=== PATIENT | female | born 1950 | race Caucasian/White ===

== ENCOUNTER → 2016-06-10 | Outpatient (REF) | payer MEDICARE, OTHER ==
[~2016-06-10] MED LIST: /CELE20CA; /LAMO20TA; /PRAV20TA; AMITRIP50 PO; BREO1INH3 INH; CALCCHW12; COLA100C PO; DEPA250T2; DEPA250T2 PO; DEPA250T32 PO; DEPA500T; FISH100035 PO; GLUC1CAP9 PO; LEVO50TA5 PO; LOPR50TA; LUNE1TAB9 PO; LUNE2TAB; MULT1TAB8 PO; OMEGA 3 FISH OIL PO; OMEP40CA2 PO; PAIN325T; PREG100CA; PREG25CA PO; PRESCAP6 PO; PRIL20CA PO; PROP80CA PO; RELP40TA PO; RELPAX; RELPAX PO; REPLAX; REST0.05 OU; SIMV20TA2 PO; THERGRAN; TOPR50TA; VITA100066 PO; VITAMIN B COMPLE1 PO; VITAMIN B12; VITATAB11 PO; WELL100T; [UNRECOGNIZED DRUG - REMARK]
[2016-06-10 12:04] LABS: BASO % 0.5 % (0.0-1.0); EOS # 0.2 K/mm3 (0.0-0.50); EOS % 4.6 % (0.0-3.0); LARGE UNSTAINED CELL # 0.1 K/mm3 (0.0-0.4); LARGE UNSTAINED CELL % 2.9 % (0.0-4.0); LYMPH # 2.2 K/mm3 (1.5-4.5); LYMPH % 47.6 % (24.0-44.0); MEAN CORPUSCULAR HEMOGLOBIN 32.1 pg (27.0-33.0); MEAN CORPUSCULAR HGB CONC 33.8 g/dl (32.0-36.5); MONO # 0.4 K/mm3 (0.0-0.8); MONO % 7.7 % (0.0-5.0); NEUTROPHILS # 1.7 K/mm3 (1.8-7.7); NEUTROPHILS % 36.8 % (36.0-66.0); PLATELET COUNT, AUTOMATED 154 k/mm3 (150-450); RED CELL DISTRIBUTION WIDTH 12.6 % (11.5-14.5); WHITE BLOOD COUNT 4.7 K/mm3 (4.0-10.0)
[2016-06-10 12:43] LABS: ALBUMIN 3.6 GM/DL (3.2-5.2); ALBUMIN/GLOBULIN RATIO 1.16 (1.00-1.93); ALKALINE PHOSPHATASE 87 U/L (45-117); ALT/SGPT 24 U/L (12-78); ANION GAP 9 MEQ/L (8-16); AST/SGOT 18 U/L (15-37); BILIRUBIN,TOTAL 0.4 MG/DL (0.2-1.0); BLOOD UREA NITROGEN 20 MG/DL (7-18); CALCIUM LEVEL 9.1 MG/DL (8.8-10.2); CARBON DIOXIDE LEVEL 30 MEQ/L (21-32); CHLORIDE LEVEL 102 MEQ/L (98-107); CREATININE FOR GFR 0.82 MG/DL (0.55-1.02); GLOMERULAR FILTRATION RATE > 60.0 (>45); GLUCOSE, FASTING 83 MG/DL (80-110); POTASSIUM SERUM 3.9 MEQ/L (3.5-5.1); SODIUM LEVEL 141 MEQ/L (136-145); TOTAL PROTEIN 6.7 GM/DL (6.4-8.2)
== END ==
LOC: M LABDRAW1 11:28
PROVIDERS: ATTEND Orthopaedic Surgery
DX: M16.11 Unilateral primary osteoarthritis, right hip (principal); Z79.899 Other long term (current) drug therapy

== ENCOUNTER → 2016-09-09 | Outpatient (REF) | payer MEDICARE, OTHER ==
[~2016-09-09] MED LIST changes: -COLA100C PO; +COLA100C3 PO
[2016-09-09 16:14] LABS: BASO % 0.6 % (0.0-1.0); EOS # 0.2 K/mm3 (0.0-0.50); EOS % 2.9 % (0.0-3.0); LARGE UNSTAINED CELL # 0.1 K/mm3 (0.0-0.4); LARGE UNSTAINED CELL % 1.9 % (0.0-4.0); LYMPH # 2.2 K/mm3 (1.5-4.5); LYMPH % 37.8 % (24.0-44.0); MEAN CORPUSCULAR HEMOGLOBIN 33.5 pg (27.0-33.0); MEAN CORPUSCULAR HGB CONC 34.3 g/dl (32.0-36.5); MEAN CORPUSCULAR VOLUME 97.8 fl (80.0-96.0); MONO # 0.4 K/mm3 (0.0-0.8); MONO % 7.2 % (0.0-5.0); NEUTROPHILS # 2.7 K/mm3 (1.8-7.7); NEUTROPHILS % 49.6 % (36.0-66.0); PLATELET COUNT, AUTOMATED 172 k/mm3 (150-450); RED CELL DISTRIBUTION WIDTH 13.9 % (11.5-14.5); WHITE BLOOD COUNT 5.5 K/mm3 (4.0-10.0)
[2016-09-09 16:27] LABS: ALBUMIN 3.8 GM/DL (3.2-5.2); ALBUMIN/GLOBULIN RATIO 1.12 (1.00-1.93); ALKALINE PHOSPHATASE 78 U/L (45-117); ALT/SGPT 26 U/L (12-78); ANION GAP 8 MEQ/L (8-16); AST/SGOT 22 U/L (15-37); BILIRUBIN,TOTAL 0.4 MG/DL (0.2-1.0); BLOOD UREA NITROGEN 21 MG/DL (7-18); CALCIUM LEVEL 8.9 MG/DL (8.8-10.2); CARBON DIOXIDE LEVEL 30 MEQ/L (21-32); CHLORIDE LEVEL 103 MEQ/L (98-107); CREATININE FOR GFR 0.86 MG/DL (0.55-1.02); GLOMERULAR FILTRATION RATE > 60.0 (>45); GLUCOSE, FASTING 101 MG/DL (80-110); POTASSIUM SERUM 4.1 MEQ/L (3.5-5.1); SODIUM LEVEL 141 MEQ/L (136-145); TOTAL PROTEIN 7.2 GM/DL (6.4-8.2)
== END ==
LOC: M LABDRAW1 15:31
PROVIDERS: ATTEND Orthopaedic Surgery
DX: M16.11 Unilateral primary osteoarthritis, right hip (principal); Z79.899 Other long term (current) drug therapy

== ENCOUNTER → 2016-09-10 | Outpatient (REF) | payer MEDICARE, OTHER | LOC: M LABDRAW1 13:39 | PROVIDERS: ATTEND Psychiatry & Neurology Neurology | DX: Z13.21 Encounter for screening for nutritional disorder (principal) ==

== ENCOUNTER 2016-10-03 14:01 | Emergency (ER) | payer MEDICARE, OTHER ==
[~2016-10-03] VITALS: Ht 177.8 cm; Wt 88.9 kg
[2016-10-03] MEDS ORDERED: MELO15TA4 PO (14:20)
[2016-10-03 15:08] LABS: BASO % 0.6 % (0.0-1.0); EOS # 0.2 K/mm3 (0.0-0.50); EOS % 2.9 % (0.0-3.0); LARGE UNSTAINED CELL # 0.1 K/mm3 (0.0-0.4); LARGE UNSTAINED CELL % 1.7 % (0.0-4.0); LYMPH # 2.7 K/mm3 (1.5-4.5); LYMPH % 43.6 % (24.0-44.0); MEAN CORPUSCULAR HEMOGLOBIN 33.5 pg (27.0-33.0); MEAN CORPUSCULAR HGB CONC 34.3 g/dl (32.0-36.5); MEAN CORPUSCULAR VOLUME 97.7 fl (80.0-96.0); MONO # 0.5 K/mm3 (0.0-0.8); MONO % 8.3 % (0.0-5.0); NEUTROPHILS # 2.6 K/mm3 (1.8-7.7); NEUTROPHILS % 42.9 % (36.0-66.0); PLATELET COUNT, AUTOMATED 192 k/mm3 (150-450); RED CELL DISTRIBUTION WIDTH 12.9 % (11.5-14.5)
[2016-10-03 15:15] LABS: INR 1.05
[2016-10-03 15:26] LABS: ALBUMIN 3.5 GM/DL (3.2-5.2); ALBUMIN/GLOBULIN RATIO 0.88 (1.00-1.93); ALKALINE PHOSPHATASE 69 U/L (45-117); ALT/SGPT 25 U/L (12-78); ANION GAP 4 MEQ/L (8-16); AST/SGOT 21 U/L (15-37); BILIRUBIN,DIRECT 0.1 MG/DL (0.0-0.2); BILIRUBIN,TOTAL 0.4 MG/DL (0.2-1.0); BLOOD UREA NITROGEN 24 MG/DL (7-18); CALCIUM LEVEL 9.2 MG/DL (8.8-10.2); CARBON DIOXIDE LEVEL 32 MEQ/L (21-32); CHLORIDE LEVEL 102 MEQ/L (98-107); CREATININE FOR GFR 0.72 MG/DL (0.55-1.02); GLOMERULAR FILTRATION RATE > 60.0 (>45); GLUCOSE, FASTING 91 MG/DL (80-110); POTASSIUM SERUM 4.4 MEQ/L (3.5-5.1); SODIUM LEVEL 138 MEQ/L (136-145); TOTAL PROTEIN 7.5 GM/DL (6.4-8.2)
[2016-10-03 15:33] LABS: ERYTHROCYTE SEDIMENTATION RATE 8 mm/hr (0-30)
[2016-10-03] MEDS ORDERED: ISOVUE-370 76% 100ML VIAL (Q9967) As Ordered ONE (15:38)
[2016-10-03] MEDS ORDERED: NS 1,000 ML IV ONE (15:45)
--- NOTE | 2016-10-03 16:36 | REP ---
Clinical: Decreased pedal pulse to the right lower extremity. Technique: Axial contrast enhanced images from the lung bases through the bilateral lower extremities using 100 ml Isovue 370 intravenous contrast material and arterial angiographic technique with coronal and sagittal re-formations and MPR reconstructions. Findings: Appropriate enhancement of the aorta and vasculature is achieved and there are no significant atherosclerotic changes from the aorta through the bilateral lower extremities. No evidence for aortic or iliac aneurysms. No areas of stenosis or occlusion appreciated. Appropriate enhancement of the celiac access, SMA, solitary bilateral renal arteries, ALEJANDRO and bilateral iliac arteries noted. The lower extremities demonstrate symmetric satisfactory enhancement of the common femoral arteries to the popliteal artery and symmetric trifurcation to the level of the ankles. Lung bases are clear. Visualized heart and pericardium normal. Liver, spleen, pancreas, gallbladder, bilateral adrenal glands and kidneys are normal in the arterial phase of enhancement. The enteric system is without obstruction or acute inflammatory process. Normal terminal ileum and appendix identified in the right lower quadrant. Pelvis demonstrates collapsed bladder and normal uterus / adnexa. Scattered sigmoid diverticula noted without acute diverticulitis. No pelvic fluid or ascites. No free air. No adenopathy. Musculoskeletal structures are intact with degenerative changes noted of the lower lumbar spine. Impression: 1. Normal arterial enhancement from the aorta through the bilateral lower extremities without atherosclerotic disease, aneurysm/dissection, stenosis or areas of occlusion. 2. No acute intra-abdominal or pelvic pathology appreciated. 3. Scattered sigmoid diverticula without acute diverticulitis. 4. Age-related degenerative changes to the lumbar spine. Signed by Sherwin Boles MD 10/03/2016 04:27 P
[2016-10-03 16:52] VITALS: BP 143/70
== END 2016-10-03 16:58 | disposition home or self-care (01) ==
LOC: M ED 14:51
DX: I73.9 Peripheral vascular disease, unspecified (principal); R20.2 Paresthesia of skin; F31.9 Bipolar disorder, unspecified; I10 Essential (primary) hypertension; E78.00 Pure hypercholesterolemia, unspecified; G43.909 Migraine, unspecified, not intractable, without status migrainosus; E03.9 Hypothyroidism, unspecified; Z85.3 Personal history of malignant neoplasm of breast; Z79.899 Other long term (current) drug therapy; Z87.891 Personal history of nicotine dependence; Z86.73 Personal history of transient ischemic attack (TIA), and cerebral infarction without residual deficits
CPT/HCPCS: 36415; 75635; 80048; 80076; 85025; 85610; 85652; 85730; 86140; 99283; Q9967

== ENCOUNTER 2016-10-22 11:37 | Emergency (ER) | payer MEDICARE ==
[~2016-10-22] VITALS: Ht 175.3 cm; Wt 92.1 kg
[~2016-10-22 11:37] MED LIST changes: +MELO15TA4 PO
[2016-10-22] MEDS ORDERED: PRESCAP PO (11:53)
[2016-10-22] MEDS ORDERED: ASPI1TAB PO (11:53)
[2016-10-22] MEDS ORDERED: GLUC1CAP10 PO (11:53)
[2016-10-22] MEDS ORDERED: PROA1AER INH (11:53)
[2016-10-22] MEDS ORDERED: BREO1INH3 INH (11:53)
[2016-10-22] MEDS ORDERED: LUNE1TAB9 PO (11:53)
[2016-10-22] MEDS ORDERED: RELP40TA PO (11:53)
[2016-10-22] MEDS ORDERED: ATOR40TA PO (11:53)
[2016-10-22] MEDS ORDERED: CALC600T10 PO (11:53)
--- NOTE | 2016-10-22 14:18 | REP ---
CT HEAD WITHOUT CONTRAST: HISTORY: Infarction. COMPARISON: 03/23/2016 Areas of decreased attentuation are present in the periventricular white matter. This represents small vessel ischemic disease. There is on intraparenchymal hemorrhage, acute infarct, mass, or midline shift. The ventricular system is normal in appearance. The cortical sulci are dilated consistent with minimal volume loss. There is no extracerebral collection. The visualized sinuses are clear. IMPRESSION: 1. Small vessel ischemic disease. 2. Minimal volume loss. Signed by Edilberto Loera MD 10/22/2016 02:21 P
[2016-10-22 14:21] LABS: BASO % 0.6 % (0.0-1.0); EOS # 0.2 K/mm3 (0.0-0.50); EOS % 2.9 % (0.0-3.0); LARGE UNSTAINED CELL # 0.1 K/mm3 (0.0-0.4); LARGE UNSTAINED CELL % 1.5 % (0.0-4.0); LYMPH # 2.5 K/mm3 (1.5-4.5); LYMPH % 33.4 % (24.0-44.0); MEAN CORPUSCULAR HGB CONC 34.8 g/dl (32.0-36.5); MEAN CORPUSCULAR VOLUME 97.7 fl (80.0-96.0); MONO # 0.5 K/mm3 (0.0-0.8); MONO % 7.4 % (0.0-5.0); NEUTROPHILS # 3.8 K/mm3 (1.8-7.7); NEUTROPHILS % 54.2 % (36.0-66.0); PLATELET COUNT, AUTOMATED 170 k/mm3 (150-450); RED CELL DISTRIBUTION WIDTH 12.7 % (11.5-14.5)
[2016-10-22 14:32] LABS: INR 0.94
[2016-10-22 14:41] LABS: ALBUMIN 3.7 GM/DL (3.2-5.2); ALBUMIN/GLOBULIN RATIO 1.09 (1.00-1.93); ALKALINE PHOSPHATASE 81 U/L (45-117); ALT/SGPT 21 U/L (12-78); ANION GAP 4 MEQ/L (8-16); AST/SGOT 16 U/L (15-37); BILIRUBIN,DIRECT 0.1 MG/DL (0.0-0.2); BILIRUBIN,TOTAL 0.5 MG/DL (0.2-1.0); BLOOD UREA NITROGEN 21 MG/DL (7-18); CALCIUM LEVEL 9.1 MG/DL (8.8-10.2); CARBON DIOXIDE LEVEL 32 MEQ/L (21-32); CHLORIDE LEVEL 100 MEQ/L (98-107); CREATININE FOR GFR 0.77 MG/DL (0.55-1.02); GLOMERULAR FILTRATION RATE > 60.0 (>45); GLUCOSE, FASTING 97 MG/DL (80-110); POTASSIUM SERUM 4.2 MEQ/L (3.5-5.1); SODIUM LEVEL 136 MEQ/L (136-145); TOTAL PROTEIN 7.1 GM/DL (6.4-8.2)
[2016-10-22 15:11] LABS: ERYTHROCYTE SEDIMENTATION RATE 13 mm/hr (0-30)
[2016-10-22 15:27] VITALS: BP 134/79
[2016-10-22] MEDS ORDERED: BUTATAB6 PO (15:38)
[2016-10-22] MEDS ORDERED: NORT25CA2 PO (15:38)
--- NOTE | 2016-10-22 16:33 | ECGEPIP ---
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
== END 2016-10-22 16:08 | disposition home or self-care (01) ==
LOC: M ED 12:39
DX: R51 Headache (principal); K21.9 Gastro-esophageal reflux disease without esophagitis; E03.9 Hypothyroidism, unspecified; F31.9 Bipolar disorder, unspecified; Z86.73 Personal history of transient ischemic attack (TIA), and cerebral infarction without residual deficits; Z79.899 Other long term (current) drug therapy; Z79.82 Long term (current) use of aspirin; Z87.891 Personal history of nicotine dependence; Z79.51 Long term (current) use of inhaled steroids

== ENCOUNTER → 2016-10-31 | Outpatient (CLI) | payer MEDICARE ==
[~2016-10-31] MED LIST changes: +ASPI1TAB PO; +ATOR40TA PO; +BUTATAB6 PO; +CALC600T10 PO; +GLUC1CAP10 PO; +NORT25CA2 PO; +PRESCAP PO; +PROA1AER INH
--- NOTE | 2016-10-31 12:22 | REP ---
REASON: Back pain and right sided lower extremity radicular symptoms. History of breast carcinoma. GADOLINIUM UTILIZED: 18 mL of Optimark 10 COMPARISON: Non-Gadolinium enhanced 06/01/2013 exam. Vertebral body height and alignment is unchanged. There is loss of disc space height and loss of disc hydrational signal at every level unchanged. No abnormal signal has developed in the imaged portion of the spinal cord. There is no change in the appearance of the marrow signal. At the L1-2 level, there is no disc herniation, foraminal narrowing, or central canal stenosis. There is no change from the prior exam. At the L2-3 level, there is no disc herniation, foraminal narrowing, or central canal stenosis. There is no significant change from the prior exam. At the L3-4 level, there is a broad based annular bulge which flattens and straightens the anterior thecal sac increased slightly from the prior exam. This is seen in conjunction with bilateral degenerative facet joint changes and thickening of the ligamentum flava which are causing mild central canal stenosis. There is no acute disc extrusion or foraminal narrowing. At the L4-5 level, there is a large asymmetric broad based annular bulge which flattens and straightens the anterior thecal sac. This is seen in conjunction with degenerative facet joint changes bilaterally and thickening of the ligamentum flava. The factors in concert are causing mild to moderate central canal stenosis. There is mild left foraminal narrowing but the exiting nerve roots are not compressed or displaced. There is no evidence of an acute disc extrusion. At the L5-S1 level, there is a broad based annular bulge seen in conjunction with degenerative facet joint changes bilaterally and thickening of the ligamentum flava. 2 mm of retrolisthesis of L5 upon S1 is again noted status quo. There is minimal central canal stenosis due to the afore mentioned findings status quo. There is no acute disc extrusion. The right foraminal L5 nerve is mildly compressed by the chronic changes status quo. No abnormal enhancement is seen at any level. IMPRESSION: Multilevel discogenic changes and other related findings increased from the prior exam at some levels as described above. Signed by Chavez Dodson DO 10/31/2016 01:42 P
== END ==
LOC: M RAD 08:05
PROVIDERS: ATTEND Orthopaedic Surgery
DX: M54.41 Lumbago with sciatica, right side (principal); M51.37 Other intervertebral disc degeneration, lumbosacral region
CPT/HCPCS: 72158; A9576

== ENCOUNTER → 2017-02-17 | Outpatient (CLI) | payer MEDICARE ==
[~2017-02-17] MED LIST changes: +ALEV220T26 PO; -ATOR40TA PO; +ATOR40TA75 PO; -CALC600T10 PO; +CALC600T31 PO; +CALCTAB68 PO; -COLA100C3 PO; +COLA100C5 PO; +COUM2.5T17 PO; -FISH100035 PO; +FISH7.5C PO; -LUNE1TAB9 PO; +LUNE2TAB23 PO; +PERC5TAB12 PO; -PROA1AER INH; +PROAAER10 INH; +STOO100C PO; +VERA40TA PO; +VITA100072 PO
--- NOTE | 2017-02-17 12:31 | REP ---
Chest two views HISTORY: Preop Comparison: None The lungs are clear. The heart is normal in size. The pulmonary vasculature is normal in appearance. The bony structure is intact. IMPRESSION: No acute disease. Signed by Edilberto Loera MD 02/17/2017 12:23 P
[2017-02-17 12:42] LABS: MEAN CORPUSCULAR HEMOGLOBIN 32.5 pg (27.0-33.0); MEAN CORPUSCULAR HGB CONC 34.5 g/dl (32.0-36.5); MEAN CORPUSCULAR VOLUME 94.3 fl (80.0-96.0); RED CELL DISTRIBUTION WIDTH 12.6 % (11.5-14.5); WHITE BLOOD COUNT 5.4 10^3/uL (4.0-10.0)
[2017-02-17 12:48] LABS: INR 0.85
[2017-02-17 13:04] LABS: ALBUMIN 4.1 GM/DL (3.2-5.2); ALBUMIN/GLOBULIN RATIO 1.28 (1.00-1.93); ALKALINE PHOSPHATASE 84 U/L (45-117); ALT/SGPT 20 U/L (12-78); ANION GAP 7 MEQ/L (8-16); AST/SGOT 20 U/L (15-37); BILIRUBIN,TOTAL 0.5 MG/DL (0.2-1.0); BLOOD UREA NITROGEN 23 MG/DL (7-18); CALCIUM LEVEL 9.3 MG/DL (8.8-10.2); CARBON DIOXIDE LEVEL 31 MEQ/L (21-32); CHLORIDE LEVEL 97 MEQ/L (98-107); CREATININE FOR GFR 0.78 MG/DL (0.55-1.02); GLOMERULAR FILTRATION RATE > 60.0 (>45); GLUCOSE, FASTING 90 MG/DL (80-110); POTASSIUM SERUM 4.6 MEQ/L (3.5-5.1); SODIUM LEVEL 135 MEQ/L (136-145); TOTAL PROTEIN 7.3 GM/DL (6.4-8.2)
== END ==
LOC: M ADMPAT 10:16
PROVIDERS: ATTEND Orthopaedic Surgery
DX: M16.11 Unilateral primary osteoarthritis, right hip (principal); Z79.01 Long term (current) use of anticoagulants

== ENCOUNTER → 2017-02-19 | Outpatient (REF) | payer MEDICARE | LOC: M LABDRAW1 15:07 | PROVIDERS: ATTEND Orthopaedic Surgery | DX: Z01.818 Encounter for other preprocedural examination (principal); M16.11 Unilateral primary osteoarthritis, right hip ==

== ENCOUNTER → 2017-02-25 | Outpatient (REF) | payer MEDICARE | LOC: M LAB REF 12:14 | PROVIDERS: ATTEND Nurse Practitioner Adult Health | DX: G45.9 Transient cerebral ischemic attack, unspecified (principal) ==

== ENCOUNTER 2017-03-02 07:23 | Inpatient (IN) | payer MEDICARE ==
[2017-02-17 12:12] VITALS: BP 154/94
--- NOTE | 2017-02-26 16:19 | HPE ---
DATE OF ADMISSION: 03/02/2017 CHIEF COMPLAINT: Right hip pain. HISTORY OF PRESENT ILLNESS: This is a pleasant 66-year-old female with progressively worsening right hip pain and stiffness. She has failed to improve with conservative treatment. She has elected for surgery for her continued symptoms. She has pain with weightbearing activities and her activities of daily living. X-rays are notable for advanced osteoarthritis of the right hip joint. She has consented for a right total hip arthroplasty by Dr. Darwin barba. Medical optimization was performed by Dr. Bullock's office. ALLERGIES: None. CURRENT MEDICATIONS: - Tylenol with codeine #3, one to two tablets every 4-6 hours - naproxen 500 mg twice a day - Depakote 250 three times a day - atorvastatin 40 mg a day - Restasis 0.05% twice daily - Synthroid 50 mcg a day - omeprazole 20 mg twice daily - Relpax 40 mg as needed - Breo 200/25 mcg one puff every day - aspirin 81 mg - calcium 1200 mg - daily multivitamin - glucosamine and chondroitin supplement - fish oil 1000 mg - vitamin D 1000 units a day - PreserVision AREDS 2, two by mouth every day - vitamin B12 at 1000 mcg a day. PAST MEDICAL HISTORY: Includes: 1. Lung issues. 2. Hypothyroidism. 3. High cholesterol. 4. History of transient ischemic attack (TIA) in March 2016. PAST SURGICAL HISTORY: Includes lumpectomy of the right breast in 1994 and lymph node removal on the right side in 1994. SOCIAL HISTORY: This patient is retired. She quit smoking 39 years ago and occasionally drinks alcohol. FAMILY HISTORY: Noncontributory. REVIEW OF SYSTEMS: This patient denies chest pain, heart palpitations, cough, wheezing, difficulty breathing, or shortness of breath. She denies abdominal pain, nausea, vomiting, diarrhea, or constipation. She denies recent upper respiratory infection or urinary tract infection symptoms. She does complain of persistent pain in the right hip and pain with weightbearing activities in the right hip. PHYSICAL EXAMINATION: GENERAL: She is a well-nourished, well-developed in no acute distress, alert female patient. She ambulates with a moderate limp, favoring her right lower extremity. She is not using assistive devices. VITAL SIGNS: She is 69 inches tall, weighs 198 pounds with a temperature of 97.6, pulse 76, respirations of 12, and blood pressure 140/82. NECK: Supple without adenopathy or jugular venous distension. There were no carotid bruits appreciated upon auscultation. LUNGS: Clear to auscultation without rales or wheeze. HEART: Regular rate and rhythm. ABDOMEN: Bowel sounds were present. EXTREMITIES: Examination of the hip revealed intact skin. She had decreased range of motion with internal and external rotation on exam secondary to pain. The leg is neurovascularly intact. LABORATORY DATA: EKG showed sinus bradycardia with a left bundle branch block at 58 beats per minute. Chest x-ray showed no acute cardiopulmonary disease processes. Urinalysis (UA) showed trace ketones, trace leukocyte esterase, 5 white blood cells, 1+ bacteria, otherwise within normal limits with a specific gravity of 1.014. Urine culture showed no clinically significant growth. Protime 11.7, INR 0.85. Glucose 98, BUN 23, creatinine 0.78, sodium 135, potassium 4.6. CBC was within normal limits. Sedimentation rate was 8. Nasal and sinus culture showed normal miriam. IMPRESSION: Symptomatic osteoarthritis of the right hip joint. PLAN: Consented for a right total hip arthroplasty by Dr. Darwin Barba.
[2017-03-02] VITALS (8 sets, daily range): BP systolic 88–160; BP diastolic 61–92; O2SAT 95
[~2017-03-02] VITALS: Ht 177.8 cm; Wt 92.1 kg
[~2017-03-02 07:23] MED LIST changes: -COUM2.5T17 PO; -PERC5TAB12 PO
[2017-03-02] MEDS ORDERED: LR 1,000 ML IV SCH ×3 (07:30→13:00)
[2017-03-02] MEDS ORDERED: ONDANSETRON 4MG/2ML VIAL (J2405) As Ordered ONE (08:50)
[2017-03-02] MEDS ORDERED: LIDOCAINE 2% INJ 100 MG/5 ML SDV (FOR ANES.) As Ordered ONE (08:50)
[2017-03-02] MEDS ORDERED: dexameTHASONE 4 MG/ML 1ML VIAL (J1100) As Ordered ONE (08:50)
[2017-03-02] MEDS ORDERED: PROPOFOL 200 MG/20 ML VIAL As Ordered ONE ×2 (08:50→11:32)
[2017-03-02] MEDS ORDERED: fentaNYL 100 MCG/2 ML INJECTION (J3010) As Ordered ONE (08:50)
[2017-03-02] MEDS ORDERED: MIDAZOLAM INJ 2 MG/2 ML VIAL (J2250) As Ordered ONE (08:51)
[2017-03-02] MEDS: CALCIUM/VITAMIN D 500 MG TAB PO SCH (09:00)
[2017-03-02] MEDS: VITAMIN D 1,000 INTERNATIONAL UNITS TABLET PO SCH (09:00)
[2017-03-02] MEDS: VITAMIN B COMPLEX/VIT C CAP PO SCH (09:00)
[2017-03-02] MEDS ORDERED: CALCIUM/VITAMIN D 500 MG TAB PO SCH (09:00)
[2017-03-02] MEDS: CYANOCOBALAMIN 500 MCG TAB PO SCH (09:00)
[2017-03-02] MEDS ORDERED: PHENYLEPHRINE INJ 10MG/ML VIAL (J2370) As Ordered ONE ×2 (09:15→11:26)
[2017-03-02] MEDS ORDERED: ceFAZolin 1GM INJ (J0690) As Ordered ONE (09:47)
[2017-03-02] MEDS ORDERED: EPINEPHrine INJ 1 MG/ML 1ML AMP As Ordered ONE (09:48)
[2017-03-02] MEDS ORDERED: TRANEXAMIC ACID 100 MG/ML 10ML VIAL As Ordered ONE (09:48)
--- NOTE | 2017-03-02 10:04 | HPE ---
DATE OF ADMISSION: 03/02/2017 The patient seen and examined. She wished to go ahead with a right hip replacement. She understands the nature of this. the risks of bleeding, infection, damage to nerves, vessels, persistent pain, wear loosening, dislocation, leg length inequality, blood clots, medical problems, , among others. Preoperative clearance was obtained. Her leg lengths actually show her right leg to be slightly longer than her left.
[2017-03-02] MEDS ORDERED: MORPHINE 1MG/ML IN 0.9% NACL 100ML IV BAG As Ordered ONE (12:03)
--- NOTE | 2017-03-02 12:55 | RO ---
DATE OF PROCEDURE: 03/02/2017 PREOPERATIVE DIAGNOSIS: Right hip osteoarthritis. POSTOPERATIVE DIAGNOSIS: Right hip osteoarthritis. PROCEDURE: Right total hip arthroplasty using a Oakman size 6 high offset and a 54 cup, a 36 +5 head. SURGEON: Darwin Guzmán MD SYNTHETIC RESIN OPERATOR: Herbert Esposito PA-C ANESTHESIA: Spinal. ESTIMATED BLOOD LOSS (EBL): Less than 200. COMPLICATIONS: None. INDICATIONS: A 66-year woman who has had some gradually worsening right hip pain. She wished to go ahead with surgical treatment having failed conservative management. She understood the nature of this, the risks of bleeding, infection, damage to nerves, vessels, persistent pain, wear loosening, dislocation, leg length inequality, blood clots, medical problems, , among others. DESCRIPTION OF PROCEDURE: The patient taken to the operating room and placed in the left lateral decubitus position after spinal anesthesia was induced. She was placed on the Noah positioner in the usual fashion, and all areas were padded appropriately. The right hip was prepped and draped in the usual sterile fashion. Time-out was performed, and a longitudinal incision was made over the lateral aspect of the hip. She did have significant subcutaneous tissue, which made the dissection more difficult. I exposed the fascia rona and incised this longitudinally, exposing the abductors. The anterior 40% of the abductor was dissected off the femur, as we gradually externally rotated the femur and exposed the femoral neck. The labrum was divided. We then were able to dislocate the hip without difficulty and put the leg in the bag. The canal initiating reamer was used to then begin the hole in the proximal femur. I then used the canal finding reamer, the lateralizing reamer, and then sequentially reamed up to a size 5 at this point, which had a reasonably good purchase. I then made the neck cut at about a half a fingerbreadth up from the lesser trochanter and directed our attention back the acetabulum. I spent a good deal of time removing soft tissue from around the acetabulum and controlling hemostasis. I then began reaming with a 46 and reamed up to a size 53, which had good bleeding bone and good concentric appearance to the acetabulum. I was able to medialized this some, as well. I irrigated copiously and then impacted in a 54 cup, and an excellent purchase was noted. It was very stable. This was placed the appropriate amount of anteversion and horizontal tilt. The 54 x 36 liner was then inserted. I impacted this in place after I placed the apex hole eliminator and made sure that the polyethylene was seated. I directed our attention back the femur. I then began broaching up to a size 5, and it was countersinking the size 5, so I decided to go with a 6, which I first used the reamer for this and then used the 6 broach and brought this down. It had excellent fit and fill of the canal. I trialed it off this, initially using a 1.5 neck in a standard stem, and this felt to be too loose, so I went up to a size +5 neck, and there was a little bit of shuck in full extension. It was stable in extension external rotation, but it was camming out a little bit in flexion internal rotation. It was not clear whether this was external soft tissue impingement, but it did not feel like there was any bony impingement around the acetabulum or on the femur. I decided to try a high offset +5 at this point, and this seemed to take care of any instability and had excellent extension and external rotation stability, excellent flexion internal rotation stability, and excellent position of the components. I removed the trial components. Again, copious irrigation was performed, and I impacted in the size 6 high offset. I did place some of the bone graft reamings around the very proximal aspect of the calcar as I seated the stem the last few millimeters. Excellent fit was noted. I dried the taper and placed the +5 36 ball and then reduced the hip with the medical assistant float's help. I put the hip through range of motion. I was very pleased with soft tissue tension stability. There was minimal shuck in full extension. The wound was copiously irrigated. I then repaired the minimus with #1 Vicryl suture. The abductor was repair with #1 Vicryl suture with several being placed through the bone, and excellent watertight closure was noted. I did place tranexamic acid (TXA) solution prior to this. I then repaired the fascia rona with #1 Vicryl suture and then some running Stratafix #1 sutures in each direction. The medical assistant float closed one-half of the fascia rona. I then irrigated, closed the subcutaneous tissue in layers because I was trying to avoid any space, so a running Stratafix suture was used size #0 in the subcutaneous tissue reapproximated this. I then closed the subcutaneous with #2-0 Vicryl, the skin with silvia. Sterile dressing was applied, and she was taken to the recovery room in stable condition. There were no known complications. The plan be routine postoperative for hip replacement. The medical assistant float was instrumental in holding retractors and assisting in reducing and dislocating the hip and in wound closure.
[2017-03-02] MEDS ORDERED: FLEET ENEMA PR PRN (13:00)
[2017-03-02] MEDS ORDERED: fentaNYL 100 MCG/2 ML INJECTION (J3010) IV PRN (13:00)
[2017-03-02] MEDS ORDERED: ONDANSETRON 4MG/2ML VIAL (J2405) IV PRN (13:00)
[2017-03-02] MEDS ORDERED: EPIDURAL/PCA KEYS XX PRN (13:15)
[2017-03-02] MEDS ORDERED: NALBUPHINE HCL 10 MG/ML AMP (J2300) IV PRN (13:15)
[2017-03-02] MEDS ORDERED: NALOXONE INJ 0.4 MG/1 ML VIAL (J2310) IV PRN (13:15)
[2017-03-02] MEDS ORDERED: diphenhydrAMINE INJ 50MG/ML VIAL (J1200) IV PRN (13:15)
[2017-03-02] MEDS ORDERED: MORPHINE 1MG/ML IN 0.9% NACL 100ML IV BAG IV PRN (13:15)
[2017-03-02] MEDS ORDERED: ACETAMINOPHEN TAB 650MG DOSE (2X325MG) PO PRN (14:00)
[2017-03-02] MEDS ORDERED: ALBUTEROL 90 MCG/ACT 8GM HFA INHALER INH PRN (15:45)
--- NOTE | 2017-03-02 16:16 | CR.PDOC ---
[facility] Consultation Consultation DATE OF CONSULTATION: 03/02/17 PRIMARY CARE PHYSICIAN: Jess Willams REFERRING PROVIDER: Dr. Guzmán ATTENDING PHYSICIAN: Dr. Guzmán REASON FOR CONSULTATION/CHIEF COMPLAINT:Postoperative right hip HISTORY OF PRESENT ILLNESS: This is a 66-year-old female past medical history of migraines, hypothyroidism, bipolar disorder, reactive airway disease, history of CVA left and March 2017, chronic left bundle-branch block idiopathic per patient, history of dry macular degeneration, right breast cancer status post lumpectomy and radiation in 1994 presents for right hip arthroplasty. We have been consulted for medical comanagement. Patient denies chest pain/shortness of breath/palpitations. No nausea/vomiting/ abdominal pain. Feels well. ALLERGIES: Please see below. HOME MEDICATIONS: Please see below. PAST MEDICAL HISTORY: As per [facility] PAST SURGICAL HISTORY: Left breast lumpectomy in 1991, right breast lumpectomy in 1994 FAMILY HISTORY: Mother with basilar artery rupture at age 78 SOCIAL HISTORY: History of tobacco abuse 5 years however quit 40 years ago. Occasional alcohol. No illicit drug use. 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 REVIEW OF SYSTEMS: HEENT: Denies sore throat/headache CARDIOVASCULAR: Denies chest pain/palpitations RESPIRATORY: Denies shortness of breath/cough GASTROINTESTINAL: denies nausea/vomiting GENITOURINARY: Denies dysuria/urinary urgency. MUSCULOSKELETAL: Denies myalgias/arthralgias NEUROLOGICAL: Denies any focal weakness PHYSICAL EXAMINATION: VITAL SIGNS: Please see below. General: No acute distress, laying comfortably in bed. HEENT: Moist mucous membranes. Neck: No JVD or lymphadenopathy Cardiac: RRR, No murmurs Pulm: Clear to auscultation b/l. No wheezing, rhonchi Abd: NT/ND + BS Ext: No edema or cyanosis. Right Hip bandage intact. No bleeding noted. Mild swelling. Distal pulse intact. LABORATORY DATA: Please see below. ASSESSMENT/PLAN: 1. Postop day 0 status post right total hip- management per orthopedics 2. Hypothyroidism- continue Synthroid 3. History of CVA- will be placed on Coumadin for DVT prophylaxis per orthopedics. Aspirin held at this time. Consider restarting depending on duration of Coumadin therapy. Continue statin. 4. History of migraines 5. History of GERD on PPI 6. History of reactive airway disease stable 7. History of bipolar disorder on Depakote 8. History of dry macular degeneration 9. History of chronic left bundle-branch block 10. History of right-sided breast cancer status post lumpectomy 1995 status post radiation. DVT prophylaxis per orthopedics Vital Signs/I&O Vital Signs Date Time Temp Pulse Resp B/P (MAP) Pulse Ox O2 Delivery O2 Flow Rate FiO2 03/02/17 14:45 97.9 72 11 151/92 (111) 98 Room Air I&O- Last 24 Hours up to 6 AM 03/03/17 06:00 Intake Total 530 ml Output Total 300 ml Balance 230 ml Allergies Coded Allergies: Codeine (Verified Adverse Reaction, Intermediate, severe vomiting, ) Nortriptyline (Verified Adverse Reaction, Intermediate, felt like a zombie , 03/02/17) Tramadol (Verified Adverse Reaction, Intermediate, severe vomiting, ) Home Medications Scheduled (Restasis) 0.05 % Emu, 0.05 % OU BID, (Reported) (Multi Vitamin Daily) 1 Tab Tab, 1 TAB PO DAILY, (Reported) (Fish Oil 1000 mg) 1 Cap Cap, 2 CAP PO DAILY, (Reported) (Preservision Areds) 1 Cap Cap, 2 CAP PO DAILY, (Reported) Aspirin (Aspirin 81) 81 Mg Tab, 81 MG PO DAILY, #30 (Reported) Atorvastatin Calcium (Atorvastatin Calcium) 40 Mg Tab, 40 MG PO QHS, (Reported) B1/B2/B3/B5/B6 (Vitamin B Complex) 1 Tab Tab, 1 TAB PO DAILY, (Reported) Calcium/Vitamin D (Calcium 600 + D 600-400 mg-Unit) 1 Tab Tab, 2 TAB PO DAILY, ( Reported) Cholecalciferol (Vitamin D) 1,000 Unit Tab, 1,000 UNIT PO DAILY, (Reported) Cyanocobalamin (Vitamin B12) 1,000 Mcg Tab, 1,000 MCG PO DAILY, (Reported) Divalproex Sodium (Depakote ER) 250 Mg Tab, 750 MG PO QHS, (Reported) Docusate Sodium (Stool Softener) 100 Mg Cap, 200 MG PO QHS, (Reported) Eszopiclone (Lunesta) 2 Mg Tab, 2 MG PO QHS, (Reported) Fluticasone/Vilanterol (Breo Ellipta 200-25 Mcg/INH) 1 Inh Inh, 1 PUFF INH DAILY , (Reported) Glucosamine Chondroitin (Glucosamine Chondroitin) 1 Cap Cap, 1 CAP PO DAILY, ( Reported) Levothyroxine Sodium (Synthroid) 50 Mcg Tab, 50 MCG PO QHS, (Reported) Meloxicam (Meloxicam) 15 Mg Tab, 15 MG PO DAILY, (Reported) Omeprazole (Omeprazole) 40 Mg Cap, 40 MG PO DAILY, (Reported) Verapamil HCl (Verapamil HCl) 40 Mg Tab, 20 MG PO BID, (Reported) will be increased to 40 mg 10 daily Scheduled PRN Albuterol Sulfate (Proair Hfa) 108 Mcg/Act Aer, 1 PUFF INH Q4HP PRN for SHORTNESS OF BREATH, (Reported) Naproxen Sodium (Aleve) 220 Mg Tab, 440 MG PO BID PRN for PAIN, (Reported) ESTEBAN GALLEGOS MD Mar 02, 2017 16:16
[2017-03-02] MEDS ORDERED: WARFARIN SOD 5 MG TAB PO ONE (17:00)
[2017-03-02] MEDS: ONDANSETRON 4MG/2ML VIAL (J2405) IV PRN (18:19)
[2017-03-02] MEDS: PERCOCET 5MG/325MG TAB PO PRN ×2 (18:20→22:45)
[2017-03-02] MEDS: DOCUSATE SODIUM 100 MG CAP PO SCH (21:12)
[2017-03-02] MEDS: DIVALPROEX 250MG *ER* TAB PO SCH (21:12)
[2017-03-02] MEDS: VERAPAMIL 40 MG TAB PO SCH (21:13)
[2017-03-02] MEDS: ATORVASTATIN 20 MG TAB PO SCH (21:17)
[2017-03-02] MEDS: diphenhydrAMINE 25 MG CAP PO PRN (22:49)
[2017-03-03 02:00] VITALS: BP 153/79
[2017-03-03] MEDS: PERCOCET 5MG/325MG TAB PO PRN ×5 (03:06→20:29)
[2017-03-03 06:00] VITALS: BP 119/64
[2017-03-03] MEDS: LEVOTHYROXINE 50MCG TABLET (0.05MG) PO SCH (06:24)
[2017-03-03 06:51] LABS: MEAN CORPUSCULAR HEMOGLOBIN 32.4 pg (27.0-33.0); MEAN CORPUSCULAR VOLUME 92.7 fl (80.0-96.0); PLATELET COUNT, AUTOMATED 202 10^3/uL (150-450); RED CELL DISTRIBUTION WIDTH 12.8 % (11.5-14.5); WHITE BLOOD COUNT 10.8 10^3/uL (4.0-10.0)
[2017-03-03 07:09] LABS: INR 1.14
[2017-03-03 07:42] VITALS: O2SAT 98
[2017-03-03] MEDS: MOM 30ML SUSPENSION UDC PO SCH (08:11)
[2017-03-03] MEDS: MIRALAX *UNIT DOSE* 17GM PACKET PO SCH (08:11)
[2017-03-03] MEDS: OMEPRAZOLE 20 MG CAP PO SCH (08:12)
[2017-03-03] MEDS: VITAMIN D 1,000 INTERNATIONAL UNITS TABLET PO SCH (08:12)
[2017-03-03] MEDS: CALCIUM/VITAMIN D 500 MG TAB PO SCH (08:12)
[2017-03-03] MEDS: VERAPAMIL 40 MG TAB PO SCH ×2 (08:12→20:28)
[2017-03-03] MEDS: VITAMIN B COMPLEX/VIT C CAP PO SCH (08:12)
[2017-03-03] MEDS: SENOKOT S TAB PO SCH ×2 (08:13→20:29)
[2017-03-03] MEDS: CYANOCOBALAMIN 500 MCG TAB PO SCH (08:13)
[2017-03-03] MEDS: ONDANSETRON 4 MG TAB (S0181) PO PRN ×2 (09:46→16:13)
[2017-03-03 10:00] VITALS: BP 120/75
--- NOTE | 2017-03-03 11:27 | REP ---
RIGHT HIP: Three views of the right hip are performed. There is a total hip prosthesis in good position. The structures are well aligned and intact. Signed by Abiodun Hogan MD 03/04/2017 04:25 P
[2017-03-03] MEDS: RESTASIS 0.05% OU SCH ×2 (11:38→20:26)
[2017-03-03] MEDS: OPTHALMIC OU SCH ×2 (11:38→20:26)
[2017-03-03] MEDS: BREO ELLIPTA INH SCH (11:38)
--- NOTE | 2017-03-03 13:08 | IPNPDOC ---
Subjective Date Seen The patient was seen on 03/03/17. Subjective Chief Complaint/HPI The patient is a 66-year-old female admitted with a reason for visit of Right Hip Arthritis. Events since last encounter No complaints today except for right hip pain at the surgical site. Objective Physical Examination General Exam: Positive: Alert, Cooperative, No Acute Distress Eye Exam: Positive: PERRLA, Conjunctiva & lids normal, EOMI, Negative: Sclera icteric ENT Exam: Positive: Atraumatic, Mucous membr. moist/pink, Pharynx Normal Neck Exam: Positive: Supple, Negative: JVD, thyromegaly Chest Exam: Positive: Clear to auscultation, Normal air movement Heart Exam: Positive: Rate Normal, Regular Rhythm, Normal S1, Normal S2, Negative: Murmurs, Rubs Abdomen Exam: Positive: Normal bowel sounds, Soft, Negative: Tenderness, Hepatospenomegaly Extremity Exam: Positive: Normal pulses, Negative: Clubbing, Cyanosis, Edema Assessment /Plan Problems (1) S/P total hip arthroplasty Status: Acute Problem Text: Had elective right total hip for advanced osteoarthritis. Pain control and dvt prophylaxis as per orthopedics. (2) Hypothyroid Status: Chronic (3) Reactive airway disease Status: Chronic Problem Text: continue Breo (4) Bipolar disorder Status: Chronic Problem Text: can continue depakote, verapamil ,lunesta (5) History of breast cancer Status: Chronic (6) History of CVA (cerebrovascular accident) Status: Chronic (7) Macular degeneration Status: Chronic Problem Text: continue restasis. (8) Hyperlipidemia Status: Chronic Problem Text: continue statin (9) Hypertension Status: Chronic Problem Text: continue verapamil Plan/VTE VTE Prophylaxis Ordered?: Yes VS, I&O, 24H, Fishbone Vital Signs/I&O Vital Signs Date Time Temp Pulse Resp B/P (MAP) Pulse Ox O2 Delivery O2 Flow Rate FiO2 03/03/17 12:30 14 03/03/17 10:00 97.8 74 120/75 (90) 98 Room Air I&O- Last 24 Hours up to 6 AM 03/04/17 06:00 Intake Total 1040 ml Balance 1040 ml Laboratory Data 24H LABS Laboratory Tests 2 03/03/17 06:43: Nucleated Red Blood Cells % (auto) 0.0, Prothrombin Time 14.8H, Prothromb Time International Ratio 1.14 CBC/BMP Laboratory Tests 03/03/17 06:43 Red Blood Count 3.95 L, Mean Corpuscular Volume 92.7, Mean Corpuscular Hemoglobin 32.4, Mean Corpuscular Hemoglobin Concent 35.0, Red Cell Distribution Width 12.8 BECKY MCKENNA MD Mar 03, 2017 13:08
[2017-03-03] MEDS ORDERED: WARFARIN SOD 5 MG TAB PO ONE (17:00)
[2017-03-03] MEDS: DIVALPROEX 250MG *ER* TAB PO SCH (20:26)
[2017-03-03] MEDS: DOCUSATE SODIUM 100 MG CAP PO SCH (20:27)
[2017-03-03] MEDS: ATORVASTATIN 20 MG TAB PO SCH (20:29)
[2017-03-03] MEDS: diphenhydrAMINE 25 MG CAP PO PRN (20:32)
[2017-03-03 22:00] VITALS: BP 119/63
[2017-03-03] MEDS: LUNESTA PO SCH (23:39)
[2017-03-04] MEDS: PERCOCET 5MG/325MG TAB PO PRN ×5 (00:13→21:58)
[2017-03-04 00:30] VITALS: O2SAT 95
[2017-03-04 06:00] VITALS: BP 114/58
[2017-03-04] MEDS: LEVOTHYROXINE 50MCG TABLET (0.05MG) PO SCH (06:28)
[2017-03-04 06:57] LABS: MEAN CORPUSCULAR HEMOGLOBIN 32.7 pg (27.0-33.0); MEAN CORPUSCULAR HGB CONC 34.6 g/dl (32.0-36.5); MEAN CORPUSCULAR VOLUME 94.5 fl (80.0-96.0); PLATELET COUNT, AUTOMATED 171 10^3/uL (150-450); RED CELL DISTRIBUTION WIDTH 13.2 % (11.5-14.5); WHITE BLOOD COUNT 9.2 10^3/uL (4.0-10.0)
[2017-03-04 07:08] LABS: INR 2.22
[2017-03-04] MEDS: CALCIUM/VITAMIN D 500 MG TAB PO SCH (08:10)
[2017-03-04] MEDS: SENOKOT S TAB PO SCH ×2 (08:10→21:56)
[2017-03-04] MEDS: VITAMIN D 1,000 INTERNATIONAL UNITS TABLET PO SCH (08:10)
[2017-03-04] MEDS: VITAMIN B COMPLEX/VIT C CAP PO SCH (08:10)
[2017-03-04] MEDS: OMEPRAZOLE 20 MG CAP PO SCH (08:10)
[2017-03-04] MEDS: VERAPAMIL 40 MG TAB PO SCH ×2 (08:10→21:57)
[2017-03-04] MEDS: CYANOCOBALAMIN 500 MCG TAB PO SCH (08:11)
[2017-03-04] MEDS: MOM 30ML SUSPENSION UDC PO SCH (08:12)
[2017-03-04] MEDS: MIRALAX *UNIT DOSE* 17GM PACKET PO SCH (08:12)
[2017-03-04] MEDS: RESTASIS 0.05% OU SCH ×2 (08:12→21:00)
[2017-03-04] MEDS: OPTHALMIC OU SCH ×2 (08:12→21:00)
[2017-03-04] MEDS ORDERED: diphenhydrAMINE CREAM 30GM TOP PRN (08:15)
[2017-03-04] MEDS: BREO ELLIPTA INH SCH (09:16)
[2017-03-04] MEDS: ONDANSETRON 4MG/2ML VIAL (J2405) IV PRN (14:10)
[2017-03-04] MEDS: LUNESTA PO SCH (21:56)
[2017-03-04] MEDS: DOCUSATE SODIUM 100 MG CAP PO SCH (21:56)
[2017-03-04] MEDS: DIVALPROEX 250MG *ER* TAB PO SCH (21:56)
[2017-03-04] MEDS: ATORVASTATIN 20 MG TAB PO SCH (21:57)
[2017-03-04 22:00] VITALS: BP 129/69
[2017-03-04] MEDS: diphenhydrAMINE 25 MG CAP PO PRN (22:00)
[2017-03-05] MEDS: PERCOCET 5MG/325MG TAB PO PRN ×3 (02:30→10:51)
[2017-03-05 06:00] VITALS: BP 119/64
[2017-03-05] MEDS: LEVOTHYROXINE 50MCG TABLET (0.05MG) PO SCH (06:45)
[2017-03-05] MEDS: BREO ELLIPTA INH SCH (07:14)
[2017-03-05 07:46] LABS: INR 1.74
[2017-03-05] MEDS: ONDANSETRON 4MG/2ML VIAL (J2405) IV PRN (08:11)
[2017-03-05] MEDS ORDERED: COUM2.5T17 PO (08:47)
[2017-03-05] MEDS ORDERED: PERC5TAB12 PO (08:47)
[2017-03-05] MEDS: RESTASIS 0.05% OU SCH ×2 (09:59→21:00)
[2017-03-05] MEDS: MIRALAX *UNIT DOSE* 17GM PACKET PO SCH (09:59)
[2017-03-05] MEDS: MOM 30ML SUSPENSION UDC PO SCH (09:59)
[2017-03-05] MEDS: OPTHALMIC OU SCH ×2 (09:59→21:00)
[2017-03-05] MEDS: VITAMIN D 1,000 INTERNATIONAL UNITS TABLET PO SCH (10:00)
[2017-03-05] MEDS: SENOKOT S TAB PO SCH ×3 (10:00→21:21)
[2017-03-05] MEDS: CALCIUM/VITAMIN D 500 MG TAB PO SCH (10:00)
[2017-03-05] MEDS: CYANOCOBALAMIN 500 MCG TAB PO SCH (10:00)
[2017-03-05] MEDS: OMEPRAZOLE 20 MG CAP PO SCH (10:00)
[2017-03-05] MEDS: VITAMIN B COMPLEX/VIT C CAP PO SCH (10:01)
[2017-03-05] MEDS: VERAPAMIL 40 MG TAB PO SCH ×2 (10:01→21:20)
[2017-03-05] MEDS: ONDANSETRON 4 MG TAB (S0181) PO PRN ×2 (13:32→17:10)
[2017-03-05] MEDS: ACETAMINOPHEN 500 MG TAB PO SCH ×2 (13:59→21:00)
[2017-03-05 14:00] VITALS: BP 122/65
[2017-03-05] MEDS ORDERED: WARFARIN SOD 5 MG TAB PO ONE (17:00)
[2017-03-05] MEDS ORDERED: TAPENTADOL 50 MG TABLET (NUCYNTA) PO PRN (20:45)
[2017-03-05] MEDS ORDERED: CYCLOBENZAPRINE 10 MG TAB PO PRN (20:45)
[2017-03-05] MEDS: DOCUSATE SODIUM 100 MG CAP PO SCH ×2 (21:00→21:21)
[2017-03-05] MEDS: ATORVASTATIN 20 MG TAB PO SCH (21:20)
[2017-03-05] MEDS: LUNESTA PO SCH (21:20)
[2017-03-05] MEDS: DIVALPROEX 250MG *ER* TAB PO SCH (21:20)
[2017-03-05] MEDS: TAPENTADOL 50 MG TABLET (NUCYNTA) PO PRN (21:22)
[2017-03-05 22:00] VITALS: BP 126/68
[2017-03-06] MEDS: TAPENTADOL 50 MG TABLET (NUCYNTA) PO PRN ×2 (02:45→09:50)
[2017-03-06] MEDS: LEVOTHYROXINE 50MCG TABLET (0.05MG) PO SCH (05:11)
[2017-03-06 06:00] VITALS: BP 128/79
[2017-03-06 06:55] LABS: INR 1.57
--- NOTE | 2017-03-06 07:40 | IPNPDOC ---
Subjective Date Seen The patient was seen on 03/06/17. Subjective Chief Complaint/HPI The patient is a 66-year-old female admitted with a reason for visit of Right Hip Arthritis. Events since last encounter still some nausea but better today , no fever or chills, no chest pain or sob , no abdominal pain Objective Physical Examination General Exam: Positive: Alert, Cooperative, No Acute Distress Eye Exam: Positive: PERRLA, Conjunctiva & lids normal, EOMI, Negative: Sclera icteric ENT Exam: Positive: Atraumatic, Mucous membr. moist/pink, Pharynx Normal Neck Exam: Positive: Supple, Negative: JVD, thyromegaly Chest Exam: Positive: Clear to auscultation, Normal air movement Heart Exam: Positive: Rate Normal, Regular Rhythm, Normal S1, Normal S2, Negative: Murmurs, Rubs Abdomen Exam: Positive: Normal bowel sounds, Soft, Negative: Tenderness, Hepatospenomegaly Extremity Exam: Positive: Normal pulses, Negative: Clubbing, Cyanosis, Edema Assessment /Plan Problems (1) S/P total hip arthroplasty Status: Acute Problem Text: Had elective right total hip for advanced osteoarthritis. Pain control and dvt prophylaxis as per orthopedics. (2) Hypothyroid Status: Chronic (3) Reactive airway disease Status: Chronic Problem Text: continue Breo (4) Bipolar disorder Status: Chronic Problem Text: can continue depakote, verapamil ,lunesta (5) History of breast cancer Status: Chronic (6) History of CVA (cerebrovascular accident) Status: Chronic (7) Macular degeneration Status: Chronic Problem Text: continue restasis. (8) Hyperlipidemia Status: Chronic Problem Text: continue statin (9) Hypertension Status: Chronic Problem Text: continue verapamil Plan/VTE VTE Prophylaxis Ordered?: Yes VS, I&O, 24H, Fishbone Vital Signs/I&O Vital Signs Date Time Temp Pulse Resp B/P (MAP) Pulse Ox O2 Delivery O2 Flow Rate FiO2 03/06/17 06:00 98.0 94 18 128/79 (95) 93 Room Air 03/03/17 20:59 95.0 Laboratory Data 24H LABS Laboratory Tests 2 03/06/17 06:22: Prothrombin Time 19.2H, Prothromb Time International Ratio 1.57 BECKY MCKENNA MD Mar 06, 2017 07:40
[2017-03-06] MEDS: BREO ELLIPTA INH SCH (08:30)
[2017-03-06] MEDS: MIRALAX *UNIT DOSE* 17GM PACKET PO SCH (09:00)
[2017-03-06] MEDS: MOM 30ML SUSPENSION UDC PO SCH (09:00)
[2017-03-06] MEDS: CALCIUM/VITAMIN D 500 MG TAB PO SCH (09:47)
[2017-03-06] MEDS: VITAMIN D 1,000 INTERNATIONAL UNITS TABLET PO SCH (09:48)
[2017-03-06] MEDS: ACETAMINOPHEN 500 MG TAB PO SCH (09:48)
[2017-03-06] MEDS: VITAMIN B COMPLEX/VIT C CAP PO SCH (09:48)
[2017-03-06] MEDS: OMEPRAZOLE 20 MG CAP PO SCH (09:48)
[2017-03-06] MEDS: SENOKOT S TAB PO SCH (09:48)
[2017-03-06] MEDS: CYANOCOBALAMIN 500 MCG TAB PO SCH (09:48)
[2017-03-06 09:49] VITALS: BP 126/76
[2017-03-06] MEDS: OPTHALMIC OU SCH (09:49)
[2017-03-06] MEDS: VERAPAMIL 40 MG TAB PO SCH (09:49)
[2017-03-06] MEDS: RESTASIS 0.05% OU SCH (09:49)
[2017-03-06] MEDS ORDERED: INFLUENZA VIRUS VACCINE HIGH DOSE 0.5 ML SYRINGE (90662) IM ONE (11:00)
[2017-03-06] MEDS ORDERED: WARFARIN SOD 5 MG TAB PO ONE (17:00)
--- NOTE | 2017-03-11 15:05 | DSES ---
DATE OF ADMISSION: 03/02/2017 DATE OF DISCHARGE: 03/06/2017 ADMISSION DIAGNOSIS: Osteoarthritis, right hip. OTHER DIAGNOSES: 1. Migraines. 2. Hypothyroidism. 3. Bipolar. 4. Reactive airway disease. 5. History of a cerebrovascular accident (CVA). 6. Bundle branch block. 7. History of breast cancer. DISCHARGE DIAGNOSIS: Osteoarthritis, right hip status post right total hip arthroplasty. OPERATION PERFORMED: Right total hip arthroplasty. HISTORY: This is a pleasant 66-year-old female patient with progressively worsening left hip pain and stiffness. She failed to improve with conservative management. She was admitted for elective hip replacement on the right side. HOSPITAL COURSE: The patient was admitted on the day of surgery and underwent the right total hip arthroplasty which was uneventful. She did well in the postoperative period. She did deal with some nausea and some pain but it continued to improve. Ultimately, on the day of discharge, she was doing well, weightbearing as tolerated on the right lower extremity. She will use adjusted-dose Coumadin and thromboembolic-deterrent (SEVERIANO) stockings for 30 days postoperatively for deep vein thrombosis (DVT) prophylaxis. She will resume her preoperative medications and diet. She was given instructions to include but not limited to wound monitoring and activity limitations. She will followup in our office in 7-10 days for surgical followup. She will use oral pain medications for pain control. Please refer to the medical record for further details.
== END 2017-03-06 11:45 | DRG 470 ==
LOC: M OR 07:23 → M MS5PR 13:55
PROVIDERS: ADMIT Orthopaedic Surgery; ATTEND Orthopaedic Surgery
PROC: 0SR902A Replacement of Right Hip Joint with Metal on Polyethylene Synthetic Substitute, Uncemented, Open Approach (ICD-10-PCS; principal; 2017-03-02 09:30)
DX: M16.11 Unilateral primary osteoarthritis, right hip (principal); E03.9 Hypothyroidism, unspecified; K21.9 Gastro-esophageal reflux disease without esophagitis; J45.909 Unspecified asthma, uncomplicated; E78.5 Hyperlipidemia, unspecified; I10 Essential (primary) hypertension; H35.30 Unspecified macular degeneration; F31.9 Bipolar disorder, unspecified; Z86.73 Personal history of transient ischemic attack (TIA), and cerebral infarction without residual deficits; Z85.3 Personal history of malignant neoplasm of breast; Z92.3 Personal history of irradiation; Z88.8 Allergy status to other drugs, medicaments and biological substances; Z79.82 Long term (current) use of aspirin; Z79.899 Other long term (current) drug therapy

== ENCOUNTER → 2017-05-12 | Outpatient (REF) | payer MEDICARE, BC, OTHER ==
[2017-05-12 15:39] LABS: BASO % 0.6 % (0.0-1.0); EOS # 0.1 10^3/uL (0.0-0.50); EOS % 2.7 % (0.0-3.0); HEMATOCRIT 39.4 % (36.0-47.0); HEMOGLOBIN 13.3 g/dl (12.0-16.0); IMMATURE GRANULOCYTE % 0.2 % (0-0); LYMPH # 1.9 10^3/uL (1.5-4.5); LYMPH % 38.4 % (24.0-44.0); MEAN CORPUSCULAR HEMOGLOBIN 31.7 pg (27.0-33.0); MEAN CORPUSCULAR HGB CONC 33.8 g/dl (32.0-36.5); MONO # 0.5 10^3/uL (0.0-0.8); MONO % 9.3 % (0.0-5.0); NEUTROPHILS # 2.4 10^3/uL (1.8-7.7); NEUTROPHILS % 48.8 % (36.0-66.0); PLATELET COUNT, AUTOMATED 200 10^3/uL (150-450); RED BLOOD COUNT 4.19 10^6/uL (4.00-5.40); RED CELL DISTRIBUTION WIDTH 13.8 % (11.5-14.5); WHITE BLOOD COUNT 4.8 10^3/uL (4.0-10.0)
[2017-05-12 16:03] LABS: C REACTIVE PROTEIN QUANTITATIV < 0.30 MG/DL (0.00-0.30)
[2017-05-12 16:31] LABS: ERYTHROCYTE SEDIMENTATION RATE 9 mm/hr (0-30)
== END ==
LOC: M LABDRAW1 13:35
DX: Z47.1 Aftercare following joint replacement surgery (principal); Z79.899 Other long term (current) drug therapy
CPT/HCPCS: 86140

== ENCOUNTER → 2017-06-23 | Outpatient (CLI) | payer MEDICARE ==
[2017-06-23 17:25] LABS: ALBUMIN 3.7 GM/DL (3.2-5.2); ALBUMIN/GLOBULIN RATIO 1.03 (1.00-1.93); ALKALINE PHOSPHATASE 101 U/L (45-117); ALT/SGPT 17 U/L (12-78); ANION GAP 7 MEQ/L (8-16); AST/SGOT 18 U/L (7-37); BILIRUBIN,TOTAL 0.4 MG/DL (0.2-1.0); BLOOD UREA NITROGEN 25 MG/DL (7-18); C REACTIVE PROTEIN QUANTITATIV < 0.30 MG/DL (0.00-0.30); CALCIUM LEVEL 8.8 MG/DL (8.8-10.2); CARBON DIOXIDE LEVEL 33 MEQ/L (21-32); CHLORIDE LEVEL 101 MEQ/L (98-107); CREATININE FOR GFR 0.77 MG/DL (0.55-1.30); GLOMERULAR FILTRATION RATE > 60.0 (>45); GLUCOSE, FASTING 93 MG/DL (70-100); RHEUMATOID FACTOR QUANT < 10.0 IU/ML (0-15.0); SODIUM LEVEL 141 MEQ/L (136-145); TOTAL PROTEIN 7.3 GM/DL (6.4-8.2); VALPROIC ACID (DEPAKOTE) 56.4 UG/ML (50.0-100.0)
[2017-06-23 18:01] LABS: HEMATOCRIT 42.1 % (36.0-47.0); HEMOGLOBIN 14.2 g/dl (12.0-16.0); MEAN CORPUSCULAR HEMOGLOBIN 31.2 pg (27.0-33.0); MEAN CORPUSCULAR HGB CONC 33.7 g/dl (32.0-36.5); MEAN CORPUSCULAR VOLUME 92.5 fl (80.0-96.0); PLATELET COUNT, AUTOMATED 184 10^3/uL (150-450); RED BLOOD COUNT 4.55 10^6/uL (4.00-5.40); RED CELL DISTRIBUTION WIDTH 13.3 % (11.5-14.5); WHITE BLOOD COUNT 5.3 10^3/uL (4.0-10.0)
[2017-06-23 19:09] LABS: ERYTHROCYTE SEDIMENTATION RATE 7 mm/hr (0-30)
== END ==
LOC: M WUC 15:04
DX: M76.31 Iliotibial band syndrome, right leg (principal); M70.61 Trochanteric bursitis, right hip; Z79.899 Other long term (current) drug therapy
CPT/HCPCS: 80164

== ENCOUNTER → 2017-11-09 | Outpatient (REF) | payer MEDICARE ==
[2017-11-09 19:34] LABS: VALPROIC ACID (DEPAKOTE) 58.2 UG/ML (50.0-100.0)
== END ==
LOC: M LAB REF 18:07
DX: F31.9 Bipolar disorder, unspecified (principal)
CPT/HCPCS: 80164

== ENCOUNTER → 2017-12-20 | Outpatient (CLI) | payer MEDICARE | LOC: M WUC 11:20 | DX: S93.602A Unspecified sprain of left foot, initial encounter (principal); X58.XXXA Exposure to other specified factors, initial encounter; Y92.9 Unspecified place or not applicable; Y93.9 Activity, unspecified; Y99.9 Unspecified external cause status; M77.32 Calcaneal spur, left foot | CPT/HCPCS: 73630 ==

== ENCOUNTER 2018-01-20 08:09 | Day surgery (SDC) | payer MEDICARE ==
[~2018-01-20 08:09] MED LIST changes: -/CELE20CA; -/LAMO20TA; -/PRAV20TA; -ALEV220T26 PO; -AMITRIP50 PO; -ASPI1TAB PO; -ATOR40TA75 PO; -BREO1INH3 INH; -BUTATAB6 PO; -CALC600T31 PO; -CALCCHW12; -CALCTAB68 PO; -COLA100C5 PO; -DEPA250T2; -DEPA250T2 PO; -DEPA250T32 PO; -DEPA500T; -FISH7.5C PO; -GLUC1CAP10 PO; -GLUC1CAP9 PO; -LEVO50TA5 PO; +LIDOCAINE 2% INJ 100 MG/5 ML SDV (FOR ANES.) As Ordered; -LOPR50TA; -LUNE2TAB; -LUNE2TAB23 PO; -MELO15TA4 PO; -MULT1TAB8 PO; -NORT25CA2 PO; -OMEGA 3 FISH OIL PO; -OMEP40CA2 PO; -PAIN325T; -PREG100CA; -PREG25CA PO; -PRESCAP PO; -PRESCAP6 PO; -PRIL20CA PO; -PROAAER10 INH; -PROP80CA PO; +PROPOFOL 200 MG/20 ML VIAL As Ordered; -RELP40TA PO; -RELPAX; -RELPAX PO; -REPLAX; -REST0.05 OU; -SIMV20TA2 PO; -STOO100C PO; -THERGRAN; -TOPR50TA; -VERA40TA PO; -VITA100066 PO; -VITA100072 PO; -VITAMIN B COMPLE1 PO; -VITAMIN B12; -VITATAB11 PO; -WELL100T; -[UNRECOGNIZED DRUG - REMARK]
[2018-01-20] MEDS: NS 1,000 ML IV (08:16)
[2018-01-20] MEDS ORDERED: PROPOFOL 200 MG/20 ML VIAL As Ordered ×2 (09:04→09:14)
== END 2018-01-20 10:00 | disposition home or self-care (01) ==
LOC: M OPP 08:09
DX: Z12.11 Encounter for screening for malignant neoplasm of colon (principal); Z86.010 Personal history of colon polyps; D12.2 Benign neoplasm of ascending colon; K64.0 First degree hemorrhoids; I44.7 Left bundle-branch block, unspecified; E78.5 Hyperlipidemia, unspecified; E03.9 Hypothyroidism, unspecified; K21.9 Gastro-esophageal reflux disease without esophagitis; R12 Heartburn; M19.90 Unspecified osteoarthritis, unspecified site; M81.0 Age-related osteoporosis without current pathological fracture; F41.9 Anxiety disorder, unspecified; F31.9 Bipolar disorder, unspecified; G43.909 Migraine, unspecified, not intractable, without status migrainosus; H35.30 Unspecified macular degeneration; Z86.73 Personal history of transient ischemic attack (TIA), and cerebral infarction without residual deficits; Z85.3 Personal history of malignant neoplasm of breast; Z78.0 Asymptomatic menopausal state; Z92.3 Personal history of irradiation; J45.909 Unspecified asthma, uncomplicated; Z96.641 Presence of right artificial hip joint; Z88.5 Allergy status to narcotic agent; Z88.8 Allergy status to other drugs, medicaments and biological substances; Z79.82 Long term (current) use of aspirin; Z79.899 Other long term (current) drug therapy
CPT/HCPCS: 45380

== ENCOUNTER → 2018-02-17 | Outpatient (CLI) | payer MEDICARE | LOC: M PAIN 13:30 | DX: M54.5 Low back pain (principal); G89.29 Other chronic pain; E78.00 Pure hypercholesterolemia, unspecified; E07.9 Disorder of thyroid, unspecified; J45.909 Unspecified asthma, uncomplicated; K21.9 Gastro-esophageal reflux disease without esophagitis; F32.9 Major depressive disorder, single episode, unspecified; Z79.82 Long term (current) use of aspirin; Z79.51 Long term (current) use of inhaled steroids; Z79.899 Other long term (current) drug therapy; Z88.5 Allergy status to narcotic agent; Z96.641 Presence of right artificial hip joint; Z86.73 Personal history of transient ischemic attack (TIA), and cerebral infarction without residual deficits; Z87.891 Personal history of nicotine dependence | CPT/HCPCS: G0463 ==

== ENCOUNTER → 2018-03-22 | Outpatient (REF) | payer MEDICARE | LOC: M LAB REF 16:36 | DX: N39.0 Urinary tract infection, site not specified (principal) | CPT/HCPCS: 87186 ==

== ENCOUNTER → 2018-04-13 | Outpatient (REF) | payer MEDICARE | LOC: M LAB REF 12:01 | DX: F31.9 Bipolar disorder, unspecified (principal) | CPT/HCPCS: 80164 ==

== ENCOUNTER → 2018-10-07 | Outpatient (REF) | payer MEDICARE ==
[~2018-10-07] MED LIST changes: +ALEV220T26 PO; +AMITRIP50 PO; +ASPI81TA26 PO; +ATOR40TA75 PO; +BREO1INH3 INH; +BUTATAB6 PO; +CALC600T31 PO; +CALCCHW12; +CALCTAB68 PO; +CELE1CAP4; +COLA100C5 PO; +COUM2.5T17 PO; +DEPA250T2; +DEPA250T2 PO; +DEPA250T32 PO; +DEPA500T; +FISH7.5C PO; +GLUC1CAP10 PO; +GLUC1CAP9 PO; +LAMI1TAB9; +LEVO50TA5 PO; -LIDOCAINE 2% INJ 100 MG/5 ML SDV (FOR ANES.) As Ordered; +LOPR50TA; +LUNE2TAB; +LUNE2TAB23 PO; +LYRI75CA PO; +MELO15TA28 PO; +METO-743; +MULT1TAB8 PO; +NORT25CA2 PO; +OMEGA 3 FISH OIL PO; +OMEP40CA2 PO; +PAIN325T; +PERC5TAB12 PO; +PRAV1TAB39; +PREG100CA; +PREG25CA PO; +PRESCAP PO; +PRESCAP6 PO; +PRIL20CA PO; +PROAAER10 INH; +PROP80CA PO; -PROPOFOL 200 MG/20 ML VIAL As Ordered; +RELP40TA PO; +RELPAX; +RELPAX PO; +REPLAX; +REST0.05 OU; +SIMV20TA2 PO; +SING10TA32 PO; +STOO100C PO; +THERGRAN; +VERA40TA PO; +VITA100018 PO; +VITA100066 PO; +VITAMIN B COMPLE1 PO; +VITAMIN B12; +VITATAB11 PO; +WELL100T; +[UNRECOGNIZED DRUG - REMARK]
== END ==
LOC: M LAB REF 16:35
PROVIDERS: ATTEND Nurse Practitioner Adult Health
DX: F31.9 Bipolar disorder, unspecified (principal)

== ENCOUNTER → 2018-12-23 | Outpatient (REF) | payer MEDICARE ==
[~2018-12-23] MED LIST changes: +MM S100C PO; -STOO100C PO
[2018-12-23 13:33] LABS: BASO % 0.8 % (0.0-1.0); EOS # 0.1 10^3/uL (0.0-0.50); EOS % 2.2 % (0.0-3.0); HEMOGLOBIN 14.1 g/dl (12.0-15.5); LYMPH # 2.2 10^3/uL (1.5-4.5); LYMPH % 44.6 % (24.0-44.0); MEAN CORPUSCULAR HGB CONC 33.6 g/dl (32.0-36.5); MEAN CORPUSCULAR VOLUME 95.5 fl (80.0-96.0); MONO # 0.7 10^3/uL (0.0-0.8); MONO % 14.1 % (0.0-5.0); NEUTROPHILS # 1.9 10^3/uL (1.8-7.7); NEUTROPHILS % 38.1 % (36.0-66.0); PLATELET COUNT, AUTOMATED 204 10^3/uL (150-450)
[2018-12-26 15:35] LABS: D001-IgE D pteronyssinus 0.58 kU/L (Class II); E001-IgE Cat Epith/Dander < 0.10 kU/L (Class 0); E005-IgE Dog Dander < 0.10 kU/L (Class 0); G002-IgE Bermuda Grass 0.41 kU/L (Class I); G008-IgE Kentucky Bluegrass 5.66 kU/L (Class IV); M001-IgE Penicillium chrysogen < 0.10 kU/L (Class 0); M002 IgE Cladosporium herbaru < 0.10 kU/L (Class 0); M003 IgE Aspergillus fumigatu < 0.10 kU/L (Class 0); T001-IgE Maple/Box Elder 0.16 kU/L (Class 0/I); T003-IgE Common Silver Birch < 0.10 kU/L (Class 0); T006-IgE Cedar, Mountain 0.16 kU/L (Class 0/I); T007-IgE Oak, White 0.19 kU/L (Class 0/I); T008-IgE Elm, American 0.22 kU/L (Class 0/I); T015-IgE Ash, White 0.15 kU/L (Class 0/I); T041-IgE Hickory, White < 0.10 kU/L (Class 0); T070-IgE White Mulberry < 0.10 kU/L (Class 0); W001-IgE Ragweed, Short 0.31 kU/L (Class 0/I); W009-IgE Plantain, English 0.15 kU/L (Class 0/I); W014-IgE Pigweed, Rough 0.13 kU/L (Class 0/I); W018-IgE Sheep Sorrel < 0.10 kU/L (Class 0)
== END ==
LOC: M LAB REF 12:52
PROVIDERS: ATTEND Internal Medicine Pulmonary Disease
DX: J45.40 Moderate persistent asthma, uncomplicated (principal)

== ENCOUNTER → 2019-01-07 | Outpatient (CLI) | payer MEDICARE ==
[~2019-01-07] MED LIST changes: +ALLE12TA31 PO; +AUGM875T28 PO; +B COTAB3 PO; +CALCTAB17 PO; +ESZO1TAB6 PO; +FIOR1CAP PO; +GUAI100L6 PO; +INCR1INH INH; +VITMTA PO
--- NOTE | 2019-01-07 09:29 | REP ---
Noncontrast chest CT: History: Cough. No comparison chest CT. Comparison chest x-ray February 17, 2017. CT findings: Preliminary digital drill press operator helper radiograph is unremarkable. There are surgical clips in the right axillary soft tissues. There is some subpleural fibrosis in the right upper and middle lobes anteriorly and laterally suggestive of post radiation changes status post radiation therapy for right breast malignancy. This fibrosis pattern is mild. No suspicious pulmonary nodule or mass lesion is observed. There are scattered areas of interstitial fibrosis in the lung bases bilaterally mild in degree as well. No endobronchial lesion is seen. No pleural or pericardial effusion is noted. Scattered normal-sized mediastinal lymph nodes are seen. No adenopathy is appreciated. Minimal vascular calcification is present. No adrenal abnormality is noted. Visualized upper abdominal structures are unremarkable. Bone window settings show no sclerotic or lucent bony destructive lesion. Impression: Scattered areas of mild interstitial fibrosis in the lung bases bilaterally. Postradiation therapy changes on the right anterolaterally with minimal subpleural fibrosis pattern. Surgical clips in the right axilla. Otherwise negative. Electronically Signed by Andrae Peres MD 01/07/2019 03:59 P
== END ==
LOC: M RAD 07:50
PROVIDERS: ATTEND Internal Medicine Pulmonary Disease
DX: R91.8 Other nonspecific abnormal finding of lung field (principal)

== ENCOUNTER → 2019-01-14 | Outpatient (CLI) | payer MEDICARE ==
[2019-01-16 00:10] LABS: Lyme Disease IgG/IgM Antibodie <0.91 ISR (0.00-0.90); Lyme Disease IgM Ab Quantitati <0.80 index (0.00-0.79)
== END ==
LOC: M SMT 10:47
PROVIDERS: ATTEND Internal Medicine Pulmonary Disease
DX: G93.3 Postviral and related fatigue syndromes (principal)

== ENCOUNTER 2019-01-19 19:37 | Inpatient (IN) | payer MEDICARE ==
[~2019-01-19] VITALS: Ht 177.8 cm; Wt 90.6 kg
[~2019-01-19 19:37] MED LIST changes: -ALLE12TA31 PO; -AUGM875T28 PO; -B COTAB3 PO; -CALCTAB17 PO; -ESZO1TAB6 PO; -FIOR1CAP PO; -GUAI100L6 PO; -INCR1INH INH; -VITMTA PO
[2019-01-19] MEDS ORDERED: GUAI100L6 PO (19:54)
[2019-01-19] MEDS ORDERED: ALLE12TA31 PO (19:54)
[2019-01-19] MEDS ORDERED: INCR1INH INH (19:54)
[2019-01-19] MEDS ORDERED: AUGM875T28 PO (19:54)
[2019-01-19 20:58] LABS: BASO # 0.1 10^3/uL (0.0-0.2); EOS # 0.5 10^3/uL (0.0-0.5); EOS % 6.5 % (0.0-3.0); HEMATOCRIT 45.4 % (36.0-47.0); HEMOGLOBIN 15.8 g/dl (12.0-15.5); LYMPH # 1.9 10^3/uL (1.5-5.0); LYMPH % 26.2 % (24.0-44.0); MEAN CORPUSCULAR HEMOGLOBIN 33.1 pg (27.0-33.0); MEAN CORPUSCULAR HGB CONC 34.8 g/dl (32.0-36.5); MEAN CORPUSCULAR VOLUME 95.2 fl (80.0-96.0); MONO # 1.1 10^3/uL (0.0-0.8); MONO % 14.6 % (0.0-5.0); NEUTROPHILS # 3.7 10^3/uL (1.5-8.5); NEUTROPHILS % 51.6 % (36.0-66.0); PLATELET COUNT, AUTOMATED 201 10^3/uL (150-450); RED BLOOD COUNT 4.77 10^6/uL (4.00-5.40); WHITE BLOOD COUNT 7.3 10^3/uL (4.0-10.0)
[2019-01-19 21:08] LABS: BLOOD UREA NITROGEN 18 MG/DL (7-18); CALCIUM LEVEL 9.5 MG/DL (8.8-10.2); CARBON DIOXIDE LEVEL 31 MEQ/L (21-32); CHLORIDE LEVEL 99 MEQ/L (98-107); CREATININE FOR GFR 0.89 MG/DL (0.55-1.30); GLOMERULAR FILTRATION RATE > 60.0 (>39); GLUCOSE, FASTING 99 MG/DL (70-100); POTASSIUM SERUM 4.3 MEQ/L (3.5-5.1); SODIUM LEVEL 138 MEQ/L (136-145)
[2019-01-19] MEDS ORDERED: methylPREDNISolone INJ 125 MG/2 ML VIAL (J2930) IV ONE (21:15)
[2019-01-19 21:20] LABS: INFLUENZA A AMPLIFICATION NEGATIVE (NEGATIVE); INFLUENZA B AMPLIFICATION NEGATIVE (NEGATIVE)
[2019-01-19] MEDS: IPRATROPIUM 0.5MG/ALBUTEROL 2.5MG INH SOL UD 3ML (DUONEB)(J7620) NEB PRN ×3 (21:28→23:05)
[2019-01-19 21:38] LABS: CK-MB VALUE MASS < 1.0 NG/ML (<3.6); CPK CREATINE PHOSPHOKINASE 73 U/L (26-192); MB/CK RELATIVE INDEX 1.37 (< OR =4); NT-PRO BNP 58 PG/ML (<125); TROPONIN I < 0.02 NG/ML (< 0.10); VALPROIC ACID (DEPAKOTE) 40.7 UG/ML (50.0-100.0)
[2019-01-19] MEDS ORDERED: ISOVUE-370 76% 100ML VIAL (Q9967) As Ordered ONE (21:56)
--- NOTE | 2019-01-19 23:01 | REPVR ---
EXAM: CT Angiography Chest With Contrast EXAM DATE/TIME: 01/19/2019 10:21 PM CLINICAL HISTORY: 68 years old, female; Shortness of breath; Prior surgery; Additional info: SOB elev d-dimer TECHNIQUE: Imaging protocol: Computed tomographic angiography of the chest with intravenous contrast. 3D rendering: MIP reconstructed images were created and reviewed. Radiation optimization: All CT scans at this facility use at least one of these dose optimization techniques: automated exposure control; mA and/or kV adjustment per patient size (includes targeted exams where dose is matched to clinical indication); or iterative reconstruction. Contrast material: ISOVUE 370; Contrast volume: 75 ml; Contrast route: IV; COMPARISON: CT Chest without contrast 01/07/2019 8:07 AM FINDINGS: Pulmonary arteries: No evidence of pulmonary embolism. Aorta: No evidence of aortic aneurysm or dissection. Lungs: No sizable consolidations or masses. No significant change in scattered areas of mild interstitial fibrosis in the bilateral lung bases and presumed postradiation changes in the anterior right upper lobe. Pleural space: No pneumothorax. No pleural effusion. Heart: No cardiomegaly. No pericardial effusion. Lymph nodes: No enlarged lymph nodes. Bones/joints: No grossly displaced fractures or dislocations. Soft tissues: Right axillary surgical clips noted. IMPRESSION: No evidence of pulmonary embolism. Electronically signed by: Merrill Ferraro On 01/19/2019 23:01:19 PM
[2019-01-19] MEDS ORDERED: NS 1,000 ML IV ONE (23:15)
[2019-01-19] MEDS ORDERED: ESZO1TAB6 PO (23:50)
[2019-01-20] VITALS (7 sets, daily range): BP systolic 108–162; BP diastolic 58–83
[2019-01-20] MEDS ORDERED: CALCTAB17 PO (00:28)
[2019-01-20] MEDS ORDERED: VITMTA PO (00:28)
[2019-01-20] MEDS ORDERED: B COTAB3 PO (00:28)
--- NOTE | 2019-01-20 00:39 | HPEPDOC ---
General Date of Admission 01/20/19 Date of Service: Jan 20, 2019 Primary Care Physician: Jess Willams Attending Physician: DARYA EMERY DO Chief Complaint The patient is a 68-year-old female admitted with a reason for visit of Cold/Flu Symptoms. Source: Patient Timing/Duration: Week(s) Severity: Moderate History of Present Illness Pt is 68 y o with history of breast cancer, asthma, TIA, right hip replacement, GERD presented hospital with cough, shortness of breath and wheezes. Patient stated that she has a progressive shortness of breath since August associated with cough. Patient has been recently diagnosed with asthma at age 63. Patient stated that she has been treated with 2 courses of antibiotics cephalexin and Augmentin prescribed by PCP and team lead in past 2 weeks. However it did not alleviate her shortness of breath and cough. Today patient has increased shortness of breath with increased sputum production and she decided to come to the hospital. CT was done and it was negative for pulmonary emboli or pulmonary infiltrate. Home Medications Scheduled Amoxicillin/Potassium Clav (Augmentin 875-125 Tablet) 1 Each Tablet, 1 TAB PO BID, (Reported) STARTED ON 01/14/19: 7 DAY SUPPLY Aspirin (Aspirin EC) 81 Mg Tab, 81 MG PO DAILY, (Reported) Atorvastatin Calcium (Atorvastatin Calcium) 40 Mg Tab, 40 MG PO QHS, (Reported) Calcium/Magnesium/Zinc (Lnrdelx-Rlpcmjqcn-Xkdo Tablet) 1 Each Tablet, 1 TAB PO DAILY, (Reported) Cholecalciferol (Vitamin D3) (Vitamin D3) 1,000 Unit Tab, 1,000 UNIT PO DAILY, (Reported) Cyclosporine (Restasis) 0.05 % Emu, 1 DROP OU BID, (Reported) Divalproex Sodium (Depakote ER) 250 Mg Tab, 750 MG PO QHS, (Reported) Eszopiclone (Eszopiclone) 3 Mg Tablet, 3 MG PO QHS, (Reported) Fluticasone/Vilanterol (Breo Ellipta 200-25 Mcg INH) 1 Inh Inh, 1 PUFF INH DAILY, (Reported) Gluc [place]/Chondro Longoria A/Vit C/Mn (Glucosamine-Chondroitin Cap) 1 Cap Cap, 1 CAP PO DAILY, (Reported) Levothyroxine Sodium (Levothyroxine Sodium) 50 Mcg Tab, 50 MCG PO DAILY, (Reported) Montelukast Sodium (Singulair) 10 Mg Tab, 10 MG PO QHS, (Reported) Multivitamins (Thera M Plus Tablet) 1 Each Tablet, 1 TAB PO DAILY, (Reported) [place]-3/Dha/Epa/Fish Oil (Fish Oil EC 1,000 mg Softgel) 1 Cap Cap, 2 CAP PO DAILY, (Reported) Omeprazole (Omeprazole) 40 Mg Cap, 40 MG PO BID, (Reported) Umeclidinium [place] (Incruse Ellipta) 62.5 Mcg Blst.w.dev, 1 PUFF INH QHS, (Reported) Verapamil HCl (Verapamil HCl) 40 Mg Tab, 40 MG PO BID, (Reported) Vit A/Vit C/Vit E/Zinc/Copper (Preservision Areds Softgel) 1 Cap Cap, 1 CAP PO BID, (Reported) Vitamin B Complex (Vitamin B Complex) 1 Each Tablet, 1 TAB PO DAILY, (Reported) Scheduled PRN Albuterol Sulfate (Proair Hfa) 108 Mcg/Act Aer, 2 PUFF INH Q4HP PRN for SH ORTNESS OF BREATH, (Reported) Butalb/Acetaminophen/Caffeine (Fioricet 50-300-40 mg Capsule) 1 Each Capsule, 1 CAP PO Q6H PRN for MIGRAINE, (Reported) Fexofenadine/Pseudoephedrine (Wendy-D 12 Hour Tablet) 1 Each Tab.er.12h, 1 TAB PO BID PRN for CONGESTION, (Reported) Allergies Coded Allergies: codeine (Verified Adverse Reaction, Intermediate, SEVERE VOMITING, 01/19/19) nortriptyline (Verified Adverse Reaction, Intermediate, "FELT LIKE A ZOMBIE", 01/19/19) tramadol (Verified Adverse Reaction, Intermediate, SEVERE VOMITING, 01/19/19) Past Medical History Medical History breast cancer, 2 TIA , R. hip replacement, GERD, asthma Surgical History r hip replacement Social History * Smoker: Denies Alcohol: Denies Drugs: denies A-FIB/CHADSVASC A-FIB History Current/History of A-Fib/PAF?: No Current PO Anticoag Therapy: No Review of Systems Constitutional: Denies: Chills, Fever Eyes: Denies: Pain ENT: Denies: Head Aches, Ear Pain Skin: Denies: Rash, Jaundice Pulmonary: Reports: Dyspnea, Cough Cardiovascular: Denies: Chest Pain, Palpitations Gastrointestinal: Denies: Nausea, Vomiting Genitourinary: Denies: Dysuria, Frequency Hematologic: Denies: Bruising, Bleeding Excessively Endocrine: Denies: Polydipsia Musculoskeletal: Denies: Neck Pain, Back Pain Neurological: Denies: Weakness, Numbness Psych: Denies: Mood Normal Physical Examination General Exam: Positive: Alert, Cooperative Eye Exam: Positive: PERRLA, Conjunctiva & lids normal ENT Exam: Positive: Atraumatic, Mucous membr. moist/pink Neck Exam: Positive: Supple; Negative: JVD Chest Exam: Positive: Rhonchi, Wheezing (b/l) Heart Exam: Positive: Tachycardic Telemetry: Positive: No significant arrhythmia Abdomen Exam: Positive: Normal bowel sounds Extremity Exam: Negative: Clubbing, Cyanosis Skin Exam: Negative: Nl turgor and temperature, Rash Neuro Exam: Positive: Strength at 5/5 X4 ext; Negative: Normal Gait Psych Exam: Positive: Mental status NL Vital Signs Vital Signs Date Time Temp Pulse Resp B/P (MAP) Pulse Ox O2 Delivery O2 Flow Rate FiO2 01/19/19 23:04 92 20 136/67 (90) 95 Room Air 01/19/19 19:37 96.8 Laboratory Data Labs 24H Laboratory Tests 2 01/19/19 20:17: Immature Granulocyte % (Auto) 0.1, White Blood Count 7.3, Red Blood Count 4.77, Hemoglobin 15.8H, Hematocrit 45.4, Mean Corpuscular Volume 95.2, Mean Corpuscular Hemoglobin 33.1H, Mean Corpuscular Hemoglobin Concent 34.8, Red Cell Distribution Width 12.5, Platelet Count 201, Neutrophils (%) (Auto) 51.6, Lymphocytes (%) (Auto) 26.2, Monocytes (%) (Auto) 14.6H, Eosinophils (%) (Auto) 6.5H, Basophils (%) (Auto) 1.0, Neutrophils # (Auto) 3.7, Lymphocytes # (Auto) 1.9, Monocytes # (Auto) 1.1H, Eosinophils # (Auto) 0.5, Basophils # (Auto) 0.1, Nucleated Red Blood Cells % (auto) 0.0, D-Dimer, Quantitative 529.49H, Anion Gap 8, Glomerular Filtration Rate > 60.0, Blood Urea Nitrogen 18, Creatinine 0.89, Sodium Level 138, Potassium Level 4.3, Chloride Level 99, Carbon Dioxide Level 31, Calcium Level 9.5, Total Creatine Kinase 73, Creatine Kinase MB < 1.0, Creatine Kinase MB Relative Index 1.37, Troponin I < 0.02, CR-Fwo-A-Type Natriuretic Peptide 58, Valproic Acid (Depakene) Level 40.7L 01/19/19 20:43: Influenza Type A (RT-PCR) NEGATIVE, Influenza Type B (RT-PCR) NEGATIVE 01/20/19 00:07: POC pH (Misc Panel) 7.424, POC Base Excess (Misc Panel) 1.0, POC Saturated Percent O2 (Misc) 93L, POC pO2 (Misc Panel) 65.0L, POC pCO2 (Misc Panel) 39.1, POC HCO3 (Misc Panel) 25.6, POC Total CO2 (Misc Panel) 27.0 CBC/BMP Laboratory Tests 01/19/19 20:17 Red Blood Count 4.77, Mean Corpuscular Volume 95.2, Mean Corpuscular Hemoglobin 33.1 H, Mean Corpuscular Hemoglobin Concent 34.8, Red Cell Distribution Width 12.5, Neutrophils (%) (Auto) 51.6, Lymphocytes (%) (Auto) 26.2, Monocytes (%) (Auto) 14.6 H, Eosinophils (%) (Auto) 6.5 H, Basophils (%) (Auto) 1.0, Neutrophils # (Auto) 3.7, Lymphocytes # (Auto) 1.9, Monocytes # (Auto) 1.1 H, Eosinophils # (Auto) 0.5, Basophils # (Auto) 0.1, Calcium Level 9.5, Total Creatine Kinase 73 Microbiology Microbiology 01/19/19 Blood Culture, Received Pending 01/19/19 Blood Culture, Received Pending 01/19/19 Respiratory Virus Panel (PCR) (LINO) - Final, Complete Assessment/Plan Pt is 68 y o with history of breast cancer, asthma, TIA, right hip replacement, GERD presented hospital with cough, shortness of breath and wheezes. Patient stated that she has a progressive shortness of breath since August associated with cough. Patient has been recently diagnosed with asthma at age 63. Patient stated that she has been treated with 2 courses of antibiotics cephalexin and Augmentin prescribed by PCP and team lead in past 2 weeks. However it did not alleviate her shortness of breath and cough. Today patient has increased shortness of breath with increased sputum production and she decided to come to the hospital. CT was done and it was negative for pulmonary emboli or pulmonary infiltrate. Problems (1) Asthma with acute exacerbation Status: Acute Problem Text: 2/2 to possible allergic reaction on chronic exposure, GERD IV steroids, inhalers increase the dose of PPI BG (2) Reactive airway disease Status: Chronic Problem Text: Pt has increased sputum production and cough CTA No evidence of pulmonary embolism. Levofloxacin IV as treatment for possible COPD exacerbation Patient will benefit with geophysical support specialist consult in the outpatient settings Plan / VTE VTE Prophylaxis Ordered?: Yes DARYA EMERY DO Jan 20, 2019 00:39
[2019-01-20] MEDS ORDERED: FIOR1CAP PO (00:50)
[2019-01-20] MEDS ORDERED: ALBUTEROL 90 MCG/ACT 8GM HFA INHALER INH PRN (01:45)
[2019-01-20] MEDS: ATORVASTATIN 20 MG TAB PO SCH ×2 (02:41→21:47)
[2019-01-20] MEDS: OMEPRAZOLE 20 MG CAP PO SCH ×3 (02:41→21:47)
[2019-01-20] MEDS: VERAPAMIL 40 MG TAB PO SCH ×3 (02:43→21:48)
[2019-01-20] MEDS: OCUVITE 1 TAB PO SCH ×3 (02:44→22:59)
[2019-01-20] MEDS: MONTELUKAST 10 MG TAB PO SCH ×2 (02:44→21:48)
[2019-01-20] MEDS: LevoFLOXacin IV 750 MG in APPROPRIATE DILUENT 1 EA IV SCH (02:44)
[2019-01-20] MEDS: DIVALPROEX 250MG *ER* TAB PO SCH ×2 (03:04→21:48)
[2019-01-20] MEDS ORDERED: LORazepam 0.5 MG TAB PO ONE (06:00)
[2019-01-20] MEDS: methylPREDNISolone INJ 125 MG/2 ML VIAL (J2930) IV SCH ×3 (06:06→21:37)
[2019-01-20] MEDS: BENZONATATE 100 MG CAP PO PRN ×3 (06:07→21:36)
[2019-01-20] MEDS: LEVOTHYROXINE 50MCG TABLET (0.05MG) PO SCH (06:07)
[2019-01-20] MEDS: FLUTICASONE HFA 220 MCG 12 GM INHALER (FLOVENT) INH SCH ×2 (07:20→18:07)
[2019-01-20] MEDS: IPRATROPIUM 0.5MG/ALBUTEROL 2.5MG INH SOL UD 3ML (DUONEB)(J7620) NEB SCH ×3 (07:20→18:07)
--- NOTE | 2019-01-20 08:13 | ECGEPIP ---
[facility] - ED Test Date: 2019-01-19 Pat Name: ZHOU SIERRA Department: Room: [place] [address] Gender: Female Automation Qa Tester: AMMY : 1950 Requested By: LANG Goff PA-C Order Number: [id number] Reading MD: Estefanía Gates Measurements Intervals [place] Rate: 101 P: IN: 0 QRS: 36 QRSD: 138 T: 97 QT: 360 QTc: 469 Interpretive Statements SINNUS TACHYCARDIA LEFT BUNDLE BRANCH BLOCK INCREASED RATE 10/22/16 Electronically Signed on 01-20-2019 8:13:48 EDT by Estefanía Gates
--- NOTE | 2019-01-20 08:46 | REP ---
Chest x-ray: Two views. History: Cough. Comparison study: February 17, 2017. Findings: There are surgical clips in right axillary soft tissues. The lungs are well inflated and free of infiltrate. Pleural angles are sharp. Heart size is normal. Pulmonary vasculature is not increased. No bony abnormality is appreciated. Impression: No acute disease. Electronically Signed by Andrae Peres MD 01/20/2019 08:37 A
[2019-01-20] MEDS: ASPIRIN 81 MG ENTERIC TAB PO SCH (08:55)
[2019-01-20] MEDS ORDERED: PANTOPRAZOLE 40MG TAB (PROTONIX) PO SCH (09:00)
[2019-01-20] MEDS: HEPARIN SOD (PORCINE) 5000 UNITS/ML VIAL SC SCH ×2 (11:58→21:37)
[2019-01-20] MEDS ORDERED: SLF 3 ML SYR IV PRN (12:00)
[2019-01-20] MEDS: SLF 3 ML SYR IV SCH ×2 (14:29→21:37)
[2019-01-20] MEDS: ACETAMINOPHEN TAB 650MG DOSE (2X325MG) PO PRN (15:53)
[2019-01-20] MEDS: CHLORASEPTIC SPRAY MT PRN ×2 (16:26→18:54)
--- NOTE | 2019-01-20 17:11 | IPNPDOC ---
Text Note Date of Service The patient was seen on 01/20/19. NOTE SUBJECTIVE: Ms. Rodriguez continues to complain of respiratory discomfort. She has coughing and reports wheezing. Her most apparent symptom, however, is nasal congestion. She also has posterior nasal drainage. OBJECTIVE: HENT: The patient's neck is supple, I do not appreciate adenopathy or thyromegaly, she does have swollen turbinates, but no anterior nasal drainage Cardiovascular: Regular rate and rhythm, no appreciable murmur. Respiratory: Patient has audible nasal congestion, she has frequent hacking cough, minimal wheezing Abdomen: Soft, nontender, nondistended. Extremities: No peripheral edema or lesions, Neuro: No focal neuromotor or sensory deficits. Psych: Patient is visibly anxious with psychomotor agitation 1. Asthma exacerbation. Chest x-ray shows remarkable hyperexpansion but no focal infiltrate or effusions. Patient is on empiric treatment with nebulization treatments and steroids. She is also receiving antibiotic, although it is not entirely clear that this is necessary. We will wean her steroids as her wheezing improves--again, her wheezing is fairly minimal. 2. Upper respiratory infection. This is marked by significant nasal congestion. Patient has been ruled out for influenza. I will check for other respiratory viruses. Patient is also re questing a flu shot before discharge. She is also scheduled for outpatient ENT eval. 3. Mood disorder. Patient has a history of depression and bipolar disorder. She is having considerable anxiety. She reports poor responses to Valium or Ativan. Will try Xanax. Patient is requesting to be able to use Lunesta from home. VS,Fishbone, I+O VS, Fishbone, I+O Laboratory Tests 01/19/19 20:17 Red Blood Count 4.77, Mean Corpuscular Volume 95.2, Mean Corpuscular Hemoglobin 33.1 H, Mean Corpuscular Hemoglobin Concent 34.8, Red Cell Distribution Width 12.5, Neutrophils (%) (Auto) 51.6, Lymphocytes (%) (Auto) 26.2, Monocytes (%) (Auto) 14.6 H, Eosinophils (%) (Auto) 6.5 H, Basophils (%) (Auto) 1.0, Neutrophils # (Auto) 3.7, Lymphocytes # (Auto) 1.9, Monocytes # (Auto) 1.1 H, Eosinophils # (Auto) 0.5, Basophils # (Auto) 0.1, Calcium Level 9.5, Total Creatine Kinase 73 Vital Signs Date Time Temp Pulse Resp B/P (MAP) Pulse Ox O2 Delivery O2 Flow Rate FiO2 01/20/19 16:00 97.4 90 18 108/58 (75) 91 01/20/19 12:00 3.0 01/20/19 02:11 Nasal Cannula I&O- Last 24 Hours up to 6 AM 01/20/19 06:00 Intake Total 1360 ml Output Total 0 ml Balance 1360 ml RAISA MONTEIRO MD Jan 20, 2019 17:11
[2019-01-20] MEDS: ALPRAZolam 0.5 MG TAB PO PRN (18:54)
[2019-01-20] MEDS: ESZOPICLONE 3 MG PO PRN (22:59)
[2019-01-21] MEDS: LevoFLOXacin IV 750 MG in APPROPRIATE DILUENT 1 EA IV SCH (03:09)
[2019-01-21] MEDS: IPRATROPIUM 0.5MG/ALBUTEROL 2.5MG INH SOL UD 3ML (DUONEB)(J7620) NEB SCH ×2 (03:22→07:06)
[2019-01-21] MEDS: ACETAMINOPHEN TAB 650MG DOSE (2X325MG) PO PRN (03:22)
[2019-01-21] MEDS ORDERED: guanFACINE 1 MG TAB PO ONE (03:45)
[2019-01-21] MEDS ORDERED: guaiFENesin ER 600 MG TAB PO ONE ×2 (03:45→22:15)
[2019-01-21 04:00] VITALS: BP 127/63
[2019-01-21] MEDS: methylPREDNISolone INJ 125 MG/2 ML VIAL (J2930) IV SCH ×3 (06:08→23:01)
[2019-01-21] MEDS: LEVOTHYROXINE 50MCG TABLET (0.05MG) PO SCH (06:08)
[2019-01-21] MEDS: SLF 3 ML SYR IV SCH ×3 (06:08→22:11)
[2019-01-21 06:44] LABS: BLOOD UREA NITROGEN 20 MG/DL (7-18); CALCIUM LEVEL 9.1 MG/DL (8.8-10.2); CARBON DIOXIDE LEVEL 31 MEQ/L (21-32); CHLORIDE LEVEL 102 MEQ/L (98-107); CREATININE FOR GFR 0.86 MG/DL (0.55-1.30); GLOMERULAR FILTRATION RATE > 60.0 (>39); GLUCOSE, FASTING 133 MG/DL (70-100); POTASSIUM SERUM 4.1 MEQ/L (3.5-5.1); SODIUM LEVEL 138 MEQ/L (136-145)
[2019-01-21] MEDS: FLUTICASONE HFA 220 MCG 12 GM INHALER (FLOVENT) INH SCH ×2 (07:06→21:31)
[2019-01-21 07:15] LABS: MEAN CORPUSCULAR HGB CONC 34.4 g/dl (32.0-36.5); MEAN CORPUSCULAR VOLUME 96.1 fl (80.0-96.0); PLATELET COUNT, AUTOMATED 198 10^3/uL (150-450); RED BLOOD COUNT 4.06 10^6/uL (4.00-5.40); WHITE BLOOD COUNT 18.8 10^3/uL (4.0-10.0)
[2019-01-21 07:16] LABS: HEMOGLOBIN 13.4 g/dl (12.0-15.5)
[2019-01-21 08:00] VITALS: BP 156/76
[2019-01-21] MEDS: ASPIRIN 81 MG ENTERIC TAB PO SCH (08:19)
[2019-01-21] MEDS: BENZONATATE 100 MG CAP PO PRN ×3 (08:19→20:09)
[2019-01-21] MEDS: OMEPRAZOLE 20 MG CAP PO SCH ×2 (08:20→20:13)
[2019-01-21] MEDS: HEPARIN SOD (PORCINE) 5000 UNITS/ML VIAL SC SCH ×2 (08:20→20:15)
[2019-01-21] MEDS: VERAPAMIL 40 MG TAB PO SCH ×2 (08:20→20:12)
[2019-01-21] MEDS: OCUVITE 1 TAB PO SCH ×2 (08:20→20:10)
--- NOTE | 2019-01-21 09:58 | IPN ---
DATE OF SERVICE: 01/21/2019 SUBJECTIVE: Patient still complains of wheezing and difficulty breathing especially with ambulation. She is currently on oxygen 93% on 3 liters nasal cannula. No chest pain, pressure or tightness. No fever or chills. She has a dry cough. Patient is requesting to see an director enterprise systems. She will he heading to [place] in mid February and would like to know her triggers. She admits to having increasing symptoms when she is exposed to her garden especially because [place] also has noted worsening symptoms when she opens up her windows at home. She does not have air conditioning and is often times exposed to other environmental factors. She has been referred by her lung doctor, Dr. Urena, to an director enterprise systems but she is worried that she may not be able to get in to see him until mid February. She is requesting for us to make an earlier referral. OBJECTIVE: PHYSICAL EXAMINATION: Vitals: Temperature 96.9, pulse 84, respiratory rate 17, blood pressure 156/76, 93% on 3 liters nasal cannula. Generally, patient is awake, alert, oriented times three. Answering questions appropriately. No conversational dyspnea. Patient has no use of respiratory accessory muscles. No tripod positioning. Patient continues to have some swelling of the nasal turbinates. Lungs diminished with faint expiratory wheezing. Air entry is equal bilaterally. No use of respiratory accessory muscles or abdominal retractions. Able to speak in full sentences without conversational dyspnea. Heart: S1, S2, sinus tachycardia. No murmurs, rubs or gallops. Abdomen is soft, nontender, nondistended, positive bowel sounds times four quadrants. No rebound, guarding, hepatosplenomegaly or abdominal bruits. Extremities: No cyanosis, clubbing or pitting edema. LABORATORY DATA: White count 18.8, hemoglobin 13, hematocrit 39, platelet count 198. Sodium 138, potassium 4, chloride 102, bicarbonate 31, BUN 20, creatinine 0.86, glucose 133. Respiratory panel is negative. Two sets of blood cultures are negative. CT chest on 01/19/2019 shows no evidence of pulmonary embolism. No pneumothorax, effusion. No change in interstitial fibrosis in bilateral lung bases and presumed postradiation changes in the anterior right upper lobe. HOSPITAL MEDICATIONS: - Tylenol - Chloraseptic spray - Xanax - saline and heparin flushes - aspirin - Solu-Medrol - Synthroid - Tessalon Perles - Levaquin - Proventil - Lipitor - Depakote - Singulair - Prilosec - verapamil - multivitamin - Flovent ASSESSMENT AND PLAN: This is a 68-year-old female with past medical history significant for breast cancer status post radiation, asthma, transient ischemic attack (TIA), right hip replacement and reflux, presented to the emergency room with worsening asthma symptoms with daily use of her nebulizer, rescue inhalers, had been on two courses of cephalexin and Augmentin prescribed by her trailer technician for the past two weeks. Active issues are: 1. Asthma exacerbation currently improving with improved air entry, still with dry cough. She is currently on intravenous Solu-Medrol 80 IV every 8 hours Due to complaints of palpitations and tremors, her albuterol has been discontinued. She is currently placed on Xopenex every 4 hours and every 1 hour as needed. Currently on Flovent, Singulair. Activity Aide referral as outpatient. Symptomatic relief with Tessalon Perlrufino. 2. Anxiety on chronic Xanax. 3. History of breast cancer, doing well with no recurrence. 4. Hypothyroidism on Synthroid 50 mcg daily. 5. Dyslipidemia on chronic Lipitor. 6. Hypertension on verapamil. MTDD
[2019-01-21] MEDS: LEVALBUTEROL 1.25 MG/0.5 ML CONCENTRATE NEB INH SCH ×4 (11:21→23:14)
[2019-01-21 12:00] VITALS: BP 135/62
[2019-01-21] MEDS: ALPRAZolam 0.5 MG TAB PO PRN ×2 (15:12→23:00)
[2019-01-21 16:00] VITALS: BP 123/67
[2019-01-21 20:00] VITALS: BP 134/66
[2019-01-21] MEDS: MONTELUKAST 10 MG TAB PO SCH (20:11)
[2019-01-21] MEDS: ATORVASTATIN 20 MG TAB PO SCH (20:13)
[2019-01-21] MEDS: DIVALPROEX 250MG *ER* TAB PO SCH (20:14)
[2019-01-21] MEDS: ESZOPICLONE 3 MG PO PRN (23:02)
[2019-01-22] VITALS: BP 138/73
[2019-01-22] MEDS: LevoFLOXacin IV 750 MG in APPROPRIATE DILUENT 1 EA IV SCH (02:15)
[2019-01-22] MEDS: BENZONATATE 100 MG CAP PO PRN (02:45)
[2019-01-22 04:00] VITALS: BP 121/65
[2019-01-22] MEDS: LEVOTHYROXINE 50MCG TABLET (0.05MG) PO SCH (06:46)
[2019-01-22] MEDS: methylPREDNISolone INJ 125 MG/2 ML VIAL (J2930) IV SCH ×3 (06:47→21:59)
[2019-01-22] MEDS: SLF 3 ML SYR IV SCH ×3 (06:49→21:59)
[2019-01-22 08:00] VITALS: BP 125/77
[2019-01-22] MEDS: LEVALBUTEROL 1.25 MG/0.5 ML CONCENTRATE NEB INH SCH ×6 (08:00→23:28)
[2019-01-22] MEDS: OMEPRAZOLE 20 MG CAP PO SCH ×2 (08:46→20:38)
[2019-01-22] MEDS: OCUVITE 1 TAB PO SCH ×2 (08:46→20:37)
[2019-01-22] MEDS: HEPARIN SOD (PORCINE) 5000 UNITS/ML VIAL SC SCH ×2 (08:46→20:38)
[2019-01-22] MEDS: VERAPAMIL 40 MG TAB PO SCH ×2 (08:46→21:59)
[2019-01-22] MEDS: ASPIRIN 81 MG ENTERIC TAB PO SCH (08:46)
[2019-01-22] MEDS ORDERED: guaiFENesin SYRUP 200 MG/10 ML UDC PO PRN (11:15)
[2019-01-22] MEDS: FLUTICASONE HFA 220 MCG 12 GM INHALER (FLOVENT) INH SCH ×2 (11:53→19:53)
[2019-01-22 12:00] VITALS: BP 144/73
[2019-01-22] MEDS: guaiFENesin SYRUP 200 MG/10 ML UDC PO PRN ×2 (13:03→17:50)
--- NOTE | 2019-01-22 15:11 | IPN ---
DATE: 01/22/2019 Elroy is seen in the progressive care unit (PCU). She is in the hospitalist service. She has with what is felt to be an asthma exacerbation. She has been increasingly short of breath, intractable cough and wheezing since the beginning of the summer. She has seen [facility] as an outpatient. She has had CT scans of the chest done that show some postradiation fibrosis. She is slowly getting better, but frustrated by her slow progress. PHYSICAL EXAMINATION: VITAL SIGNS: Afebrile. Vital signs stable. Oxygen saturation 92% on 2 liters. GENERAL APPEARANCE: She is resting comfortably, but she does get dyspneic with prolonged conversation. No jugular venous distention (JVD). Lungs have some wheezes at the bases, fibrotic rales on the right. HEART: Regular rate and rhythm. ABDOMEN: Soft, nontender. No peripheral edema. LABORATORIES: She does not have any lab work ordered for today. IMPRESSION: 1. Shortness of breath, presumed asthma. She is responding to the current therapy. Unfortunately, no labs ordered for today. We will get some for tomorrow. I do not think she is anemia and this seems to be more of an acute on chronic process. We can stop her intravenous (IV) antibiotics, as there is no infiltrate on the CT scan. Put her on oral Levaquin 500 mg daily dose. Tomorrow she probably be transitioned to an oral steroid. Continue her Singulair and nebulized bronchodilator. 2. Sleep disturbance. She would like medicines for sleep. I expressed caution about doing this with respiratory problems, but she should do okay with Rozerem. The steroids are probably affecting her sleep. 3. History of breast cancer with radiation. Some of the changes on CT scan are attributable to the radiation therapy. 4. Hypothyroidism. Current dose of levothyroxine. I stopped her telemetry. She has not had any rhythm disturbances since her admission. She would like to see pulmonology, but their service is particularly busy with some critically ill patients this weekend. Might want to give consideration of this tomorrow or on Thursday. She sees Dr. Urena as an outpatient.
[2019-01-22 16:00] VITALS: BP 132/67
[2019-01-22] MEDS: LEVALBUTEROL 1.25 MG/0.5 ML CONCENTRATE NEB INH PRN (17:35)
[2019-01-22] MEDS: ACETAMINOPHEN TAB 650MG DOSE (2X325MG) PO PRN (17:50)
[2019-01-22] MEDS: ALPRAZolam 0.5 MG TAB PO PRN (19:38)
[2019-01-22 20:30] VITALS: BP 152/95
[2019-01-22] MEDS: MONTELUKAST 10 MG TAB PO SCH (20:38)
[2019-01-22] MEDS: ATORVASTATIN 20 MG TAB PO SCH (20:38)
[2019-01-22] MEDS: RAMELTEON 8 MG TAB (ROZEREM) PO SCH (21:00)
[2019-01-22] MEDS: DIVALPROEX 250MG *ER* TAB PO SCH (21:58)
[2019-01-22] MEDS: ESZOPICLONE 3 MG PO PRN (23:46)
[2019-01-23] MEDS: BENZONATATE 100 MG CAP PO PRN (02:22)
[2019-01-23] MEDS: LEVALBUTEROL 1.25 MG/0.5 ML CONCENTRATE NEB INH SCH ×4 (03:58→20:00)
[2019-01-23] MEDS: LevoFLOXacin 500 MG TABLET PO SCH (05:26)
[2019-01-23] MEDS: LEVOTHYROXINE 50MCG TABLET (0.05MG) PO SCH (05:26)
[2019-01-23] MEDS: methylPREDNISolone INJ 125 MG/2 ML VIAL (J2930) IV SCH ×3 (05:26→21:27)
[2019-01-23] MEDS: SLF 3 ML SYR IV SCH ×3 (05:27→21:28)
[2019-01-23 06:00] VITALS: BP 134/77
[2019-01-23 06:56] LABS: BLOOD UREA NITROGEN 24 MG/DL (7-18); CALCIUM LEVEL 8.7 MG/DL (8.8-10.2); CARBON DIOXIDE LEVEL 29 MEQ/L (21-32); CHLORIDE LEVEL 103 MEQ/L (98-107); CREATININE FOR GFR 0.74 MG/DL (0.55-1.30); GLOMERULAR FILTRATION RATE > 60.0 (>39); GLUCOSE, FASTING 127 MG/DL (70-100); POTASSIUM SERUM 3.8 MEQ/L (3.5-5.1); SODIUM LEVEL 139 MEQ/L (136-145)
[2019-01-23 06:57] LABS: HEMATOCRIT 36.1 % (36.0-47.0); HEMOGLOBIN 12.4 g/dl (12.0-15.5); MEAN CORPUSCULAR VOLUME 93.3 fl (80.0-96.0); PLATELET COUNT, AUTOMATED 209 10^3/uL (150-450); RED BLOOD COUNT 3.87 10^6/uL (4.00-5.40); WHITE BLOOD COUNT 15.4 10^3/uL (4.0-10.0)
[2019-01-23 06:58] LABS: MEAN CORPUSCULAR HGB CONC 34.3 g/dl (32.0-36.5)
[2019-01-23] MEDS: FLUTICASONE HFA 220 MCG 12 GM INHALER (FLOVENT) INH SCH (08:03)
[2019-01-23] MEDS: OCUVITE 1 TAB PO SCH ×2 (08:34→21:25)
[2019-01-23] MEDS: ASPIRIN 81 MG ENTERIC TAB PO SCH (08:34)
[2019-01-23] MEDS: OMEPRAZOLE 20 MG CAP PO SCH ×2 (08:34→21:25)
[2019-01-23] MEDS: VERAPAMIL 40 MG TAB PO SCH ×2 (08:35→21:29)
[2019-01-23] MEDS: HEPARIN SOD (PORCINE) 5000 UNITS/ML VIAL SC SCH ×2 (08:35→21:25)
--- NOTE | 2019-01-23 11:01 | IPNPDOC ---
Subjective Date Seen The patient was seen on 01/23/19. Subjective Chief Complaint/HPI He breathing is better but complains of a hacking dry severe cough which is persistent. This is causing her problem with sleeping and. Her ribs are sore from these bouts of coughing. No fever or chills, no hlegm production. No nausea r vomiting or abdominal pain , has very good appetite. has been having trouble sleeping. Objective Physical Examination General Exam: Positive: Alert, Cooperative, No Acute Distress Eye Exam: Positive: PERRLA, Conjunctiva & lids normal; Negative: Sclera icteric, Ptosis ENT Exam: Positive: Atraumatic, Mucous membr. moist/pink Neck Exam: Positive: Supple; Negative: JVD Chest Exam: Positive: Clear to auscultation, Normal air movement Heart Exam: Positive: Tachycardic, Normal S1, Normal S2, Murmurs Abdomen Exam: Positive: Normal bowel sounds, Soft; Negative: Tenderness, Hepatospenomegaly Extremity Exam: Positive: Normal pulses; Negative: Clubbing, Cyanosis, Edema Skin Exam: Negative: Nl turgor and temperature, Rash Neuro Exam: Positive: Strength at 5/5 X4 ext; Negative: Normal Gait Psych Exam: Positive: Mental status NL, Memory Intact, Oriented x 3 Assessment /Plan Assessment Pt is 68 y o with history of ASTHMA , migraines, hypothyroidism, bipolar disorder, 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 Patient stated that she has a progressive shortness of breath since August associated with cough. Patient has been recently diagnosed with asthma at age 63. Patient stated that she has been treated with 2 courses of antibiotics cephalexin and Augmentin prescribed by PCP and acoustical engineer in past 2 weeks. However it did not alleviate her shortness of breath and cough. Today patient has increased shortness of breath with increased sputum production and she decided to come to the hospital. CT was done and it was negative for pulmonary emboli or pulmonary infiltrate. She was admitted for asthma exacerbation. Asthma exacerbation with acute tracheobronchitis. continue levaquin, singulair, methyl pred, will start on symbicort. will give dextromethorphan syrup. Hypothyroid continue synthroid Bipolar disorder continue depakote, verapamil ,lunesta History of breast cancer s/p surgery and RT. History of CVA (cerebrovascular accident) Macular degeneration continue home meds Hyperlipidemia continue statin Hypertension continue verapamil Insomnia on eszopidone, rozerem GERD ppi Plan/VTE VTE Prophylaxis Ordered?: Yes VS, I&O, 24H, Fishbone Vital Signs/I&O Vital Signs Date Time Temp Pulse Resp B/P (MAP) Pulse Ox O2 Delivery O2 Flow Rate FiO2 01/23/19 08:35 99 128/68 01/23/19 06:00 97.8 18 90 01/22/19 12:00 01/20/19 02:11 Nasal Cannula I&O- Last 24 Hours up to 6 AM 01/23/19 06:00 Intake Total 1440 ml Output Total 1300 ml Balance 140 ml Laboratory Data 24H LABS Laboratory Tests 2 01/23/19 06:15: Nucleated Red Blood Cells % (auto) 0.0, Anion Gap 7L, Glomerular Filtration Rate > 60.0, Blood Urea Nitrogen 24H, Creatinine 0.74, Sodium Level 139, Potassium Level 3.8, Chloride Level 103, Carbon Dioxide Level 29, Calcium Level 8.7L CBC/BMP Laboratory Tests 01/23/19 06:15 Red Blood Count 3.87 L, Mean Corpuscular Volume 93.3, Mean Corpuscular Hemoglobin 32.0, Mean Corpuscular Hemoglobin Concent 34.3, Red Cell Distribution Width 12.9, Calcium Level 8.7 L Microbiology Microbiology 01/19/19 Blood Culture - Preliminary, Resulted No Growth after 72 hours. All specime... 01/19/19 Blood Culture - Preliminary, Resulted No Growth after 72 hours. All specime... 01/20/19 Respiratory Virus Panel (PCR) ([facility]) - Final, Complete 01/19/19 Respiratory Virus Panel (PCR) ([facility]) - Final, Complete BECKY MCKENNA MD Jan 23, 2019 09:25
[2019-01-23] MEDS: SODIUM CHLORIDE NASAL 0.65% SPRAY BTL (OCEAN) SCH ×2 (12:51→21:27)
[2019-01-23] MEDS: DEXTROMETHORPHAN 60MG/10ML SUSP 90ML BTL(DELSYM) PO SCH ×2 (12:51→21:26)
[2019-01-23 14:00] VITALS: BP 140/72
[2019-01-23] MEDS: SYMBICORT 160/4.5MCG INHALER 6GM INH SCH (20:14)
[2019-01-23] MEDS: ATORVASTATIN 20 MG TAB PO SCH (21:26)
[2019-01-23] MEDS: RAMELTEON 8 MG TAB (ROZEREM) PO SCH (21:26)
[2019-01-23] MEDS: MONTELUKAST 10 MG TAB PO SCH (21:26)
[2019-01-23] MEDS: DIVALPROEX 250MG *ER* TAB PO SCH (21:26)
[2019-01-23] MEDS: ALPRAZolam 0.5 MG TAB PO PRN (21:26)
[2019-01-23 22:00] VITALS: BP 140/83
[2019-01-23] MEDS: LEVALBUTEROL 1.25 MG/0.5 ML CONCENTRATE NEB INH PRN (22:42)
[2019-01-24] MEDS: LEVOTHYROXINE 50MCG TABLET (0.05MG) PO SCH (05:21)
[2019-01-24] MEDS: SLF 3 ML SYR IV SCH ×3 (05:21→21:18)
[2019-01-24] MEDS: methylPREDNISolone INJ 125 MG/2 ML VIAL (J2930) IV SCH (05:21)
[2019-01-24] MEDS: LevoFLOXacin 500 MG TABLET PO SCH (05:21)
[2019-01-24 06:00] VITALS: BP 130/81
[2019-01-24 06:44] LABS: HEMATOCRIT 36.2 % (36.0-47.0); HEMOGLOBIN 12.6 g/dl (12.0-15.5); MEAN CORPUSCULAR HEMOGLOBIN 33.5 pg (27.0-33.0); MEAN CORPUSCULAR HGB CONC 34.8 g/dl (32.0-36.5); MEAN CORPUSCULAR VOLUME 96.3 fl (80.0-96.0); PLATELET COUNT, AUTOMATED 209 10^3/uL (150-450); RED BLOOD COUNT 3.76 10^6/uL (4.00-5.40); WHITE BLOOD COUNT 12.1 10^3/uL (4.0-10.0)
[2019-01-24 06:47] LABS: BLOOD UREA NITROGEN 20 MG/DL (7-18); CALCIUM LEVEL 8.6 MG/DL (8.8-10.2); CARBON DIOXIDE LEVEL 29 MEQ/L (21-32); CHLORIDE LEVEL 101 MEQ/L (98-107); CREATININE FOR GFR 0.66 MG/DL (0.55-1.30); GLOMERULAR FILTRATION RATE > 60.0 (>39); GLUCOSE, FASTING 118 MG/DL (70-100); POTASSIUM SERUM 3.6 MEQ/L (3.5-5.1); SODIUM LEVEL 139 MEQ/L (136-145)
[2019-01-24] MEDS: LEVALBUTEROL 1.25 MG/0.5 ML CONCENTRATE NEB INH SCH ×3 (07:54→20:00)
[2019-01-24] MEDS: SYMBICORT 160/4.5MCG INHALER 6GM INH SCH ×2 (07:56→20:47)
[2019-01-24] MEDS: HEPARIN SOD (PORCINE) 5000 UNITS/ML VIAL SC SCH ×2 (08:29→21:18)
[2019-01-24] MEDS: DEXTROMETHORPHAN 60MG/10ML SUSP 90ML BTL(DELSYM) PO SCH ×2 (08:29→21:37)
[2019-01-24] MEDS: SODIUM CHLORIDE NASAL 0.65% SPRAY BTL (OCEAN) SCH ×3 (08:29→21:18)
[2019-01-24] MEDS: OCUVITE 1 TAB PO SCH ×2 (08:31→21:17)
[2019-01-24] MEDS: VERAPAMIL 40 MG TAB PO SCH ×2 (08:31→21:18)
[2019-01-24] MEDS: ASPIRIN 81 MG ENTERIC TAB PO SCH (08:31)
[2019-01-24] MEDS: OMEPRAZOLE 20 MG CAP PO SCH ×2 (08:32→21:17)
[2019-01-24] MEDS ORDERED: FUROSEMIDE 100 MG/10 ML VIAL (J1940) IV ONE (09:15)
[2019-01-24] MEDS: TUSSICAPS ER 10/8MG CAPSULE PO SCH ×2 (09:26→21:17)
--- NOTE | 2019-01-24 13:55 | IPNPDOC ---
Subjective Date Seen The patient was seen on 01/24/19. Subjective Chief Complaint/HPI cough still uncontrolled, severe bouts disturbing sleep, denies any sob , denies any fever or chills, no chest pain. has some heart burn. Objective Physical Examination General Exam: Positive: Alert, Cooperative, No Acute Distress Eye Exam: Positive: PERRLA, Conjunctiva & lids normal; Negative: Sclera icteric, Ptosis ENT Exam: Positive: Atraumatic, Mucous membr. moist/pink Neck Exam: Positive: Supple; Negative: JVD Chest Exam: Positive: Normal air movement, Other (right basal crackles. 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 Patient stated that she has a progressive shortness of breath since August associated with cough. Patient has been recently diagnosed with asthma at age 63. Patient stated that she has been treated with 2 courses of antibiotics cephalexin and Augmentin prescribed by PCP and procedures analyst in past 2 weeks. However it did not alleviate her shortness of breath and cough. Today patient has increased shortness of breath with increased sputum production and she decided to come to the hospital. CT was done and it was negative for pulmonary emboli or pulmonary infiltrate. She was admitted for asthma exacerbation. Asthma exacerbation with acute tracheobronchitis. continue levaquin, singulair, methyl pred, on symbicort. will give dextromethorphan syrup and tussicaps. Severe cough going on since august has echo from 2016 with diastolic dysfunction will get new one to evaluate for any CHF will give lasix . Hypothyroid continue synthroid Bipolar disorder continue depakote, verapamil ,lunesta History of breast cancer s/p surgery and RT. History of CVA (cerebrovascular accident) Macular degeneration continue home meds Hyperlipidemia continue statin Hypertension continue verapamil Insomnia on eszopidone, rozerem GERD ppi Plan/VTE VTE Prophylaxis Ordered?: Yes VS, I&O, 24H, Fishbone Vital Signs/I&O Vital Signs Date Time Temp Pulse Resp B/P (MAP) Pulse Ox O2 Delivery O2 Flow Rate FiO2 01/24/19 08:31 79 142/93 01/24/19 06:00 97.1 20 95 01/22/19 12:00 01/20/19 02:11 Nasal Cannula I&O- Last 24 Hours up to 6 AM 01/24/19 05:59 Intake Total 1440 ml Output Total 200 ml Balance 1240 ml Laboratory Data 24H LABS Laboratory Tests 2 01/24/19 05:42: Nucleated Red Blood Cells % (auto) 0.0, Anion Gap 9, Glomerular Filtration Rate > 60.0, Blood Urea Nitrogen 20H, Creatinine 0.66, Sodium Level 139, Potassium Level 3.6, Chloride Level 101, Carbon Dioxide Level 29, Calcium Level 8.6L CBC/BMP Laboratory Tests 01/24/19 05:42 Red Blood Count 3.76 L, Mean Corpuscular Volume 96.3 H, Mean Corpuscular Hemoglobin 33.5 H, Mean Corpuscular Hemoglobin Concent 34.8, Red Cell Distribution Width 12.8, Calcium Level 8.6 L Microbiology Microbiology 01/19/19 Blood Culture - Preliminary, Resulted No Growth after 72 hours. All specime... 01/19/19 Blood Culture - Preliminary, Resulted No Growth after 72 hours. All specime... 01/20/19 Respiratory Virus Panel (PCR) ([facility]) - Final, Complete 01/19/19 Respiratory Virus Panel (PCR) ([facility]) - Final, Complete BECKY MCKENNA MD Jan 24, 2019 13:54
[2019-01-24 14:00] VITALS: BP 133/79
[2019-01-24] MEDS: methylPREDNISolone INJ 40 MG/1 ML VIAL (J2920) IV SCH ×2 (14:00→21:16)
[2019-01-24] MEDS: MAALOX 30 ML SUSP *UDC PO PRN (14:00)
[2019-01-24] MEDS: FUROSEMIDE 40 MG/4 ML VIAL (J1940) IV SCH (16:18)
[2019-01-24] MEDS: ATORVASTATIN 20 MG TAB PO SCH (21:16)
[2019-01-24] MEDS: DIVALPROEX 250MG *ER* TAB PO SCH (21:17)
[2019-01-24] MEDS: MONTELUKAST 10 MG TAB PO SCH (21:18)
[2019-01-24 22:00] VITALS: BP 139/71
[2019-01-24] MEDS: RAMELTEON 8 MG TAB (ROZEREM) PO SCH (23:18)
[2019-01-25] MEDS: LEVOTHYROXINE 50MCG TABLET (0.05MG) PO SCH (05:35)
[2019-01-25] MEDS: LevoFLOXacin 500 MG TABLET PO SCH (05:35)
[2019-01-25] MEDS: SLF 3 ML SYR IV SCH ×3 (05:36→21:29)
[2019-01-25] MEDS: methylPREDNISolone INJ 40 MG/1 ML VIAL (J2920) IV SCH (05:36)
[2019-01-25 06:00] VITALS: BP 144/86
[2019-01-25 07:37] LABS: HEMATOCRIT 41.1 % (36.0-47.0); MEAN CORPUSCULAR HEMOGLOBIN 33.8 pg (27.0-33.0); MEAN CORPUSCULAR HGB CONC 35.5 g/dl (32.0-36.5); MEAN CORPUSCULAR VOLUME 95.1 fl (80.0-96.0); PLATELET COUNT, AUTOMATED 235 10^3/uL (150-450); RED BLOOD COUNT 4.32 10^6/uL (4.00-5.40); WHITE BLOOD COUNT 12.6 10^3/uL (4.0-10.0)
[2019-01-25 07:42] LABS: HEMOGLOBIN 14.6 g/dl (12.0-15.5)
[2019-01-25 07:59] LABS: BLOOD UREA NITROGEN 27 MG/DL (7-18); CARBON DIOXIDE LEVEL 36 MEQ/L (21-32); CHLORIDE LEVEL 94 MEQ/L (98-107); CREATININE FOR GFR 0.77 MG/DL (0.55-1.30); GLOMERULAR FILTRATION RATE > 60.0 (>39); GLUCOSE, FASTING 111 MG/DL (70-100); POTASSIUM SERUM 3.5 MEQ/L (3.5-5.1); SODIUM LEVEL 136 MEQ/L (136-145)
[2019-01-25] MEDS: LEVALBUTEROL 1.25 MG/0.5 ML CONCENTRATE NEB INH SCH ×3 (08:00→20:00)
[2019-01-25] MEDS: TUSSICAPS ER 10/8MG CAPSULE PO SCH ×2 (08:20→21:27)
[2019-01-25] MEDS: HEPARIN SOD (PORCINE) 5000 UNITS/ML VIAL SC SCH ×2 (08:21→21:27)
[2019-01-25] MEDS: VERAPAMIL 40 MG TAB PO SCH ×2 (08:21→21:28)
[2019-01-25] MEDS: OCUVITE 1 TAB PO SCH ×2 (08:21→21:28)
[2019-01-25] MEDS: ASPIRIN 81 MG ENTERIC TAB PO SCH (08:21)
[2019-01-25] MEDS: OMEPRAZOLE 20 MG CAP PO SCH ×2 (08:21→21:27)
[2019-01-25] MEDS: FUROSEMIDE 40 MG/4 ML VIAL (J1940) IV SCH ×2 (08:22→17:50)
[2019-01-25] MEDS: SODIUM CHLORIDE NASAL 0.65% SPRAY BTL (OCEAN) SCH ×3 (08:22→21:29)
[2019-01-25] MEDS: SYMBICORT 160/4.5MCG INHALER 6GM INH SCH ×2 (08:35→20:23)
[2019-01-25] MEDS: DEXTROMETHORPHAN 60MG/10ML SUSP 90ML BTL(DELSYM) PO SCH ×2 (12:31→21:27)
--- NOTE | 2019-01-25 12:51 | IPNPDOC ---
Subjective Date Seen The patient was seen on 01/25/19. Subjective Chief Complaint/HPI Eschen and is still complaining of increasing shortness of breath, not much relief with the present medications General: Denies: ROS Unobtainable, Chills, Night Sweats, Fatigue, Malaise, Normal Appetite, Other Symptoms Constitutional: Denies: Chills, Fever, Malaise, Night Sweats, Weakness, Fatigue, Weight Loss, Lethargy, Other Eyes: Denies: Pain, Vision change, Conjunctivae inflammation, Eyelid inflammation, Redness, Other ENT: Denies: Head Aches, Ear Pain, Dysphagia, Sinus Congestion, Post Nasal Drip, Sore Throat, Epistaxis, Other Symptoms Skin: Denies: Rash, Lesions, Jaundice, Bruising, Itching, Dry, Breakdown, Nail Changes, Other Pulmonary: Reports: Dyspnea, Cough; Denies: Pleuritic Chest Pain, Other Symptoms Cardiovascular: Denies: Chest Pain, Palpitations, Orthopnea, Paroxysmal Noc. Dyspnea, Edema, Lt Headedness, Other Symptoms Gastrointestinal: Denies: Nausea, Vomiting, Abdominal Pain, Diarrhea, Constipation, Melena, Hematochezia, Other Symptoms Musculoskeletal: Denies: Neck Pain, Back Pain, Shoulder Pain, Arm Pain, Hand Pa in, Leg Pain, Foot Pain, Joint Pain, Muscle Pain, Spasms, Other Symptoms Neurological: Denies: Weakness, Numbness, Incoordination, Change in speech, Confusion, Seizures, Other Symptoms Objective Physical Examination Eye Exam: Positive: PERRLA, Conjunctiva & lids normal ENT Exam: Positive: Atraumatic, Mucous membr. moist/pink Neck Exam: Positive: Supple Chest Exam: Positive: Rhonchi, Wheezing (. Bilateral wheezing and right sided rhonchi audible) Heart Exam: Positive: Tachycardic, Normal S1, Normal S2, Murmurs Abdomen Exam: Positive: Normal bowel sounds, Soft Extremity Exam: Positive: Normal pulses Neuro Exam: Positive: Strength at 5/5 X4 ext Psych Exam: Positive: Mental status NL, Memory Intact, Oriented x 3 Assessment /Plan Problems (1) Asthma with acute exacerbation Status: Acute Problem Text: Asthma exacerbation with acute tracheobronchitis. continue levaquin, singulair, methyl pred, on symbicort. will give dextromethorphan syrup and tussicaps. Increase Xopenex to every 6 hours Increase Solu-Medrol to 60 mg IV every 6 hours Continue all other meds A.m. labs Oxygen support as needed (2) Reactive airway disease Status: Chronic Problem Text: Patient is outpatient consultation with an theology professor patient is Plan/VTE VTE Prophylaxis Ordered?: Yes VS, I&O, 24H, Fishbone Vital Signs/I&O Vital Signs Date Time Temp Pulse Resp B/P (MAP) Pulse Ox O2 Delivery O2 Flow Rate FiO2 01/25/19 08:21 84 140/91 01/25/19 06:00 96.9 20 91 01/22/19 12:00 01/20/19 02:11 Nasal Cannula I&O- Last 24 Hours up to 6 AM 01/25/19 06:00 Intake Total 1800 ml Output Total 1000 ml Balance 800 ml Laboratory Data 24H LABS Laboratory Tests 2 01/25/19 07:18: Nucleated Red Blood Cells % (auto) 0.0, Anion Gap 6L, Glomerular Filtration Rate > 60.0, Blood Urea Nitrogen 27H, Creatinine 0.77, Sodium Level 136, Potassium Level 3.5, Chloride Level 94L, Carbon Dioxide Level 36H, Calcium Level 9.0 CBC/BMP Laboratory Tests 01/25/19 07:18 Red Blood Count 4.32, Mean Corpuscular Volume 95.1, Mean Corpuscular Hemoglobin 33.8 H, Mean Corpuscular Hemoglobin Concent 35.5, Red Cell Distribution Width 12.5, Calcium Level 9.0 Microbiology Microbiology 01/19/19 Blood Culture - Final, Complete NO GROWTH AFTER 5 DAYS 01/19/19 Blood Culture - Final, Complete NO GROWTH AFTER 5 DAYS 01/20/19 Respiratory Virus Panel (PCR) ([facility]) - Final, Complete 01/19/19 Respiratory Virus Panel (PCR) ([facility]) - Final, Complete SYLVIA MCMAHAN MD Jan 25, 2019 12:51
[2019-01-25] MEDS: methylPREDNISolone INJ 125 MG/2 ML VIAL (J2930) IV SCH ×2 (13:30→18:24)
[2019-01-25 14:00] VITALS: BP 131/70
--- NOTE | 2019-01-25 21:05 | ECHO ---
DATE OF PROCEDURE: 01/24/2019 REFERRING PHYSICIAN: Madison Simpson MD INDICATION: Dyspnea. HEIGHT: 178 cm WEIGHT: 91 kg DIMENSIONS: IVS: 1.2 LV: 4.3 LVPW: 1.2 LA: 3.8 Aorta: 3.0 Mitral E wave velocity: 44, A wave: 70 E prime septal: 5.2 E prime lateral: 8.2 FINDINGS The study is of fair technical quality with somewhat limited visualization. The patient is in sinus rhythm. Left ventricle is normal size and systolic function, I estimate left ventricular ejection fraction (LVEF) 60-65%. Mild left ventricular hypertrophy (LVH) is noted. Right ventricle is poorly visualized, but grossly appears normal. Both atria appear normal size. Aortic valve is minimally sclerotic, but mobility is preserved. There is normal tricuspid and mitral valves. Pulmonic valve was not well seen. No pericardial effusion is noted. Inferior vena cava is normal size. Aortic root is normal. Aortic arch and abdominal aorta were not well seen. DOPPLER: Doppler interrogation reveals no significant aortic valvular disease. There is trace mitral insufficiency. There is no significant tricuspid insufficiency and consequently I am unable to estimate pulmonary artery pressure. Mitral inflow pattern and tissue Doppler imaging of mitral annulus reveal grade 1 diastolic dysfunction. CONCLUSIONS 1. Study is of fair technical quality. 2. Normal left ventricle (LV) size with mild LVH, preserved LV systolic function and grade 1 diastolic dysfunction. 3. No hemodynamically significant valvular disease. 4. Probably normal central venous pressure. 5. Unable to estimate pulmonary artery pressure. COMMENT Subacute bacterial endocarditis (SBE) prophylaxis is not recommended. Study is most consistent with hypertensive heart disease.
[2019-01-25] MEDS: RAMELTEON 8 MG TAB (ROZEREM) PO SCH (21:27)
[2019-01-25] MEDS: DIVALPROEX 250MG *ER* TAB PO SCH (21:27)
[2019-01-25] MEDS: MONTELUKAST 10 MG TAB PO SCH (21:28)
[2019-01-25] MEDS: ATORVASTATIN 20 MG TAB PO SCH (21:29)
[2019-01-25 22:00] VITALS: BP 139/77
[2019-01-25] MEDS: ALPRAZolam 0.5 MG TAB PO PRN (23:42)
[2019-01-26] MEDS: methylPREDNISolone INJ 125 MG/2 ML VIAL (J2930) IV SCH ×4 (00:09→18:01)
[2019-01-26] MEDS: diphenhydrAMINE INJ 50MG/ML VIAL (J1200) IV PRN (00:10)
[2019-01-26] MEDS: LEVALBUTEROL 1.25 MG/0.5 ML CONCENTRATE NEB INH SCH ×4 (01:34→20:00)
[2019-01-26 05:58] LABS: BASO # 0.1 10^3/uL (0.0-0.2); BASO % 0.5 % (0.0-1.0); HEMATOCRIT 41.7 % (36.0-47.0); HEMOGLOBIN 15.2 g/dl (12.0-15.5); LYMPH # 1.5 10^3/uL (1.5-5.0); LYMPH % 10.9 % (24.0-44.0); MEAN CORPUSCULAR HEMOGLOBIN 34.7 pg (27.0-33.0); MEAN CORPUSCULAR HGB CONC 36.5 g/dl (32.0-36.5); MEAN CORPUSCULAR VOLUME 95.2 fl (80.0-96.0); MONO # 1.5 10^3/uL (0.0-0.8); MONO % 11.1 % (0.0-5.0); NEUTROPHILS # 10.1 10^3/uL (1.5-8.5); NEUTROPHILS % 73.7 % (36.0-66.0); PLATELET COUNT, AUTOMATED 229 10^3/uL (150-450); RED BLOOD COUNT 4.38 10^6/uL (4.00-5.40); WHITE BLOOD COUNT 13.7 10^3/uL (4.0-10.0)
[2019-01-26 06:00] VITALS: BP 126/81
[2019-01-26] MEDS: SLF 3 ML SYR IV SCH ×3 (06:11→22:01)
[2019-01-26] MEDS: LevoFLOXacin 500 MG TABLET PO SCH (06:11)
[2019-01-26] MEDS: LEVOTHYROXINE 50MCG TABLET (0.05MG) PO SCH (06:11)
[2019-01-26 06:21] LABS: ALBUMIN 2.8 GM/DL (3.2-5.2); ALT/SGPT 52 U/L (12-78); BILIRUBIN,TOTAL 0.3 MG/DL (0.2-1.0); BLOOD UREA NITROGEN 35 MG/DL (7-18); CALCIUM LEVEL 8.3 MG/DL (8.8-10.2); CARBON DIOXIDE LEVEL 36 MEQ/L (21-32); CHLORIDE LEVEL 92 MEQ/L (98-107); CREATININE FOR GFR 0.89 MG/DL (0.55-1.30); GLOMERULAR FILTRATION RATE > 60.0 (>39); GLUCOSE, FASTING 119 MG/DL (70-100); POTASSIUM SERUM 3.2 MEQ/L (3.5-5.1); SODIUM LEVEL 136 MEQ/L (136-145); TOTAL PROTEIN 6.3 GM/DL (6.4-8.2)
[2019-01-26 08:15] VITALS: BP 124/79
[2019-01-26] MEDS: SYMBICORT 160/4.5MCG INHALER 6GM INH SCH ×2 (08:21→20:04)
[2019-01-26] MEDS ORDERED: POTASSIUM CHLORIDE 10 MEQ SR TABLET PO ONE (09:00)
[2019-01-26] MEDS: OMEPRAZOLE 20 MG CAP PO SCH ×2 (09:47→21:57)
[2019-01-26] MEDS: ASPIRIN 81 MG ENTERIC TAB PO SCH (09:47)
[2019-01-26] MEDS: VERAPAMIL 40 MG TAB PO SCH ×2 (09:48→21:58)
[2019-01-26] MEDS: FUROSEMIDE 40 MG/4 ML VIAL (J1940) IV SCH ×2 (09:49→18:02)
[2019-01-26] MEDS: HEPARIN SOD (PORCINE) 5000 UNITS/ML VIAL SC SCH ×2 (09:49→22:00)
[2019-01-26] MEDS: SODIUM CHLORIDE NASAL 0.65% SPRAY BTL (OCEAN) SCH ×3 (09:50→22:00)
[2019-01-26] MEDS: DEXTROMETHORPHAN 60MG/10ML SUSP 90ML BTL(DELSYM) PO SCH (09:50)
[2019-01-26] MEDS: OCUVITE 1 TAB PO SCH ×2 (10:10→21:57)
[2019-01-26] MEDS: TUSSICAPS ER 10/8MG CAPSULE PO SCH ×2 (10:25→21:59)
[2019-01-26] MEDS: MAALOX 30 ML SUSP *UDC PO PRN ×2 (11:44→18:01)
--- NOTE | 2019-01-26 11:51 | IPNPDOC ---
Subjective Date Seen The patient was seen on 01/26/19. Subjective Chief Complaint/HPI Patient is much improved today. Improved bilateral air exchange, decreased wheezing General: Denies: ROS Unobtainable, Chills, Night Sweats, Fatigue, Malaise, Normal Appetite, Other Symptoms Constitutional: Denies: Chills, Fever, Malaise, Night Sweats, Weakness, Fatigue, Weight Loss, Lethargy, Other Skin: Denies: Rash, Lesions, Jaundice, Bruising, Itching, Dry, Breakdown, Nail Changes, Other Pulmonary: Reports: Other Symptoms (, crackles at the left base, otherwise decreased wheezing) Cardiovascular: Denies: Chest Pain, Palpitations, Orthopnea, Paroxysmal Noc. Dyspnea, Edema, Lt Headedness, Other Symptoms Gastrointestinal: Denies: Nausea, Vomiting, Abdominal Pain, Diarrhea, Constipation, Melena, Hematochezia, Other Symptoms Musculoskeletal: Denies: Neck Pain, Back Pain, Shoulder Pain, Arm Pain, Hand Pain, Leg Pain, Foot Pain, Joint Pain, Muscle Pain, Spasms, Other Symptoms Neurological: Denies: Weakness, Numbness, Incoordination, Change in speech, Confusion, Seizures, Other Symptoms Objective Physical Examination Eye Exam: Positive: PERRLA, Conjunctiva & lids normal ENT Exam: Positive: Atraumatic, Mucous membr. moist/pink Neck Exam: Positive: Supple Chest Exam: Positive: Other (scattered in decreased wheezing, crackles is left side) Heart Exam: Positive: Tachycardic, Normal S1, Normal S2, Murmurs Abdomen Exam: Positive: Normal bowel sounds, Soft Extremity Exam: Positive: Normal pulses Neuro Exam: Positive: Strength at 5/5 X4 ext Psych Exam: Positive: Mental status NL, Memory Intact, Oriented x 3 Assessment /Plan Problems (1) Asthma with acute exacerbation Status: Acute Problem Text: Asthma exacerbation with acute tracheobronchitis. continue levaquin, singulair, methyl pred, on symbicort. will give dextromethorphan syrup and tussicaps. Improved clinical status with increased dose of Xopenex and Solu-Medrol as previously done Continue Xopenex to every 6 hours Continue Solu-Medrol to 60 mg IV every 6 hours Continue all other meds A.m. labs Oxygen support as needed (2) Reactive airway disease Status: Chronic Problem Text: Patient is outpatient consultation with an decal maker patient is Plan/VTE VTE Prophylaxis Ordered?: Yes VS, I&O, 24H, Kathy Vital Signs/I&O Vital Signs Date Time Temp Pulse Resp B/P (MAP) Pulse Ox O2 Delivery O2 Flow Rate FiO2 01/26/19 09:48 99 124/79 01/26/19 08:15 97.0 16 92 01/22/19 12:00 01/20/19 02:11 Nasal Cannula I&O- Last 24 Hours up to 6 AM 01/26/19 06:00 Intake Total 630 ml Output Total 1500 ml Balance -870 ml Laboratory Data 24H LABS Laboratory Tests 2 01/26/19 05:36: Immature Granulocyte % (Auto) 3.8H, White Blood Count 13.7H, Red Blood Count 4.38, Hemoglobin 15.2, Hematocrit 41.7, Mean Corpuscular Volume 95.2, Mean Corpuscular Hemoglobin 34.7H, Mean Corpuscular Hemoglobin Concent 36.5, Red Cell Distribution Width 12.5, Platelet Count 229, Neutrophils (%) (Auto) 73.7H, Ly mphocytes (%) (Auto) 10.9L, Monocytes (%) (Auto) 11.1H, Eosinophils (%) (Auto) 0.0, Basophils (%) (Auto) 0.5, Neutrophils # (Auto) 10.1H, Lymphocytes # (Auto) 1.5, Monocytes # (Auto) 1.5H, Eosinophils # (Auto) 0.0, Basophils # (Auto) 0.1, Nucleated Red Blood Cells % (auto) 0.0, Anion Gap 8, Glomerular Filtration Rate > 60.0, Blood Urea Nitrogen 35H, Creatinine 0.89, Sodium Level 136, Potassium Level 3.2L, Chloride Level 92L, Carbon Dioxide Level 36H, Calcium Level 8.3L, Aspartate Amino Transf (AST/SGOT) 31, Alanine Aminotransferase (ALT/SGPT) 52, Alkaline Phosphatase 95, Total Bilirubin 0.3, Total Protein 6.3L, Albumin 2.8L, Albumin/Globulin Ratio 0.80L CBC/BMP Laboratory Tests 01/26/19 05:36 Red Blood Count 4.38, Mean Corpuscular Volume 95.2, Mean Corpuscular Hemoglobin 34.7 H, Mean Corpuscular Hemoglobin Concent 36.5, Red Cell Distribution Width 12.5, Neutrophils (%) (Auto) 73.7 H, Lymphocytes (%) (Auto) 10.9 L, Monocytes (%) (Auto) 11.1 H, Eosinophils (%) (Auto) 0.0, Basophils (%) (Auto) 0.5, Neutrophils # (Auto) 10.1 H, Lymphocytes # (Auto) 1.5, Monocytes # (Auto) 1.5 H, Eosinophils # (Auto) 0.0, Basophils # (Auto) 0.1, Calcium Level 8.3 L, Aspartate Amino Transf (AST/SGOT) 31, Alanine Aminotransferase (ALT/SGPT) 52, Alkaline Phosphatase 95, Total Bilirubin 0.3, Total Protein 6.3 L, Albumin 2.8 L Microbiology Microbiology 01/19/19 Blood Culture - Final, Complete NO GROWTH AFTER 5 DAYS 01/19/19 Blood Culture - Final, Complete NO GROWTH AFTER 5 DAYS 01/20/19 Respiratory Virus Panel (PCR) ([facility]) - Final, Complete 01/19/19 Respiratory Virus Panel (PCR) ([facility]) - Final, Complete SYLVIA MCMAHAN MD Jan 26, 2019 11:51
[2019-01-26 14:00] VITALS: BP 114/63
--- NOTE | 2019-01-26 16:23 | REP ---
Portable chest, 11:59 a.m., single AP view with the patient semi upright: Comparison is 01/19/2019. The lung fox are clear. The cardiac size is normal. The mervat, mediastinum, and skeletal structures are unremarkable. There are surgical clips in the right axilla, unchanged. Impression: Negative portable chest. There is no interval change. Electronically Signed by Abiodun Long MD 01/26/2019 04:14 P
[2019-01-26] MEDS: RAMELTEON 8 MG TAB (ROZEREM) PO SCH (21:57)
[2019-01-26] MEDS: ATORVASTATIN 20 MG TAB PO SCH (21:59)
[2019-01-26] MEDS: MONTELUKAST 10 MG TAB PO SCH (21:59)
[2019-01-26 22:00] VITALS: BP 134/73
[2019-01-26] MEDS: DIVALPROEX 250MG *ER* TAB PO SCH (22:00)
[2019-01-26] MEDS: ALPRAZolam 0.5 MG TAB PO PRN (23:16)
[2019-01-27] MEDS: diphenhydrAMINE INJ 50MG/ML VIAL (J1200) IV PRN ×2 (00:35→23:55)
[2019-01-27] MEDS: methylPREDNISolone INJ 125 MG/2 ML VIAL (J2930) IV SCH ×2 (00:35→05:59)
[2019-01-27] MEDS: LEVALBUTEROL 1.25 MG/0.5 ML CONCENTRATE NEB INH SCH ×4 (00:36→23:40)
[2019-01-27] MEDS: DEXTROMETHORPHAN 60MG/10ML SUSP 90ML BTL(DELSYM) PO SCH ×3 (00:36→21:10)
[2019-01-27] MEDS: LevoFLOXacin 500 MG TABLET PO SCH (05:59)
[2019-01-27] MEDS: SLF 3 ML SYR IV SCH ×3 (05:59→21:10)
[2019-01-27] MEDS: LEVOTHYROXINE 50MCG TABLET (0.05MG) PO SCH (05:59)
[2019-01-27 06:00] VITALS: BP 129/75
[2019-01-27 06:38] LABS: BASO # 0.1 10^3/uL (0.0-0.2); BASO % 0.4 % (0.0-1.0); HEMATOCRIT 41.7 % (36.0-47.0); HEMOGLOBIN 15.3 g/dl (12.0-15.5); LYMPH # 1.3 10^3/uL (1.5-5.0); LYMPH % 8.9 % (24.0-44.0); MEAN CORPUSCULAR HEMOGLOBIN 35.1 pg (27.0-33.0); MEAN CORPUSCULAR HGB CONC 36.7 g/dl (32.0-36.5); MEAN CORPUSCULAR VOLUME 95.6 fl (80.0-96.0); MONO # 1.2 10^3/uL (0.0-0.8); MONO % 7.8 % (0.0-5.0); NEUTROPHILS # 11.5 10^3/uL (1.5-8.5); NEUTROPHILS % 78.7 % (36.0-66.0); PLATELET COUNT, AUTOMATED 230 10^3/uL (150-450); RED BLOOD COUNT 4.36 10^6/uL (4.00-5.40); WHITE BLOOD COUNT 14.7 10^3/uL (4.0-10.0)
[2019-01-27 07:13] LABS: ALBUMIN 2.8 GM/DL (3.2-5.2); ALT/SGPT 46 U/L (12-78); BILIRUBIN,TOTAL 0.6 MG/DL (0.2-1.0); BLOOD UREA NITROGEN 40 MG/DL (7-18); CALCIUM LEVEL 8.5 MG/DL (8.8-10.2); CARBON DIOXIDE LEVEL 37 MEQ/L (21-32); CHLORIDE LEVEL 89 MEQ/L (98-107); CREATININE FOR GFR 0.93 MG/DL (0.55-1.30); GLOMERULAR FILTRATION RATE > 60.0 (>39); GLUCOSE, FASTING 131 MG/DL (70-100); POTASSIUM SERUM 3.3 MEQ/L (3.5-5.1); SODIUM LEVEL 135 MEQ/L (136-145); TOTAL PROTEIN 6.1 GM/DL (6.4-8.2)
[2019-01-27] MEDS: SYMBICORT 160/4.5MCG INHALER 6GM INH SCH ×2 (08:53→20:45)
[2019-01-27] MEDS ORDERED: POTASSIUM CHLORIDE 10 MEQ SR TABLET PO ONE (09:00)
[2019-01-27] MEDS: ASPIRIN 81 MG ENTERIC TAB PO SCH (09:10)
[2019-01-27] MEDS: TUSSICAPS ER 10/8MG CAPSULE PO SCH ×2 (09:10→20:41)
[2019-01-27] MEDS: OCUVITE 1 TAB PO SCH ×2 (09:11→20:42)
[2019-01-27] MEDS: OMEPRAZOLE 20 MG CAP PO SCH ×2 (09:11→20:44)
[2019-01-27] MEDS: VERAPAMIL 40 MG TAB PO SCH ×2 (09:11→20:42)
[2019-01-27] MEDS: SODIUM CHLORIDE NASAL 0.65% SPRAY BTL (OCEAN) SCH ×3 (09:11→20:42)
[2019-01-27] MEDS: FUROSEMIDE 40 MG/4 ML VIAL (J1940) IV SCH (09:11)
[2019-01-27] MEDS: HEPARIN SOD (PORCINE) 5000 UNITS/ML VIAL SC SCH ×2 (09:12→20:41)
--- NOTE | 2019-01-27 11:21 | IPNPDOC ---
Subjective Date Seen The patient was seen on 01/27/19. Subjective Chief Complaint/HPI Patient feeling a lot better, still reluctant to go home today. Scared of her ex- who came to see her. Was to see signal worker helper before she is discharged tomorrow General: Denies: ROS Unobtainable, Chills, Night Sweats, Fatigue, Malaise, Normal Appetite, Other Symptoms ENT: Denies: Head Aches, Ear Pain, Dysphagia, Sinus Congestion, Post Nasal Drip, Sore Throat, Epistaxis, Other Symptoms Skin: Denies: Rash, Lesions, Jaundice, Bruising, Itching, Dry, Breakdown, Nail Changes, Other Pulmonary: Denies: Dyspnea, Cough, Pleuritic Chest Pain, Other Symptoms Cardiovascular: Denies: Chest Pain, Palpitations, Orthopnea, Paroxysmal Noc. Dyspnea, Edema, Lt Headedness, Other Symptoms Gastrointestinal: Denies: Nausea, Vomiting, Abdominal Pain, Diarrhea, Constipation, Melena, Hematochezia, Other Symptoms Neurological: Denies: Weakness, Numbness, Incoordination, Change in speech, Confusion, Seizures, Other Symptoms Objective Physical Examination Eye Exam: Positive: PERRLA, Conjunctiva & lids normal ENT Exam: Positive: Atraumatic, Mucous membr. moist/pink Neck Exam: Positive: Supple Chest Exam: Positive: Normal air movement, Other (no crackles today) Heart Exam: Positive: Tachycardic, Normal S1, Normal S2, Murmurs Abdomen Exam: Positive: Normal bowel sounds, Soft Extremity Exam: Positive: Normal pulses Neuro Exam: Positive: Strength at 5/5 X4 ext Psych Exam: Positive: Mental status NL, Memory Intact, Oriented x 3 Assessment /Plan Problems (1) Asthma with acute exacerbation Status: Resolved Problem Text: Asthma exacerbation with acute tracheobronchitis. continue levaquin, singulair, methyl pred, on symbicort. will give dextromethorphan syrup and tussicaps. Improved clinical status with increased dose of Xopenex and Solu-Medrol as previously done Decrease her pronounced daily at hour Change Solu-Medrol to prednisone 40 mg by mouth daily Possible discharge in a.m. Continue all other meds (2) Reactive airway disease Status: Chronic Problem Text: Patient is outpatient consultation with an stem cutter patient is Plan/VTE VTE Prophylaxis Ordered?: Yes VS, I&O, 24H, Fishbone Vital Signs/I&O Vital Signs Date Time Temp Pulse Resp B/P (MAP) Pulse Ox O2 Delivery O2 Flow Rate FiO2 01/27/19 06:00 97.2 86 18 129/75 (93) 90 01/22/19 12:00 I&O- Last 24 Hours up to 6 AM 01/27/19 06:00 Intake Total 1160 ml Output Total 2050 ml Balance -890 ml Laboratory Data 24H LABS Laboratory Tests 2 01/27/19 05:38: Immature Granulocyte % (Auto) 4.2H, White Blood Count 14.7H, Red Blood Count 4.36, Hemoglobin 15.3, Hematocrit 41.7, Mean Corpuscular Volume 95.6, Mean Corpuscular Hemoglobin 35.1H, Mean Corpuscular Hemoglobin Concent 36.7H, Red Cell Distribution Width 12.7, Platelet Count 230, Neutrophils (%) (Auto) 78.7H, Lymphocytes (%) (Auto) 8.9L, Monocytes (%) (Auto) 7.8H, Eosinophils (%) (Auto) 0.0, Basophils (%) (Auto) 0.4, Neutrophils # (Auto) 11.5H, Lymphocytes # (Auto) 1.3L, Monocytes # (Auto) 1.2H, Eosinophils # (Auto) 0.0, Basophils # (Auto) 0.1, Nucleated Red Blood Cells % (auto) 0.0, Anion Gap 9, Glomerular Filtration Rate > 60.0, Blood Urea Nitrogen 40H, Creatinine 0.93, Sodium Level 135L, Potassium Level 3.3L, Chloride Level 89L, Carbon Dioxide Level 37H, Calcium Level 8.5L, Aspartate Amino Transf (AST/SGOT) 22, Alanine Aminotransferase (ALT/SGPT) 46, Alkaline Phosphatase 86, Total Bilirubin 0.6#, Total Protein 6.1L, Albumin 2.8L, Albumin/Globulin Ratio 0.85L CBC/BMP Laboratory Tests 01/27/19 05:38 Red Blood Count 4.36, Mean Corpuscular Volume 95.6, Mean Corpuscular Hemoglobin 35.1 H, Mean Corpuscular Hemoglobin Concent 36.7 H, Red Cell Distribution Width 12.7, Neutrophils (%) (Auto) 78.7 H, Lymphocytes (%) (Auto) 8.9 L, Monocytes (%) (Auto) 7.8 H, Eosinophils (%) (Auto) 0.0, Basophils (%) (Auto) 0.4, Neutrophils # (Auto) 11.5 H, Lymphocytes # (Auto) 1.3 L, Monocytes # (Auto) 1.2 H, Eosinophils # (Auto) 0.0, Basophils # (Auto) 0.1, Calcium Level 8.5 L, Aspartate Amino Transf (AST/SGOT) 22, Alanine Aminotransferase (ALT/SGPT) 46, Alkaline Phosphatase 86, Total Bilirubin 0.6 #, Total Protein 6.1 L, Albumin 2.8 L Microbiology Microbiology 01/19/19 Blood Culture - Final, Complete NO GROWTH AFTER 5 DAYS 01/19/19 Blood Culture - Final, Complete NO GROWTH AFTER 5 DAYS 01/20/19 Respiratory Virus Panel (PCR) (LINO) - Final, Complete 01/19/19 Respiratory Virus Panel (PCR) (LINO) - Final, Complete SYLVIA MCMAHAN MD Jan 27, 2019 11:21
[2019-01-27] MEDS: predniSONE 20 MG TAB PO SCH (13:18)
[2019-01-27 14:00] VITALS: BP 137/86
[2019-01-27] MEDS: BENZONATATE 100 MG CAP PO PRN (18:31)
[2019-01-27 20:00] VITALS: BP 135/83
[2019-01-27] MEDS: DIVALPROEX 250MG *ER* TAB PO SCH (20:41)
[2019-01-27] MEDS: RAMELTEON 8 MG TAB (ROZEREM) PO SCH (20:41)
[2019-01-27] MEDS: ATORVASTATIN 20 MG TAB PO SCH (20:42)
[2019-01-27] MEDS: MONTELUKAST 10 MG TAB PO SCH (20:42)
[2019-01-28] MEDS: LevoFLOXacin 500 MG TABLET PO SCH (06:16)
[2019-01-28] MEDS: SLF 3 ML SYR IV SCH (06:16)
[2019-01-28] MEDS: LEVOTHYROXINE 50MCG TABLET (0.05MG) PO SCH (06:16)
[2019-01-28 06:46] LABS: HEMATOCRIT 42.4 % (36.0-47.0); HEMOGLOBIN 15.3 g/dl (12.0-15.5); MEAN CORPUSCULAR HEMOGLOBIN 34.5 pg (27.0-33.0); MEAN CORPUSCULAR HGB CONC 36.1 g/dl (32.0-36.5); MEAN CORPUSCULAR VOLUME 95.5 fl (80.0-96.0); PLATELET COUNT, AUTOMATED 219 10^3/uL (150-450); RED BLOOD COUNT 4.44 10^6/uL (4.00-5.40); WHITE BLOOD COUNT 16.6 10^3/uL (4.0-10.0)
[2019-01-28 07:13] LABS: BLOOD UREA NITROGEN 37 MG/DL (7-18); CALCIUM LEVEL 8.6 MG/DL (8.8-10.2); CARBON DIOXIDE LEVEL 36 MEQ/L (21-32); CHLORIDE LEVEL 91 MEQ/L (98-107); CREATININE FOR GFR 0.81 MG/DL (0.55-1.30); GLOMERULAR FILTRATION RATE > 60.0 (>39); GLUCOSE, FASTING 104 MG/DL (70-100); POTASSIUM SERUM 3.7 MEQ/L (3.5-5.1); SODIUM LEVEL 133 MEQ/L (136-145)
[2019-01-28] MEDS: LEVALBUTEROL 1.25 MG/0.5 ML CONCENTRATE NEB INH SCH (08:24)
[2019-01-28] MEDS: HEPARIN SOD (PORCINE) 5000 UNITS/ML VIAL SC SCH (09:00)
[2019-01-28] MEDS: SYMBICORT 160/4.5MCG INHALER 6GM INH SCH (09:00)
[2019-01-28] MEDS ORDERED: RAME8TAB2 PO (09:58)
[2019-01-28] MEDS ORDERED: SYMB16INH INH (09:58)
[2019-01-28] MEDS ORDERED: Dextromethorphan Adult 12HR PO (09:58)
[2019-01-28] MEDS ORDERED: LEVA1TAB2 PO (09:58)
[2019-01-28] MEDS ORDERED: PRED10TA2 PO (09:58)
[2019-01-28 10:56] VITALS: BP 140/83
[2019-01-28] MEDS: OMEPRAZOLE 20 MG CAP PO SCH (10:56)
[2019-01-28] MEDS: VERAPAMIL 40 MG TAB PO SCH (10:56)
[2019-01-28] MEDS: OCUVITE 1 TAB PO SCH (10:56)
[2019-01-28] MEDS: ASPIRIN 81 MG ENTERIC TAB PO SCH (10:57)
[2019-01-28] MEDS: TUSSICAPS ER 10/8MG CAPSULE PO SCH (10:57)
[2019-01-28] MEDS: predniSONE 20 MG TAB PO SCH (10:57)
[2019-01-28] MEDS: DEXTROMETHORPHAN 60MG/10ML SUSP 90ML BTL(DELSYM) PO SCH (10:57)
[2019-01-28] MEDS: SODIUM CHLORIDE NASAL 0.65% SPRAY BTL (OCEAN) SCH (10:58)
--- NOTE | 2019-01-28 11:51 | DS.PDOC ---
Discharge Summary General Date of Admission Jan 20, 2019 at 16:17 Date of Discharge 01/28/19 Attending Physician: SYLVIA MCMAHAN MD Discharge Summary PROCEDURES PERFORMED DURING STAY: None. ADMITTING DIAGNOSES: 1. Acute respiratory failure with hypoxia secondary to Exacerbation of asthma. DISCHARGE DIAGNOSES: 1. Acute respiratory failure with hypoxia secondary to exacerbation of asthma. COMPLICATIONS/CHIEF COMPLAINT: Acute Resp Failure W/Hypoxia. HISTORY OF PRESENT ILLNESS: Pt is 68 y o with history of breast cancer, asthma, TIA, right hip replacement, GERD presented hospital with cough, shortness of breath and wheezes. Patient stated that she has a progressive shortness of breath since August associated with cough. Patient has been recently diagnosed with asthma at age 63. Patient stated that she has been treated with 2 courses of antibiotics cephalexin and Augmentin prescribed by PCP and piano stringer in past 2 weeks. However it did not alleviate her shortness of breath and cough. Today patient has increased shortness of breath with increased sputum production and she decided to come to the hospital. CT was done and it was negative for pulmonary emboli or pulmonary infiltrate.. HOSPITAL COURSE: Patient was admitted with the acute respiratory failure secondary with hypoxia secondary to exacerbation of asthma.. She was started on IV steroids and nebulizer treatment for which patient was not responding very well, so the dosage was increased to 60 mg IV every 6 hours and nebulizer also every every 6 hours. Patient responded very well to the above treatment and she also continued on oxygen supplement once she becomes asymptomatic. Lungs are clear. I'm asked auscultation and she will be discharged home today on a by mouth tapering dose of prednisone and all other home medications. Been advised to follow up with her PCP in one week . DISCHARGE MEDICATIONS: Please see below. ALLERGIES: Please see below. PHYSICAL EXAMINATION ON DISCHARGE: VITAL SIGNS: Please see below. GENERAL: Within normal limits. HEENT: PERRLA. Extraocular muscles intact NECK: Supple CARDIOVASCULAR EXAMINATION: S1, S2, regular RESPIRATORY EXAMINATION: Clear to A&P ABDOMINAL EXAMINATION: Benign EXTREMITIES: No clubbing, cyanosis, edema SKIN: Within normal range NEUROLOGICAL EXAMINATION: Intact PSYCHIATRIC EXAMINATION: Normal LABORATORY DATA: Please see below. IMAGING: Chest x-ray report:Impression: Negative portable chest. There is no interval change. PROGNOSIS: Good ACTIVITY: As tolerated. DIET: Regular DISCHARGE PLAN: Follow with PCP in one week DISPOSITION: . Home DISCHARGE INSTRUCTIONS: 1. As per discharge instructions. ITEMS TO FOLLOWUP ON ON OUTPATIENT: 1. Follow with PCP in one week. DISCHARGE CONDITION: Stable. TIME SPENT ON DISCHARGE: 38 minutes. Vital Signs/I&Os Vital Signs Date Time Temp Pulse Resp B/P (MAP) Pulse Ox O2 Delivery O2 Flow Rate FiO2 01/28/19 10:56 90 140/83 01/27/19 20:00 97.8 18 92 01/22/19 12:00 I&O- Last 24 Hours up to 6 AM 01/28/19 06:00 Intake Total 1260 ml Output Total 1800 ml Balance -540 ml Laboratory Data Labs 24H Laboratory Tests 2 01/28/19 05:46: Nucleated Red Blood Cells % (auto) 0.0, Anion Gap 6L, Glomerular Filtration Rate > 60.0, Blood Urea Nitrogen 37H, Creatinine 0.81, Sodium Level 133L, Potassium Level 3.7, Chloride Level 91L, Carbon Dioxide Level 36H, Calcium Level 8.6L CBC/BMP Laboratory Tests 01/28/19 05:46 Red Blood Count 4.44, Mean Corpuscular Volume 95.5, Mean Corpuscular Hemoglobin 34.5 H, Mean Corpuscular Hemoglobin Concent 36.1, Red Cell Distribution Width 12.5, Calcium Level 8.6 L Microbiology Microbiology 01/19/19 Blood Culture - Final, Complete NO GROWTH AFTER 5 DAYS 01/19/19 Blood Culture - Final, Complete NO GROWTH AFTER 5 DAYS 01/20/19 Respiratory Virus Panel (PCR) (LINO) - Final, Complete 01/19/19 Respiratory Virus Panel (PCR) (LINO) - Final, Complete Discharge Medications Scheduled Aspirin (Aspirin EC) 81 Mg Tab, 81 MG PO DAILY, (Reported) Atorvastatin Calcium (Atorvastatin Calcium) 40 Mg Tab, 40 MG PO QHS, (Reported) Budesonide/Formoterol (Symbicort 160-4.5 Mcg Inhaler) 6 Gm Hfa.aer.ad, 2 PUFF INH BID Calcium/Magnesium/Zinc (Mughpna-Wqwvuyzmp-Fnpt Tablet) 1 Each Tablet, 1 TAB PO DAILY, (Reported) Cholecalciferol (Vitamin D3) (Vitamin D3) 1,000 Unit Tab, 1,000 UNIT PO DAILY, (Reported) Cyclosporine (Restasis) 0.05 % Emu, 1 DROP OU BID, (Reported) Divalproex Sodium (Depakote ER) 250 Mg Tab, 750 MG PO QHS, (Reported) Eszopiclone (Eszopiclone) 3 Mg Tablet, 3 MG PO QHS, (Reported) Fluticasone/Vilanterol (Breo Ellipta 200-25 Mcg INH) 1 Inh Inh, 1 PUFF INH DAILY, (Reported) Gluc Longoria/Chondro Longoria A/Vit C/Mn (Glucosamine-Chondroitin Cap) 1 Cap Cap, 1 CAP PO DAILY, (Reported) Levofloxacin (Levaquin) 500 Mg Tablet, 500 MG PO DAILY@06 Levothyroxine Sodium (Levothyroxine Sodium) 50 Mcg Tab, 50 MCG PO DAILY, (Reported) Montelukast Sodium (Singulair) 10 Mg Tab, 10 MG PO QHS, (Reported) Multivitamins (Thera M Plus Tablet) 1 Each Tablet, 1 TAB PO DAILY, (Reported) Warren-3/Dha/Epa/Fish Oil (Fish Oil EC 1,000 mg Softgel) 1 Cap Cap, 2 CAP PO DAILY, (Reported) Omeprazole (Omeprazole) 40 Mg Cap, 40 MG PO BID, (Reported) Prednisone (Prednisone) 10 Mg Tablet, 10 MG PO TAPER Take 4 tabs daily x 3 days, then 3 tabs daily x 3 days, then 2 tabs daily x 3 days, then 1 tab daily x 3 days and stop Ramelteon (Ramelteon) 8 Mg Tablet, 8 MG PO QHS Umeclidinium [place] (Incruse Ellipta) 62.5 Mcg Blst.w.dev, 1 PUFF INH QHS, (Reported) Verapamil HCl (Verapamil HCl) 40 Mg Tab, 40 MG PO BID, (Reported) Vit A/Vit C/Vit E/Zinc/Copper (Preservision Areds Softgel) 1 Cap Cap, 1 CAP PO BID, (Reported) Vitamin B Complex (Vitamin B Complex) 1 Each Tablet, 1 TAB PO DAILY, (Reported) Scheduled PRN Albuterol Sulfate (Proair Hfa) 108 Mcg/Act Aer, 2 PUFF INH Q4HP PRN for SHORTNESS OF BREATH, (Reported) Butalb/Acetaminophen/Caffeine (Fioricet 50-300-40 mg Capsule) 1 Each Capsule, 1 CAP PO Q6H PRN for MIGRAINE, (Reported) Fexofenadine/Pseudoephedrine (Wendy-D 12 Hour Tablet) 1 Each Tab.er.12h, 1 TAB PO BID PRN for CONGESTION, (Reported) Allergies Coded Allergies: codeine (Verified Adverse Reaction, Intermediate, SEVERE VOMITING, 01/19/19) nortriptyline (Verified Adverse Reaction, Intermediate, "FELT LIKE A ZOMBIE", 01/19/19) tramadol (Verified Adverse Reaction, Intermediate, SEVERE VOMITING, 01/19/19) SYLVIA MCMAHAN MD Jan 28, 2019 11:51
== END 2019-01-28 13:46 | disposition home or self-care (01) | DRG 203 ==
LOC: M ED 19:37 → M ED INP 19:38 → M PCU 01-20 02:17 → OBSVTOIN 01-20 16:17 → M MSPAV 01-22 20:10
PROVIDERS: ADMIT Internal Medicine; ATTEND Internal Medicine
DX: J45.901 Unspecified asthma with (acute) exacerbation (principal); F31.9 Bipolar disorder, unspecified; K21.9 Gastro-esophageal reflux disease without esophagitis; F41.9 Anxiety disorder, unspecified; E03.9 Hypothyroidism, unspecified; E78.5 Hyperlipidemia, unspecified; I10 Essential (primary) hypertension; I44.7 Left bundle-branch block, unspecified; H35.30 Unspecified macular degeneration; Z92.3 Personal history of irradiation; Z85.3 Personal history of malignant neoplasm of breast; Z96.641 Presence of right artificial hip joint; Z86.73 Personal history of transient ischemic attack (TIA), and cerebral infarction without residual deficits; Z79.82 Long term (current) use of aspirin; Z88.5 Allergy status to narcotic agent; Z79.899 Other long term (current) drug therapy

== ENCOUNTER → 2019-02-07 | Outpatient (REF) | payer MEDICARE ==
[~2019-02-07] MED LIST changes: +ALLE12TA31 PO; +AUGM875T28 PO; +B COTAB3 PO; +CALCTAB17 PO; +Dextromethorphan Adult 12HR PO; +ESZO1TAB6 PO; +FIOR1CAP PO; +GUAI100L6 PO; +INCR1INH INH; +LEVA1TAB2 PO; -OMEP40CA2 PO; +OMEP40CA97 PO; +PRED10TA2 PO; +RAME8TAB2 PO; +SIMV20TA22 PO; +SYMB16INH INH; +VITMTA PO
[2019-02-09 14:52] LABS: EBV VIRAL CAPSID AG IgM <36.0 U/mL (0.0-35.9)
== END ==
LOC: M LAB REF 16:36
PROVIDERS: ATTEND Nurse Practitioner Family
DX: R53.83 Other fatigue (principal); R20.2 Paresthesia of skin; F31.9 Bipolar disorder, unspecified

== ENCOUNTER → 2019-02-18 | Outpatient (REF) | payer MEDICARE ==
[~2019-02-18] MED LIST changes: +OMEP40CA2 PO; -OMEP40CA97 PO; -SIMV20TA22 PO
[2019-02-18 18:01] LABS: IMMUNOGLOBULIN E 29.2 IU/ML (<100); IMMUNOGLOBULIN G 769 MG/DL (681-1648); IMMUNOGLOBULIN M 41.1 MG/DL (40-230)
[2019-02-18 18:15] LABS: RUBELLA IgG QUALITATIVE IMMUNE (IMMUNE)
== END ==
LOC: M LAB REF 16:52
PROVIDERS: ATTEND Nurse Practitioner Family
DX: D84.9 Immunodeficiency, unspecified (principal); J45.30 Mild persistent asthma, uncomplicated

== ENCOUNTER → 2019-02-28 | Outpatient (CLI) | payer MEDICARE ==
[~2019-02-28] MED LIST changes: -OMEP40CA2 PO; +OMEP40CA97 PO
[2019-02-28 19:24] LABS: BASO % 0.9 % (0.0-1.0); EOS # 0.1 10^3/uL (0.0-0.5); EOS % 1.7 % (0.0-3.0); HEMATOCRIT 39.1 % (36.0-47.0); HEMOGLOBIN 13.2 g/dl (12.0-15.5); LYMPH % 42.9 % (24.0-44.0); MEAN CORPUSCULAR HEMOGLOBIN 32.7 pg (27.0-33.0); MEAN CORPUSCULAR HGB CONC 33.8 g/dl (32.0-36.5); MEAN CORPUSCULAR VOLUME 96.8 fl (80.0-96.0); MONO # 0.7 10^3/uL (0.0-0.8); MONO % 15.3 % (0.0-5.0); NEUTROPHILS # 1.8 10^3/uL (1.5-8.5); NEUTROPHILS % 38.1 % (36.0-66.0); PLATELET COUNT, AUTOMATED 232 10^3/uL (150-450); RED BLOOD COUNT 4.04 10^6/uL (4.00-5.40); WHITE BLOOD COUNT 4.6 10^3/uL (4.0-10.0)
[2019-03-04 15:40] LABS: STREP PNEUMO TYPE 1 0.3 ug/mL (>1.3); STREP PNEUMO TYPE 12F 0.2 ug/mL (>1.3); STREP PNEUMO TYPE 14 0.8 ug/mL (>1.3); STREP PNEUMO TYPE 18C 1.2 ug/mL (>1.3); STREP PNEUMO TYPE 19A 1.2 ug/mL (>1.3); STREP PNEUMO TYPE 19F 0.5 ug/mL (>1.3); STREP PNEUMO TYPE 23F 0.2 ug/mL (>1.3); STREP PNEUMO TYPE 3 0.3 ug/mL (>1.3); STREP PNEUMO TYPE 4 <0.1 ug/mL (>1.3); STREP PNEUMO TYPE 6B 1.1 ug/mL (>1.3); STREP PNEUMO TYPE 8 0.9 ug/mL (>1.3); STREP PNEUMO TYPE 9N 0.4 ug/mL (>1.3); STREP PNEUMO TYPE 9V 0.2 ug/mL (>1.3)
== END ==
LOC: M SMT 13:11
PROVIDERS: ATTEND Allergy & Immunology Allergy
DX: J45.30 Mild persistent asthma, uncomplicated (principal); D84.9 Immunodeficiency, unspecified

== ENCOUNTER → 2019-04-11 | Outpatient (REF) | payer MEDICARE ==
[~2019-04-11] MED LIST changes: +SIMV20TA22 PO
== END ==
LOC: M LAB REF 12:31
PROVIDERS: ATTEND Internal Medicine
DX: F31.9 Bipolar disorder, unspecified (principal)

== ENCOUNTER → 2019-04-27 | Outpatient (CLI) | payer MEDICARE ==
[2019-04-27 13:17] LABS: BASO % 0.6 % (0.0-1.0); EOS # 0.1 10^3/uL (0.0-0.5); EOS % 2.6 % (0.0-3.0); HEMATOCRIT 42.6 % (36.0-47.0); HEMOGLOBIN 14.2 g/dl (12.0-15.5); LYMPH # 2.1 10^3/uL (1.5-5.0); LYMPH % 41.8 % (24.0-44.0); MEAN CORPUSCULAR HEMOGLOBIN 31.9 pg (27.0-33.0); MEAN CORPUSCULAR HGB CONC 33.3 g/dl (32.0-36.5); MEAN CORPUSCULAR VOLUME 95.7 fl (80.0-96.0); MONO # 0.6 10^3/uL (0.0-0.8); MONO % 12.6 % (0.0-5.0); NEUTROPHILS # 2.1 10^3/uL (1.5-8.5); PLATELET COUNT, AUTOMATED 186 10^3/uL (150-450); RED BLOOD COUNT 4.45 10^6/uL (4.00-5.40); WHITE BLOOD COUNT 4.9 10^3/uL (4.0-10.0)
[2019-04-27 13:40] LABS: ERYTHROCYTE SEDIMENTATION RATE 4 mm/hr (0-30)
== END ==
LOC: M PLALAB 10:15
PROVIDERS: ATTEND Internal Medicine Infectious Disease
DX: D72.821 Monocytosis (symptomatic) (principal); D84.9 Immunodeficiency, unspecified

== ENCOUNTER → 2019-06-01 | Outpatient (CLI) | payer MEDICARE ==
[2019-06-01 13:35] LABS: BASO # 0.1 10^3/uL (0.0-0.2); BASO % 0.9 % (0.0-1.0); EOS # 0.1 10^3/uL (0.0-0.5); EOS % 2.3 % (0.0-3.0); HEMATOCRIT 41.1 % (36.0-47.0); HEMOGLOBIN 13.7 g/dl (12.0-15.5); LYMPH # 2.3 10^3/uL (1.5-5.0); LYMPH % 41.3 % (24.0-44.0); MEAN CORPUSCULAR HEMOGLOBIN 31.8 pg (27.0-33.0); MEAN CORPUSCULAR HGB CONC 33.3 g/dl (32.0-36.5); MEAN CORPUSCULAR VOLUME 95.4 fl (80.0-96.0); MONO # 0.7 10^3/uL (0.0-0.8); NEUTROPHILS # 2.4 10^3/uL (1.5-8.5); NEUTROPHILS % 42.3 % (36.0-66.0); PLATELET COUNT, AUTOMATED 181 10^3/uL (150-450); RED BLOOD COUNT 4.31 10^6/uL (4.00-5.40); WHITE BLOOD COUNT 5.6 10^3/uL (4.0-10.0)
== END ==
LOC: M PLALAB 09:29
PROVIDERS: ATTEND Internal Medicine Infectious Disease
DX: D72.821 Monocytosis (symptomatic) (principal)

== ENCOUNTER → 2019-06-10 | Outpatient (REF) | payer MEDICARE | LOC: M WUC 15:54 | PROVIDERS: ATTEND Physician Assistant | DX: R30.0 Dysuria (principal) ==

== ENCOUNTER → 2019-06-15 | Outpatient (REF) | payer MEDICARE ==
[2019-06-15 15:05] LABS: INFLUENZA A AMPLIFICATION NEGATIVE (NEGATIVE); INFLUENZA B AMPLIFICATION NEGATIVE (NEGATIVE)
== END ==
LOC: M LAB REF 12:31
PROVIDERS: ATTEND Nurse Practitioner Adult Health
DX: J06.9 Acute upper respiratory infection, unspecified (principal)

== ENCOUNTER 2019-06-20 11:04 | Emergency (ER) | payer MEDICARE ==
[~2019-06-20] VITALS: Ht 177.8 cm; Wt 92.6 kg
[2019-06-20] MEDS ORDERED: DOXY100C37 (11:15)
[2019-06-20] MEDS ORDERED: ALBU0.63 (11:15)
[2019-06-20] MEDS ORDERED: FLUTISP (13:01)
[2019-06-20] MEDS ORDERED: PREG50CA2 PO (13:01)
[2019-06-20] MEDS ORDERED: methylPREDNISolone INJ 125 MG/2 ML VIAL (J2930) IM ONE (13:45)
[2019-06-20] MEDS ORDERED: IPRATROPIUM 0.5MG/ALBUTEROL 2.5MG INH SOL UD 3ML (DUONEB)(J7620) NEB ONE (13:45)
[2019-06-20 14:07] LABS: BASO % 0.8 % (0.0-1.0); EOS # 0.1 10^3/uL (0.0-0.5); EOS % 3.2 % (0.0-3.0); HEMATOCRIT 43.3 % (36.0-47.0); HEMOGLOBIN 14.5 g/dl (12.0-15.5); LYMPH # 1.7 10^3/uL (1.5-5.0); LYMPH % 46.4 % (24.0-44.0); MEAN CORPUSCULAR HEMOGLOBIN 30.9 pg (27.0-33.0); MEAN CORPUSCULAR HGB CONC 33.5 g/dl (32.0-36.5); MEAN CORPUSCULAR VOLUME 92.3 fl (80.0-96.0); MONO # 0.7 10^3/uL (0.0-0.8); MONO % 18.8 % (0.0-5.0); NEUTROPHILS # 1.1 10^3/uL (1.5-8.5); PLATELET COUNT, AUTOMATED 174 10^3/uL (150-450); RED BLOOD COUNT 4.69 10^6/uL (4.00-5.40); WHITE BLOOD COUNT 3.7 10^3/uL (4.0-10.0)
[2019-06-20 14:37] LABS: CK-MB VALUE MASS < 1.0 NG/ML (<3.6); CPK CREATINE PHOSPHOKINASE 43 U/L (26-192); MB/CK RELATIVE INDEX 2.33 (< OR =4); TROPONIN I < 0.02 NG/ML (< 0.10)
--- NOTE | 2019-06-20 14:46 | REP ---
Clinical: Shortness of breath and cough. Technique: PA and lateral. Comparison: 06/15/2019. Findings: Mediastinum and cardiac silhouette are normal. Prominent coarsened markings suggest bronchitis / viral pneumonia and correlation is recommended. Trace basilar atelectasis cannot be excluded. No consolidation. No effusion. No pneumothorax. Impression: Possible bronchitis / viral pneumonia. Electronically Signed by Sherwin Boles MD 06/20/2019 02:38 P
[2019-06-20] MEDS ORDERED: MEDR4PAK PO (14:56)
[2019-06-20 15:06] VITALS: BP 132/75
--- NOTE | 2019-06-20 19:55 | ECGEPIP ---
[facility] - ED Test Date: 2019-06-20 Pat Name: ZHOU SIERRA Department: Room: - Gender: Female Can Patcher: : [id number] Requested By: LANG LOPEZ Order Number: [id number] Reading MD: Radha Braswell Measurements Intervals [place] Rate: 88 P: 55 NE: 164 QRS: 23 QRSD: 142 T: 72 QT: 363 QTc: 440 Interpretive Statements SINUS RHYTHM LEFT BUNDLE BRANCH BLOCK CW 01/19/19 RATE DECREASED [facility] Electronically Signed on 06-20-2019 19:55:21 EST by Radha Braswell
== END 2019-06-20 15:08 | disposition home or self-care (01) ==
LOC: M ED 11:04
DX: J40 Bronchitis, not specified as acute or chronic (principal); J45.909 Unspecified asthma, uncomplicated; I25.10 Atherosclerotic heart disease of native coronary artery without angina pectoris; I44.7 Left bundle-branch block, unspecified; E78.9 Disorder of lipoprotein metabolism, unspecified; E03.9 Hypothyroidism, unspecified; H35.30 Unspecified macular degeneration; K21.9 Gastro-esophageal reflux disease without esophagitis; M19.90 Unspecified osteoarthritis, unspecified site; Z79.899 Other long term (current) drug therapy; Z79.890 Hormone replacement therapy; Z79.82 Long term (current) use of aspirin; Z88.5 Allergy status to narcotic agent; Z88.8 Allergy status to other drugs, medicaments and biological substances
CPT/HCPCS: 36415; 71046; 80047; 82550; 82553; 84484; 85025; 87880; 93005; 94640; 96372; 99284; J2930

== ENCOUNTER → 2019-07-22 | Outpatient (CLI) | payer MEDICARE ==
[~2019-07-22] MED LIST changes: +ALBU0.63; +DOXY100C37; +FLUTISP; +MEDR4PAK PO; +PREG50CA2 PO
--- NOTE | 2019-07-22 14:57 | REP ---
HISTORY: History of pneumonia. COMPARISON: Multiple, latest 06/20/2019. FINDINGS: The superior mediastinal structures are midline. The cardiac silhouette is unremarkable in size, shape and position. The diaphragmatic surfaces of the lungs are regular and the costophrenic angles are clear. The pulmonary fox are clear. The imaged osseous structures are intact. IMPRESSION: There is no acute cardiopulmonary disease. Electronically Signed by Chavez Dodson DO 07/22/2019 03:44 P
== END ==
LOC: M RAD 14:06
PROVIDERS: ATTEND Nurse Practitioner Adult Health
DX: J18.9 Pneumonia, unspecified organism (principal)

== ENCOUNTER → 2019-09-20 | Outpatient (REF) | payer MEDICARE ==
[~2019-09-20] MED LIST changes: +BUTA-199 PO; -BUTATAB6 PO
== END ==
LOC: M LAB REF 10:33
PROVIDERS: ATTEND Registered Nurse
DX: R19.7 Diarrhea, unspecified (principal)

== ENCOUNTER → 2020-02-07 | Outpatient (REF) | payer MEDICARE ==
[~2020-02-07] MED LIST changes: -BUTA-199 PO; +BUTATAB6 PO
== END ==
LOC: M LAB REF 16:22
PROVIDERS: ATTEND Nurse Practitioner Adult Health
DX: M79.2 Neuralgia and neuritis, unspecified (principal)

== ENCOUNTER → 2020-03-01 | Outpatient (REF) | payer MEDICARE | LOC: M WUC 09:35 | PROVIDERS: ATTEND Physician Assistant | DX: R30.0 Dysuria (principal) ==

== ENCOUNTER → 2020-08-03 | Outpatient (REF) | payer MEDICARE ==
[~2020-08-03] MED LIST changes: +BUTA-199 PO; -BUTATAB6 PO
== END ==
LOC: M LAB REF 11:18
PROVIDERS: ATTEND Internal Medicine
DX: M79.2 Neuralgia and neuritis, unspecified (principal)

== ENCOUNTER → 2020-12-07 | Outpatient (CLI) | payer MEDICARE ==
[~2020-12-07] MED LIST changes: -DOXY100C37; +DOXY1CAP62; +OMEP40CA4 PO; -OMEP40CA97 PO
--- NOTE | 2020-12-10 13:36 | REP ---
INDICATION: YOLY SCR MAMMO/Z12.31. COMPARISON: Multiple the latest 11/15/2019 TECHNIQUE: Digital screening mammography was carried out bilaterally in the CC and MLO projections along with 2D and 3D modalities and compared to the prior exams. By history, the patient has no complaints of a palpable breast abnormality or other significant breast complaints. FINDINGS: The breasts are unchanged in size and shape. Stable benign calcifications are again seen bilaterally. There are no lo soft tissue densities or spiculated masses. There is no internal architectural distortion. There is an unchanged area of slight asymmetry seen in the upper aspect of the right breast on the MLO view only, adjacent to the pectoralis muscle. This has been stable since the 11/03/2017 exam. The Volpara volumetric breast density pattern is b. IMPRESSION: BIRADS/ACR category 2 benign findings. There is no evidence of malignant alteration of the breasts. This mammogram was interpreted with the aid of an FDA-approved computer-aided detection system. The patient states she had a clinical breast exam in over a year. The patient letter being requested is M1. RECOMMENDATION: Repeat screening mammography recommended 1 year (for women over 40). <Electronically signed by Chavez Dodson > 12/10/20 [id number]
== END ==
LOC: M WHC 09:18
PROVIDERS: ATTEND Nurse Practitioner Adult Health
DX: Z12.31 Encounter for screening mammogram for malignant neoplasm of breast (principal)

== ENCOUNTER 2021-01-07 12:04 | Emergency (ER) | payer MEDICARE ==
[~2021-01-07] VITALS: Ht 177.8 cm; Wt 87.0 kg
[2021-01-07 12:04] VITALS: BP 157/82
[~2021-01-07 12:04] MED LIST changes: +DOXY-443; -DOXY1CAP62
[2021-01-07] MEDS ORDERED: CEPH500C PO (14:43)
== END 2021-01-07 14:57 | disposition home or self-care (01) ==
LOC: M ED 12:04
DX: J02.9 Acute pharyngitis, unspecified (principal); J45.909 Unspecified asthma, uncomplicated; I45.10 Unspecified right bundle-branch block; G43.909 Migraine, unspecified, not intractable, without status migrainosus; H40.9 Unspecified glaucoma; E03.9 Hypothyroidism, unspecified; F33.9 Major depressive disorder, recurrent, unspecified; F41.9 Anxiety disorder, unspecified; K21.9 Gastro-esophageal reflux disease without esophagitis; M81.0 Age-related osteoporosis without current pathological fracture; Z85.3 Personal history of malignant neoplasm of breast; Z79.899 Other long term (current) drug therapy; Z79.890 Hormone replacement therapy; Z88.5 Allergy status to narcotic agent; Z88.8 Allergy status to other drugs, medicaments and biological substances
CPT/HCPCS: 99283; U0003

== ENCOUNTER 2021-01-08 17:53 | Emergency (ER) | payer MEDICARE ==
[~2021-01-08] VITALS: Ht 177.8 cm; Wt 86.4 kg
[~2021-01-08 17:53] MED LIST changes: +CEPH500C PO; -DOXY-443; +DOXY1CAP62
[2021-01-08 18:09] VITALS: BP 168/97
== END 2021-01-08 18:21 | disposition left against medical advice (07) ==
LOC: M ED 17:53
DX: Z53.29 Procedure and treatment not carried out because of patient's decision for other reasons (principal)

== ENCOUNTER → 2021-02-05 | Outpatient (REF) | payer MEDICARE | LOC: M LAB REF 17:01 | PROVIDERS: ATTEND Nurse Practitioner Adult Health | DX: M79.2 Neuralgia and neuritis, unspecified (principal) ==

== ENCOUNTER → 2021-03-01 | Outpatient (REF) | payer MEDICARE ==
[~2021-03-01] MED LIST changes: +DOXY-443; -DOXY1CAP62
== END ==
LOC: M LAB REF 13:00
PROVIDERS: ATTEND Internal Medicine Pulmonary Disease
DX: J45.20 Mild intermittent asthma, uncomplicated (principal)

== ENCOUNTER → 2021-03-02 | Outpatient (REF) | payer MEDICARE | LOC: M LAB REF 07:00 | PROVIDERS: ATTEND Internal Medicine Pulmonary Disease | DX: R19.7 Diarrhea, unspecified (principal) ==

== ENCOUNTER 2021-03-11 11:11 | Emergency (ER) | payer MEDICARE ==
[~2021-03-11] VITALS: Ht 177.8 cm; Wt 87.3 kg
--- OUTSIDE RECORDS SUMMARY | 2021-03-11 11:19 | CCD | Continuity of Care Document ---
Author Author Elroy CLARKOMirian Organization [place] [address] Phone [phone] Care Team Providers Care Stick Roller Name Role Phone [facility] Audiology AUTM [phone] Tin Grimes AUTM [phone] Jess Willams AUTM [phone] Rick Clark D.O. AUTM [phone] AUTM Unavailable Problems Active Problems Provider Date Cough Rick Clark D.O. Onset: 12/08/2014 Difficulty breathing Rick Clark D.O. Onset: 12/08/2014 Asthma without status asthmaticus Rick Clark D.O. Onset: 12/08/2014 Gastroesophageal reflux disease Rick Clark D.O. Onset: 0 12/08/2014 Intermittent asthma well controlled Rick Clark D.O. Onse t: 02/12/2016 Exacerbation of intermittent asthma Rick Clark D.O. Onse t: 04/20/2017 Intermittent asthma well controlled Alex Peoples Onspaula t: 02/03/2018 Intermittent asthma well controlled Alex Peoples Onspaula t: 09/01/2018 Essential hypertension Kay Cardoso M.D. Onset: 017 Allergic asthma without status asthmaticus Kay Cardoso M.D. Onset: 10/15/2016 Intermittent asthma well controlled Alex Peoples Onspaula t: 10/12/2018 Uncomplicated moderate persistent asthma Rick Clark D.O. Onset: 12/23/2018 Allergic rhinitis Rick Clark D.O. 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 Ons et: 01/14/2019 Intermittent asthma well controlled Masha Johnson t: 02/07/2019 Intermittent asthma well controlled Masha Johnson t: 02/24/2019 Intermittent asthma well controlled Masha Johnson t: 03/01/2021 Intermittent asthma well controlled Alex Peoples t: 06/03/2019 Intermittent asthma well controlled Masha Johnson t: 09/06/2019 Immunodeficiency disorder Rick Clark D.O. Onset: 020 Intermittent asthma well controlled Masha Johnson t: 01/09/2020 Intermittent asthma well controlled Masha Johnson t: 08/07/2020 Intermittent asthma well controlled Alex Peoples t: 02/12/2021 Social History Type Date Description Comments Sex Unknown ETOH Use Sociable Tobacco Use Start: 05/11/70 End: 05/11/76 Patient is a forme r smoker 1/2 PPD for 6 yrs Recreational Drug Use Denies Drug Use Smoking Status Reviewed: 03/01/21 Patient is a former smoker 1/ 2 PPD for 6 yrs Allergies and adverse reactions Description No Known Drug Allergies Medications Active Medications SIG Qnty Indications Ordering Provide r Date Metronidazole 500mg Tablets one tab po tid x 10 days 30tabs Rick Clark D.O. 03/04/2021 Wendy Allergy 180mg Tablets 1 by mouth every day 90tabs J45.20 Rick Clark D.O. 08/07/2020 Incruse Ellipta 62.5mcg/Inh Aeroso l 1 puff every day 90units J45.20 Rick Clark D.O. 02/07/2019 Singulair 10mg Tablets 1 tab by mouth every night 90tabs J45.21 Rick Clark D.O. 11/03/[address] Take One Capsule By Mouth Twice A Day 180caps R05 Carl JohnsonO. Preservision Areds 2 Areds 2 Capsu les 2 tabs by mouth every day Unknown 00 Vitamin B Complex Tablets 1 tab by mouth every day Unknown Vitamin C 500mg Capsules 1 cap by mouth every day Unknown Albuterol Sulfate (2 .5mg/3ML) 0.083% Nebulizer 1 vial four times a day as needed Unknown Pregabalin 50mg Capsules 1 cap by mouth three times a day Unknown Divalproex Sodium 250mg Tablets DR 3 tabs by mouth every night Unknown Fluticasone Propionate Nasal [place] 50mcg/Act Suspension two sprays in each nostril in am Unknown Azelastine HCL (Nasal) 0.1% Soluti on 1-2 sprays in each nostril once daily as needed Unkn own Symbicort 160-4.5mcg/Act Aerosol 2 puff twice a day 30.6gm Carl JohnsonO. Lunesta 3mg Tablets 1 tab by mouth at bedtime Unknown Verapamil HCL 40mg Tablets 1 tab by mouth twice a day Unknown Atorvastatin Calcium 40mg Tablets 1 tab by mouth every day 30tabs Unknown Proair HFA 108(90Base) mcg/Act Aer osol 2 puffs four times a day as needed 8.500gm Rick Clark D.O . Aspir-Low 81mg Tablets DR 1 tab by mouth every day Unknown Levothyroxine Sodium 50mcg Tablets 1 tab by mouth every day 30tabs Unknown Vitamin D 1000Unit Capsules 1 tab by mouth every day Unknown Fish Oil 1000mg Capsules 2 cap by mouth every day Unknown Glucosamine Chondroitin 500 Complex 500Comp Capsules 2 tabs by mouth every day Unknown Multivital Tablets 1 tab by mouth every day Unknown Calcium 600+D [id number] Tabl ets 1 tab by mouth every day Unknown 0 Immunizations CPT Code Status Date Vaccine Lot # [id number] Given 06/18/2020 Moderna Covid-19 vaccine, mRNA, LNP-S, PF, 100 mcg/ 0.5 mL 29066 Given 05/23/2020 Moderna Covid-19 vaccine, mRNA, LNP-S, PF, 100 mcg/ 0.5 mL 58742 Given 02/17/2019 Flublock, Quadrivalent 40570 Given 05/11/2017 Pneumococcal PPSV23 73685 Given 02/21/2015 Influenza Virus Split 3 Yrs And Above For Intramuscular Use 53428 Given 05/11/2014 Prevnar 13 Vital Signs Date Vital Result Comment 03/01/2021 10:30am BP Systolic 118 mmHg BP Diastolic 78 mmHg Heart Rate 88 /min O2 % BldC Oximetry 99 % Height 70 inches 5'10" Weight 194.00 lb BMI (Body Mass Index) 27.8 kg/m2 [place] Body Weight 150 lb Weight 87.998 kg BSA (Body Surface Area) 2.06 m2 02/12/2021 2:43pm BP Systolic 140 mmHg BP Diastolic 78 mmHg Heart Rate 90 /min O2 % BldC Oximetry 96 % Height 70 inches 5'10" Weight 192.00 lb BMI (Body Mass Index) 27.5 kg/m2 [place] Body Weight 150 lb Weight 87.091 kg BSA (Body Surface Area) 2.05 m2 Results Test Acquired Date Facility Test Result H/L Range Note Stool Panel([facility]) 03/02/2021 [facility] Main Lab [address] [place] [address] [id number] [phone] Stool Lactoferrin-polys by Ica POSITIVE Abnormal 1 Gastrointestinal (GI) Panel 03/02/2021 [facility] Main Lab [address] [place] [address] [id number] [phone] Gastrointestinal (GI) Panel This Gastro[facility]es <SEE NOTE > 2 Laboratory test finding 03/01/2021 [facility] Main Lab [address] [place] [address] [id number] [phone] Coronavirus 2019 Nasopharygeal ASSAY INFORMATIO <SEE N OTE> 3 FVL/Denny 03/01/2021 [facility] PDFReport SEE IMAGE FVC-Pred 3.69 L FVC-Pre 3.03 L FVC-%Pred-Pre 82 L FVC-LLN 2.86 L Fev1-Pred 2.80 L Fev1-Pre 2.31 L Fev1-%Pred-Pre 82 L Fev1-LLN 2.10 L Fev6-Pred 3.54 L Fev6-Pre 3.00 L Fev6-%Pred-Pre 84 L Fev6-LLN 2.72 L Eck7qwa-Rqdk 76 % Kud8twq-Yom 76 % Uez6wdp-%Pred-Pre 101 % Qsk0blc-OAK 66 % Vrr3uhx-Jsnb 96 % Ard0iar-Zxy 99 % Noe7ozm-%Pred-Pre 103 % FEFMax-Pred 6.46 L/E/sec FEFMax-Pre 7.05 L/E/sec FEFMax-%Pred-Pre 109 L/E/sec FEFMax-LLN 4.40 L/E/sec Rln2628-Iicj 2.17 L/E/sec Zyd8852-Wbg 1.87 L/E/sec Hao6947-%Pred-Pre 86 L/E/sec Fhl9922-AOI 0.68 L/E/sec ExpTime-Pre 7.02 sec Qjg0lwb7-Gnof 79 % Sja7hhj7-Bkk 77 % Asx5yzm5-%Pred-Pre 97 % Rcj3ajm1-REP 70 % FVL/[place] 02/12/2021 [facility] PDFReport SEE IMAGE FVC-Pred 3.69 L FVC-Pre 3.08 L FVC-%Pred-Pre 83 L FVC-LLN 2.86 L Fev1-Pred 2.80 L Fev1-Pre 2.55 L Fev1-%Pred-Pre 90 L Fev1-LLN 2.10 L Fev6-Pred 3.54 L Fev6-Pre 3.08 L Fev6-%Pred-Pre 87 L Fev6-LLN 2.72 L Nfw2rfw-Tfao 76 % Soi2asv-Ujx 83 % Oyg6kcv-%Pred-Pre 109 % Dve0eep-DNX 66 % Wdn1uji-Mumi 96 % Dwy2izo-Uyl 100 % Eyn1qrs-%Pred-Pre 104 % FEFMax-Pred 6.46 L/E/sec FEFMax-Pre 6.93 L/E/sec FEFMax-%Pred-Pre 107 L/E/sec FEFMax-LLN 4.40 L/E/sec Mqb9908-Hhon 2.17 L/E/sec Qte2221-Qwh 2.69 L/E/sec Caf2590-%Pred-Pre 124 L/E/sec Vnz0848-EFO 0.68 L/E/sec ExpTime-Pre 6.51 sec Iop5xlb3-Fysh 79 % Xbe7vvp7-Yei 83 % Plj9rhf4-%Pred-Pre 104 % Bmp6tdv8-KTS 70 % 1 2 This Gastrointestinal PCR Pa marlys detects the following bacteria, parasites and viruses: Campylobacter (jejuni, coli and upsaliensis), Clostridium difficile (toxin A/B), Plesiomonas shigelloides, Salmonella, Yersinia enterocolitica, Vibrio (parahaemolyticus, vulnificus and cholerae), Vibrio clolerae, Enteroaggregative E. coli (EAEC), Enteropathogenis E. coli (EPEC), Enterotoxigenic E. coli (ETEC) it/st, Shiga-like producing E. coli (STEC) stx1/stc2, E.coli O157, Shigella/Enteroinvasive E. coli (EIEC), Cryptosporidium, Cyclospora cayetanensis, Entamoeba histolytica, Giardia lamblia, Adenovirus F 40/41, Astrovirus, Norovirus GI/GII, Rotavirus A and Sapovirus (I, II, IV, V). One negative specimen does not rule out the possibility of a parasitic infection. POSITIVE by MULTIPLEXED NUCLEIC ACID PCR ORGANISM 1: CLOSTRIDIUM DIFFICILE A/B UNFORMED stool. Performing testing on formed stool from patients who do not have CDI symptoms detects asymptomatic colonized patients (up to 30% of hospitalized patients are colonized with C. difficile). Patients with false positive results may be given unnecessary treatment, placed on contact isolation, and be at increased risk of vancomycin resistant enterococci. ORGANISM 2: ADENOVIRUS F 40/41 UNFORMED stool. Adenovirus F 40/41 causes a variety of diseases including respiratory and gastrointestional illness. Infections mostly occur in children, however adults may be affected as well. Illness is generally mild but of a relatively long duration (5-12 days). ORGANISM 1: CLOSTRIDIUM DIFFICILE A/B ORGANISM 2: ADENOVIRUS F 40/41 3 ASSAY INFORMATION: Real Time RT-PCR NOTE: The COVID-19 assay has been cleared by the U.S. Food and Drug Administration under the Emergency Use Authorization (EUA). [facility] and [facility] are designated as high complexity laboratories by the Clinical Laboratory Improvement Amendments of 1988(CLIA) and are qualified to perform this test. Not Detected Procedures Date Code Description Status 02/12/2021 22255 Office/Outpatient Established Lo w MDM 20-29 Min Completed 02/12/2021 35718 Spirometry Completed Medical Devices Description No Information Available Encounters Type Date Location Provider Dx Diagnosis Office Visit 02/12/2021 3:00p [facility] Pulmonary/Thoracic Jimmie Lebron, P.A. J45.20 Mild intermittent asthma, uncomplicated J30.9 Allergic rhinitis, unspecifi ed Assessments Date Code Description Provider 03/01/2021 J45.20 Mild intermittent asthma, uncomp licated Rick Sears, D.O. 03/01/2021 J30.9 Allergic rhinitis, unspecified R ory Sears, D.O. 03/01/2021 D84.9 Immunodeficiency disorder Rick S ears, D.O. 03/01/2021 R05.1 Acute cough Rick Sears, D.O. 03/01/2021 R19.7 Diarrhea, unspecified Rick Sears , D.O. 02/12/2021 J45.20 Mild intermittent asthma, uncomp licated Jimmie Lebron, P.A. 02/12/2021 J30.9 Allergic rhinitis, unspecified M gregorio Lebron, P.A. Plan of Treatment Future Appointment(s):* 08/26/2021 2:00 pm - Rick Sears, D.O. at [facility] Pulmonary/Thoracic 03/01/2021 - Rick Sears, D.O.* J45.20 Mild intermittent asthma, uncomplicated * J30.9 Allergic rhinitis, unspecified * D84.9 Immunodeficiency disorder * R05.1 Acute cough * R19.7 Diarrhea, unspecified * * New Xrays:* Chest, 2 Views, PA & Lat, Ordered: 03/01/21 * Follow up:* Follow up with cxr after covid results are known Functional Status Description No Information Available Mental Status Description No Information Available Referrals Description No Information Available
--- OUTSIDE RECORDS SUMMARY | 2021-03-11 11:19 | CCD | Continuity of Care Document ---
Author Author Elroy Willams Organization Unknown Address [address] [facility] [address] [place] [address] Phone [phone] Care Team Providers Care Associate Manager Affiliate Marketing Name Role Phone Jasmeet Sánchez MD AUTM [phone] Tin Grimes MD AUTM [phone] PaulinoRick birmingham AUTM [phone] Jess Willams ANP AUTM [phone] Ahmet Mckenzie MD AUTM Unavailable Bety Merritt OD AUTM Unavailable Vinod Clemente MD AUTM [phone] Robyn Casillas MD AUTM Unavailable Darwin Guzmán MD AUTM [phone] Kel Varela MD AUTM Problems Active Problems Provider Date Bipolar disorder MANOJ Roach Onset: 03/27/2011 Depressive disorder Narda Vincent D.O. Onset: 2010 Headache MANOJ Roach Onset: 03/27/2011 Personal history of primary malignant neoplasm of breast MANOJ Galloway Onset: 03/27/2011 Essential hypertension CHERI PerdueP Onset: 02/25/2017 Hypothyroidism CHERI PerdueP Onset: 02/25/2017 Mild intermittent asthma Padmini Goncalves [employer] Onset: 02/26/20 17 Left bundle branch block Padmini Goncalves [employer] Onset: 02/26/20 17 Social History Type Date Description Comments Sex Unknown ETOH Use Denies alcohol use Tobacco Use Start: Unknown End: Unknown Patient is a former smoker quit over 40 years ago. only smoked for 2-3 years Allergies and adverse reactions Active Allergies Criticality Reaction | Severity Comments Date Codeine Unable to assess criticality Nausea, SEVERE VOMITING 01/31/2019 Nortriptyline Unable to assess criticality FELT LIKE A ZOMBIE 01/31/2019 Tramadol Unable to assess criticality Nausea, SEVERE VOMITING 01/31/2019 Inactive Allergies NKDA Unable to assess criticality 08/23/2010 Medications Active Medications SIG Qnty Indications Ordering Provide r Date Ubrelvy 50mg Tablets 1 at the beginning of headache, MDD 1 14tabs Jess Willams, MANOJ 10/15/2020 Lunesta 3mg Tablets 1 by mouth at bedtime as needed 30tabs Jess Willams, MANOJ 12/15/2019 Cyclobenzaprine HCL 5mg Tablets take one tablet by mouth twice a day as needed for pain 60tabs N uriel Willams, ANP 11/29/2019 Flublok Quadrivalent 0.5ml Soln Prefill Syringe 0.5cc intramuscular x1 .500ml Padmini Goncalves, UMB[employer] TIP[employer] 0 06/24/2019 Incruse Ellipta 62.5mcg/Inh Aeroso l inhale 1 puff by mouth once daily 30units Laura Canela,UMBRELLA TIPPER HAND 0 02/01/2019 Albuterol Sulfate 0.63mg/3ML Nebul izer 1 four times a day as needed 150ml Jess Willams, ANP 02/01/2019 Multivitamin Adult Tablets 1 by mouth every day Ambrosio Bullock MD 01/31/[address] 1 by mouth bid Jess Willams, MANOJ 01/31/2019 Atorvastatin Calcium 40mg Tablets take one tablet by mouth every day 90tabs Jess Willams, ANP 0 06/30/2018 Divalproex Sodium ER 250mg Tablets ER 24HR take three tablets by mouth at bedtime 270tabs Na gennaro Willams, MANOJ 04/14/2018 Fish Oil 2400mg Capsules 1 capsule daily, otc Jess Willams, MANOJ 04/13/2018 Glucosamine Chondroitin 1500 Complex 1000mg Capsules 1 by mouth every day Jess Willams, MANOJ 04/13/2018 Vitamin D 1000Unit Tablets 1 by mouth every day Jess Willams, ANP 04/13/2018 Vitamin C 500mg Capsules ever y day Jess Willams, ANP 04/13/2018 Aspir-[address] 1 by mouth every day Jess Willams, ANP 04/23/2017 Levothyroxine Sodium 50mcg Tablets take one tablet by mouth every day 90tabs Jess Willams, [employer] 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 2 Preservision Areds 2 Areds 2 Capsu les 1 bid PO Unknown Verapamil HCL 40mg Tablets 1 by mouth twice a day Unknown Montelukast Sodium 10mg Tablets take one tablet by mouth at bedtime Unknown Azelastine HCL (Nasal) 0.1% Soluti on two sprays in each nostril once daily Unknown KP Fluticasone Propionate 50mcg/Act Suspension Unknown Pregabalin 50mg Capsules Three Times Daily Unknown CBD one drop under tongue qd Unknown Immunizations CPT Code Status Date Vaccine Lot # U-Flu Given 01/30/2021 Influenza,Unspecified U-Flu Given 02/03/2020 Influenza,Unspecified U-Flu Given 07/01/2019 Influenza,Unspecified U-Flu Given 02/07/2019 Influenza,Unspecified U-Pneum Given 04/05/2018 Pneumococcal,Unspecified U-Flu Given 02/12/2018 Influenza,Unspecified 36875 Given 11/30/2017 Shingrix 75376 Given 08/26/2017 Shingrix U-PneuC Given 04/19/2015 Prevnar 13 [id number] Given 02/19/2012 Fluvirin Virus Vaccine Q2037 Given 02/19/2012 Fluvirin Virus Vaccine 34982 Given 03/27/2011 Pneumovax 23 01127 Given 02/08/2009 Influenza Virus Vaccine 44139 Given 03/23/2008 Influenza Virus Vaccine Vital Signs Date Vital Result Comment 02/13/2021 9:51am BP Systolic 116 mmHg BP Diastolic 70 mmHg Height 69.5 inches 5'9.50" Weight 193.00 lb BMI (Body Mass Index) 28.1 kg/m2 02/06/2021 12:59pm BP Systolic 118 mmHg BP Diastolic 76 mmHg Heart Rate 74 /min Height 69.5 inches 5'9.50" Weight 192.00 lb O2 % BldC Oximetry 98 % BMI (Body Mass Index) 27.9 kg/m2 Results Test Acquired Date Facility Test Result H/L Range Note Laboratory test finding 02/13/2021 [facility] SEE COMMENTS Abnormal 1 Enhanced PDF Report [id number] SEE IMAGE Complete Blood Count 02/06/2021 [facility] Tank Filler: [place] [address] [phone] WBC 5.1 x10*3/UL 4.1 - 10.9 RBC 4.51 x10*6/UL 4.20 - 6.30 Hemoglobin 14.4 g/dL 12.0 - 18.0 Hematocrit 41.3 % 37.0 - 51.0 MCV 91.6 fL 80.0 - 97.0 MCH 31.9 pg 26.0 - 32.0 MCHC 34.8 g/dL 31.0 - 38.0 RDW 13.5 % 11.6 - 13.7 PLT 184 x10*3/UL 140 - 440 MPV 8.7 FL 7.8 - 11.0 Lymph % 43.9 % 10.0 - 58.5 Mid % 7.8 % 1.7 - 9.3 Neut % 48.3 % 37.0 - 92.0 Lymph # 2.2 x10*3/UL 0.6 - 4.1 Mid # 0.5 x10*3/UL 0.1 - 0.6 Neut # 2.4 x10*3/UL 2.0 - 7.8 Basic Metabolic Panel 02/06/2021 [facility] Tank Filler: [place] [address] [phone] Glucose 83 mg/dL 74 - 99 2 BUN 13 mg/dL 7 - 18 Creatinine 0.8 mg/dL 0.6 - 1.3 Sodium 138 mEq/L 136 - 145 Potassium 4.4 mEq/L 3.5 - 5.1 Chloride 101 mEq/L 98 - 107 Carbon Dioxide 33 mEq/L High 21 - 32 Calcium 9.0 mg/dL 8.5 - 10.1 GFR >= 60 mL/min >60 GFR >= 60 mL/min >60 3 Laboratory test finding 02/05/2021 [place] [address] [phone] Valproic Acid (Depakote) 56.4 UG/ML Normal 50.0-10 0.0 Laboratory test finding 02/05/2021 [facility] t[facility]end[facility] Tank Filler: [place] [address] [phone] Thyroid Stimulating Hormone 2.08 uIU/mL 0.3 6 - 3.74 Coronavirus 2019 Nasopharygeal 01/07/[address] [address] [phone] Coronavirus 2019 Nasopharygeal ASSAY INFORMATIO <SEE N OTE> 4 Laboratory test finding 01/07/[address] [address] [phone] Kaleigh Covid Antigen NEGATIVE Normal Negative 5 Xray 10/29/2020 [facility] nter [address] [place], [place] [id number] [phone] 3D Bi-Lateral Mammogram <pending> 1 AMENDMENT SECTION 02/19/2021: ADDENDUM REPORT - The lesion extends to the base and one peripheral margin. RESULTS DIAGNOSIS DIAGNOSIS: RIGHT SIDE OF NOSE - BASAL CELL CARCINOMA, INFILTRATING TYPE RESULTS SIGNATURE Eleazar Plascencia MD Electronic Signature: 18 FEB 2021 05:08 PM CLINICAL INFORMATION CLINICAL INFORMATION 3MM RAISED SPECIMEN DATA GROSS DESCRIPTION Received in 10% buffered formalin is a shave biopsy of skin measuring [id number]. The specimen is bisected and entirely submitted in one cassette. 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 The basaloid cells are arranged in lobules, branching irregular aggregates, and cords. CPT Codes 89343 The CPT codes provided are for information purposes only, and are based on AMA guidelines without regard to specific payor requirements. END OF REPORT FINAL REPORT-ACC AMEND FINAL [facility] treatment supervisor [facility],[address] [place] [address],[address],[place] [address]. [phone]. [phone]. Hand Winder: Ghassan Yeung MD [facility] [id number], [place] [id number], [place] [id number] 100-125 mg/dL PRE-DIABET ES/FASTING >126 mg/dL DIABETES/FASTING 3 CHRONIC KIDNEY DISEASE STAGI NG PER NKF STAGE I & II GFR >= 60 NORMAL TO MILDLY DECREASED STAGE III GFR 30-59 MODERATELY DECREASED STAGE IV GFR 15-29 SEVERELY DECREASED STAGE V GFR <15 VERY LITTLE GFR LEFT ESRD GFR <15 ON TRANSPORT MEDIC 4 ASSAY INFORMATION: Real Time RT-PCR NOTE: The COVID-19 assay has been cleared by the U.S. Food and Drug Administration under the Emergency Use Authorization (EUA). [employer] and [facility] are designated as high complexity laboratories by the Clinical Laboratory Improvement Amendments of 1988(CLIA) and are qualified to perform this test. Not Detected 5 The Kaleigh SARS Antigen ANAND d oes not differentiate between SARS-CoV and SARS-CoV-2. Negative results do not rule out COVID-19 and should not be used as the sole basis for treatment. Negative results should be considered in the context of a patient's recent exposure, history and the presence of clinical signs and symptoms consistent with COVID-19. Procedures Date Code Description Status 02/13/2021 26903 Tangential Biopsy Of Skin, Singl e Lesion Completed 02/06/2021 75164 Office/Outpatient Established Lo w MDM 20-29 Min Completed 12/07/2020 [id number] Mammogram Completed 11/15/2019 [id number] Mammogram Completed 11/04/2018 [id number] Mammogram Completed 01/20/2018 [id number] Colonoscopy Completed 11/03/2017 [id number] Mammogram Completed 05/18/2017 [id number] Bone Mineral Density Test Comple abhilash 10/24/2016 [id number] Mammogram Completed 10/24/2015 [id number] Mammogram Completed 10/20/2014 [id number] Mammogram Completed 09/22/2014 [id number] Colonoscopy Completed 10/19/2013 [id number] Mammogram Completed 10/05/2012 [id number] Mammogram Completed 08/06/2012 [id number] Diabetic Retinal Eye Exam Comple [facility] 10/02/2011 [id number] Mammogram Completed 08/22/2010 [id number] Mammogram Completed 08/15/2009 [id number] Mammogram Completed 07/03/2008 [id number] Bone Mineral Density Test Comple [facility] Medical Devices Description No Information Available Encounters Type Date Location Provider Dx Diagnosis Office Visit 02/06/2021 1:00p [facility] Jess Willams, MANOJ F31.9 Bipolar disorder, unspecified I10 Essential (primary) hyperten mere E03.9 Hypothyroidism, unspecified L98.9 Disorder of the skin and sub cutaneous tissue, unspecified Assessments Date Code Description Provider 02/13/2021 D48.5 Neoplasm of uncertain behavior o f skin Jess Willams, MANOJ 02/06/2021 F31.9 Bipolar disorder, unspecified Na gennaro Willams, ANP 02/06/2021 I10 Essential (primary) hypertension Jess Willams, MANOJ 02/06/2021 E03.9 Hypothyroidism, unspecified Bibic y Kay Willams, MANOJ 02/06/2021 L98.9 Skin lesion Jess Willams, MANOJ 02/05/2021 F31.9 Bipolar disorder, unspecified Na gennaro Willams, ANP 02/05/2021 F31.9 Bipolar disorder, unspecified La b Schedule 02/05/2021 E03.9 Hypothyroidism, unspecified Nanc y Kay Willams, ANP 02/05/2021 E03.9 Hypothyroidism, unspecified Lab Schedule Plan of Treatment Future Appointment(s):* 09/11/2021 12:40 pm - Nurse #2 at [facility] * 09/10/2021 1:00 pm - Lab Schedule at [facility] * 09/11/2021 1:00 pm - MANOJ Dhillon at [facility] 02/13/2021 - MANOJ Dhillon* D48.5 Neoplasm of uncertain behavior of skin Functional Status Description No Information Available Mental Status Description No Information Available Referrals Description No Information Available
--- OUTSIDE RECORDS SUMMARY | 2021-03-11 11:19 | CCD | Continuity of Care Document ---
Author Author Elroy Willams Organization Unknown Address [address] [facility] [address] [place] [address] Phone [phone] Care Team Providers Care Paper Folder Name Role Phone Jasmeet Sánchez MD AUTM [phone] Tin Grimes MD AUTM [phone] PaulinoRick birmingham AUTM [phone] Jess Willams ANP AUTM [phone] Ahmet Mckenzie MD AUTM Unavailable Bety Merritt OD AUTM Unavailable Vinod Clemente MD AUTM [phone] Robyn Casillas MD AUTM Unavailable Darwin Guzmán MD AUTM [phone] Kel Varela MD AUTM Problems Active Problems Provider Date Bipolar disorder MANOJ Roach Onset: 03/27/2011 Depressive disorder Narda Vincent D.O. 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 Onset: 02/26/20 Left bundle branch block Padmini Goncalves TELECOM FIELD TECHNICIAN Onset: 02/26/20 17 Social History Type Date [...] Syringe 0.5cc intramuscular x1 .500ml Padmini Goncalves, TELECOM FIELD TECHNICIAN 0 06/24/2019 Incruse Ellipta 62.5mcg/Inh Aeroso l inhale 1 puff by mouth once daily 30units Laura Canela,TELECOM FIELD TECHNICIAN 0 02/01/2019 Albuterol Sulfate 0.63mg/3ML Nebul izer [...] mouth every day 90tabs Jess Willams, [employer]PER[employer] L[employer]UTENANT 05/08/2014 Proair HFA 108(90Base) mcg/Act Aer osol 2 inhalations four times a day as needed shortness of breath 1units Deb Cason, MANOJ 04/19/2014 Calcium 600 + D [id number] Tab lets 1 po bid Deb Cason, [facility] 2 Preservision Areds 2 Areds 2 Capsu [...] Given 04/05/2018 Pneumococcal,Unspecified U-Flu Given 02/12/2018 Influenza,Unspecified 44211 Given 11/30/2017 Shingrix 60088 Given 08/26/2017 Shingrix U-PneuC Given 04/19/2015 Prevnar 13 Q2037 Given 02/19/2012 Fluvirin Virus Vaccine Q2037 Given 02/19/2012 Fluvirin Virus Vaccine 15720 Given 03/27/2011 Pneumovax 23 37585 Given 02/08/2009 Influenza Virus Vaccine 65368 Given 03/23/2008 Influenza Virus Vaccine Vital Signs [...] SEE COMMENTS Abnormal 1 Enhanced PDF Report [id number] SEE IMAGE Complete Blood Count 02/06/2021 [facility] School Physical Therapist: [place] [address] [phone] WBC 5.1 x10*3/UL 4.1 - 10.9 RBC [...] 2.0 - 7.8 Basic Metabolic Panel 02/06/2021 [facility] Physical Therapist: [place] [address] [phone] Glucose 83 mg/dL 74 - 99 2 [...] mL/min >60 3 Laboratory test finding 02/05/[address] [address] [phone] Valproic Acid (Depakote) 56.4 UG/ML Normal 50.0-10 0.0 Laboratory test finding 02/05/2021 [facility] [employer] Physical Therapist: [place] [address] [phone] Thyroid Stimulating Hormone 2.08 uIU/mL 0.3 6 - 3.74 Coronavirus 2019 Nasopharygeal 01/07/2021 [place] [id number] [phone] Coronavirus 2019 Nasopharygeal ASSAY INFORMATIO <SEE N OTE> 4 Laboratory test finding 01/07/[address] [address] [phone] Kaleigh Covid Antigen NEGATIVE Normal Negative 5 Xray 10/29/2020 [facility] nter [address] [place], [place] [address] [phone] 3D Bi-Lateral Mammogram <pending> 1 RESULTS DIAGNOSIS DIAGNOSIS: RIGHT SIDE OF NOSE- BASAL CELL CARCINOMA, INFILTRATING TYPE RESULTS SIGNATURE Eleazar Plascencia MD Electronic Signature: 18 FEB 2021 05:08 PM CLINICAL INFORMATION CLINICAL INFORMATION 3MM RAISED SPECIMEN DATA GROSS DESCRIPTION Received in 10% buffered formalin is a shave biopsy of skin measuring [id number]. The specimen is bisected and entirely submitted in one cassette. 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 The basaloid cells are arranged in lobules, branching irregular aggregates, and cords. CPT Codes 59348 The CPT codes provided are for information purposes only, and are based on AMA guidelines without regard to specific payor requirements. END OF REPORT FINAL REPORT-ACC FINAL [facility],[address] [place] [address],[address],[place] [address]. [phone]. [phone]. Fashion Model: Ghassan Yeung MD [facility] [id number], [place] [id number], [place] [id number] 2 100-125 mg/dL PRE-DIABET ES/FASTING >126 mg/dL DIABETES/FASTING 3 CHRONIC KIDNEY DISEASE STAGI NG PER NKF STAGE I & II GFR >= 60 NORMAL TO MILDLY DECREASED STAGE III GFR 30-59 MODERATELY DECREASED STAGE IV GFR 15-29 SEVERELY DECREASED STAGE V GFR <15 VERY LITTLE GFR LEFT ESRD GFR <15 ON HEMMING AND TACKING MACHINE OPERATOR 4 ASSAY INFORMATION: Real Time RT-PCR NOTE: The COVID-19 assay has been cleared by the U.S. Food and Drug Administration under the Emergency Use Authorization (EUA). [employer] and [employer] are designated as high complexity laboratories by [...] COVID-19. Procedures Date Code Description Status 02/13/2021 51318 Tangential Biopsy Of Skin, Singl e Lesion Completed 02/06/2021 80475 Office/Outpatient Established Lo w MDM 20-29 Min Completed 12/07/2020 [id number] Mammogram Completed 11/15/2019 [id number] Mammogram Completed 11/04/2018 [id number] Mammogram Completed 01/20/2018 [id number] Colonoscopy Completed 11/03/2017 [id number] Mammogram Completed 05/18/2017 [id number] Bone Mineral Density Test Comple abhilash 10/24/2016 [id number] Mammogram Completed 10/24/2015 [id number] Mammogram Completed 10/20/2014 [id number] Mammogram Completed 09/22/2014 [id number] Colonoscopy Completed 10/19/2013 [id number] Mammogram Completed 10/05/2012 [id number] Mammogram Completed 08/06/2012 [id number] Diabetic Retinal Eye Exam Comple [facility] 10/02/2011 [id number] Mammogram Completed 08/22/2010 [id number] Mammogram Completed 08/15/2009 [id number] Mammogram Completed 07/03/2008 [id number] Bone Mineral Density Test Comple [facility] Medical Devices Description No Information Available Encounters Type Date Location Provider Dx Diagnosis Office Visit 02/06/2021 1:00p [facility] Jess Willams, MANOJ F31.9 Bipolar [...] Jess Willams, MANOJ 02/06/2021 E03.9 Hypothyroidism, unspecified Nanc y Kay Willams, ANP 02/06/2021 L98.9 Skin lesion Jess Willams, ANP 02/05/2021 F31.9 Bipolar disorder, unspecified Na gennaro Willams, ANP 02/05/2021 F31.9 Bipolar disorder, unspecified La b Schedule 02/05/2021 E03.9 Hypothyroidism, unspecified Bibic y Kay Willams, ANP 02/05/2021 E03.9 Hypothyroidism, unspecified Lab Schedule Plan of Treatment Future Appointment(s):* 09/11/2021 12:40 pm - Nurse #2 at [facility] * 09/10/2021 1:00 pm - Lab Schedule at [facility] * 09/11/2021 1:00 pm - MANOJ Dhillon at [facility] 02/13/2021 - MANOJ Dhillon* D48.5 Neoplasm of uncertain behavior of skin Functional Status Description No Information Available Mental Status Description No Information Available Referrals Description No Information Available
--- OUTSIDE RECORDS SUMMARY | 2021-03-11 11:19 | CCD | Continuity of Care Document ---
Author Author Elroy CLARKOMirian [place] [address] Phone [phone] Care Team Providers Care Access Specialist Name Role Phone [facility] AUTM [phone] Tin Grimes AUTM [phone] Jess Willams AUTM [phone] Rick Clark D.O. AUTM [phone] AUTM Unavailable Problems Active Problems Provider Date [...] mouth every night Unknown Fluticasone Propionate Nasal [place] 50mcg/Act Suspension two sprays in each nostril [...] by mouth every day Unknown Calcium 600+D [id number] Tabl ets 1 tab by mouth every day Unknown 0 Immunizations CPT Code Status Date Vaccine Lot # 66727 Given 06/18/2020 Moderna Covid-19 vaccine, mRNA, LNP-S, PF, 100 mcg/ 0.5 mL 30381 Given 05/23/2020 Moderna Covid-19 vaccine, mRNA, LNP-S, PF, 100 mcg/ 0.5 mL 38866 Given 02/17/2019 Flublock, Quadrivalent 52464 Given 05/11/2017 Pneumococcal PPSV23 70837 Given 02/21/2015 Influenza Virus Split 3 Yrs And Above For Intramuscular Use 69999 Given 05/11/2014 Prevnar 13 Vital Signs Date Vital Result Comment 03/01/2021 10:30am BP Systolic 118 mmHg BP Diastolic 78 mmHg Heart Rate 88 /min O2 % BldC Oximetry 99 % Height 70 inches 5'10" Weight 194.00 lb BMI (Body Mass Index) 27.8 kg/m2 [place] Body Weight 150 lb Weight 87.998 kg BSA (Body Surface Area) 2.06 m2 02/12/2021 2:43pm BP Systolic 140 mmHg BP Diastolic 78 mmHg Heart Rate 90 /min O2 % BldC Oximetry 96 % Height 70 inches 5'10" Weight 192.00 lb BMI (Body Mass Index) 27.5 kg/m2 [place] Body Weight 150 lb Weight 87.091 kg BSA (Body Surface Area) 2.05 m2 Results Test Acquired Date Facility Test Result H/L Range Note Stool Panel([facility]) 03/02/2021 [facility] Main Lab [address] [place] [address] [id number] [phone] Stool Lactoferrin-polys by Ica POSITIVE Abnormal 1 Gastrointestinal (GI) Panel 03/02/2021 [facility] Main Lab [address] [place] [address] [id number] [phone] Gastrointestinal (GI) Panel This Gastrointes <SEE NOTE > 2 Laboratory test finding 03/01/2021 [facility] Main Lab [address] [place] [address] [id number] [phone] Coronavirus 2019 Nasopharygeal ASSAY INFORMATIO <SEE N OTE> 3 FVL/Denny 03/01/2021 [employer] [facility] SEE IMAGE FVC-Pred 3.69 L FVC-Pre 3.03 L FVC-%Pred-Pre 82 L FVC-LLN 2.86 L Fev1-Pred 2.80 L Fev1-Pre 2.31 L Fev1-%Pred-Pre 82 L Fev1-LLN 2.10 L Fev6-Pred 3.54 L Fev6-Pre 3.00 L Fev6-%Pred-Pre 84 L Fev6-LLN 2.72 L Mye8lsz-Mruy 76 % Xnj2xyk-Enx 76 % Nxp7drz-%Pred-Pre 101 % Xxl2qhp-ZXT 66 % Eoc9uiq-Offa 96 % Qey2oqd-Tfh 99 % Qyc9rtl-%Pred-Pre 103 % FEFMax-Pred 6.46 L/E/sec FEFMax-Pre 7.05 L/E/sec FEFMax-%Pred-Pre 109 L/E/sec FEFMax-LLN 4.40 L/E/sec Yiv4713-Gllt 2.17 L/E/sec Llv2440-Grt 1.87 L/E/sec Gzu4694-%Pred-Pre 86 L/E/sec Uyr8258-EQZ 0.68 L/E/sec ExpTime-Pre 7.02 sec Zhk4vjn5-Icvc 79 % Riq6gjm6-Ccn 77 % Msh1pcu5-%Pred-Pre 97 % Bvp6amy3-CEV 70 % FVL/[place] 02/12/2021 [employer] PDFReport SEE IMAGE FVC-Pred 3.69 L FVC-Pre 3.08 L FVC-%Pred-Pre 83 L FVC-LLN 2.86 L Fev1-Pred 2.80 L Fev1-Pre 2.55 L Fev1-%Pred-Pre 90 L Fev1-LLN 2.10 L Fev6-Pred 3.54 L Fev6-Pre 3.08 L Fev6-%Pred-Pre 87 L Fev6-LLN 2.72 L Bug9dra-Cpkd 76 % Bzz2uqx-Ogd 83 % Egj3oww-%Pred-Pre 109 % Wcq0wyx-BKD 66 % Sbh3gif-Uoum 96 % Lte0lxz-Hyu 100 % Yfl8cbi-%Pred-Pre 104 % FEFMax-Pred 6.46 L/E/sec FEFMax-Pre 6.93 L/E/sec FEFMax-%Pred-Pre 107 L/E/sec FEFMax-LLN 4.40 L/E/sec Dev8819-Uygz 2.17 L/E/sec Igp3246-Thg 2.69 L/E/sec Xnv4035-%Pred-Pre 124 L/E/sec Hhk9543-XVV 0.68 L/E/sec ExpTime-Pre 6.51 sec Qmk1lip8-Hzbl 79 % Ojm3pdv0-Jpf 83 % Qzg8ayr5-%Pred-Pre 104 % Oug4dkp7-ZUL 70 % 1 2 This Gastrointestinal PCR [...] Administration under the Emergency Use Authorization (EUA). [employer] and [employer] are designated as high complexity laboratories by the Clinical Laboratory Improvement Amendments of 1988(CLIA) and are qualified to perform this test. Not Detected Procedures Date Code Description Status 02/12/2021 87887 Office/Outpatient Established Lo w MDM 20-29 Min Completed 02/12/2021 07572 Spirometry Completed Medical Devices Description No Information Available Encounters Type Date Location Provider Dx Diagnosis Office Visit 02/12/2021 3:00p [facility] Jimmie Lebron, P.A. J45.20 Mild [...] 2:00 pm - Rick Sears, D.O. at [facility] 03/01/2021 - Rick Sears, D.O.* [...]
--- OUTSIDE RECORDS SUMMARY | 2021-03-11 11:19 | CCD | Continuity of Care Document ---
Author Author Elroy CHÁVEZ M.D. Organization Unknown Address [address], [place] [address] Phone [phone] Care Team Providers Care Healthcare Translator Name Role Phone PaulinovalenciaRick AUTM Unavailable ImerJess MANOJ AUTM [phone] Problems Active Problems Provider Date Immunodeficiency disorder Kel Chávez M.D. Onset: 1 Allergic rhinitis due to pollen Kel Chávez M.D. On set: 02/18/2019 Note: On IT. 4++ reaction to grass polle n, 4+ reaction to ragweed pollen and 3+ reaction to pigweed and plantain weed pollen on scratch test. 3+ reaction to tree pollen on intradermal test. Completed 2018. Allergic rhinitis due to house dust mite Kel Chávez M.D. Onset: 02/18/2019 Note: On IT. 4+ reaction to dust mite on scratch test. Completed 2018. Allergic rhinitis due to animals Kel Chávez M.D. O nset: 02/18/2019 Note: On IT. 3+ reaction to cat dander on intradermal test. Completed 2018. Allergic rhinitis caused by mold Kel Chávez M.D. O nset: 02/18/2019 Note: On IT. 4+ reaction to stemphylium and 3+ reaction to alternaria, fusarium, and phoma on scratch test. Completed 2018. Gastroesophageal reflux disease Kel Chávez M.D. On set: 02/18/2019 Pure hypercholesterolemia Kel Chávez M.D. Onset: 1 Mild persistent asthma Kel Chávez M.D. Onset: 02/08 Note: Followed by Pulmonary Social History Type Date Description Comments Sex Unknown Tobacco Use Start: 05/11/71 End: 05/11/76 Patient is a forme r smoker 3 Cigarettes Per Day Smoking Status Reviewed: 02/18/21 Patient is a former smoker 3 Cigarettes Per Day Allergies and adverse reactions Active Allergies Criticality Reaction | Severity Comments Date Tramadol Unable to assess criticality Vomiting 06/13/2019 Medications Active Medications SIG Qnty Indications Ordering Provide r Date Azelastine HCL (Nasal) 137mcg/[place] Solution 2 sprays each nostril every day every morning 1units J3 0.89 Kel Chávez M.D. 02/18/2019 Fluticasone Propionate 50mcg/Act Suspension [place] Two Sprays In Each Nostril Every Evening 48units Kel Chávez M.D. 02/18/2019 Fexofenadine HCL 180mg Tablets take 1 tablet by oral route once a day as needed Unknow n Pregabalin 50mg Capsules Unknown Albuterol Sulfate 0.63mg/3ML Nebul izer Take 3ml via nebulizer every 4-6 hours as needed Laura Canela Glucosamine Chondroitin 1500 Complex 1500Com Capsules Unknown Daily Vitamin Tablets Unknown Fish Oil 1200mg Capsules Unknown B-Complex Capsules Unknown Vitamin D (Ergocalciferol) 50mcg (2000 Ut) Capsules Unknown Symbicort 160-4.5mcg/Act Aerosol take 2 puffs by inhalation route twice per day for 30 days until follow up Unknown Incruse Ellipta 62.5mcg/Inh Aeroso l 1 Inhalation once daily Unknown Verapamil HCL 40mg Tablets Take 1 tablet twice daily Unknown Singulair 10mg Tablets take 1 tablet (10 mg) by oral route once daily in the evening for 30 days Unknown Omeprazole 20mg Capsules DR Take 1 capsule twice daily Unknown Lunesta 3mg Tablets Unknown Levothyroxine Sodium 50mcg Tablets Take 1 tablet once daily Unknown Divalproex Sodium 250mg Tablets DR Take 1 tablet three times a day Unknown 0 000 Atorvastatin Calcium 40mg Tablets Take 1 tablet once daily Unknown Aspirin 81 Low Dose 81mg Chewtabs 1 tab by mouth every day every morning Unknown Medications Administered in Office Medication SIG Qnty Indications Ordering Provider Date Allergy Injection 2 Or More Injection Kel Chávez M.D. 02/12/2021 Allergy Injection 2 Or More Injection Kel Chávez M.D. 01/23/2021 Allergy Injection 2 Or More Injection Kel Chávez M.D. 12/27/2020 Allergy Injection 2 Or More Injection Kel Chávez M.D. 12/06/2020 Allergy Injection 2 Or More Injection Kel Chávez M.D. 11/15/2020 Allergy Injection 2 Or More Injection Kel Chávez M.D. 10/24/2020 Allergy Injection 2 Or More Injection Kel Chávez M.D. 10/04/2020 Allergy Injection 2 Or More Injection Kel hCávez M.D. 09/13/2020 Allergy Injection 2 Or More Injection Kel Chávez M.D. 08/29/2020 Allergy Injection 2 Or More Injection Kel Chávez M.D. 08/08/2020 Allergy Injection 2 Or More Injection Kel Chávez M.D. 08/01/2020 Allergy Injection 2 Or More Injection Kel Chávez M.D. 02/27/2020 Allergy Injection 2 Or More Injection RUTH Mcbride 02/06/2020 Allergy Injection 2 Or More Injection Kel Chávez M.D. 02/06/2020 Allergy Injection 2 Or More Injection Kel Chávez M.D. 01/23/2020 Allergy Injection 2 Or More Injection Kel Chávez M.D. 01/19/2020 Allergy Injection 2 Or More Injection Kel Chávez M.D. 01/12/2020 Allergy Injection 2 Or More Injection Kel Chávez M.D. 01/09/2020 Allergy Injection 2 Or More Injection Kel Chávez M.D. 01/05/2020 Allergy Injection 2 Or More Injection Kel Luz Maria Chávez.Carl 01/02/2020 Allergy Injection 2 Or More Injection Kel Luz Maria Chávez.DMirian 12/30/2019 Allergy Injection 2 Or More Injection Kel Luz Maria Chávez.DMirian 12/27/2019 Allergy Injection 2 Or More Injection Kel Luz Maria Chávez.DMirian 12/23/2019 Allergy Injection 2 Or More Injection KelLuz Maria Allen.Carl 12/20/2019 Allergy Injection 2 Or More Injection Kel Luz Maria Chávez.DMirian 12/16/2019 Allergy Injection 2 Or More Injection Kel Luz Maria Chávez.DMirian 12/08/2019 Allergy Injection 2 Or More Injection Kel Leonarda Chávez 12/05/2019 Allergy Injection 2 Or More Injection Kel Luz Maria Chávez.DMirian 12/01/2019 Allergy Injection 2 Or More Injection KelLuz Maria Allen.DMirian 11/28/2019 Allergy Injection 2 Or More Injection Kelsarah Chávez M.D. 11/25/2019 Allergy Injection 2 Or More Injection Kel Luz Maria Chávez.DMirian 11/22/2019 Allergy Injection 2 Or More Injection KelLuz Maria Allen.Carl 11/17/2019 Allergy Injection 2 Or More Injection Kel Luz Maria Chávez.DMirian 11/14/2019 Allergy Injection 2 Or More Injection Kel Luz Maria Chávez.DMirian 11/10/2019 Allergy Injection 2 Or More Injection KelLuz Maria Allen.DMirian 11/07/2019 Allergy Injection 2 Or More Injection Kel HelenostLuz Maria guadarrama.DMirian 11/03/2019 Allergy Injection 2 Or More Injection Kel Helenostthierry M.DMirian 10/31/2019 Allergy Injection 2 Or More Injection Kel HelenostLuz Maria guadarrama.DMirian 10/28/2019 Allergy Injection 2 Or More Injection Kel HelenostLuz Maria guadarrama.DMirian 10/25/2019 Allergy Injection 2 Or More Injection Kel Helenostthierry M.DMirian 10/21/2019 Allergy Injection 2 Or More Injection Kel Luz Maria Chávez.DMirian 10/18/2019 Allergy Injection 2 Or More Injection Kel Luz Maria Chváez.DMirian 10/14/2019 Allergy Injection 2 Or More Injection Kel Avery M.DMirian 10/11/2019 Allergy Injection 2 Or More Injection KelLuz Maria Allen.DMirian 10/07/2019 Allergy Injection 2 Or More Injection Kel Avery M.DMirian 10/04/2019 Allergy Injection 2 Or More Injection Kel Avery M.DMirian 09/20/2019 Allergy Injection 2 Or More Injection KelLuz Maria Allen.DMirian 09/13/2019 Allergy Injection 2 Or More Injection Kel Avery M.DMirian 09/06/2019 Allergy Injection 2 Or More Injection Kelsarah Chávez M.DMirian 08/30/2019 Allergy Injection 2 Or More Injection KelLuz Maria Allen.DMirian 08/23/2019 Allergy Injection 2 Or More Injection KelLuz Maria lAlen.DMirian 08/16/2019 Allergy Injection 2 Or More Injection KelLuz Maria Allen.DMirian 08/08/2019 Allergy Injection 2 Or More Injection KelLuz Maria Allen.DMirian 08/02/2019 Allergy Injection 2 Or More Injection Kel Avery M.DMirian 07/26/2019 Allergy Injection 2 Or More Injection KelLuz Maria Allen.DMirian 07/18/2019 Allergy Injection 2 Or More Injection Kel Luz Maria Chávez.DMirian 07/12/2019 Allergy Injection 2 Or More Injection Kelsarah Chávez M.DMirian 06/14/2019 Allergy Injection 2 Or More Injection KelLuz Maria Allen.DMirian 06/06/2019 Allergy Injection 2 Or More Injection Kel Avery M.DMirian 05/30/2019 Allergy Injection 2 Or More Injection Kelsarah Chávez M.D. 05/23/2019 Immunizations Description No Information Available Vital Signs Date Vital Result Comment 02/18/2021 10:45am Weight 194.00 lb Height 70 inches 5'10" Heart Rate 76 /min Respiratory Rate 18 /min BP Systolic 111 mmHg BP Diastolic 75 mmHg BMI (Body Mass Index) 27.8 kg/m2 08/01/2020 1:08pm Weight 198.00 lb Height 70 inches 5'10" Heart Rate 77 /min Respiratory Rate 18 /min BP Systolic 118 mmHg BP Diastolic 80 mmHg BMI (Body Mass Index) 28.4 kg/m2 Results Description No Information Available Procedures Date Code Description Status 02/18/2021 67301 Office/Outpatient Established Lo w MDM 20-29 Min Completed 02/15/2021 27949 Allergy Antigens Single Or Multi ple Completed 02/12/2021 73327 Allergy Injection 2 Or More Comp leted 01/23/2021 84239 Allergy Injection 2 Or More Comp leted 12/27/2020 33482 Allergy Injection 2 Or More Comp leted 12/06/2020 74473 Allergy Injection 2 Or More Comp leted 11/15/2020 88301 Allergy Injection 2 Or More Comp leted 10/24/2020 31706 Allergy Injection 2 Or More Comp leted 10/04/2020 63095 Allergy Injection 2 Or More Comp leted 09/13/2020 52496 Allergy Injection 2 Or More Comp leted 08/29/2020 47454 Allergy Injection 2 Or More Comp leted Medical Devices Description No Information Available Encounters Type Date Location Provider Dx Diagnosis Office Visit 02/18/2021 10:45a Main Office Kel Chávez M.D. J30.89 Other allergic rhinitis J30.81 Allergic rhinitis due to ani mal (cat) (dog) hair and dander J30.1 Allergic rhinitis due to jose erik D80.6 Antibody defic w near-norm i mmunoglob or w hyperimmunoglob J45.30 Mild persistent asthma, unco mplicated R49.0 Dysphonia K21.9 Gastro-esophageal reflux dis ease without esophagitis Assessments Date Code Description Provider 02/18/2021 J30.89 Allergic rhinitis due to dust mi norman and mold spores. Kel Chávez M.D. 02/18/2021 J30.81 Allergic rhinitis due to animal (cat) (dog) hair and dander Kel Chávez M.D. 02/18/2021 J30.1 Allergic rhinitis due to pollen Kel Chávez M.D. 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 02/18/2021 J45.30 Mild persistent asthma, uncompli cated Kel Chávez M.D. 02/18/2021 R49.0 Dysphonia Kel mo M.D. 02/18/2021 K21.9 Gastro-esophageal reflux disease without esophagitis Kel Chávez M.D. Plan of Treatment Future Appointment(s):* 11/19/2021 3:30 pm - Kel Chávez M.D. at Main Office * 03/05/2021 2:00 pm - Allergy Injection at Main Office 02/18/2021 - Kel Chávez M.D.* J30.89 Allergic rhinitis due to dust mites and mold spores.* Recommendations:* Effective allergen avoidance measures were reviewed and recommended. The patient should continue on maintenance allergen immunotherapy as per protocol. The risks and benefits associated with allergen IT were reviewed and discussed. She should continue using Flonase nasal spray every night. The nasal spray should be used on a consistent, daily basis to be effective. She may use azelastine nasal spray on days her rhinitis symptoms are worse. Continue on daily Singulair as directed. Singulair is likely helping not only with her asthma, but the nasal congestion associated with her allergic rhinitis as well. The risks and benefits associ ated with the use of Singulair were reviewed and discussed. May take oral antihistamine (Wendy) as needed for itching and/or sneezing and on days she gets her allergy injections. * J30.81 Allergic rhinitis due to animal (cat) (dog) hair and dander* Recommendations:* Effective allergen avoidance measures reviewed and recommended. See additional recommendations above. * J30.1 Allergic rhinitis due to pollen* Recommendations:* Effective allergen avoidance measures were reviewed and recommended. See additional recommendations above. 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 It was explained that if she develops more frequent sinopulmonary infections, that we would need to revisit Hizentra as an option. She should keep us updated every time she develops pneumonia or sinusitis. As reported in prior note we consider a positive response involves a four fold rise or more if the initial titer was less than 1.3, or a two fold rise if the initial titer was greater than 1.3. A non-response rate grater than 30% is considered abnormal for adults. She failed that response test. * J45.30 Mild persistent asthma, uncomplicated* Recommendations:* The patient should continue on current plan as directed by Dr. Urena. She should follow-up with their office as scheduled. * R49.0 Dysphonia* Recommendations:* Recommended for patient to follow-up with PCP. May need to see GI for further assessment. * K21.9 Gastro-esophageal reflux disease without esophagitis* Recommendations:* Continue on present regimen as directed by PCP. Follow-up with their office as scheduled. * All * Follow up:* 9 months. Sooner if needed. Functional Status Description No Information Available Mental Status Description No Information Available Referrals Refer to Dr Reason for Referral Status Appt Date Ovidio Helms M.D. [facility] [address] [facility] [address]
--- OUTSIDE RECORDS SUMMARY | 2021-03-11 11:19 | CCD | Continuity of Care Document ---
Author Author Elroy CLARKOMirian [place] [address] Phone [phone] Care Team Providers Care Lacrosse Coach Name Role Phone [facility] Audiology AUTM [phone] Tin Grimes AUTM [phone] Jess Willams AUTM [phone] Rick Clark D.O. AUTM [phone] AUTM Unavailable Problems Active Problems Provider Date [...] Johnson t: 02/24/2019 Intermittent asthma well controlled Alex Peoples t: 02/12/2021 Intermittent asthma well controlled Alex Peoples t: 06/03/2019 Intermittent asthma well controlled Masha Johnson t: 09/06/2019 Immunodeficiency disorder Rick Clark D.O. Onset: 020 Intermittent asthma well controlled Masha Johnson t: 01/09/2020 Intermittent asthma well controlled Masha Johnson t: 08/07/2020 Social History Type Date Description Comments Sex [...] SIG Qnty Indications Ordering Provide r Date Wendy Allergy 180mg Tablets 1 by mouth every day 90tabs J45.20 Rick Clark D.O. 08/07/2020 Incruse Ellipta 62.5mcg/Inh Aeroso l 1 puff every day 90units J45.20 Carl JohnsonOMirian 02/07/2019 Singulair 10mg Tablets 1 tab by mouth every night 90tabs J45.21 Rick Clark D.O. 11/03/[address] Take One Capsule By Mouth Twice A Day 180caps R05 Carl JohnsonO. Preservision Areds 2 Areds 2 Capsu les 2 tabs by mouth every day Unknown Vitamin B Complex Tablets 1 tab by [...] mouth every night Unknown Fluticasone Propionate Nasal [place] 50mcg/Act Suspension two sprays in each nostril in am Unknown Azelastine HCL (Nasal) 0.1% Soluti on 1-2 sprays in each nostril once daily as needed Unkn own Symbicort 160-4.5mcg/Act Aerosol 2 puff twice a day 30.6gm Rick Clark D.O. Lunesta 3mg Tablets 1 tab by mouth [...] by mouth every day Unknown Calcium 600+D [id number]-Thvb Tabl ets 1 tab by mouth every day Unknown 0 Immunizations CPT Code Status Date Vaccine Lot # 38920 Given 06/18/2020 Moderna Covid-19 vaccine, mRNA, LNP-S, PF, 100 mcg/ 0.5 mL 31620 Given 05/23/2020 Moderna Covid-19 vaccine, mRNA, LNP-S, PF, 100 mcg/ 0.5 mL 22236 Given 02/17/2019 Flublock, Quadrivalent 80527 Given 05/11/2017 Pneumococcal PPSV23 36777 Given 02/21/2015 Influenza Virus Split 3 Yrs And Above For Intramuscular Use 44553 Given 05/11/2014 Prevnar 13 Vital Signs Date Vital Result Comment 03/01/2021 10:30am BP Systolic 118 mmHg BP Diastolic 78 mmHg Heart Rate 88 /min O2 % BldC Oximetry 99 % Height 70 inches 5'10" Weight 194.00 lb BMI (Body Mass Index) 27.8 kg/m2 [place] Body Weight 150 lb Weight 87.998 kg BSA (Body Surface Area) 2.06 m2 02/12/2021 2:43pm BP Systolic 140 mmHg BP Diastolic 78 mmHg Heart Rate 90 /min O2 % BldC Oximetry 96 % Height 70 inches 5'10" Weight 192.00 lb BMI (Body Mass Index) 27.5 kg/m2 [place] Body Weight 150 lb Weight 87.091 kg BSA (Body Surface Area) 2.05 m2 Results Test Acquired Date Facility Test Result H/L Range Note FVL/[place] 03/01/2021 [employer] [facility] SEE IMAGE FVC-Pred 3.69 L FVC-Pre 3.03 L FVC-%Pred-Pre 82 L FVC-LLN 2.86 L Fev1-Pred 2.80 L Fev1-Pre 2.31 L Fev1-%Pred-Pre 82 L Fev1-LLN 2.10 L Fev6-Pred 3.54 L Fev6-Pre 3.00 L Fev6-%Pred-Pre 84 L Fev6-LLN 2.72 L Jwv0pzc-Fure 76 % Qcv4gij-Usn 76 % Sgr6zmd-%Pred-Pre 101 % Xhq1hby-KVV 66 % Gig1fsu-Ekqb 96 % Yod8exv-Gei 99 % Ftv9zui-%Pred-Pre 103 % FEFMax-Pred 6.46 L/E/sec FEFMax-Pre 7.05 L/E/sec FEFMax-%Pred-Pre 109 L/E/sec FEFMax-LLN 4.40 L/E/sec Vom0883-Qfyk 2.17 L/E/sec Hqt7393-Ett 1.87 L/E/sec Uqo3396-%Pred-Pre 86 L/E/sec Mai0504-MDL 0.68 L/E/sec ExpTime-Pre 7.02 sec Drj8zet3-Aewe 79 % Tpv5tew5-Mub 77 % Gpa6vkj9-%Pred-Pre 97 % Met3fzj5-PSA 70 % FVL/[place] 02/12/2021 [email or web address] PDFReport SEE IMAGE FVC-Pred 3.69 L FVC-Pre 3.08 L FVC-%Pred-Pre 83 L FVC-LLN 2.86 L Fev1-Pred 2.80 L Fev1-Pre 2.55 L Fev1-%Pred-Pre 90 L Fev1-LLN 2.10 L Fev6-Pred 3.54 L Fev6-Pre 3.08 L Fev6-%Pred-Pre 87 L Fev6-LLN 2.72 L Oqd3dzw-Vvqa 76 % Mxe9xrp-Mgq 83 % Ord1ujs-%Pred-Pre 109 % Ciw4fsa-TYD 66 % Ohc2uad-Doxr 96 % Wib0yrm-Pui 100 % Rxj7ezb-%Pred-Pre 104 % FEFMax-Pred 6.46 L/E/sec FEFMax-Pre 6.93 L/E/sec FEFMax-%Pred-Pre 107 L/E/sec FEFMax-LLN 4.40 L/E/sec Yed0415-Kchi 2.17 L/E/sec Rxp7231-Kpn 2.69 L/E/sec Xgs7367-%Pred-Pre 124 L/E/sec Hzn0242-GBA 0.68 L/E/sec ExpTime-Pre 6.51 sec Wtc9tgd4-Gxpq 79 % Igz6gva1-Mnm 83 % Mkj2epf2-%Pred-Pre 104 % Twm2ksb8-HIP 70 % Procedures Date Code Description Status 02/12/2021 27850 Office/Outpatient Established Lo w MDM 20-29 Min Completed 02/12/2021 83788 Spirometry Completed Medical Devices Description No Information Available Encounters Type Date Location Provider Dx Diagnosis Office Visit 02/12/2021 3:00p [facility] Jimmie Lebron, P.A. J45.20 Mild intermittent asthma, uncomplicated J30.9 Allergic rhinitis, unspecifi ed Assessments Date Code Description Provider 02/12/2021 J45.20 Mild intermittent asthma, uncomp licated Jimmie Lebron, PMisbah 02/12/2021 J30.9 Allergic rhinitis, unspecified M gregorio Lebron PMisbah Plan of Treatment Future Appointment(s):* 08/26/2021 2:00 pm - Rick Clark D.O. at [facility] Functional Status Description No Information Available Mental Status Description No Information Available Referrals Description No Information Available
--- OUTSIDE RECORDS SUMMARY | 2021-03-11 11:19 | CCD | Continuity of Care Document ---
Author Author Elroy CLARKOMirian [place] [address] Phone [phone] Care Team Providers Care Curriculum Coordinator Name Role Phone [facility] AUTM [phone] Tin Grimes AUTM [phone] Jess Willams AUTM [phone] Rick Clark D.O. AUTM [phone] AUTM Unavailable Problems Active Problems Provider Date [...] By Mouth Twice A Day 180caps R05 Rick Clark D.O. Preservision Areds 2 Areds 2 Capsu les [...] mouth every night Unknown Fluticasone Propionate Nasal [place] 50mcg/Act Suspension two sprays in each nostril [...] by mouth every day Unknown Calcium 600+D 0518-978gv-Sgfe Tabl ets 1 tab by mouth every day Unknown 0 Immunizations CPT Code Status Date Vaccine Lot # 83966 Given 06/18/2020 Moderna Covid-19 vaccine, mRNA, LNP-S, PF, 100 mcg/ 0.5 mL 86670 Given 05/23/2020 Moderna Covid-19 vaccine, mRNA, LNP-S, PF, 100 mcg/ 0.5 mL 70148 Given 02/17/2019 Flublock, Quadrivalent 66509 Given 05/11/2017 Pneumococcal PPSV23 50880 Given 02/21/2015 Influenza Virus Split 3 Yrs And Above For Intramuscular Use 68416 Given 05/11/2014 Prevnar 13 Vital Signs Date Vital Result Comment 03/01/2021 10:30am BP Systolic 118 mmHg BP Diastolic 78 mmHg Heart Rate 88 /min O2 % BldC Oximetry 99 % Height 70 inches 5'10" Weight 194.00 lb BMI (Body Mass Index) 27.8 kg/m2 [place] Body Weight 150 lb Weight 87.998 kg BSA (Body Surface Area) 2.06 m2 02/12/2021 2:43pm BP Systolic 140 mmHg BP Diastolic 78 mmHg Heart Rate 90 /min O2 % BldC Oximetry 96 % Height 70 inches 5'10" Weight 192.00 lb BMI (Body Mass Index) 27.5 kg/m2 [place] Body Weight 150 lb Weight 87.091 kg BSA (Body Surface Area) 2.05 m2 Results Test Acquired Date Facility Test Result H/L Range Note Laboratory test finding 03/01/2021 [facility] [address] [place] [address] [phone] Coronavirus 2019 Nasopharygeal <pending> FVL/[place] 03/01/2021 [employer] PD[facility]eport SEE IMAGE FVC-Pred 3.69 L FVC-Pre 3.03 L FVC-%Pred-Pre 82 L FVC-LLN 2.86 L Fev1-Pred 2.80 L Fev1-Pre 2.31 L Fev1-%Pred-Pre 82 L Fev1-LLN 2.10 L Fev6-Pred 3.54 L Fev6-Pre 3.00 L Fev6-%Pred-Pre 84 L Fev6-LLN 2.72 L Oeg5qwl-Qoyi 76 % Hkc0tlq-Spp 76 % Ccg0cka-%Pred-Pre 101 % Nej4qgs-DOG 66 % Wtc2awz-Ipvs 96 % Gzk0yfq-Hve 99 % Dcn0kbk-%Pred-Pre 103 % FEFMax-Pred 6.46 L/E/sec FEFMax-Pre 7.05 L/E/sec FEFMax-%Pred-Pre 109 L/E/sec FEFMax-LLN 4.40 L/E/sec Ruy8457-Elcd 2.17 L/E/sec Oaj7297-Rig 1.87 L/E/sec Sly0021-%Pred-Pre 86 L/E/sec Srn8461-KDH 0.68 L/E/sec ExpTime-Pre 7.02 sec Cuj9rnk0-Jnsv 79 % Wdn6twr8-Zwx 77 % Fli1nuw3-%Pred-Pre 97 % Mjt1rtc7-ETN 70 % FVL/[place] 02/12/2021 [employer] PD[facility]eport SEE IMAGE FVC-Pred 3.69 L FVC-Pre 3.08 L FVC-%Pred-Pre 83 L FVC-LLN 2.86 L Fev1-Pred 2.80 L Fev1-Pre 2.55 L Fev1-%Pred-Pre 90 L Fev1-LLN 2.10 L Fev6-Pred 3.54 L Fev6-Pre 3.08 L Fev6-%Pred-Pre 87 L Fev6-LLN 2.72 L Iua7url-Otmn 76 % Qgk3ixm-Grp 83 % Tzw6iww-%Pred-Pre 109 % Lyf2aqc-HML 66 % Roe0ncs-Pone 96 % Tuo8uyn-Yrj 100 % Ule6wmh-%Pred-Pre 104 % FEFMax-Pred 6.46 L/E/sec FEFMax-Pre 6.93 L/E/sec FEFMax-%Pred-Pre 107 L/E/sec FEFMax-LLN 4.40 L/E/sec Shk1100-Rjhz 2.17 L/E/sec Xge8737-Dye 2.69 L/E/sec Ent0125-%Pred-Pre 124 L/E/sec Zgf4321-AOK 0.68 L/E/sec ExpTime-Pre 6.51 sec Taz6nby0-Flzl 79 % Vie5ttp7-Hmz 83 % Tot5fep2-%Pred-Pre 104 % Ctd9lkc3-BBN 70 % Procedures Date Code Description Status 02/12/2021 28914 Office/Outpatient Established Lo w MDM 20-29 Min Completed 02/12/2021 46301 Spirometry Completed Medical Devices Description No Information Available Encounters Type Date Location Provider Dx Diagnosis Office Visit 02/12/2021 3:00p [facility] Jimmie Lebron, P.A. J45.20 Mild [...] Appointment(s):* 08/26/2021 2:00 pm - Rick Clark D.Bonny. at [facility] 03/01/2021 - Rick Clark D.Bonny.* J45.20 Mild intermittent asthma, uncomplicated * J30.9 [...]
--- OUTSIDE RECORDS SUMMARY | 2021-03-11 11:19 | CCD ---
Continuity of Care Document (CCD) Created on: 03/05/2021 Elroy Rodriguez External Reference #: [id number] : [id number] Sex: Female Author Author Elroy CHÁVEZ M.D. Organization Unknown Address [address], [place] [address] Phone [phone] Care Team Providers Care Detective Captain Name Role Phone PaulinovalenciaRick AUTM Unavailable ImerJess MANOJ AUTM [phone] Problems Active Problems Provider Date Immunodeficiency disorder [...] Ordering Provide r Date Azelastine HCL (Nasal) 137mcg/[place] Solution 2 sprays each nostril every day every morning 1units J3 0.89 Kel Chávez M.D. 02/18/2019 Fluticasone Propionate 50mcg/Act Suspension [place] Two Sprays In Each Nostril Every Evening [...] 2 Or More Injection Kel Chávez M.D. 03/05/2021 Allergy Injection 2 Or More Injection Kel [...] 2 Or More Injection Kel Chávez M.D. 09/13/2020 Allergy Injection 2 Or More [...] Or More Injection Kel Luz Maria Chávez.DMirian 01/05/2020 Allergy Injection 2 Or More Injection Kel Luz Maria Chávez.DMirian 01/02/2020 Allergy Injection 2 Or More Injection Kel Helenostthierry M.DMirian 12/30/2019 Allergy Injection 2 Or More Injection Kel Luz Maria Chávez.DMirian 12/27/2019 Allergy Injection 2 Or More Injection Kel Luz Maria Chávez.Carl 12/23/2019 Allergy Injection 2 Or More Injection Kel Luz Maria Chávez.DMirian 12/20/2019 Allergy Injection 2 Or More Injection Kel Luz Maria Chávez.DMirian 12/16/2019 Allergy Injection 2 Or More Injection Kel Luz Maria Chávez.DMirian 12/08/2019 Allergy Injection 2 Or More Injection Kel Luz Maria Chávez.DMirian 12/05/2019 Allergy Injection 2 Or More Injection KelLuz Maria Allen.Carl 12/01/2019 Allergy Injection 2 Or More Injection Kelsarah Chávez M.D. 11/28/2019 Allergy Injection 2 Or More Injection Kel Luz Maria Chávez.DMirian 11/25/2019 Allergy Injection 2 Or More Injection Kel Luz Maria Chávez.Carl 11/22/2019 Allergy Injection 2 Or More Injection Kel Luz Maria Chávez.DMirian 11/17/2019 Allergy Injection 2 Or More Injection Kel Luz Maria Chávez.DMirian 11/14/2019 Allergy Injection 2 Or More Injection Kel Luz Maria Chávez.Carl 11/10/2019 Allergy Injection 2 Or More Injection Kel HelenostLuz Maria guadarrama.DMirian 11/07/2019 Allergy Injection 2 Or More Injection Kel Chrostthierry M.DMirian 11/03/2019 Allergy Injection 2 Or More Injection Kel Helenostthierry M.DMirian 10/31/2019 Allergy Injection 2 Or More Injection Kel Chrostthierry M.DMirian 10/28/2019 Allergy Injection 2 Or More Injection Kel Helenostthierry M.DMirian 10/25/2019 Allergy Injection 2 Or More Injection Kel Avery M.DMirian 10/21/2019 Allergy Injection 2 Or More Injection Kel Avery M.DMirian 10/18/2019 Allergy Injection 2 Or More Injection Kel Avery, M.DMirian 10/14/2019 Allergy Injection 2 Or More Injection Kel Avery, M.DMirian 10/11/2019 Allergy Injection 2 Or More Injection Kel Helenostthierry, M.D. 10/07/2019 Allergy Injection 2 Or More Injection Kel Avery, M.DMirian 10/04/2019 Allergy Injection 2 Or More Injection Kel Avery M.DMirian 09/20/2019 Allergy Injection 2 Or More Injection Kel Helenostthierry, M.DMirian 09/13/2019 Allergy Injection 2 Or More Injection Kel Avery M.DMirian 09/06/2019 Allergy Injection 2 Or More Injection Kel Avery M.DMirian 08/30/2019 Allergy Injection 2 Or More Injection Kel Avery M.DMirian 08/23/2019 Allergy Injection 2 Or More Injection Kel Luz Maria Chávez.DMirian 08/16/2019 Allergy Injection 2 Or More Injection Kel Avery M.DMirian 08/08/2019 Allergy Injection 2 Or More Injection Kel Avery M.DMirian 08/02/2019 Allergy Injection 2 Or More Injection Kel Avery M.DMirian 07/26/2019 Allergy Injection 2 Or More Injection Kel Avery M.D. 07/18/2019 Allergy Injection 2 Or More Injection Kel Avery M.D. 07/12/2019 Allergy Injection 2 Or More Injection Kel Avery M.DMirian 06/14/2019 Allergy Injection 2 Or More Injection Kel Avery M.D. 06/06/2019 Allergy Injection 2 Or More Injection Kel Helenostthierry M.D. 05/30/2019 Allergy Injection 2 Or More Injection Kel Avery M.D. 05/23/2019 Immunizations Description No Information Available [...] Information Available Procedures Date Code Description Status 03/05/2021 37226 Allergy Injection 2 Or More Comp leted 02/18/2021 25793 Office/Outpatient Established Lo w MDM 20-29 Min Completed 02/15/2021 45261 Allergy Antigens Single Or Multi ple Completed 02/12/2021 76560 Allergy Injection 2 Or More Comp leted 01/23/2021 70102 Allergy Injection 2 Or More Comp leted 12/27/2020 26857 Allergy Injection 2 Or More Comp leted 12/06/2020 25247 Allergy Injection 2 Or More Comp leted 11/15/2020 80131 Allergy Injection 2 Or More Comp leted 10/24/2020 30530 Allergy Injection 2 Or More Comp leted 10/04/2020 99996 Allergy Injection 2 Or More Comp leted 09/13/2020 59496 Allergy Injection 2 Or More Comp leted [...] without esophagitis Assessments Date Code Description Provider 03/05/2021 J30.1 Allergic rhinitis due to pollen Kel Chávez M.D. 03/05/2021 J30.81 Allergic rhinitis due to animal (cat) (dog) hair and dander Kel Chávez M.D. 03/05/2021 J30.89 Other allergic rhinitis Kel Chávez M.D. Plan of Treatment Future Appointment(s):* 11/19/2021 3:30 pm - Kel Chávez M.D. at Main Office 02/18/2021 - Kel Chrostowski, M.D.* J30.89 Allergic rhinitis due to dust [...] Description No Information Available Referrals Refer to Reason for Referral Status Appt Date Ovidio Helms M.D. CONTIN[facility] ALLER[facility]JECTIONS [facility] T[facility]AT[facility] [address] [facility] [address]
--- OUTSIDE RECORDS SUMMARY | 2021-03-11 11:20 | CCD | Continuity of Care Document ---
Author Author Elroy Willams Organization Unknown Address [address] [facility] [address] [place] [address] Phone [phone] Care Team Providers Care Skidder Driver Name Role Phone Jasmeet Sánchez MD AUTM [phone] Tin Grimes MD AUTM [phone] PaulinoRick birmingham AUTM [phone] Jess Willams ANP AUTM [phone] Ahmet Mckenzie MD AUTM Unavailable Bety Merritt OD AUTM Unavailable Vinod Clemente MD AUTM [phone] Robyn Casillas MD AUTM Unavailable Darwin Guzmán MD AUTM [phone] Kel Varela MD AUTM [phone] Active Problems Provider Date Bipolar disorder MANOJ Roach Onset: 03/27/2011 Depressive disorder Narda Vincent D.O. Onset: 2010 Headache MANOJ Roach Onset: 03/27/2011 Personal history of primary malignant neoplasm of breast MANOJ Galloway Onset: 03/27/2011 Essential hypertension CHERI PerdueP Onset: 02/25/2017 Hypothyroidism CHERI PerdueP Onset: 02/25/2017 Mild intermittent asthma Padmini Goncalves TIP STITCHER Onset: 02/26/20 Left bundle branch block Padmini Goncalves TIP STITCHER Onset: 02/26/20 17 Social History Type Date [...] Syringe 0.5cc intramuscular x1 .500ml Padmini Goncalves, TIP STITCHER 0 06/24/2019 Incruse Ellipta 62.5mcg/Inh Aeroso l inhale 1 puff by mouth once daily 30units Laura Canela,TIP STITCHER 0 02/01/2019 Albuterol Sulfate 0.63mg/3ML Nebul izer [...] mouth every day 90tabs Jess Willams, Humaira AWS DEVELOPER 05/08/2014 Proair HFA 108(90Base) mcg/Act Aer osol 2 inhalations four times a day as needed shortness of breath 1units Deb Cason, MANOJ 04/19/2014 Calcium 600 + D [id number] Tab lets 1 po bid Deb Cason, [facility] 2 Preservision Areds 2 Areds 2 [...] Given 04/05/2018 Pneumococcal,Unspecified U-Flu Given 02/12/2018 Influenza,Unspecified 55882 Given 11/30/2017 Shingrix 33692 Given 08/26/2017 Shingrix U-PneuC Given 04/19/2015 Prevnar 13 Q2037 Given 02/19/2012 Fluvirin Virus Vaccine Q2037 Given 02/19/2012 Fluvirin Virus Vaccine 60391 Given 03/27/2011 Pneumovax 23 63709 Given 02/08/2009 Influenza Virus Vaccine 59751 Given 03/23/2008 Influenza Virus Vaccine Vital Signs [...] Range Note Laboratory test finding 02/13/2021 [facility] <pending> Complete Blood Count 02/06/2021 [facility] Oncology Account Specialist: [place] [address] [phone] WBC 5.1 x10*3/UL 4.1 - 10.9 RBC [...] 2.0 - 7.8 Basic Metabolic Panel 02/06/2021 [facility] Oncology Account Specialist: [place] [address] [phone] Glucose 83 mg/dL 74 - 99 1 BUN 13 mg/dL 7 - 18 Creatinine 0.8 mg/dL 0.6 - 1.3 Sodium 138 mEq/L 136 - 145 Potassium 4.4 mEq/L 3.5 - 5.1 Chloride 101 mEq/L 98 - 107 Carbon Dioxide 33 mEq/L High 21 - 32 Calcium 9.0 mg/dL 8.5 - 10.1 GFR >= 60 mL/min >60 GFR >= 60 mL/min >60 2 Laboratory test finding 02/05/2021 [place] [address] [phone] Valproic Acid (Depakote) 56.4 UG/ML Normal 50.0-10 0.0 Laboratory test finding 02/05/2021 [facility] Oncology Account Specialist: [place] [address] [phone] Thyroid Stimulating Hormone 2.08 uIU/mL 0.3 6 - 3.74 Coronavirus 2019 Nasopharygeal 01/07/2021 [place] [address] [phone] Coronavirus 2019 Nasopharygeal ASSAY INFORMATIO <SEE N OTE> 3 Laboratory test finding 01/07/2021 [place] [id number] [phone] [place] Covid Antigen NEGATIVE Normal Negative 4 Xray 10/29/2020 [facility] Ce nter [address] [place] [address] [phone] 3D Bi-Lateral Mammogram <pending> 1 100-125 mg/dL PRE-DIABET ES/FASTING >126 mg/dL DIABETES/FASTING 2 CHRONIC KIDNEY DISEASE STAGI NG PER NKF STAGE I & II GFR >= 60 NORMAL TO MILDLY DECREASED STAGE III GFR 30-59 MODERATELY DECREASED STAGE IV GFR 15-29 SEVERELY DECREASED STAGE V GFR <15 VERY LITTLE GFR LEFT ESRD GFR <15 ON LAND DEPARTMENT HEAD 3 ASSAY INFORMATION: Real Time RT-PCR NOTE: The COVID-19 assay has been cleared by the U.S. Food and Drug Administration under the Emergency Use Authorization (EUA). [facility] and [employer] are designated as high complexity laboratories by the Clinical Laboratory Improvement Amendments of 1988(CLIA) and are qualified to perform this test. Not Detected 4 The [place] SARS Antigen ANAND d oes not differentiate between SARS-CoV and SARS-CoV-2. Negative results do not rule out COVID-19 and should not be used as the sole basis for treatment. Negative results should be considered in the context of a patient's recent exposure, history and the presence of clinical signs and symptoms consistent with COVID-19. Procedures Date Code Description Status 12/07/2020 [id number] Mammogram Completed 11/15/2019 [id number] Mammogram Completed 11/04/2018 [id number] Mammogram Completed 01/20/2018 [id number] Colonoscopy Completed 11/03/2017 [id number] Mammogram Completed 05/18/2017 [id number] Bone Mineral Density Test Comple abhilash 10/24/2016 [id number] Mammogram Completed 10/24/2015 [id number] Mammogram Completed 10/20/2014 [id number] Mammogram Completed 09/22/2014 [id number] Colonoscopy Completed 10/19/2013 [id number] Mammogram Completed 10/05/2012 [id number] Mammogram Completed 08/06/2012 [id number] Diabetic Retinal Eye Exam Comple [facility] 10/02/2011 [id number] Mammogram Completed 08/22/2010 [id number] Mammogram Completed 08/15/2009 [id number] Mammogram Completed 07/03/2008 [id number] Bone Mineral Density Test Comple [facility] Medical Devices Description No Information Available Encounters Description No Information Available Assessments Date Code Description Provider 02/13/2021 D48.5 Neoplasm of uncertain behavior o f skin Jess Willams, [facility] 02/06/2021 F31.9 Bipolar disorder, unspecified Na gennaro Willams, [facility] 02/06/2021 I10 Essential (primary) hypertension Jess Willams, [facility] 02/06/2021 E03.9 Hypothyroidism, unspecified Nanc y Kay Willams, [facility] 02/06/2021 L98.9 Skin lesion Jess Willams, ANP 02/05/2021 F31.9 Bipolar disorder, unspecified Na gennaro Willams, [facility] 02/05/2021 F31.9 Bipolar disorder, unspecified La b Schedule 02/05/2021 E03.9 Hypothyroidism, unspecified Nanc y Kay Willams, [facility] 02/05/2021 E03.9 Hypothyroidism, unspecified Lab Schedule Plan of Treatment Future Appointment(s):* 09/11/2021 12:40 pm - Nurse #2 at [facility] * 09/10/2021 1:00 pm - Lab Schedule at [facility] * 09/11/2021 1:00 pm - MAN[facility]J [facility]hill[facility] 02/13/2021 - MANOJ Dhillon* D48.5 Neoplasm of uncertain behavior of skin Functional Status Description No Information Available Mental Status Description No Information Available Referrals Description No Information Available
--- OUTSIDE RECORDS SUMMARY | 2021-03-11 11:20 | CCD | Continuity of Care Document ---
Author Author Elroy Willams Organization Unknown Address [address] [facility] [address] [place] [address] Phone [phone] Care Team Providers Care Professor Of Art History Name Role Phone Jasmeet Sánchez MD AUTM [phone] Tin Grimes MD AUTM [phone] PaulinoRick birmingham AUTM [phone] Jess Willams ANP AUTM [phone] Ahmet Mckenzie MD AUTM Unavailable Bety Merritt OD AUTM Unavailable Vinod Clemente MD AUTM [phone] Robyn Casillas MD AUTM Unavailable Darwin Guzmán MD AUTM [phone] Kel Varela MD AUTM Problems Active Problems Provider Date Bipolar disorder MANOJ Roach Onset: 03/27/2011 Depressive disorder Narda Vincent D.O. 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 BETTING CLERK Onset: 02/26/20 Left bundle branch block Padmini Goncalves TELEPHONE BETTING CLERK Onset: 02/26/20 17 Social History Type Date [...] Syringe 0.5cc intramuscular x1 .500ml Padmini Goncalves, TELEPHONE BETTING CLERK 0 06/24/2019 Incruse Ellipta 62.5mcg/Inh Aeroso l inhale 1 puff by mouth once daily 30units Laura Canela,TELEPHONE BETTING CLERK 0 02/01/2019 Albuterol Sulfate 0.63mg/3ML Nebul izer [...] mouth every day 90tabs Jess Willams, Humaira LOBSTER MAN 05/08/2014 Proair HFA 108(90Base) mcg/Act Aer osol 2 inhalations four times a day as needed shortness of breath 1units Deb Cason, MANOJ 04/19/2014 Calcium 600 + D [phone]-Edyh Tab lets 1 po bid Deb Cason, [facility] 2 Preservision Areds 2 Areds 2 Capsu [...] Given 04/05/2018 Pneumococcal,Unspecified U-Flu Given 02/12/2018 Influenza,Unspecified 78169 Given 11/30/2017 Shingrix 02900 Given 08/26/2017 Shingrix U-PneuC Given 04/19/2015 Prevnar 13 Q2037 Given 02/19/2012 Fluvirin Virus Vaccine Q2037 Given 02/19/2012 Fluvirin Virus Vaccine 23499 Given 03/27/2011 Pneumovax 23 54690 Given 02/08/2009 Influenza Virus Vaccine 57882 Given 03/23/2008 Influenza Virus Vaccine Vital Signs [...] For Dermpath <pending> Complete Blood Count 02/06/2021 [facility] Library Monitor: [place] [address] [phone] WBC 5.1 x10*3/UL 4.1 - 10.9 RBC [...] 2.0 - 7.8 Basic Metabolic Panel 02/06/2021 [facility] Library Monitor: [place] [address] [phone] Glucose 83 mg/dL 74 - 99 1 [...] mL/min >60 2 Laboratory test finding 02/05/2021 [place] [address] [phone] Valproic Acid (Depakote) 56.4 UG/ML Normal 50.0-10 0.0 Laboratory test finding 02/05/2021 [facility] Library Monitor: [place] [address] [phone] Thyroid Stimulating Hormone 2.08 uIU/mL 0.3 6 - 3.74 Coronavirus 2019 Nasopharygeal 01/07/2021 [place] [address] [phone] Coronavirus 2019 Nasopharygeal ASSAY INFORMATIO <SEE N OTE> 3 Laboratory test finding 01/07/2021 [place] [id number] [phone] [place] Covid Antigen NEGATIVE Normal Negative 4 Xray 10/29/2020 [facility] Ce nter [address] [place] [address] [phone] 3D Bi-Lateral Mammogram <pending> 1 100-125 mg/dL PRE-DIABET ES/FASTING >126 mg/dL DIABETES/FASTING 2 CHRONIC KIDNEY DISEASE STAGI NG PER NKF STAGE I & II GFR >= 60 NORMAL TO MILDLY DECREASED STAGE III GFR 30-59 MODERATELY DECREASED STAGE IV GFR 15-29 SEVERELY DECREASED STAGE V GFR <15 VERY LITTLE GFR LEFT ESRD GFR <15 ON CAN OPERATOR 3 ASSAY INFORMATION: Real Time RT-PCR NOTE: The COVID-19 assay has been cleared by the U.S. Food and Drug Administration under the Emergency Use Authorization (EUA). [facility] [employer] are designated as high complexity laboratories by [...] COVID-19. Procedures Date Code Description Status 12/07/2020 [id number] Mammogram Completed 11/15/2019 [id number] Mammogram Completed 11/04/2018 [id number] Mammogram Completed 01/20/2018 [id number] Colonoscopy Completed 11/03/2017 [id number] Mammogram Completed 05/18/2017 [id number] Bone Mineral Density Test Comple abhilash 10/24/2016 [id number] Mammogram Completed 10/24/2015 [id number] Mammogram Completed 10/20/2014 [id number] Mammogram Completed 09/22/2014 [id number] Colonoscopy Completed 10/19/2013 [id number] Mammogram Completed 10/05/2012 [id number] Mammogram Completed 08/06/2012 [id number] Diabetic Retinal Eye Exam Comple [facility] 10/02/2011 [id number] Mammogram Completed 08/22/2010 [id number] Mammogram Completed 08/15/2009 [id number] Mammogram Completed 07/03/2008 [id number] Bone Mineral Density Test Comple [facility] Medical Devices Description No Information Available Encounters Description No Information Available Assessments Date Code Description Provider 02/13/2021 D48.5 Neoplasm of uncertain behavior o f skin Jess Willams, [facility] 02/06/2021 F31.9 Bipolar disorder, unspecified Na gennaro Willams, [facility] 02/06/2021 I10 Essential (primary) hypertension Jess Willams, [facility] 02/06/2021 E03.9 Hypothyroidism, unspecified Nanc y Kay Willams, [facility] 02/06/2021 L98.9 Skin lesion Jess Willams, ANP 02/05/2021 F31.9 Bipolar disorder, unspecified Na gennaro Willams, [facility] 02/05/2021 F31.9 Bipolar disorder, unspecified La b Schedule 02/05/2021 E03.9 Hypothyroidism, unspecified Nanc y Kay Willams, [facility] 02/05/2021 E03.9 Hypothyroidism, unspecified Lab Schedule Plan of Treatment Future Appointment(s):* 09/11/2021 12:40 pm - Nurse #2 at [facility] * 09/10/2021 1:00 pm - Lab Schedule at [facility] * 09/11/2021 1:00 pm - [facility] 02/13/2021 - MANOJ Dhillon* D48.5 Neoplasm of uncertain behavior of skin Functional Status Description No Information Available Mental Status Description No Information Available Referrals Description No Information Available
--- OUTSIDE RECORDS SUMMARY | 2021-03-11 11:20 | CCD ---
Continuity of Care Document (CCD) Created on: 02/12/2021 Elroy Rodriguez External Reference #: [id number] : [id number] Sex: Female Author Author Elroy LEBRON P.Den[place] Organization Unknown Address [address] [place] [address] Phone [phone] Care Team Providers Care Wastewater Supervisor Name Role Phone [place] AUTM [phone] Tin Grimes AUTM [phone] Jess Willams AUTM [phone] Rick Urena D.O. AUTM [phone] AUTM Unavailable Problems Active Problems Provider Date Cough Rick Urena D.O. Onset: 12/08/2014 Difficulty breathing Rick Urena D.O. Onset: 12/08/2014 Asthma without status asthmaticus Rick Urena D.O. Onset: 12/08/2014 Gastroesophageal reflux disease Rick Urena D.O. Onset: 0 12/08/2014 Intermittent asthma well controlled Rick Urena D.O. Onse t: 02/12/2016 Exacerbation of intermittent asthma Rick Urena D.O. Onse t: 04/20/2017 Intermittent asthma well controlled Alex Peoples Onse t: 02/03/2018 Intermittent asthma well controlled Alex Peoples Onspaula t: 09/01/2018 Essential hypertension Kay Cardoso M.D. Onset: 017 Allergic asthma without status asthmaticus Kay Cardoso M.D. Onset: 10/15/2016 Intermittent asthma well controlled Alex Peoples Onse t: 10/12/2018 Uncomplicated moderate persistent asthma Rick Urena D.O. Onset: 12/23/2018 Allergic rhinitis Rick Urena D.O. 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 Ons et: 01/14/2019 Intermittent asthma well controlled Masha Johnson t: 02/07/2019 Intermittent asthma well controlled Masha Johnson t: 02/24/2019 Intermittent asthma well controlled Alex Peoples t: 02/12/2021 Intermittent asthma well controlled Alex Peoples t: 06/03/2019 Intermittent asthma well controlled Masha Johnson t: 09/06/2019 Immunodeficiency disorder Rick Urena D.O. Onset: 020 Intermittent asthma well controlled Masha Johnson t: 01/09/2020 Intermittent asthma well controlled Masha Johnson t: 08/07/2020 Social History Type Date Description Comments Sex Unknown ETOH Use Sociable Tobacco Use Start: 05/11/70 End: 05/11/76 Patient is a forme r smoker 1/2 PPD for 6 yrs Recreational Drug Use Denies Drug Use Smoking Status Reviewed: 02/12/21 Patient is a former smoker 1/ 2 PPD for 6 yrs Allergies and adverse reactions Description No Known Drug Allergies Medications Active Medications SIG Qnty Indications Ordering Provide r Date Wendy Allergy 180mg Tablets 1 by mouth every day 90tabs J45.20 Rick Urena D.O. 08/07/2020 Incruse Ellipta 62.5mcg/Inh Aeroso l 1 puff every day 90units J45.20 Rick Urena D.O. 02/07/2019 Singulair 10mg Tablets 1 tab by mouth every night 90tabs J45.21 Rick Urean D.O. 11/03/[address] Take One Capsule By Mouth Twice A Day 180caps R05 Rick Urena D.O. Preservision Areds 2 Areds 2 Capsu [...] mouth every night Unknown Fluticasone Propionate Nasal [place] 50mcg/Act Suspension two sprays in each nostril in am Unknown Azelastine HCL (Nasal) 0.1% Soluti on 1-2 sprays in each nostril once daily as needed Unkn own Gabapentin 300mg Capsules 2 tabs by mouth at bedtime Unknown Symbicort 160-4.5mcg/Act Aerosol 2 puff twice a day 30.6gm Rick Urena D.O. Lunesta 3mg Tablets 1 tab by mouth at bedtime Unknown Verapamil HCL 40mg Tablets 1 tab by mouth twice a day Unknown Atorvastatin Calcium 40mg Tablets 1 tab by mouth every day 30tabs Unknown Proair HFA 108(90Base) mcg/Act Aer osol 2 puffs four times a day as needed 8.500gm Rick Urnea D.O . Aspir-Low 81mg Tablets DR 1 [...] by mouth every day Unknown Calcium 600+D [id number]-[id number] Tabl ets 1 tab by mouth every day Unknown 0 Immunizations CPT Code Status Date Vaccine Lot # 37987 Given 02/17/2019 Flublock, Quadrivalent 39306 Given 05/11/2017 Pneumococcal PPSV23 62026 Given 02/21/2015 Influenza Virus Split 3 Yrs And Above For Intramuscular Use 85806 Given 05/11/2014 Prevnar 13 Vital Signs Date Vital Result Comment 02/12/2021 2:43pm BP Systolic 140 mmHg BP Diastolic 78 mmHg Heart Rate 90 /min O2 % BldC Oximetry 96 % Height 70 inches 5'10" Weight 192.00 lb BMI (Body Mass Index) 27.5 kg/m2 [place] Body Weight 150 lb Weight 87.091 kg BSA (Body Surface Area) 2.05 m2 08/07/2020 2:19pm BP Systolic 132 mmHg BP Diastolic 82 mmHg Heart Rate 92 /min O2 % BldC Oximetry 99 % Body Temperature 97.3 F Height 70 inches 5'10" Weight 199.00 lb BMI (Body Mass Index) 28.6 kg/m2 [place] Body Weight 150 lb Weight 90.266 kg BSA (Body Surface Area) 2.08 m2 Results Test Acquired Date Facility Test Result H/L Range Note FVL/[place] 02/12/2021 [facility] SEE IMAGE FVC-Pred 3.69 L FVC-Pre 3.08 L FVC-%Pred-Pre 83 L FVC-LLN 2.86 L Fev1-Pred 2.80 L Fev1-Pre 2.55 L Fev1-%Pred-Pre 90 L Fev1-LLN 2.10 L Fev6-Pred 3.54 L Fev6-Pre 3.08 L Fev6-%Pred-Pre 87 L Fev6-LLN 2.72 L Hud5jod-Orfy 76 % Vdy7hxd-Gxt 83 % Bme9onq-%Pred-Pre 109 % Nxp3ozl-HZZ 66 % Hxj2wld-Qycd 96 % Teb5yzi-Jae 100 % Jjm9jln-%Pred-Pre 104 % FEFMax-Pred 6.46 L/E/sec FEFMax-Pre 6.93 L/E/sec FEFMax-%Pred-Pre 107 L/E/sec FEFMax-LLN 4.40 L/E/sec Fev8617-Xjnx 2.17 L/E/sec Tbm6155-Etb 2.69 L/E/sec Mbn4367-%Pred-Pre 124 L/E/sec Ihs3982-HQF 0.68 L/E/sec ExpTime-Pre 6.51 sec Jlt0rxz9-Zony 79 % Sdp0bkj5-Jhh 83 % Zen7jed0-%Pred-Pre 104 % Lot5jcw4-HGQ 70 % Procedures Description No Information Available Medical Devices Description No Information Available Encounters Description No Information Available Assessments Date Code Description Provider 02/12/2021 J45.20 Mild intermittent asthma, uncomp licated Jimmie Lebron, P.AMirian 02/12/2021 J30.9 Allergic rhinitis, unspecified M gregorio Lebron PMirianAMirian Plan of Treatment Future Appointment(s):* 08/26/2021 2:00 pm - Rick Urena D.O. at [facility] Pulmonary/Thoracic 02/12/2021 - Jimmie Lebron, PMirianA.* J45.20 Mild intermittent asthma, uncomplicated * J30.9 Allergic rhinitis, unspecified * * New Labs:* FVL/Denny, Ordered: 02/12/21 * Follow up:* Follow up in 6 months with denny Functional Status Description No Information Available Mental Status Description No Information Available Referrals Description No Information Available
--- OUTSIDE RECORDS SUMMARY | 2021-03-11 11:20 | CCD | Continuity of Care Document ---
Author Author Elroy Willams Organization Unknown Address [address] [facility] [address] [place] [address] Phone [phone] Care Team Providers Care Repair Manager Name Role Phone Jasmeet Sánchez MD AUTM [phone] Tin Grimes MD AUTM [phone] PaulinoRick birmingham AUTM [phone] Jess Willams ANP AUTM [phone] Ahmet Mckenzie MD AUTM Unavailable Bety Merritt OD AUTM Unavailable Vinod Clemente MD AUTM [phone] Robyn Casillas MD AUTM Unavailable Darwin Guzmán MD AUTM [phone] Kel Varela MD AUTM Problems Active Problems Provider Date Bipolar disorder MANOJ Roach Onset: 03/27/2011 Depressive disorder Narda Vincent D.O. Onset: 2010 Headache MANOJ Roach Onset: 03/27/2011 Personal history of primary malignant neoplasm of breast MANOJ Galloway Onset: 03/27/2011 Essential hypertension CHERI PerdueP Onset: 02/25/2017 Hypothyroidism CHERI PerdueP Onset: 02/25/2017 Mild intermittent asthma Padmini Goncalves CANDLE EXTRUSION MACHINE OPERATOR Onset: 02/26/20 Left bundle branch block Padmini Goncalves CANDLE EXTRUSION MACHINE OPERATOR Onset: 02/26/20 17 Social History Type Date [...] Syringe 0.5cc intramuscular x1 .500ml Padmini Goncalves, CANDLE EXTRUSION MACHINE OPERATOR 0 06/24/2019 Incruse Ellipta 62.5mcg/Inh Aeroso l inhale 1 puff by mouth once daily 30units Laura Canela,CANDLE EXTRUSION MACHINE OPERATOR 0 02/01/2019 Albuterol Sulfate 0.63mg/3ML Nebul izer [...] mouth every day 90tabs Jess Willams, Humaira POT WASHER 05/08/2014 Proair HFA 108(90Base) mcg/Act Aer osol 2 inhalations four times a day as needed shortness of breath 1units Deb Cason, MANOJ 04/19/2014 Calcium 600 + D [id number] Tab lets 1 po bid Deb Cason, [facility] 2 Preservision Areds 2 Areds 2 [...] Given 04/05/2018 Pneumococcal,Unspecified U-Flu Given 02/12/2018 Influenza,Unspecified 50772 Given 11/30/2017 Shingrix 75400 Given 08/26/2017 Shingrix U-PneuC Given 04/19/2015 Prevnar 13 Q2037 Given 02/19/2012 Fluvirin Virus Vaccine Q2037 Given 02/19/2012 Fluvirin Virus Vaccine 31396 Given 03/27/2011 Pneumovax 23 06156 Given 02/08/2009 Influenza Virus Vaccine 32288 Given 03/23/2008 Influenza Virus Vaccine Vital Signs [...] For Dermpath <pending> Complete Blood Count 02/06/2021 [place] [facility] Machine Operator s, pc Manager Data Warehousing: Dr Ambrosio [place] [address] [phone] WBC 5.1 x10*3/UL 4.1 - 10.9 RBC [...] 2.0 - 7.8 Basic Metabolic Panel 02/06/2021 [facility] Manager Data Warehousing: [place] [address] [phone] Glucose 83 mg/dL 74 - 99 1 [...] mL/min >60 2 Laboratory test finding 02/05/2021 [place] [address] [phone] Valproic Acid (Depakote) 56.4 UG/ML Normal 50.0-10 0.0 Laboratory test finding 02/05/2021 [facility] Blanket Weaver faiza, pc Manager Data Warehousing: [place] [address] [phone] Thyroid Stimulating Hormone 2.08 uIU/mL 0.3 6 - 3.74 Coronavirus 2019 Nasopharygeal 01/07/2021 [place] [address] [phone] Coronavirus 2019 Nasopharygeal ASSAY INFORMATIO <SEE N OTE> 3 Laboratory test finding 01/07/2021 [place] [id number] [phone] [place] Covid Antigen NEGATIVE Normal Negative 4 Xray 10/29/2020 [facility] Ce nter [address] [place] [address] [phone] 3D Bi-Lateral Mammogram <pending> 1 100-125 mg/dL PRE-DIABET ES/FASTING >126 mg/dL DIABETES/FASTING 2 CHRONIC KIDNEY DISEASE STAGI NG PER NKF STAGE I & II GFR >= 60 NORMAL TO MILDLY DECREASED STAGE III GFR 30-59 MODERATELY DECREASED STAGE IV GFR 15-29 SEVERELY DECREASED STAGE V GFR <15 VERY LITTLE GFR LEFT ESRD GFR <15 ON METAL CRAFTS TEACHER 3 ASSAY INFORMATION: Real Time RT-PCR NOTE: The COVID-19 assay has been cleared by the U.S. Food and Drug Administration under the Emergency Use Authorization (EUA). [employer] and [employer] are designated as high complexity laboratories by [...] with COVID-19. Procedures Date Code Description Status 02/06/2021 86885 Office/Outpatient Established Lo w MDM 20-29 Min Completed 12/07/2020 [id number] Mammogram Completed 11/15/2019 [id number] Mammogram Completed 11/04/2018 [id number] Mammogram Completed 01/20/2018 [id number] Colonoscopy Completed 11/03/2017 [id number] Mammogram Completed 05/18/2017 [id number] Bone Mineral Density Test Comple abhilash 10/24/2016 [id number] Mammogram Completed 10/24/2015 [id number] Mammogram Completed 10/20/2014 [id number] Mammogram Completed 09/22/2014 [id number] Colonoscopy Completed 10/19/2013 [id number] Mammogram Completed 10/05/2012 [id number] Mammogram Completed 08/06/2012 [id number] Diabetic Retinal [facility] Exam [facility] 10/02/2011 [id number] Mammogram Completed 08/22/2010 [id number] Mammogram Completed 08/15/2009 [id number] Mammogram Completed 07/03/2008 [id number] Bone Mineral Density Test [facility] Medical Devices Description No Information Available Encounters Type Date Location Provider Dx Diagnosis Office Visit 02/06/2021 1:00p [facility] Jess Willams, ANP F31.9 Bipolar disorder, unspecified I10 Essential (primary) hyperten mere E03.9 Hypothyroidism, unspecified L98.9 Disorder of the skin and sub cutaneous tissue, unspecified Assessments Date Code Description Provider 02/13/2021 D48.5 Neoplasm of uncertain behavior o f skin Jess Willams, MANOJ 02/06/2021 F31.9 Bipolar disorder, unspecified Na subhashy Kay Willams, MANOJ 02/06/2021 I10 Essential (primary) hypertension Jess Willams, MANOJ 02/06/2021 E03.9 Hypothyroidism, unspecified Nanc garth Willams, MANOJ 02/06/2021 L98.9 Skin lesion Jess Willams, MANOJ 02/05/2021 F31.9 Bipolar disorder, unspecified Na MANOJ Herring 02/05/2021 F31.9 Bipolar disorder, unspecified La b Schedule 02/05/2021 E03.9 Hypothyroidism, unspecified Bibic garth Willams, MANOJ 02/05/2021 E03.9 Hypothyroidism, unspecified Lab Schedule Plan of Treatment Future Appointment(s):* 09/11/2021 12:40 pm - Nurse #2 at [facility] * 09/10/2021 1:00 pm - Lab Schedule at [facility] * 09/11/2021 1:00 pm - MANOJ Dhillon at [facility] 02/13/2021 - MANOJ Dhillon* D48.5 Neoplasm of uncertain behavior of skin Functional Status Description No Information Available Mental Status Description No Information Available Referrals Description No Information Available
--- OUTSIDE RECORDS SUMMARY | 2021-03-11 11:20 | CCD | Continuity of Care Document ---
Author Author Elroy Willams Organization Unknown Address [address] [facility] [address] [place] [address] Phone [phone] Care Team Providers Care Master Dyer Name Role Phone Jasmeet Sánchez MD AUTM [phone] Tin Grimes MD AUTM [phone] PaulinoRick birmingham AUTM [phone] Jess Willams ANP AUTM [phone] Ahmet Mckenzie MD AUTM Unavailable Bety Merritt OD AUTM Unavailable Vinod Clemente MD AUTM [phone] Robyn Casillas MD AUTM Unavailable Darwin Guzmán MD AUTM [phone] Kel Varela MD AUTM Problems Active Problems Provider Date Bipolar disorder MANOJ Roach Onset: 03/27/2011 Depressive disorder Narda Vincent D.O. Onset: 2010 Headache MANOJ Roach Onset: 03/27/2011 Personal history of primary malignant neoplasm of breast MANOJ Galloway Onset: 03/27/2011 Essential hypertension CHERI PerdueP Onset: 02/25/2017 Hypothyroidism CHERI PerdueP Onset: 02/25/2017 Mild intermittent asthma Padmini Goncalves TRANSIT MECHANIC Onset: 02/26/20 Left bundle branch block Padmini Goncalves TRANSIT MECHANIC Onset: 02/26/20 17 Social History Type Date [...] Syringe 0.5cc intramuscular x1 .500ml Padmini Goncalves, TRANSIT MECHANIC 0 06/24/2019 Incruse Ellipta 62.5mcg/Inh Aeroso l inhale 1 puff by mouth once daily 30units Laura Canela,TRANSIT MECHANIC 0 02/01/2019 Albuterol Sulfate 0.63mg/3ML Nebul izer [...] mouth every day 90tabs Jess Willams, Humaira SUPERVISOR REWORK 05/08/2014 Proair HFA 108(90Base) mcg/Act Aer osol 2 inhalations four times a day as needed shortness of breath 1units Deb Cason, MANOJ 04/19/2014 Calcium 600 + D [id number]-Mnxm Tab lets 1 po bid Deb Cason, [facility] 2 Preservision Areds 2 Areds [...] Given 04/05/2018 Pneumococcal,Unspecified U-Flu Given 02/12/2018 Influenza,Unspecified 65426 Given 11/30/2017 Shingrix 18228 Given 08/26/2017 Shingrix U-PneuC Given 04/19/2015 Prevnar 13 Q2037 Given 02/19/2012 Fluvirin Virus Vaccine Q2037 Given 02/19/2012 Fluvirin Virus Vaccine 08130 Given 03/27/2011 Pneumovax 23 79408 Given 02/08/2009 Influenza Virus Vaccine 01691 Given 03/23/2008 Influenza Virus Vaccine Vital Signs [...] SEE COMMENTS Abnormal 1 Enhanced PDF Report [id number] SEE IMAGE Complete Blood Count 02/06/2021 [place] Director Financial Services hua, pc Crusher Dry Ground Mica: Dr Ambrosio [place] [address] [phone] WBC 5.1 x10*3/UL 4.1 - 10.9 RBC [...] 2.0 - 7.8 Basic Metabolic Panel 02/06/2021 [place] [facility] Crusher Dry Ground Mica: Dr Ambrosio [place] [address] [phone] Glucose 83 mg/dL 74 - 99 2 [...] mL/min >60 3 Laboratory test finding 02/05/[address] [address] [phone] Valproic Acid (Depakote) 56.4 UG/ML Normal 50.0-10 0.0 Laboratory test finding 02/05/2021 [place] Educational Advisor tato kendall Crusher Dry Ground Mica: [place] [address] [phone] Thyroid Stimulating Hormone 2.08 uIU/mL 0.3 6 - 3.74 Coronavirus 2019 Nasopharygeal 01/07/2021 [place] [id number] [phone] Coronavirus 2019 Nasopharygeal ASSAY INFORMATIO <SEE N OTE> 4 Laboratory test finding 01/07/[address] [address] [phone] [place] Covid Antigen NEGATIVE Normal Negative 5 Xray 10/29/2020 [facility] nter [address] [place], [place] [address] [phone] 3D Bi-Lateral Mammogram <pending> 1 RESULTS DIAGNOSIS DIAGNOSIS: RIGHT SIDE OF NOSE- BASAL CELL CARCINOMA, INFILTRATING TYPE RESULTS SIGNATURE Eleazar Plascencia MD Electronic Signature: 18 FEB 2021 05:08 PM CLINICAL INFORMATION CLINICAL INFORMATION 3MM RAISED SPECIMEN DATA GROSS DESCRIPTION Received in 10% buffered formalin is a shave biopsy of skin measuring [id number]. The specimen is bisected and entirely submitted in one cassette. 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 The basaloid cells are arranged in lobules, branching irregular aggregates, and cords. CPT Codes 09478 The CPT codes provided are for information purposes only, and are based on AMA guidelines without regard to specific payor requirements. END OF REPORT FINAL REPORT-ACC FINAL [facility],[address] [place] [address],[address],[place] [address]. [phone]. [phone]. Mapping Technician: Ghassan Yeung MD [facility] [id number], [place] [id number], [place] [address]-09-36 2 100-125 mg/dL PRE-DIABET ES/FASTING >126 mg/dL DIABETES/FASTING 3 CHRONIC KIDNEY DISEASE STAGI NG PER NKF STAGE I & II GFR >= 60 NORMAL TO MILDLY DECREASED STAGE III GFR 30-59 MODERATELY DECREASED STAGE IV GFR 15-29 SEVERELY DECREASED STAGE V GFR <15 VERY LITTLE GFR LEFT ESRD GFR <15 ON TOURIST CABIN KEEPER 4 ASSAY INFORMATION: Real Time RT-PCR NOTE: The COVID-19 assay has been cleared by the U.S. Food and Drug Administration under the Emergency Use Authorization (EUA). [employer] and [employer] are designated as high complexity laboratories by [...] COVID-19. Procedures Date Code Description Status 02/13/2021 97612 Tangential Biopsy Of Skin, Singl e Lesion Completed 02/06/2021 07471 Office/Outpatient Established Lo w MDM 20-29 Min Completed 12/07/2020 [id number] Mammogram Completed 11/15/2019 [id number] Mammogram Completed 11/04/2018 [id number] Mammogram Completed 01/20/2018 [id number] Colonoscopy Completed 11/03/2017 [id number] Mammogram Completed 05/18/2017 [id number] Bone Mineral Density Test Comple abhilash 10/24/2016 [id number] Mammogram Completed 10/24/2015 [id number] Mammogram Completed 10/20/2014 [id number] Mammogram Completed 09/22/2014 [id number] Colonoscopy Completed 10/19/2013 [id number] Mammogram Completed 10/05/2012 [id number] Mammogram Completed 08/06/2012 [id number] Diabetic Retinal Eye Exam Comple [facility] 10/02/2011 [id number] Mammogram Completed 08/22/2010 [id number] Mammogram Completed 08/15/2009 [id number] Mammogram Completed 07/03/2008 [id number] Bone Mineral Density Test Comple [facility] Medical Devices Description No Information Available Encounters Type Date Location Provider Dx Diagnosis Office Visit 02/06/2021 1:00p [facility] Jess Willams, MANOJ F31.9 Bipolar [...] 09/11/2021 12:40 pm - Nurse #2 at [facility] * 09/10/2021 1:00 pm - Lab Schedule at [facility] * 09/11/2021 1:00 pm - MANOJ Dhillon at [facility] 02/13/2021 - MANOJ Dhillon* D48.5 Neoplasm of uncertain behavior of skin Functional Status Description No Information Available Mental Status Description No Information Available Referrals Description No Information Available
--- OUTSIDE RECORDS SUMMARY | 2021-03-11 11:20 | CCD | Continuity of Care Document ---
Author Author Elroy LEBRON P.[place] Organization Unknown Address [address] [place] [address] Phone [phone] Care Team Providers Care Trauma Surgeon Name Role Phone [place], Audiology AUTM [phone] Tin Grimes AUTM [phone] Jess Willams AUTM [phone] Rick Urena D.O. AUTM [phone] AUTM Unavailable Problems Active Problems Provider Date [...] by mouth every night 90tabs J45.21 Rick Urena D.O. 11/03/[address] Take [...] mouth every night Unknown Fluticasone Propionate Nasal [place] 50mcg/Act Suspension two sprays in each nostril [...] times a day as needed 8.500gm Rick Urena D.O . Aspir-Low 81mg Tablets DR 1 [...] by mouth every day Unknown Calcium 600+D [id number]-Srer Tabl ets 1 tab by mouth every day Unknown 0 Immunizations CPT Code Status Date Vaccine Lot # 45880 Given 02/17/2019 Flublock, Quadrivalent 84822 Given 05/11/2017 Pneumococcal PPSV23 32682 Given 02/21/2015 Influenza Virus Split 3 Yrs And Above For Intramuscular Use 17550 Given 05/11/2014 Prevnar 13 Vital Signs Date Vital Result Comment 02/12/2021 2:43pm BP Systolic 140 mmHg BP Diastolic 78 mmHg Heart Rate 90 /min O2 % BldC Oximetry 96 % Height 70 inches 5'10" Weight 192.00 lb BMI (Body Mass Index) 27.5 kg/m2 [place] Body Weight 150 lb Weight 87.091 kg BSA (Body Surface Area) 2.05 m2 08/07/2020 2:19pm BP Systolic 132 mmHg BP Diastolic 82 mmHg Heart Rate 92 /min O2 % BldC Oximetry 99 % Body Temperature 97.3 F Height 70 inches 5'10" Weight 199.00 lb BMI (Body Mass Index) 28.6 kg/m2 [place] Body Weight 150 lb Weight 90.266 kg BSA (Body Surface Area) 2.08 m2 Results Test Acquired Date Facility Test Result H/L Range Note FVL/[place] 02/12/2021 [facility] PD[facility]eport SEE IMAGE FVC-Pred 3.69 L FVC-Pre 3.08 L FVC-%Pred-Pre 83 L FVC-LLN 2.86 L Fev1-Pred 2.80 L Fev1-Pre 2.55 L Fev1-%Pred-Pre 90 L Fev1-LLN 2.10 L Fev6-Pred 3.54 L Fev6-Pre 3.08 L Fev6-%Pred-Pre 87 L Fev6-LLN 2.72 L Noa0vqv-Dpup 76 % Nff4sit-Knv 83 % Nwr8xlx-%Pred-Pre 109 % Sxd4tbc-UPE 66 % Dma2yqa-Gsgb 96 % Qvi0ixh-Dgu 100 % Alw2cty-%Pred-Pre 104 % FEFMax-Pred 6.46 L/E/sec FEFMax-Pre 6.93 L/E/sec FEFMax-%Pred-Pre 107 L/E/sec FEFMax-LLN 4.40 L/E/sec Ypx4688-Ucdt 2.17 L/E/sec Phy8820-Omb 2.69 L/E/sec Yxy0169-%Pred-Pre 124 L/E/sec Jaq3966-LWZ 0.68 L/E/sec ExpTime-Pre 6.51 sec Uhb8qxi0-Nexg 79 % Fqs6cbm5-Bbq 83 % Kql2xjx5-%Pred-Pre 104 % Gmo1sfn6-BFJ 70 % Procedures Description No Information Available Medical Devices Description No Information Available Encounters Description No Information Available Assessments Date Code Description Provider 02/12/2021 J45.20 Mild intermittent asthma, uncomp licated Jimmie Lebron, P.AMirian 02/12/2021 J30.9 Allergic rhinitis, unspecified M gregorio Lebron PMirianAMirian Plan of Treatment Future Appointment(s):* 08/26/2021 2:00 pm - Rick Urena D.O. at [facility] Pulmonary/Thoracic 02/12/2021 - Jimmie Lebron, PMirianA.* J45.20 Mild intermittent asthma, uncomplicated * J30.9 Allergic rhinitis, unspecified * * New Labs:* FVL/Denny, Ordered: 02/12/21 * Follow up:* Follow up in 6 months with denny Functional Status Description No Information Available Mental Status Description No Information Available Referrals Description No Information Available
--- OUTSIDE RECORDS SUMMARY | 2021-03-11 11:20 | CCD ---
Continuity of Care Document (CCD) Created on: 02/12/2021 Elroy Rodriguez External Reference #: [id number] : [id number] Sex: Female Author Author Elroy LEBRON P.Denver Organization Unknown Address [address] [place] [address] Phone [phone] Care Team Providers Care Time Clock Mechanic Name Role Phone [place], Audiology AUTM [phone] Tin Grimes AUTM [phone] Jess Willams AUTM [phone] Rick Urena D.O. AUTM [phone] AUTM Unavailable Problems Active Problems Provider Date [...] mouth every night Unknown Fluticasone Propionate Nasal [place] 50mcg/Act Suspension two sprays in each nostril [...] by mouth every day Unknown Calcium 600+D 0107-517jz-Rpkg Tabl ets 1 tab by mouth every day Unknown 0 Immunizations CPT Code Status Date Vaccine Lot # [id number] Given 02/17/2019 Flublock, Quadrivalent 61922 Given 05/11/2017 Pneumococcal PPSV23 71035 Given 02/21/2015 Influenza Virus Split 3 Yrs And Above For Intramuscular Use 88449 Given 05/11/2014 Prevnar 13 Vital Signs Date Vital Result Comment 02/12/2021 2:43pm BP Systolic 140 mmHg BP Diastolic 78 mmHg Heart Rate 90 /min O2 % BldC Oximetry 96 % Height 70 inches 5'10" Weight 192.00 lb BMI (Body Mass Index) 27.5 kg/m2 [place] Body Weight 150 lb Weight 87.091 kg BSA (Body Surface Area) 2.05 m2 08/07/2020 2:19pm BP Systolic 132 mmHg BP Diastolic 82 mmHg Heart Rate 92 /min O2 % BldC Oximetry 99 % Body Temperature 97.3 F Height 70 inches 5'10" Weight 199.00 lb BMI (Body Mass Index) 28.6 kg/m2 [place] Body Weight 150 lb Weight 90.266 kg BSA (Body Surface Area) 2.08 m2 Results Test Acquired Date Facility Test Result H/L Range Note FVL/[place] 02/12/2021 [facility] SEE IMAGE FVC-Pred 3.69 L FVC-Pre 3.08 L FVC-%Pred-Pre 83 L FVC-LLN 2.86 L Fev1-Pred 2.80 L Fev1-Pre 2.55 L Fev1-%Pred-Pre 90 L Fev1-LLN 2.10 L Fev6-Pred 3.54 L Fev6-Pre 3.08 L Fev6-%Pred-Pre 87 L Fev6-LLN 2.72 L Qnw5cqn-Gjcc 76 % Zeh4mpr-Yns 83 % Ptj0dom-%Pred-Pre 109 % Bfx6cfv-BWA 66 % Ozu2ogu-Eiui 96 % Jmn2jlx-Xnw 100 % Eek4vdp-%Pred-Pre 104 % FEFMax-Pred 6.46 L/E/sec FEFMax-Pre 6.93 L/E/sec FEFMax-%Pred-Pre 107 L/E/sec FEFMax-LLN 4.40 L/E/sec Spv9631-Qnil 2.17 L/E/sec Ety3764-Mzz 2.69 L/E/sec Jny2199-%Pred-Pre 124 L/E/sec Mhh3884-RZW 0.68 L/E/sec ExpTime-Pre 6.51 sec Tqs9rnk2-Akdd 79 % Gpw0wxi2-Ljp 83 % Mur5kyc6-%Pred-Pre 104 % Nsu9qqx9-SXP 70 % Procedures Description No Information Available Medical Devices Description No Information Available Encounters Description No Information Available Assessments Date Code Description Provider 02/12/2021 J45.20 Mild intermittent asthma, uncomp licated Jimmie Lebron, P.AMirian 02/12/2021 J30.9 Allergic rhinitis, unspecified M gregorio Lebron PMirianAMirian Plan of Treatment Future Appointment(s):* 08/26/2021 2:00 pm - Rick Urena D.O. at [facility] Pulmonary/Thoracic 02/12/2021 - Jimmie Lebron, PMirianA.* J45.20 Mild intermittent asthma, uncomplicated * J30.9 Allergic rhinitis, unspecified * * New Labs:* FVL/[place], Ordered: 02/12/21 * Follow up:* Follow up in 6 months with denny Functional Status Description No Information Available Mental Status Description No Information Available Referrals Description No Information Available
--- OUTSIDE RECORDS SUMMARY | 2021-03-11 11:20 | CCD | Continuity of Care Document ---
Author Author Elroy LEBRON P.Denver Organization Unknown Address [address] [place] [address] Phone [phone] Care Team Providers Care Assemblies And Installations Inspector Name Role Phone [place], Audiology AUTM [phone] Tin Grimes AUTM [phone] Jess Willams AUTM [phone] Rick Urena D.O. AUTM [phone] AUTM Unavailable Problems Active Problems Provider Date [...] mouth every night Unknown Fluticasone Propionate Nasal [place] 50mcg/Act Suspension two sprays in each nostril [...] by mouth every day Unknown Calcium 600+D 3884-404kn-Cdhm Tabl ets 1 tab by mouth every day Unknown 0 Immunizations CPT Code Status Date Vaccine Lot # [id number] Given 02/17/2019 Flublock, Quadrivalent 04965 Given 05/11/2017 Pneumococcal PPSV23 90708 Given 02/21/2015 Influenza Virus Split 3 Yrs And Above For Intramuscular Use 98451 Given 05/11/2014 Prevnar 13 Vital Signs Date Vital Result Comment 02/12/2021 2:43pm BP Systolic 140 mmHg BP Diastolic 78 mmHg Heart Rate 90 /min O2 % BldC Oximetry 96 % Height 70 inches 5'10" Weight 192.00 lb BMI (Body Mass Index) 27.5 kg/m2 [place] Body Weight 150 lb Weight 87.091 kg BSA (Body Surface Area) 2.05 m2 08/07/2020 2:19pm BP Systolic 132 mmHg BP Diastolic 82 mmHg Heart Rate 92 /min O2 % BldC Oximetry 99 % Body Temperature 97.3 F Height 70 inches 5'10" Weight 199.00 lb BMI (Body Mass Index) 28.6 kg/m2 [place] Body Weight 150 lb Weight 90.266 kg BSA (Body Surface Area) 2.08 m2 Results Test Acquired Date Facility Test Result H/L Range Note FVL/[place] 02/12/2021 [facility] PD[facility]ep[facility] SEE IMAGE FVC-Pred 3.69 L FVC-Pre 3.08 L FVC-%Pred-Pre 83 L FVC-LLN 2.86 L Fev1-Pred 2.80 L Fev1-Pre 2.55 L Fev1-%Pred-Pre 90 L Fev1-LLN 2.10 L Fev6-Pred 3.54 L Fev6-Pre 3.08 L Fev6-%Pred-Pre 87 L Fev6-LLN 2.72 L Mir0rsc-Jdsp 76 % Pxy8dkd-Pcw 83 % Eem6ejk-%Pred-Pre 109 % Cdy4ddp-WBB 66 % Hgl5ntd-Nika 96 % Sir5svo-Soq 100 % Nny8aoc-%Pred-Pre 104 % FEFMax-Pred 6.46 L/E/sec FEFMax-Pre 6.93 L/E/sec FEFMax-%Pred-Pre 107 L/E/sec FEFMax-LLN 4.40 L/E/sec Jss7027-Nycs 2.17 L/E/sec Ktk5666-Dbd 2.69 L/E/sec Gfe1033-%Pred-Pre 124 L/E/sec Ygb9896-IZL 0.68 L/E/sec ExpTime-Pre 6.51 sec Ult7lhg0-Vhmo 79 % Meu2xjr6-Mab 83 % Pjf4ayj5-%Pred-Pre 104 % Rhy2uca8-QPF 70 % Procedures Date Code Description Status 02/12/2021 05306 Office/Outpatient Established Lo w MDM 20-29 Min Completed 02/12/2021 01400 Spirometry Completed Medical Devices Description No Information Available Encounters Type Date Location Provider Dx Diagnosis Office Visit 02/12/2021 3:00p [facility] Pulmonary/Thoracic Jimmie Lebron, P.A. J45.20 Mild intermittent asthma, uncomplicated J30.9 Allergic rhinitis, unspecifi ed Assessments Date Code Description Provider 02/12/2021 J45.20 Mild intermittent asthma, uncomp licated Jimmie Lebron, P.A. 02/12/2021 J30.9 Allergic rhinitis, unspecified M gregorio Lebron, P.A. Plan of Treatment Future Appointment(s):* 08/26/2021 2:00 pm - Rick Urena D.O. at [facility] Pulmonary/Thoracic 02/12/2021 - Jimmie Lebron, P.A.* J45.20 Mild intermittent asthma, uncomplicated * J30.9 Allergic rhinitis, unspecified * * New Labs:* FVL/[place], Ordered: 02/12/21 * Follow up:* Follow up in 6 months with estuardo Functional Status Description No Information Available Mental Status Description No Information Available Referrals Description No Information Available
--- OUTSIDE RECORDS SUMMARY | 2021-03-11 11:20 | CCD | Continuity of Care Document ---
Author Author Elroy CLARKOMirian [place] [address] Phone [phone] Care Team Providers Care Specialty Therapist Name Role Phone [place] Audiology AUTM [phone] Tin Grimes AUTM [phone] Jess Willams AUTM [phone] Rick Clark D.O. AUTM [phone] AUTM Unavailable Problems Active Problems Provider Date [...] mouth every night Unknown Fluticasone Propionate Nasal [place] 50mcg/Act Suspension two sprays in each nostril [...] by mouth every day Unknown Calcium 600+D 2960-682bt-Hxhp Tabl ets 1 tab by mouth every day Unknown 0 Immunizations CPT Code Status Date Vaccine Lot # 97351 Given 02/17/2019 Flublock, Quadrivalent 32558 Given 05/11/2017 Pneumococcal PPSV23 93910 Given 02/21/2015 Influenza Virus Split 3 Yrs And Above For Intramuscular Use 07990 Given 05/11/2014 Prevnar 13 Vital Signs Date Vital Result Comment 02/12/2021 2:43pm BP Systolic 140 mmHg BP Diastolic 78 mmHg Heart Rate 90 /min O2 % BldC Oximetry 96 % Height 70 inches 5'10" Weight 192.00 lb BMI (Body Mass Index) 27.5 kg/m2 [place] Body Weight 150 lb Weight 87.091 kg BSA (Body Surface Area) 2.05 m2 08/07/2020 2:19pm BP Systolic 132 mmHg BP Diastolic 82 mmHg Heart Rate 92 /min O2 % BldC Oximetry 99 % Body Temperature 97.3 F Height 70 inches 5'10" Weight 199.00 lb BMI (Body Mass Index) 28.6 kg/m2 [place] Body Weight 150 lb Weight 90.266 kg BSA (Body Surface Area) 2.08 m2 Results Test Acquired Date Facility Test Result H/L Range Note FVL/[place] 02/12/2021 [facility] PDFReport SEE IMAGE FVC-Pred 3.69 L FVC-Pre 3.08 L FVC-%Pred-Pre 83 L FVC-LLN 2.86 L Fev1-Pred 2.80 L Fev1-Pre 2.55 L Fev1-%Pred-Pre 90 L Fev1-LLN 2.10 L Fev6-Pred 3.54 L Fev6-Pre 3.08 L Fev6-%Pred-Pre 87 L Fev6-LLN 2.72 L Zqv9nzw-Ehpr 76 % Tha5glp-Xlk 83 % Hjn8jzx-%Pred-Pre 109 % Dpj8vws-PHC 66 % Qpm1ejf-Lrso 96 % Kie7dfu-Mzn 100 % Gcj0nhv-%Pred-Pre 104 % FEFMax-Pred 6.46 L/E/sec FEFMax-Pre 6.93 L/E/sec FEFMax-%Pred-Pre 107 L/E/sec FEFMax-LLN 4.40 L/E/sec Aks7065-Xtxw 2.17 L/E/sec Edi0304-Rnn 2.69 L/E/sec Sat2929-%Pred-Pre 124 L/E/sec Ilo9586-RZP 0.68 L/E/sec ExpTime-Pre 6.51 sec Mcv8ebt7-Ffaq 79 % Vxn8oik5-Dsj 83 % Cym2qqr6-%Pred-Pre 104 % Yge6ufd9-MBN 70 % Procedures Description No Information Available Medical Devices Description No Information Available Encounters Description No Information Available Assessments Date Code Description Provider 02/12/2021 J45.20 Mild intermittent asthma, uncomp licated Jimmie Lebron, P.AMirian 02/12/2021 J30.9 Allergic rhinitis, unspecified M gregorio Lebron, PMirianAMirian Plan of Treatment Future Appointment(s):* 08/26/2021 2:00 pm - Rick Clark D.O. at [facility] Pulmonary/Thoracic 02/12/2021 - Jimmie Lebron, P.A.* J45.20 Mild intermittent asthma, uncomplicated * J30.9 Allergic rhinitis, unspecified * * New Labs:* FVL/Denny, Ordered: 02/12/21 * Follow up:* Follow up in 6 months with denny Functional Status Description No Information Available Mental Status Description No Information Available Referrals Description No Information Available
--- OUTSIDE RECORDS SUMMARY | 2021-03-11 11:20 | CCD | Continuity of Care Document ---
Author Author Elroy CHÁVEZ M.D. Organization Unknown Address [address], [place] [address] Phone [phone] Care Team Providers Care Bmx Rider Name Role Phone PaulinovalenciaRick AUTM Unavailable ImerJess MANOJ AUTM [phone] Problems Active Problems Provider Date Immunodeficiency disorder [...] 3 Cigarettes Per Day Smoking Status Reviewed: 08/01/20 Patient is a former smoker 3 Cigarettes Per Day Allergies and adverse reactions Active Allergies Criticality Reaction | Severity Comments Date Tramadol Unable to assess criticality Vomiting 06/13/2019 Medications Active Medications SIG Qnty Indications Ordering Provide r Date Azelastine HCL (Nasal) 137mcg/[place] Solution 2 sprays each nostril every day every morning 1units J3 0.89 Kel Chávez M.D. 02/18/2019 Fluticasone Propionate 50mcg/Act Suspension [place] Two Sprays In Each Nostril Every Evening [...] 10/04/2020 Allergy Injection 2 Or More Injection Kle Chávez M.D. 09/13/2020 Allergy Injection 2 Or [...] Or More Injection Kel Luz Maria Chávez.DMirian 10/14/2019 Allergy Injection 2 Or More Injection Kel Luz Maria Chávez.DMirian 10/11/2019 Allergy Injection 2 Or More Injection [...] 2 Or More Injection KelLuz Maria Allen.DMirian 08/16/2019 Allergy Injection 2 Or More Injection [...] Available Vital Signs Date Vital Result Comment 08/01/2020 1:08pm Weight 198.00 lb Height 70 inches 5'10" Heart Rate 77 /min Respiratory Rate 18 /min BP Systolic 118 mmHg BP Diastolic 80 mmHg BMI (Body Mass Index) 28.4 kg/m2 01/25/2020 10:50am Weight 202.50 lb Height 70 inches 5'10" Heart Rate 81 /min Respiratory Rate 18 /min BP Systolic 108 mmHg BP Diastolic 72 mmHg BMI (Body Mass Index) 29.1 kg/m2 Results Description No Information Available Procedures Date Code Description Status 02/15/2021 76804 Allergy Antigens Single Or Multi ple Completed 02/12/2021 02674 Allergy Injection 2 Or More Comp leted 01/23/2021 50047 Allergy Injection 2 Or More Comp leted 12/27/2020 53176 Allergy Injection 2 Or More Comp leted 12/06/2020 85075 Allergy Injection 2 Or More Comp leted 11/15/2020 37264 Allergy Injection 2 Or More Comp leted 10/24/2020 98238 Allergy Injection 2 Or More Comp leted 10/04/2020 07526 Allergy Injection 2 Or More Comp leted 09/13/2020 24128 Allergy Injection 2 Or More Comp leted 08/29/2020 94212 Allergy Injection 2 Or More Comp leted Medical Devices Description No Information Available Encounters Description No Information Available Assessments Date Code Description Provider 02/15/2021 J30.1 Allergic rhinitis due to pollen Kel Chávez M.D. 02/15/2021 J30.81 Allergic rhinitis due to animal (cat) (dog) hair and dander Kel Chávez M.D. 02/15/2021 J30.89 Other allergic rhinitis Kel Chávez M.D. Plan of Treatment Future Appointment(s):* 03/05/2021 2:00 pm - Allergy Injection at Main Office 08/01/2020 - Kel Chávez M.D.* J30.89 Allergic rhinitis due to dust mites.* Recommendations:* Effective allergen avoidance measures were reviewed [...] rhinitis as well. The risks and benefits associated with the use of Singulair were reviewed [...] follow-up with their office as scheduled. * All * Follow up:* 6-8 months. Sooner if needed. Functional Status Description No Information Available Mental Status Description No Information Available Referrals Refer to Reason for Referral Status Appt Date Ovidio Helms M.D. CONTINUE ALLERGY INJECTIONS AND TREATMENT [facility] ed [facility] [address] [facility] [address]
--- OUTSIDE RECORDS SUMMARY | 2021-03-11 11:20 | CCD | Continuity of Care Document ---
Author Author Elroy Willams Organization Unknown Address [address] [facility] [address] [place] [address] Phone [phone] Care Team Providers Care Laser Engineer Name Role Phone Jasmeet Sánchez MD AUTM [phone] Tin Grimes MD AUTM [phone] PaulinoRick [place] AUTM [phone] Jess Willams ANP AUTM [phone] Ahmet Mckenzie MD AUTM Unavailable Bety Merritt OD AUTM Unavailable Vinod Clemente MD AUTM [phone] Robyn Casillas MD AUTM Unavailable Darwin Guzmán MD AUTM [phone] Kel Varela MD AUTM Problems Active Problems Provider Date Bipolar disorder MANOJ Roach Onset: 03/27/2011 Depressive disorder Narda Vincent D.O. Onset: 2010 Headache MANOJ Roach Onset: 03/27/2011 Personal history of primary malignant neoplasm of breast MANOJ Galloway Onset: 03/27/2011 Essential hypertension CHERI PerdueP Onset: 02/25/2017 Hypothyroidism CHERI PerdueP Onset: 02/25/2017 Mild intermittent asthma Padmini Goncalves [employer] Onset: 02/26/20 Left bundle branch block Padmini Goncalves [employer] Onset: 02/26/20 17 Social History Type Date [...] Syringe 0.5cc intramuscular x1 .500ml Padmini Goncalves, [employer] 0 06/24/2019 Incruse Ellipta 62.5mcg/Inh Aeroso l inhale 1 puff by mouth once daily 30units Laura Canela,[employer] 0 02/01/2019 Albuterol Sulfate 0.63mg/3ML Nebul izer [...] mouth every day 90tabs Jess Willams, Humaira PAROLE DIRECTOR 05/08/2014 Proair HFA 108(90Base) mcg/Act Aer osol 2 inhalations four times a day as needed shortness of breath 1units Deb Cason, MANOJ 04/19/2014 Calcium 600 + D 427-291di-Epur Tab lets 1 po bid Deb Cason, [facility] 2 Preservision Areds 2 Areds [...] Given 04/05/2018 Pneumococcal,Unspecified U-Flu Given 02/12/2018 Influenza,Unspecified 31754 Given 11/30/2017 Shingrix 34604 Given 08/26/2017 Shingrix U-PneuC Given 04/19/2015 Prevnar 13 Q2037 Given 02/19/2012 Fluvirin Virus Vaccine Q2037 Given 02/19/2012 Fluvirin Virus Vaccine 57125 Given 03/27/2011 Pneumovax 23 70891 Given 02/08/2009 Influenza Virus Vaccine 79617 Given 03/23/2008 Influenza Virus Vaccine Vital Signs [...] For Dermpath <pending> Complete Blood Count 02/06/2021 [facility] Government Relations Analyst: Dr [place]ros[place] [address] [phone] WBC 5.1 x10*3/UL 4.1 - 10.9 RBC [...] 2.0 - 7.8 Basic Metabolic Panel 02/06/2021 [facility] Government Relations Analyst: [place] [address] [phone] Glucose 83 mg/dL 74 - 99 1 [...] mL/min >60 2 Laboratory test finding 02/05/2021 [place] [address] [phone] Valproic Acid (Depakote) 56.4 UG/ML Normal 50.0-10 0.0 Laboratory test finding 02/05/2021 [facility] Government Relations Analyst: [place] [address] [phone] Thyroid Stimulating Hormone 2.08 uIU/mL 0.3 6 - 3.74 Coronavirus 2019 Nasopharygeal 01/07/2021 [place] [address] [phone] Coronavirus 2019 Nasopharygeal ASSAY INFORMATIO <SEE N OTE> 3 Laboratory test finding 01/07/2021 [place] [id number] [phone] [place] Covid Antigen NEGATIVE Normal Negative 4 Xray 10/29/2020 [facility] Ce nter [address] [place] [address] [phone] 3D Bi-Lateral Mammogram <pending> 1 100-125 mg/dL PRE-DIABET ES/FASTING >126 mg/dL DIABETES/FASTING 2 CHRONIC KIDNEY DISEASE STAGI NG PER NKF STAGE I & II GFR >= 60 NORMAL TO MILDLY DECREASED STAGE III GFR 30-59 MODERATELY DECREASED STAGE IV GFR 15-29 SEVERELY DECREASED STAGE V GFR <15 VERY LITTLE GFR LEFT ESRD GFR <15 ON SPRINKLING SYSTEM IRRIGATOR 3 ASSAY INFORMATION: Real Time RT-PCR NOTE: The COVID-19 assay has been cleared by the U.S. Food and Drug Administration under the Emergency Use Authorization (EUA). [employer] and [facility] are designated as high complexity laboratories by [...] COVID-19. Procedures Date Code Description Status 12/07/2020 [id number] Mammogram Completed 11/15/2019 [id number] Mammogram Completed 11/04/2018 14121889 Mammogram Completed 01/20/2018 [id number] Colonoscopy Completed 11/03/2017 [id number] Mammogram Completed 05/18/2017 [id number] Bone Mineral Density Test Comple abhilash 10/24/2016 [id number] Mammogram Completed 10/24/2015 [id number] Mammogram Completed 10/20/2014 [id number] Mammogram Completed 09/22/2014 [id number] Colonoscopy Completed 10/19/2013 [id number] Mammogram Completed 10/05/2012 [id number] Mammogram Completed 08/06/2012 639393791 Diabetic Retinal Eye Exam Comple [facility] 10/02/2011 94884482 Mammogram Completed 08/22/2010 [id number] Mammogram Completed 08/15/2009 [id number] Mammogram Completed 07/03/2008 366777642 Bone Mineral Density Test Comple [facility] Medical Devices Description No Information Available Encounters Description No Information Available Assessments Date Code Description Provider 02/13/2021 D48.5 Neoplasm of uncertain behavior o f skin Jess Willams, [facility] 02/06/2021 F31.9 Bipolar disorder, unspecified Na gennaro Willams, [facility] 02/06/2021 I10 Essential (primary) hypertension Jess Willams, [facility] 02/06/2021 E03.9 Hypothyroidism, unspecified Nanc y Kay Willams, [facility] 02/06/2021 L98.9 Skin lesion Jess Willams, ANP 02/05/2021 F31.9 Bipolar disorder, unspecified Na gennaro Willams, [facility] 02/05/2021 F31.9 Bipolar disorder, unspecified La b Schedule 02/05/2021 E03.9 Hypothyroidism, unspecified Nanc y Kay Willams, [facility] 02/05/2021 E03.9 Hypothyroidism, unspecified Lab Schedule Plan of Treatment Future Appointment(s):* 09/11/2021 12:40 pm - Nurse #2 at [facility] * 09/10/2021 1:00 pm - Lab Schedule at [facility] * 09/11/2021 1:00 pm - MANOJ [facility]hillon [facility] 02/13/2021 - MANOJ Dhillon* D48.5 Neoplasm of uncertain behavior of skin Functional Status Description No Information Available Mental Status Description No Information Available Referrals Description No Information Available
--- OUTSIDE RECORDS SUMMARY | 2021-03-11 11:21 | CCD | Continuity of Care Document ---
Author Author Elroy LEBRON P.Denver Organization Unknown Address [address] [place] [address] Phone [phone] Care Team Providers Care Time Buyer Name Role Phone [place], Audiology AUTM [phone] Tin Grimes AUTM [phone] Jess Willams AUTM [phone] Rick Urena D.O. AUTM [phone] AUTM Unavailable Problems Active Problems Provider Date [...] mouth every night Unknown Fluticasone Propionate Nasal [place] 50mcg/Act Suspension two sprays in each nostril [...] by mouth every day Unknown Calcium 600+D 9676-957jt-Gggl Tabl ets 1 tab by mouth every day Unknown 0 Immunizations CPT Code Status Date Vaccine Lot # 70049 Given 02/17/2019 Flublock, Quadrivalent 34306 Given 05/11/2017 Pneumococcal PPSV23 72395 Given 02/21/2015 Influenza Virus Split 3 Yrs And Above For Intramuscular Use 01056 Given 05/11/2014 Prevnar 13 Vital Signs Date Vital Result Comment 02/12/2021 2:43pm BP Systolic 140 mmHg BP Diastolic 78 mmHg Heart Rate 90 /min O2 % BldC Oximetry 96 % Height 70 inches 5'10" Weight 192.00 lb BMI (Body Mass Index) 27.5 kg/m2 [place] Body Weight 150 lb Weight 87.091 kg BSA (Body Surface Area) 2.05 m2 08/07/2020 2:19pm BP Systolic 132 mmHg BP Diastolic 82 mmHg Heart Rate 92 /min O2 % BldC Oximetry 99 % Body Temperature 97.3 F Height 70 inches 5'10" Weight 199.00 lb BMI (Body Mass Index) 28.6 kg/m2 [place] Body Weight 150 lb Weight 90.266 kg BSA (Body Surface Area) 2.08 m2 Results Test Acquired Date Facility Test Result H/L Range Note FVL/[place] 02/12/2021 [employer] [facility] SEE IMAGE FVC-Pred 3.69 L FVC-Pre 3.08 L FVC-%Pred-Pre 83 L FVC-LLN 2.86 L Fev1-Pred 2.80 L Fev1-Pre 2.55 L Fev1-%Pred-Pre 90 L Fev1-LLN 2.10 L Fev6-Pred 3.54 L Fev6-Pre 3.08 L Fev6-%Pred-Pre 87 L Fev6-LLN 2.72 L Gpy6uym-Syas 76 % Twm8tbm-Dab 83 % Ibd9nrt-%Pred-Pre 109 % Sto0rrf-RZB 66 % Egl5fnj-Cbzr 96 % Aca5laa-Mkr 100 % Pnf5plr-%Pred-Pre 104 % FEFMax-Pred 6.46 L/E/sec FEFMax-Pre 6.93 L/E/sec FEFMax-%Pred-Pre 107 L/E/sec FEFMax-LLN 4.40 L/E/sec Tnp0058-Gdbh 2.17 L/E/sec Ukh7321-Hii 2.69 L/E/sec Atz9399-%Pred-Pre 124 L/E/sec Xbr2974-XFT 0.68 L/E/sec ExpTime-Pre 6.51 sec Ydh1anv6-Zfnq 79 % Edc8hxt4-Yko 83 % Req1hxa9-%Pred-Pre 104 % Ylk0asl2-RBM 70 % Procedures Description No Information Available Medical Devices Description No Information Available Encounters Description No Information Available Assessments Date Code Description Provider 02/12/2021 J45.20 Mild intermittent asthma, uncomp licated Jimmie Lebron, P.AMirian 02/12/2021 J30.9 Allergic rhinitis, unspecified M gregorio Lebron PMirianAMirian Plan of Treatment Future Appointment(s):* 08/26/2021 2:00 pm - Rick Urena D.O. at [facility] Pulmonary/Thoracic 02/12/2021 - Jimmie Lebron, PMirianA.* J45.20 Mild intermittent asthma, uncomplicated * J30.9 Allergic rhinitis, unspecified * * New Labs:* FVL/[place]enny, Ordered: 02/12/21 * Follow up:* Follow up in 6 months with denny Functional Status Description No Information Available Mental Status Description No Information Available Referrals Description No Information Available
--- OUTSIDE RECORDS SUMMARY | 2021-03-11 11:21 | CCD | Continuity of Care Document ---
Author Author Elroy CHÁVEZ M.D. Organization Unknown Address [address], [address], [place] [address] Phone [phone] Care Team Providers Care Spa Coordinator Name Role Phone PaulinovalenciaRick AUTM Unavailable ImerJess MANOJ AUTM [phone] Problems Active Problems Provider Date Immunodeficiency disorder [...] Ordering Provide r Date Azelastine HCL (Nasal) 137mcg/[place] Solution 2 sprays each nostril every day every morning 1units J3 0.89 Kel Chávez M.D. 02/18/2019 Fluticasone Propionate 50mcg/Act Suspension [place] Two Sprays In Each Nostril Every Evening [...] Information Available Procedures Date Code Description Status 02/12/2021 25791 Allergy Injection 2 Or More Comp leted 01/23/2021 61302 Allergy Injection 2 Or More Comp leted 12/27/2020 78997 Allergy Injection 2 Or More Comp leted 12/06/2020 56267 Allergy Injection 2 Or More Comp leted 11/15/2020 82172 Allergy Injection 2 Or More Comp leted 10/24/2020 93324 Allergy Injection 2 Or More Comp leted 10/04/2020 54725 Allergy Injection 2 Or More Comp leted 09/13/2020 24079 Allergy Injection 2 Or More Comp leted 08/29/2020 21127 Allergy Injection 2 Or More Comp leted Medical Devices Description No Information Available Encounters Description No Information Available Assessments Date Code Description Provider 02/12/2021 J30.1 Allergic rhinitis due to pollen Kel Chávez M.D. 02/12/2021 J30.81 Allergic rhinitis due to animal (cat) (dog) hair and dander Kel Chávez M.D. 02/12/2021 J30.89 Other allergic rhinitis Kel Chávez M.D. Plan of Treatment Future Appointment(s):* 03/05/2021 2:00 pm - Allergy Injection at Main Office * 02/18/2021 10:45 am - Kel Chávez M.D. at Main Office 08/01/2020 - Kel Chávez [...] CONTINUE ALLERGY INJECTIONS AND TREATMENT [facility] [address] [place] [id number]
--- OUTSIDE RECORDS SUMMARY | 2021-03-11 11:21 | CCD | Continuity of Care Document ---
Author Author Lab Schedule, Elroy Jack Organization Unknown Address [address] [place] [address] Phone Unavailable Care Team Providers Care Line Service Attendant Name Role Phone Jasmeet Sánchez MD AUTM [phone] Tin Grimes MD AUTM [phone] Rick Urena DO AUTM [phone] Jess Willams ANP AUTM [phone] Ahmet Mckenzie MD AUTM Unavailable Bety Merritt OD AUTM Unavailable Vinod Clemente MD AUTM [phone] Robyn Casillas MD AUTM Unavailable Darwin Guzmán MD AUTM [phone] Kel Varela MD AUTM Problems Active Problems Provider Date Bipolar disorder MANOJ Roach Onset: 03/27/2011 Depressive disorder Narda Vincent D.O. Onset: 2010 Headache MANOJ Roach Onset: 03/27/2011 Personal history of primary malignant neoplasm of breast MANOJ Galloway Onset: 03/27/2011 Essential hypertension JESSICA Perdue Onset: 02/25/2017 Hypothyroidism JESSICA Perdue Onset: 02/25/2017 Mild intermittent asthma JESSICA Perdue Onset: 02/26/20 Left bundle branch block JESSICA Perdue Onset: 02/26/20 17 Social History Type Date [...] Syringe 0.5cc intramuscular x1 .500ml Padmini Goncalves, SUPPLY CHAIN ASSISTANT 0 06/24/2019 Incruse Ellipta 62.5mcg/Inh Aeroso l inhale 1 puff by mouth once daily 30units Laura Canela,SUPPLY CHAIN ASSISTANT 0 02/01/2019 Albuterol Sulfate 0.63mg/3ML Nebul izer 1 four times a day as needed 150ml Jess Willams, MANOJ 02/01/2019 Multivitamin Adult Tablets 1 by mouth [...] every day Jess Willams, MANOJ 04/13/2018 Vitamin C 500mg Capsules ever y day Jess Willams, MANOJ 04/13/2018 Aspir-[address] 1 by mouth every day Jess Willams, MANOJ 04/23/2017 Levothyroxine Sodium 50mcg Tablets take one tablet by mouth every day 90tabs Humaira Dhillon NP 05/08/2014 Proair HFA 108(90Base) mcg/Act Aer osol 2 inhalations four times a day as needed shortness of breath 1units Deb Cason, MANOJ 04/19/2014 Calcium 600 + D [id number] Tab lets 1 po bid Deb Cason, ANP 2 Preservision Areds 2 Areds 2 Capsu [...] Given 04/05/2018 Pneumococcal,Unspecified U-Flu Given 02/12/2018 Influenza,Unspecified 23045 Given 11/30/2017 Shingrix 06894 Given 08/26/2017 Shingrix U-PneuC Given 04/19/2015 Prevnar 13 Q2037 Given 02/19/2012 Fluvirin Virus Vaccine Q2037 Given 02/19/2012 Fluvirin Virus Vaccine 67251 Given 03/27/2011 Pneumovax 23 37907 Given 02/08/2009 Influenza Virus Vaccine 07821 Given 03/23/2008 Influenza Virus Vaccine Vital Signs Date Vital Result Comment 02/06/2021 12:59pm BP Systolic 118 mmHg BP Diastolic 76 mmHg Heart Rate 74 /min Height 69.5 inches 5'9.50" Weight 192.00 lb O2 % BldC Oximetry 98 % BMI (Body Mass Index) 27.9 kg/m2 08/06/2020 12:37pm BP Systolic 126 mmHg BP Diastolic 68 mmHg Height 69.5 inches 5'9.50" Weight 199.12 lb BMI (Body Mass Index) 29.0 kg/m2 Results Test Acquired Date Facility Test Result H/L Range Note Complete Blood Count 02/06/2021 [facility] Welcome Wagon Host/Hostess: [place] [address] [phone] WBC 5.1 x10*3/UL 4.1 - 10.9 RBC [...] 2.0 - 7.8 Basic Metabolic Panel 02/06/2021 [facility] Welcome Wagon Host/Hostess: Dr [place] [address] [phone] Glucose 83 mg/dL 74 - 99 1 [...] mL/min >60 2 Laboratory test finding 02/05/2021 [place] [address] [phone] Valproic Acid (Depakote) 56.4 UG/ML Normal 50.0-10 0.0 Laboratory test finding 02/05/2021 [facility] [employer] [facility] Welcome Wagon Host/Hostess: [place] [address] [phone] Thyroid Stimulating Hormone 2.08 uIU/mL 0.3 6 - 3.74 Coronavirus 2019 Nasopharygeal 01/07/2021 [place] [address] [phone] Coronavirus 2019 Nasopharygeal ASSAY INFORMATIO <SEE N OTE> 3 Laboratory test finding 01/07/2021 [place] [address] [phone] Kaleigh Covid Antigen NEGATIVE Normal Negative 4 Xray 10/29/2020 [facility] [address] [place] [address] [phone] 3D Bi-Lateral Mammogram <pending> 1 100-125 mg/dL PRE-DIABET ES/FASTING >126 mg/dL DIABETES/FASTING 2 CHRONIC KIDNEY DISEASE STAGI NG PER NKF STAGE I & II GFR >= 60 NORMAL TO MILDLY DECREASED STAGE III GFR 30-59 MODERATELY DECREASED STAGE IV GFR 15-29 SEVERELY DECREASED STAGE V GFR <15 VERY LITTLE GFR LEFT ESRD GFR <15 ON WEB FEEDER 3 ASSAY INFORMATION: Real Time RT-PCR NOTE: The COVID-19 assay has been cleared by the U.S. Food and Drug Administration under the Emergency Use Authorization (EUA). [facility] and [facility] are designated as high complexity laboratories by [...] COVID-19. Procedures Date Code Description Status 12/07/2020 [id number] Mammogram Completed 11/15/2019 [id number] Mammogram Completed 11/04/2018 [id number] Mammogram Completed 01/20/2018 [id number] Colonoscopy Completed 11/03/2017 [id number] Mammogram Completed 05/18/2017 [id number] Bone Mineral Density Test Comple [facility] 10/24/2016 [id number] Mammogram Completed 10/24/2015 [id number] Mammogram Completed 10/20/2014 [id number] Mammogram Completed 09/22/2014 [id number] Colonoscopy Completed 10/19/2013 [id number] Mammogram Completed 10/05/2012 [id number] Mammogram Completed 08/06/2012 [id number] Diabetic Retinal Eye Exam [facility] 10/02/2011 [id number] Mammogram Completed 08/22/2010 [id number] Mammogram Completed 08/15/2009 [id number] Mammogram Completed 07/03/2008 [id number] Bone Mineral Density Test [facility] Medical Devices Description No Information Available Encounters Description No Information Available Assessments Date Code Description Provider 02/06/2021 F31.9 Bipolar disorder, unspecified Na gennaro Willams, MANOJ 02/06/2021 I10 Essential (primary) hypertension Jess Willams, MANOJ 02/06/2021 E03.9 Hypothyroidism, unspecified Brooke y Kay Willams, MANOJ 02/06/2021 L98.9 Skin lesion MANOJ Dhillon 02/05/2021 F31.9 Bipolar disorder, unspecified Na gennaro Willams, MANOJ 02/05/2021 F31.9 Bipolar disorder, unspecified La b Schedule 02/05/2021 E03.9 Hypothyroidism, unspecified Bibic y Kay Willams, MANOJ 02/05/2021 E03.9 Hypothyroidism, unspecified Lab Schedule Plan of Treatment Future Appointment(s):* 09/11/2021 12:40 pm - Nurse #2 at [facility] * 09/10/2021 1:00 pm - Lab Schedule at [facility] * 09/11/2021 1:00 pm - MANOJ Dhiloln at [facility] * 02/13/2021 10:00 am - MANOJ Dhillon at [facility] 02/06/2021 - MANOJ Dhillon* F31.9 Bipolar disorder, unspecified* Comments:* currently controlled. no issues with sleeping. Valporic acid levels checked and WNL * I10 Essential (primary) hypertension* Comments:* currently controlled with medication. * E03.9 Hypothyroidism, unspecified* Comments:* TSH level WNL. remains on medication * L98.9 Skin lesion* Comments:* appointment scheduled on 02/13/21 @ 1000 for biopsy. * All * Comments:* pt return for biopsy on 02/13/21 with a follow up in 6 months. Functional Status Description No Information Available Mental Status Description No Information Available Referrals Description No Information Available
--- OUTSIDE RECORDS SUMMARY | 2021-03-11 11:21 | CCD | Continuity of Care Document ---
Author Author Hola Rios Elroy Organization Unknown Address [address], [place] [address] Phone [phone] Care Team Providers Care Handle Sander Operator Name Role Phone PaulinoRick [place] Humaira AUTM Unavailable Imer Jessjosafat ARANDA AUTM [phone] Problems Active Problems Provider Date Immunodeficiency disorder Kel Varela M.D. Onset: 1 Allergic rhinitis due to pollen Kel Varela M.D. On set: 02/18/2019 Note: On IT. 4++ reaction to grass polle n, 4+ reaction to ragweed pollen and 3+ reaction to pigweed and plantain weed pollen on scratch test. 3+ reaction to tree pollen on intradermal test. Completed 2018. Allergic rhinitis due to house dust mite Kel Varela M.D. Onset: 02/18/2019 Note: On IT. 4+ reaction to dust mite on scratch test. Completed 2018. Allergic rhinitis due to animals Kel Varela M.D. O nset: 02/18/2019 Note: On IT. 3+ reaction to cat dander on intradermal test. Completed 2018. Allergic rhinitis caused by mold Kel Varela M.D. O nset: 02/18/2019 Note: On IT. 4+ reaction to stemphylium and 3+ reaction to alternaria, fusarium, and phoma on scratch test. Completed 2018. Gastroesophageal reflux disease Kel Varela M.D. On set: 02/18/2019 Pure hypercholesterolemia Kel Varela M.D. Onset: Mild persistent asthma Kel Varela M.D. Onset: 02/08 Note: Followed by Pulmonary [...] Ordering Provide r Date Azelastine HCL (Nasal) 137mcg/[place] Solution 2 sprays each nostril every day every morning 1units J3 0.89 Kel Varela M.D. 02/18/2019 Fluticasone Propionate 50mcg/Act Suspension [place] Two Sprays In Each Nostril Every Evening 48units Kel Varela M.D. 02/18/2019 Fexofenadine HCL 180mg Tablets take [...] 1 tablet three times a day Unknown 000 Atorvastatin Calcium 40mg Tablets Take 1 tablet once daily Unknown Aspirin 81 Low Dose 81mg Chewtabs 1 tab by mouth every day every morning Unknown Medications Administered in Office Medication SIG Qnty Indications Ordering Provider Date Allergy Injection 2 Or More Injection Kel Varela M.D. 02/12/2021 Allergy Injection 2 Or More Injection Kel Varela M.D. 01/23/2021 Allergy Injection 2 Or More Injection Kel Varela M.D. 12/27/2020 Allergy Injection 2 Or More Injection Kel Varela M.D. 12/06/2020 Allergy Injection 2 Or More Injection Kel Varela M.D. 11/15/2020 Allergy Injection 2 Or More Injection Kel Varela M.D. 10/24/2020 Allergy Injection 2 Or More Injection Kel Varela M.D. 10/04/2020 Allergy Injection 2 Or More Injection Kel Varela M.D. 09/13/2020 Allergy Injection 2 Or More Injection Kel Varela M.D. 08/29/2020 Allergy Injection 2 Or More Injection Kel Varela M.D. 08/08/2020 Allergy Injection 2 Or More Injection Kel Varela M.D. 08/01/2020 Allergy Injection 2 Or More Injection Kel Varela M.D. 02/27/2020 Allergy Injection 2 Or More Injection RUTH Mcbride 02/06/2020 Allergy Injection 2 Or More Injection Kel Varela M.D. 02/06/2020 Allergy Injection 2 Or More Injection Kel Varela M.D. 01/23/2020 Allergy Injection 2 Or More Injection Kel Varela M.D. 01/19/2020 Allergy Injection 2 Or More Injection eKl Varela M.D. 01/12/2020 Allergy Injection 2 Or More Injection Kel Varela M.D. 01/09/2020 Allergy Injection 2 Or More Injection Kel Varela M.D. 01/05/2020 Allergy Injection 2 Or More Injection Kel Varela M.D. 01/02/2020 Allergy Injection 2 Or More Injection Kelsarah Varela M.D. 12/30/2019 Allergy Injection 2 Or More Injection Kelsarah Varela M.D. 12/27/2019 Allergy Injection 2 Or More Injection KelMeir AllenDMirian 12/23/2019 Allergy Injection 2 Or More Injection Kelsarah Varela M.D. 12/20/2019 Allergy Injection 2 Or More Injection Kelsarah Varela M.D. 12/16/2019 Allergy Injection 2 Or More Injection Kelsarah Varela M.D. 12/08/2019 Allergy Injection 2 Or More Injection Kelsarah Varela M.D. 12/05/2019 Allergy Injection 2 Or More Injection Kelsarah Varela M.D. 12/01/2019 Allergy Injection 2 Or More Injection KelLuz Maria Allen.Carl 11/28/2019 Allergy Injection 2 Or More Injection Kelsarah Varela M.D. 11/25/2019 Allergy Injection 2 Or More Injection Kelsarah Varela M.D. 11/22/2019 Allergy Injection 2 Or More Injection Kelsarah Varela M.D. 11/17/2019 Allergy Injection 2 Or More Injection Kelsarah Varela M.D. 11/14/2019 Allergy Injection 2 Or More Injection KelLuz Maria Allen.DMirian 11/10/2019 Allergy Injection 2 Or More Injection KelLuz Maria Ferreira.Carl 11/07/2019 Allergy Injection 2 Or More Injection KelLuz Maria Allen.DMirian 11/03/2019 Allergy Injection 2 Or More Injection Kel Luz Maria Varela.DMirian 10/31/2019 Allergy Injection 2 Or More Injection Kel Luz Maria Varela.DMirian 10/28/2019 Allergy Injection 2 Or More Injection KelLuz Maria Allen.DMirian 10/25/2019 Allergy Injection 2 Or More Injection Kel Avery M.DMirian 10/21/2019 Allergy Injection 2 Or More Injection KelLuz Maria Allen.DMirian 10/18/2019 Allergy Injection 2 Or More Injection Kel Luz Maria Varela.DMirian 10/14/2019 Allergy Injection 2 Or More Injection Kel Chrostowski, M.D. 10/11/2019 Allergy Injection 2 Or More Injection Luz Maria Reis.Carl 10/07/2019 Allergy Injection 2 Or More Injection Luz Maria Reis.DMirian 10/04/2019 Allergy Injection 2 Or More Injection Luz Marai Reis.DMirian 09/20/2019 Allergy Injection 2 Or More Injection Luz Maria Reis.Carl 09/13/2019 Allergy Injection 2 Or More Injection KelLuz Maria Allen.DMirian 09/06/2019 Allergy Injection 2 Or More Injection KelLuz Maria Allen.DMirian 08/30/2019 Allergy Injection 2 Or More Injection KelLuz Maria Allen.Carl 08/23/2019 Allergy Injection 2 Or More Injection Luz Maria Reis.DMirian 08/16/2019 Allergy Injection 2 Or More Injection Luz Maria Reis.DMirian 08/08/2019 Allergy Injection 2 Or More Injection Luz Maria Reis.DMirian 08/02/2019 Allergy Injection 2 Or More Injection Luz Maria Reis.DMirian 07/26/2019 Allergy Injection 2 Or More Injection Luz Maria Reis.DMirian 07/18/2019 Allergy Injection 2 Or More Injection Luz Maria Reis.DMirian 07/12/2019 Allergy Injection 2 Or More Injection Luz Maria Reis.DMirian 06/14/2019 Allergy Injection 2 Or More Injection Luz Maria Reis.DMirian 06/06/2019 Allergy Injection 2 Or More Injection Luz Maria Reis.DMirian 05/30/2019 Allergy Injection 2 Or More Injection KelLuz Maria Allen.DMirian 05/23/2019 Immunizations Description No Information Available Vital [...] Available Procedures Date Code Description Status 02/12/2021 50704 Allergy Injection 2 Or More Comp leted 01/23/2021 07503 Allergy Injection 2 Or More Comp leted 12/27/2020 38643 Allergy Injection 2 Or More Comp leted 12/06/2020 57276 Allergy Injection 2 Or More Comp leted 11/15/2020 52689 Allergy Injection 2 Or More Comp leted 10/24/2020 29213 Allergy Injection 2 Or More Comp leted 10/04/2020 11413 Allergy Injection 2 Or More Comp leted 09/13/2020 23710 Allergy Injection 2 Or More Comp leted 08/29/2020 55425 Allergy Injection 2 Or More Comp leted Medical Devices Description No Information Available Encounters Description No Information Available Assessments Date Code Description Provider 02/12/2021 J30.1 Allergic rhinitis due to pollen Kel Varela M.D. 02/12/2021 J30.81 Allergic rhinitis due to animal (cat) (dog) hair and dander Kel Varela M.D. 02/12/2021 J30.89 Other allergic rhinitis Kel Varela M.D. Plan of Treatment Future Appointment(s):* 03/05/2021 2:00 pm - Allergy Injection at Main Office * 02/18/2021 10:45 am - Kel Varela M.D. at Main Office 08/01/2020 - Kel Varela M.D.* J30.89 Allergic rhinitis due to dust [...] TREATMENT [facility] [address] [facility] [address]
--- OUTSIDE RECORDS SUMMARY | 2021-03-11 11:22 | CCD ---
Author Author [facility] Organization [facility] Address Unknown Phone Unavailable Care Team Providers Care Machine Filler Shredder Name Role Phone Guaman, Anai DISTRICT DIRECTOR Unavailable Unavailable Guaman, Anai DISTRICT DIRECTOR Unavailable Unavailable Guaman, Anai DISTRICT DIRECTOR Unavailable Unavailable Guaman, Anai DISTRICT DIRECTOR Unavailable Unavailable Guaman, Anai DISTRICT DIRECTOR Unavailable Unavailable Guaman, Anai DISTRICT DIRECTOR Unavailable Unavailable Guaman, Anai DISTRICT DIRECTOR Unavailable Unavailable Guaman, Anai DISTRICT DIRECTOR Unavailable Unavailable Guaman, Anai DISTRICT DIRECTOR Unavailable Unavailable Guaman, Anai DISTRICT DIRECTOR Unavailable Unavailable Guaman, Anai DISTRICT DIRECTOR Unavailable Unavailable Guaman, Anai DISTRICT DIRECTOR Unavailable Unavailable Guaman, Anai DISTRICT DIRECTOR Unavailable Unavailable Suraj Guzmán MD Unavailable Unavailable Suraj Guzmán MD Unavailable Unavailable Fish, B Darwin MENDEZ Unavailable Unavailable Fish, B Darwin MENDEZ Unavailable Unavailable Fish, B Darwin MENDEZ Unavailable Unavailable Fish, B Darwin MENDEZ Unavailable Unavailable Fish, B Darwin MENDEZ Unavailable Unavailable Fish, B Darwin MENDEZ Unavailable Unavailable Fish, B Darwin MENDEZ Unavailable Unavailable Fish, B Darwin MENDEZ Unavailable Unavailable Fish, B Darwin MENDEZ Unavailable Unavailable Fish, B Darwin MENDEZ Unavailable Unavailable Fish, B Darwin MENDEZ Unavailable Unavailable Fish, B Darwin MENDEZ Unavailable Unavailable Fish, B Darwin MENDEZ Unavailable Unavailable Fish, B Darwin MENDEZ Unavailable Unavailable Fish, B Darwin MENDEZ Unavailable Unavailable Fish, B Darwin MENDEZ Unavailable Unavailable Fish, B Darwin MENDEZ Unavailable Unavailable Fish, B Darwin MENDEZ Unavailable Unavailable Fish, B Darwin MENDEZ Unavailable Unavailable Fish, B Darwin MENDEZ Unavailable Unavailable Fish, B Darwin MENDEZ Unavailable Unavailable Fish, B Darwin MENDEZ Unavailable Unavailable Fish, B Darwin MENDEZ Unavailable Unavailable Fish, B Darwin MENDEZ Unavailable Unavailable Fish, B Darwin MENDEZ Unavailable Unavailable Fish, B Darwin MENDEZ Unavailable Unavailable Fish, B Darwin MENDEZ Unavailable Unavailable Fish, B Darwin MENDEZ Unavailable Unavailable Fish, B Darwin MENDEZ Unavailable Unavailable Fish, B Darwin MENDEZ Unavailable Unavailable Fish, B Darwin MENDEZ Unavailable Unavailable Fish, B Darwin MENDEZ Unavailable Unavailable Fish, B Darwin MENDEZ Unavailable Unavailable Fish, B Darwin MENDEZ Unavailable Unavailable Fish, B Darwin MENDEZ Unavailable Unavailable Fish, B Darwin MENDEZ Unavailable Unavailable Fish, B Darwin MENDEZ Unavailable Unavailable Fish, B Darwin MENDEZ Unavailable Unavailable Fish, B Darwin MENDEZ Unavailable Unavailable Fish, B Darwin MENDEZ Unavailable Unavailable Fish, B Darwin MENDEZ Unavailable Unavailable Fish, B Darwin MENDEZ Unavailable Unavailable Fish, B Darwin MENDEZ Unavailable Unavailable Fish, B Darwin MENDEZ Unavailable Unavailable Fish, B Darwin MENDEZ Unavailable Unavailable Fish, B Darwin MENDEZ Unavailable Unavailable Fish, B Darwin MENDEZ Unavailable Unavailable Fish, B Darwin MENDEZ Unavailable Unavailable Fish, B Darwin MENDEZ Unavailable Unavailable Fish, B Darwin MENDEZ Unavailable Unavailable Fish, B Darwin MENDEZ Unavailable Unavailable Fish, B Darwin MENDEZ Unavailable Unavailable Fish, B Darwin MENDEZ Unavailable Unavailable Fish, B Darwin MENDEZ Unavailable Unavailable Sloane GARCIA MD Unavailable Unavailable Sloane GARCIA MD Unavailable Unavailable Sloane GARCIA MD Unavailable Unavailable Sloane GARCIA MD Unavailable Unavailable Sloane GARCIA MD Unavailable Unavailable Sloane GARCIA MD Unavailable Unavailable Sloane GARCIA MD Unavailable Unavailable Sloane GARCIA MD Unavailable Unavailable Sloane GARCIA MD Unavailable Unavailable Sloane GARCIA MD Unavailable Unavailable Sloane GARCIA MD Unavailable Unavailable Sloane GARCIA MD Unavailable Unavailable Sloane GARCIA MD Unavailable Unavailable Sloane GARCIA MD Unavailable Unavailable Sloane GARCIA MD Unavailable Unavailable Sloane GARCIA MD Unavailable Unavailable Sloane GARCIA MD Unavailable Unavailable Sloane GARCIA MD Unavailable Unavailable Sloane GARCIA MD Unavailable Unavailable Sloane GARCIA MD Unavailable Unavailable Sloane GARCIA MD Unavailable Unavailable Sloane GARCIA MD Unavailable Unavailable Sloane GARCIA MD Unavailable Unavailable Sloane GARCIA MD Unavailable Unavailable LETTIERE, A DANIAL PA Unavailable Unavailable LETTIERE, A DANIAL PA Unavailable Unavailable LETTIERE, A DANIAL PA Unavailable Unavailable LETTIERE, A DANIAL PA Unavailable Unavailable LETTIERE, A DANIAL PA Unavailable Unavailable LETTIERE, A DANIAL PA Unavailable Unavailable LETTIERE, A DANIAL PA Unavailable Unavailable LETTIERE, A DANIAL PA Unavailable Unavailable LETTIERE, A DANIAL PA Unavailable Unavailable LETTIERE, A DANIAL PA Unavailable Unavailable LETTIERE, A DANIAL PA Unavailable Unavailable LETTIERE, A DANIAL PA Unavailable Unavailable LETTIERE, A DANIAL PA Unavailable Unavailable LETTIERE, A DANIAL PA Unavailable Unavailable LETTIERE, A DANIAL PA Unavailable Unavailable LETTIERE, A DANIAL PA Unavailable Unavailable LETTIERE, A DANIAL PA Unavailable Unavailable LETTIERE, A DANIAL PA Unavailable Unavailable LETTIERE, A DANIAL PA Unavailable Unavailable LETTIERE, A DANIAL PA Unavailable Unavailable LETTIERE, A DANIAL PA Unavailable Unavailable LETTIERE, A DANIAL PA Unavailable Unavailable LETTIERE, A DANIAL PA Unavailable Unavailable LETTIERE, A DANIAL PA Unavailable Unavailable LETTIERE, A DANIAL PA Unavailable Unavailable LETTIERE, A DANIAL PA Unavailable Unavailable LETTIERE, A DANIAL PA Unavailable Unavailable LETTIERE, A DANIAL PA Unavailable Unavailable LETTIERE, A DANIAL PA Unavailable Unavailable LETTIERE, A DANIAL PA Unavailable Unavailable LETTIERE, A DANIAL PA Unavailable Unavailable IGLESIA CHÁVEZ MD Unavailable Unavailable IGLESIA CHÁVEZ MD Unavailable Unavailable IGLESIA CHÁVEZ MD Unavailable Unavailable IGLESIA CHÁVEZ MD Unavailable Unavailable IGLESIA CHÁVEZ MD Unavailable Unavailable CHROSTIGLESIA CANTU MD Unavailable Unavailable CHROSTIGLESIA CANTU MD Unavailable Unavailable CHROSTIGLESIA CANTU MD Unavailable Unavailable CHROSTIGLESIA CANTU MD Unavailable Unavailable CHROSTIGLESIA CANTU MD Unavailable Unavailable CHROSTIGLESIA CANTU MD Unavailable Unavailable CHROSTIGLESIA CANTU MD Unavailable Unavailable CHROSTIGLESIA CANTU MD Unavailable Unavailable CHROSTIGLESIA CANTU MD Unavailable Unavailable CHROSTIGLESIA CANTU MD Unavailable Unavailable CHROSTIGLESIA CANTU MD Unavailable Unavailable CHROSTIGLESIA CANTU MD Unavailable Unavailable CHROSTIGLESIA CANTU MD Unavailable Unavailable CHROSTIGLESIA CANTU MD Unavailable Unavailable CHROSTIGLESIA CANTU MD Unavailable Unavailable CHROSTIGLESIA CANTU MD Unavailable Unavailable CHROSTIGLESIA CANTU MD Unavailable Unavailable CHROSTIGLESIA CANTU MD Unavailable Unavailable CHROSTIGLESIA CANTU MD Unavailable Unavailable CHROSTILGESIA CANTU MD Unavailable Unavailable CHROSTIGLESIA CANTU MD Unavailable Unavailable CHROSTIGLESIA CANTU MD Unavailable Unavailable CHROSTIGLESIA CANTU MD Unavailable Unavailable CHROSTIGLESIA CANTU MD Unavailable Unavailable CHROSTIGLESIA CANTU MD Unavailable Unavailable CHROSTIGLESIA CANTU MD Unavailable Unavailable CHROSTIGLESIA CANTU MD Unavailable Unavailable CHROSTIGLESIA CANTU MD Unavailable Unavailable CHROSTIGLESIA CANTU MD Unavailable Unavailable CHROSTIGLESIA CANTU MD Unavailable Unavailable CHROSTIGLESIA CANTU MD Unavailable Unavailable CHROSTIGLESIA CANTU MD Unavailable Unavailable CHROSTIGLESIA CANTU MD Unavailable Unavailable CHROSTIGLESIA CANTU MD Unavailable Unavailable LIV, J Jess ANP Unavailable Unavailable LIV, J Jess ANP Unavailable Unavailable LIV, J Jess ANP Unavailable Unavailable LIV, J Jess ANP Unavailable Unavailable LIV, J Jess ANP Unavailable Unavailable LIV, J Jess ANP Unavailable Unavailable LIV, J Jess ANP Unavailable Unavailable LIV, J Jess ANP Unavailable Unavailable LIV, J Jess ANP Unavailable Unavailable LIV, J Jess ANP Unavailable Unavailable LIV, J Jess ANP Unavailable Unavailable LIV, J Jess ANP Unavailable Unavailable LIV, J Jess ANP Unavailable Unavailable LIV, J Jess ANP Unavailable Unavailable LIV, J Jess ANP Unavailable Unavailable LIV, J Jess ANP Unavailable Unavailable LIV, J Jess ANP Unavailable Unavailable LIV, J Jess ANP Unavailable Unavailable LIV, J Jess ANP Unavailable Unavailable LIV, J Jess ANP Unavailable Unavailable LIV, J Jess ANP Unavailable Unavailable LIV, J Jess ANP Unavailable Unavailable LIV, J Jess ANP Unavailable Unavailable LIV, J Jess ANP Unavailable Unavailable LIV, J Jess ANP Unavailable Unavailable LIV, J Jess ANP Unavailable Unavailable LIV, J Jess ANP Unavailable Unavailable LIV, J Jess ANP Unavailable Unavailable LIV, J Jess ANP Unavailable Unavailable LIV, J Jess ANP Unavailable Unavailable LIV, J Jess ANP Unavailable Unavailable LIV, J Jess ANP Unavailable Unavailable LIV, J Jess ANP Unavailable Unavailable LIV, J Jess ANP Unavailable Unavailable LIV, J Jess ANP Unavailable Unavailable LIV, J Jess ANP Unavailable Unavailable LIV, J Jess ANP Unavailable Unavailable LIV, J Jess ANP Unavailable Unavailable LIV, J Jess ANP Unavailable Unavailable LIV, J Jess ANP Unavailable Unavailable LIV, J Jess ANP Unavailable Unavailable LIV, J Jess ANP Unavailable Unavailable LIV, J Jess ANP Unavailable Unavailable LIV, J Jess ANP Unavailable Unavailable LIV, J Jess ANP Unavailable Unavailable LIV, J Jess ANP Unavailable Unavailable LIV, J Jess ANP Unavailable Unavailable LIV, J Jess ANP Unavailable Unavailable LIV, J Jess ANP Unavailable Unavailable LIV, J Jess ANP Unavailable Unavailable LIV, J Jess ANP Unavailable Unavailable LIV, J Jess ANP Unavailable Unavailable LIV, J Jess ANP Unavailable Unavailable LIV, J Jess ANP Unavailable Unavailable LIV, J Jess ANP Unavailable Unavailable LIV, J Jess ANP Unavailable Unavailable LIV, J Jess ANP Unavailable Unavailable LIV, J Jess ANP Unavailable Unavailable LIV, J Jess ANP Unavailable Unavailable LIV, J Jess ANP Unavailable Unavailable LIV, J Jess ANP Unavailable Unavailable LIV, J Jess ANP Unavailable Unavailable LIV, J Jess ANP Unavailable Unavailable LIV, J Jess ANP Unavailable Unavailable Bonny Clemente MD Unavailable Unavailable Bonny Clemente MD Unavailable Unavailable Bonny Clemente MD Unavailable Unavailable Bonny Clemente MD Unavailable Unavailable Bonny Clemente MD Unavailable Unavailable Bonny Clemente MD Unavailable Unavailable Bonny Clemente MD Unavailable Unavailable Bonny Clemente MD Unavailable Unavailable Bonny Clemente MD Unavailable Unavailable Bonny Clemente MD Unavailable Unavailable Bonny Clemente MD Unavailable Unavailable Bonny Clemente MD Unavailable Unavailable Bonny Clemente MD Unavailable Unavailable Bonny Clemente MD Unavailable Unavailable Bonny Clemente MD Unavailable Unavailable Bonny Clemente MD Unavailable Unavailable Bonny Clemente MD Unavailable Unavailable Bonny Clemente MD Unavailable Unavailable Bonny Clemente MD Unavailable Unavailable Bonny Clemente MD Unavailable Unavailable Bonny Clemente MD Unavailable Unavailable Bonny Clemente MD Unavailable Unavailable Bonny Clemente MD Unavailable Unavailable Bonny Clemente MD Unavailable Unavailable Bonny Clemente MD Unavailable Unavailable Bonny Clemente MD Unavailable Unavailable Bonny Clemente MD Unavailable Unavailable Bonny Clemente MD Unavailable Unavailable Bonny Clemente MD Unavailable Unavailable Bonny Clemente MD Unavailable Unavailable Bonny Clemente MD Unavailable Unavailable Bonny Clemente MD Unavailable Unavailable Bonny Clemente MD Unavailable Unavailable Bonny Clemente MD Unavailable Unavailable Bonny Clemente MD Unavailable Unavailable Bonny Clemente MD Unavailable Unavailable Bonny Clemente MD Unavailable Unavailable Bonny Clemente MD Unavailable Unavailable Bonny Clemente MD Unavailable Unavailable Bonny Clemente MD Unavailable Unavailable Bonny Clemente MD Unavailable Unavailable Bonny Clemente MD Unavailable Unavailable Bonny Clemente MD Unavailable Unavailable Bonny Clemente MD Unavailable Unavailable Bonny Clemente MD Unavailable Unavailable Bonny Clemente MD Unavailable Unavailable Bonny Clemente MD Unavailable Unavailable Bonny Clemente MD Unavailable Unavailable Bonny Clemente MD Unavailable Unavailable Bonny Clemente MD Unavailable Unavailable Bonny Clemente MD Unavailable Unavailable Bonny Clemente MD Unavailable Unavailable Bonny Clemente MD Unavailable Unavailable Bonny Clemente MD Unavailable Unavailable Bonny Clemente MD Unavailable Unavailable Bonny Clemente MD Unavailable Unavailable Bonny Clemente MD Unavailable Unavailable Chyna O Vinod MENDEZ Unavailable Unavailable Bonny Clemente MD Unavailable Unavailable Chyna O iVnod MENDEZ Unavailable Unavailable Chyna O Vniod MENDEZ Unavailable Unavailable Chyna O Vinod MENDEZ Unavailable Unavailable Bonny Clemente MD Unavailable Unavailable Chyna O Vinod MENDEZ Unavailable Unavailable Chyna O Vinod MENDEZ Unavailable Unavailable Bonny Clemente MD Unavailable Unavailable Chyna O Vinod MENDEZ Unavailable Unavailable Chyna O Vinod MENDEZ Unavailable Unavailable Chyna O Vinod MENDEZ Unavailable Unavailable Chyna O Vinod MENDEZ Unavailable Unavailable Chyna O Vinod MENDEZ Unavailable Unavailable Chyna O Ángel Unavailable Unavailable Chyna O Vinod MENDEZ Unavailable Unavailable Chyna O Vinod MENDEZ Unavailable Unavailable Chyna O Vinod MENDEZ Unavailable Unavailable Chyna O Vinod MENDEZ Unavailable Unavailable Chyna O Vinod MENDEZ Unavailable Unavailable Chyna O Vinod MENDEZ Unavailable Unavailable Chyna O Vinod MENDEZ Unavailable Unavailable BLOCK, M USHA PA Unavailable Unavailable BLOCK, M USHA PA Unavailable Unavailable BLOCK, M USHA PA Unavailable Unavailable BLOCK, M USHA PA Unavailable Unavailable BLOCK, M USHA PA Unavailable Unavailable BLOCK, M USHA PA Unavailable Unavailable BLOCK, M USHA PA Unavailable Unavailable BLOCK, M USAH PA Unavailable Unavailable BLOCK, M USHA PA Unavailable Unavailable BLOCK, M USHA PA Unavailable Unavailable BLOCK, M USHA PA Unavailable Unavailable BLOCK, M USHA PA Unavailable Unavailable BLOCK, M USHA PA Unavailable Unavailable BLOCK, M USHA PA Unavailable Unavailable BLOCK, M USHA PA Unavailable Unavailable BLOCK, M USHA PA Unavailable Unavailable BLOCK, M USHA PA Unavailable Unavailable BLOCK, M USHA PA Unavailable Unavailable BLOCK, M USHA PA Unavailable Unavailable BLOCK, M USHA PA Unavailable Unavailable BLOCK, M USHA PA Unavailable Unavailable BLOCK, M USHA PA Unavailable Unavailable BLOCK, M USHA PA Unavailable Unavailable BLOCK, M USHA PA Unavailable Unavailable BLOCK, M USHA PA Unavailable Unavailable BLOCK, Luz Maria TUTTLEUS PA Unavailable Unavailable BLOCK, M USHA PA Unavailable Unavailable BLOCK, M USHA PA Unavailable Unavailable BLOCK, M USHA PA Unavailable Unavailable BLOCK, Luz Maria TUTTLEUS PA Unavailable Unavailable BLOCK, M USHA PA Unavailable Unavailable BLOCK, M USHA PA Unavailable Unavailable BLOCK, Luz Maria TUTTLEUS PA Unavailable Unavailable BLOCK, Luz Maria TUTTLEUS PA Unavailable Unavailable BLOCK, Luz Maria TUTTLEUS PA Unavailable Unavailable Re-disclosure Warning The records that you are about to access may contain information from federally-assisted alcohol or drug abuse programs. If such information is present, then the following federally mandated warning applies: This information has been disclosed to you from records protected by federal confidentiality rules (42 CFR part 2). The federal rules prohibit you from making any further disclosure of this information unless further disclosure is expressly permitted by the written consent of the person to whom it pertains or as otherwise permitted by 42 CFR part 2. A general authorization for the release of medical or other information is NOT sufficient for this purpose. The Federal rules restrict any use of the information to criminally investigate or prosecute any alcohol or drug abuse patient.The records that you are about to access may contain highly sensitive health information, the redisclosure of which is protected by Article 27-F of the [facility] Public Health law. If you continue you may have access to information: Regarding HIV / AIDS; Provided by facilities licensed or operated by the [facility] Office of Mental Health; or Provided by the [facility] Office for People With Developmental Disabilities. If such information is present, then the following [facility] mandated warning applies: This information has been disclosed to you from confidential records which are protected by state law. State law prohibits you from making any further disclosure of this information without the specific written consent of the person to whom it pertains, or as otherwise permitted by law. Any unauthorized further disclosure in violation of state law may result in a fine or skilled nursing sentence or both. A general authorization for the release of medical or other information is NOT sufficient authorization for further disc losure. Family History Family Member Name Family Member Gender Family Member Status Date o f Status Description Data Source(s) Unknown Unknown Problem [facility] ([facility]) mother, mgm, pgm, mgf Unknown Female Problem [facility] ([facility]) Unknown Unknown Problem [facility] ([facility]) Encounters Encounter Providers Location Date Indications Data Source(s ) Outpatient Attender: IGLESIA CHÁVEZ MD Main Office 02/18/2021 10:45:00 AM EDT [facility] ([facility]) Outpatient Attender: USHA Shore/Harriet/Kelvin/Rein dl 02/12/2021 03:00:00 PM EDT [facility] ([facility]) Outpatient Attender: Jess Valdez 01:00:00 PM EDT [facility] ([facility] ) Outpatient Attender: LISA GARCIA MD 01/04 08:23:37 AM EDT - 01/04/2021 09:58:58 AM EDT [facility] ([facility] ) Outpatient Attender: Vinod Clemente MD Main office - [facility] 12/25/2020 01:45:00 PM EDT [facility] ([facility]) Outpatient Attender: Vinod Clemente MD Main office - [facility] 09/12/2020 01:45:00 PM EDT [facility] ([facility]) OFFICE OUTPATIENT VISIT 15 MINUTES Attender: Darwin Guzmán MD Phys ical Therapy 09/07/2020 09:00:00 AM EDT [facility] ([facility]) Office Visit Attender: Jess Valdez 01:00:00 PM EDT [facility] ([facility] ) Outpatient Attender: IGLESIA CHÁVEZ MD Main Office 08/01/2020 01:00:00 PM EDT [facility] ([facility]) Outpatient Attender: Vinod Clemente MD Main office - [facility] 03/27/2020 10:15:00 AM EST MED[facility] ([facility]) Outpatient Attender: Anai Marsh parvin 03/06/2020 03:45:00 PM EDT [facility] ([facility]) Outpatient Attender: DANIAL Damon Prim jose juan 03/01/2020 08:25:00 AM EDT [facility] ([facility]) Outpatient Attender: IGLESIA CHÁVEZ MD Main Office 01/25/2020 10:45:00 AM EDT [facility] ([facility]) Immunizations Vaccine Date Status Description Data Source(s) This CVX code allows reporting of a vacc ination when formulation is unknown (for example, when recording a Influenza vaccination when noted on a vaccination card) 01/30/2021 08:12:00 AM EDT completed MEDEN T ([facility]) Moderna Covid-19 vaccine, mRNA, LNP-S, PF, 100 mcg/ 0. 5 mL 06/18/2020 08:47:00 AM EST completed MED[facility] ([facility], ) Moderna Covid-19 vaccine, mRNA, LNP-S, PF, 100 mcg/ 0. 5 mL 05/23/2020 08:46:00 AM EST completed [facility] ([facility], ) This CVX code allows reporting of a vacc ination when formulation is unknown (for example, when recording a Influenza vaccination when noted on a vaccination card) 02/03/2020 01:43:00 PM EDT completed MEDEN T ([facility]) Medications Medication Brand Name Start Date Product Form Dose Route Admi nistrative Instructions Pharmacy Instructions Status Indications Reaction Description Data Source(s) Allergy Injection 2 Or More 03/05/2021 12:00:00 AM EDT completed [facility] ([facility]) Medication administered onsite Metronidazole 500 MG Oral Tablet Metronidazole 03/04/2021 12:00:00 AM EDT ORAL active [facility] ([facility], ) Allergy Injection 2 Or More 02/12/2021 12:00:00 AM EDT completed [facility] ([facility]) Medication administered onsite Allergy Injection 2 Or More 01/23/2021 12:00:00 AM EDT completed [facility] ([facility]) Medication administered onsite Allergy Injection 2 Or More 12/27/2020 12:00:00 AM EDT completed [facility] ([facility]) Medication administered onsite Nurtec Nurtec 12/25/2020 12:00:00 AM EDT ORAL active MED[facility] ([facility]) Thioctic Acid 200 MG Oral Capsule Alpha Lipoic Acid 12/25/2020 1 2:00:00 AM EDT active [facility] ( [facility]) Allergy Injection 2 Or More 12/06/2020 12:00:00 AM EDT completed [facility] ([facility]) Medication administered onsite Allergy Injection 2 Or More 11/15/2020 12:00:00 AM EDT completed [facility] ([facility]) Medication administered onsite Allergy Injection 2 Or More 10/24/2020 12:00:00 AM EDT completed [facility] ([facility]) Medication administered onsite Ubrelvy Ubrelvy 10/15/2020 12:00:00 AM EDT active MED[facility] ([facility]) Allergy Injection 2 Or More 10/04/2020 12:00:00 AM EDT completed [facility] ([facility]) Medication administered onsite Allergy Injection 2 Or More 09/13/2020 12:00:00 AM EDT completed [facility] ([facility]) Medication administered onsite Allergy Injection 2 Or More 08/29/2020 12:00:00 AM EDT completed [facility] ([facility]) Medication administered onsite Allergy Injection 2 Or More 08/08/2020 12:00:00 AM EDT completed [facility] ([facility]) Medication administered onsite Fexofenadine hydrochloride 180 MG Oral Tablet Wendy Allerg y 08/07/2020 12:00:00 AM EDT ORAL active M EDENT ([facility]) Allergy Injection 2 Or More 08/01/2020 12:00:00 AM EDT completed [facility] ([facility]) Medication administered onsite Prednisone 20 MG Oral Tablet Prednisone 03/06/2020 12:00:00 AM EDT active MED[facility] ([facility]) Phenazopyridine hydrochloride 200 MG Delayed Release O ral Tablet Phenazopyridine HCL 03/01/2020 12:00:00 AM EDT ORAL active MED[facility] ([facility]) NITROFURANTOIN, MACROCRYSTALS 25 MG / Ni trofurantoin, Monohydrate 75 MG Oral Capsule [Macrobid] Macrobid 03/01/2020 12:00:00 AM EDT ORAL completed [facility] ([facility]) Allergy Injection 2 Or More 02/27/2020 12:00:00 AM EDT completed [facility] ([facility]) Medication administered onsite 0.5 ML Streptococcus pneumoniae serotype 1 capsular antigen diphtheria [id number] protein conjugate vaccine 0.0044 MG/ML / Streptococcus pneumoniae serotype 14 capsular antigen diphtheria [id number] protein conjugate vaccine 0.0044 MG/ML / Streptococcus pneumonia Prevnar 13 02/24/2020 12:00:00 AM EDT completed [facility] Allergy Injection 2 Or More 02/06/2020 12:00:00 AM EDT completed [facility] ([facility]) Medication administered onsite Allergy Injection 2 Or More 02/06/2020 12:00:00 AM EDT completed [facility] ([facility]) Medication administered onsite Allergy Injection 2 Or More 01/23/2020 12:00:00 AM EDT completed [facility] ([facility]) Medication administered onsite Allergy Injection 2 Or More 01/19/2020 12:00:00 AM EDT completed [facility] ([facility]) Medication administered onsite Allergy Injection 2 Or More 01/12/2020 12:00:00 AM EDT completed [facility] ([facility]) Medication administered onsite Insurance Providers Payer name Policy type / Coverage type Policy ID Covered green party ID Covered green party's relationship to salmer[place] Policy [place] Plan Information O BLUE [id number] SP [id number] [facility] [place]UE [id number] SP [id number] [facility] Trad/MX Commercial [id number] Self 802 [facility] Trad/MX Medigap Part B [id number] Self [id number] [facility] Trad/MX Commercial [id number] Self 802 [employer] Trad/MX Medigap Part B [id number] Self [id number] [employer]BS [place] 304/804 [id number] SP [id number] [employer] Trad/MX Medigap Part B [id number] Family Dependent [id number] [employer] Trad/MX Commercial [id number] Family Dependent 806 [employer] Medigap Part B [id number] 2..1.498001.3.227.99 .4595.88347.0 Self [id number] [facility] Farm Medigap Part B [id number] 2..1.701256.3.227.99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 Woq6fhm-%Pred-Pre 104 % [facility] ([facility]) FEFMax-%Pred-Pre 107 L/E/sec [facility] ([facility]) FEFMax-Pred 6.46 L/E/sec [facility] ([facility]) FEFMax-LLN 4.40 L/E/sec [facility] ([facility]) Xwy8014-Qbrg 2.17 L/E/sec [facility] ([facility]) Htt2678-Djp 2.69 L/E/sec [facility] ([facility]) Lpo8400-%Pred-Pre 124 L/E/sec [facility] ([facility], ) ExpTime-Pre 6.51 sec [facility] ([facility]) Xjn9016-GAZ 0.68 L/E/sec [facility] ([facility]) Ebp9bev2-Ort 83 % [facility] ([facility]) Sor3shj0-Zxlv 79 % [facility] ([facility]) Nzw5rin9-%Pred-Pre 104 % [facility] ([facility]) Ryc6nkq2-QPM 70 % [facility] ([facility]) ID Date Data Source [id number] 02/06/2021 01:39:00 PM EDT [facility] ([facility]) Name Value Range Interpretation Code Description Data Christine rce(s) Supporting Document(s) Glucose [Mass/volume] in Serum or Plasma 83 mg/dL 74-99 [facility] ([facility]) 100-125 mg/dL PRE-DIABETES/FASTING >126 mg/dL DIABETES/FASTING Sodium [Moles/volume] in Serum or Plasma 138 meq/L 136-145 [facility] ([facility]) Creatinine 0.8 mg/dL 0.6-1.3 [facility] ([facility]) Urea nitrogen [Mass/volume] in Serum or Plasma 13 mg/dL 7-18 [facility] ([facility]) Potassium [Moles/volume] in Serum or Plasma 4.4 meq/L 3.5-5.1 [facility] ([facility]) Chloride [Moles/volume] in Serum or Plasma 101 meq/L 98-107 [facility] ([facility]) Carbon dioxide, total [Moles/volume] in Serum or Plasma 33 meq/L 21 -32 [facility] ([facility]) Calcium [Mass/volume] in Serum or Plasma 9.0 mg/dL 8.5-10.1 [facility] Glomerular filtration rate/1.73 sq M pre dicted among non-blacks [Volume Rate/Area] in Serum or Plasma by Creatinine-based formula (MDRD) Laboratory test result [facility] ([facility] ) Glomerular filtration rate/1.73 sq M pre dicted among blacks [Volume Rate/Area] in Serum or Plasma by Creatinine-based formula (MDRD) Laboratory test result [facility] ([facility]) <content>CHRONIC KIDNEY DISEASE STAGING PER NKF</content>
<content></content>
<content>STAGE I & II GFR >= 60 NORMAL TO MILDLY DECREASED</content>
<content>STAGE III GFR 30-59 MODERATELY DECREASED</content>
<content>STAGE IV GFR 15-29 SEVERELY DECREASED</content>
<content>STAGE V GFR <15 VERY LITTLE GFR LEFT</content>
<content>ESRD GFR <15 ON PIPE COVERER AND INSULATOR</content>
<content></content> ID Date Data Source [id number] 02/06/2021 01:39:00 PM EDT [facility] ([facility]) Name Value Range Interpretation Code Description Data Christine rce(s) Supporting Document(s) Leukocytes [#/volume] in Blood by Automated count 5.1 x10*3/UL 4.1-10 .9 [facility] ([facility]) Erythrocytes [#/volume] in Blood by Automated count 4.51 x10*6/UL 4.2 0-6.30 [facility] ([facility]) Hemoglobin [Mass/volume] in Blood 14.4 g/dL 12.0-18.0 [facility] [facility] MCV 91.6 fL 80.0-97.0 [facility] ([facility]) Hematocrit [Volume Fraction] of Blood by Automated count 41.3 % 3 7.0-51.0 [facility] ([place] [facility]) Erythrocyte distribution width [Ratio] by Automated count 13.5 % 11.6-13.7 [facility] ([facility]) MCH 31.9 pg 26.0-32.0 [facility] [facility]) MCHC 34.8 g/dL 31.0-38.0 [facility] MPV 8.7 FL 7.8-11.0 [facility] Platelets [#/volume] in Blood by Automated count 184 x10*3/UL 140-440 [facility] ([place] [facility]) Lymph % 43.9 % 10.0-58.5 [facility] ([facility]) Lymph # 2.2 x10*3/UL 0.6-4.1 [facility] ([place] [facility]) Mid % 7.8 % 1.7-9.3 [facility] ([facility]) Neut % 48.3 % 37.0-92.0 [facility] ([facility]) Mid # 0.5 x10*3/UL 0.1-0.6 [facility] ([facility]) Neut # 2.4 x10*3/UL 2.0-7.8 [facility] ([place] [facility]) ID Date Data Source [id number] 02/05/2021 01:40:00 PM EDT [facility] ([facility]) Name Value Range Interpretation Code Description Data Christine rce(s) Supporting Document(s) Valproate [Mass/volume] in Serum or Plasma 56.4 UG/ML 50.0-100.0 [facility] ([facility]) ID Date Data Source [id number] 02/05/2021 01:39:00 PM EDT [facility] ([facility]) Name Value Range Interpretation Code Description Data Christine rce(s) Supporting Document(s) Thyrotropin [Units/volume] in Serum or Plasma by Detec tion limit <= 0.05 mIU/L 2.08 uIU/mL 0.36-3.74 [facility] ([place] [facility] ) ID Date Data Source [id number] 01/07/2021 02:44:00 PM EDT [facility] ([facility]) Name Value Range Interpretation Code Description Data Christine rce(s) Supporting Document(s) Coronavirus 2019 Nasopharygeal Laboratory test result [facility] ([facility]) ASSAY INFORMATION: Real Time RT-PCR NOTE: The COVID-19 assay has been cleared by the U.S. Food and Drug Administration under the Emergency Use Authorization (EUA). [facility] and [facility] are designated as high complexity laboratories by the Clinical Laboratory Improvement Amendments of 1988(CLIA) and are qualified to perform this test. Not Detected ID Date Data Source [id number] 01/07/2021 02:44:00 PM EDT [facility] Name Value Range Interpretation Code Description Data Christine rce(s) Supporting Document(s) SARS-CoV-2 (COVID-19) RNA [Presence] in Respiratory specimen by [facility] with probe detection Not Detected [facility] This lab was ordered by [facility] and reported by [facility]. ID Date Data Source [id number] 01/07/2021 02:20:00 PM EDT [facility] ([facility]) Name Value Range Interpretation Code Description Data Christine rce(s) Supporting Document(s) Laboratory test finding (navigational concept) Laboratory test result [facility] ([place] [facility]) The [place] SARS Antigen ANAND does not diff erentiate between SARS-CoV and SARS-CoV-2. Negative results do not rule out COVID-19 and should not be used as the sole basis for treatment. Negative results should be considered in the context of a patient's recent exposure, history and the presence of clinical signs and symptoms consistent with COVID-19. ID Date Data Source [id number] 01/07/2021 02:20:00 PM EDT [facility] Name Value Range Interpretation Code Description Data Christine rce(s) Supporting Document(s) SARS COVID ANTIGEN NEGATIVE [facility] This lab was ordered by [facility] nd reported by [facility]. ID Date Data Source [id number] 10/29/2020 10:28:00 AM EDT [facility] ([facility]) Name Value Range Interpretation Code Description Data Christine rce(s) Supporting Document(s) 3D Bi-Lateral Mammogram Laboratory test result [facility] ([place] [facility]) ID Date Data Source [id number] 08/07/2020 02:17:00 PM EDT [facility] ([facility], ) Name Value Range Interpretation Code Description Data Christine rce(s) Supporting Document(s) PDFReport Laboratory test result [facility] ([facility], ) FVC-Pre 3.01 L [facility] ([facility], ) FVC-Pred 3.73 L [facility] ([facility]) Fev1-Pred 2.83 L [facility] ([facility], ) FVC-LLN 2.90 L [facility] ([facility]) FVC-%Pred-Pre 80 L [facility] ([facility], ) Fev1-%Pred-Pre 89 L [facility] ([facility]) Fev1-Pre 2.53 L [facility] ([facility]) Fev6-Pred 3.57 L [facility] ([facility]) Fev1-LLN 2.13 L [facility] ([facility]) Fev6-%Pred-Pre 84 L [facility] ([facility]) Fev6-Pre 3.01 L [facility] ([facility]) Fev6-LLN 2.76 L [facility] ([facility]) Zxy9bdb-Etkw 76 % [facility] ([facility]) Bby3yss-Hdz 84 % [facility] ([facility]) Dtt0lbh-%Pred-Pre 111 % [facility] ([facility]) Mht3upy-QIZ 66 % [facility] ([facility]) Miv5ecp-Trky 96 % [facility] ([facility]) Gjd2olr-Lly 100 % [facility] ([facility]) Emj0syp-%Pred-Pre 104 % [facility] ([facility]) FEFMax-Pred 6.54 L/E/sec [facility] ([facility], ) FEFMax-Pre 6.94 L/E/sec [facility] ([facility]) FEFMax-%Pred-Pre 106 L/E/sec [facility] ([facility]) FEFMax-LLN 4.48 L/E/sec [facility] ([facility]) Ind2787-Zcxi 2.21 L/E/sec [facility] ([facility]) Lbw4668-%Pred-Pre 127 L/E/sec [facility] ([facility]) Jbe5692-Oja 2.83 L/E/sec [facility] ([facility], ) Cjz6avb1-Irop 79 % [facility] ([facility]) Pal2226-NJY 0.73 L/E/sec [facility] ([facility]) ExpTime-Pre 6.23 sec [facility] ([facility]) Pzc2lzm5-KUU 70 % [facility] ([facility]) Loy6wqj6-Txf 84 % [facility] ([facility]) Wto2xih2-%Pred-Pre 106 % [facility] ([facility]) ID Date Data Source [id number] 08/03/2020 08:58:00 AM EDT [facility] ([facility]) Name Value Range Interpretation Code Description Data Christine rce(s) Supporting Document(s) Valproate [Mass/volume] in Serum or Plasma 81.2 UG/ML 50.0-100.0 [facility] ([place] [facility]) ID Date Data Source [id number] 08/03/2020 08:57:00 AM EDT [facility] ([facility]) Name Value Range Interpretation Code Description Data Christine rce(s) Supporting Document(s) Thyrotropin [Units/volume] in Serum or Plasma by Detec tion limit <= 0.05 mIU/L 2.70 uIU/mL 0.36-3.74 [facility] ([place] [facility] ) ID Date Data Source [id number] 08/03/2020 08:57:00 AM EDT [facility] ([facility]) Name Value Range Interpretation Code Description Data Christine rce(s) Supporting Document(s) Cholesterol [Mass/volume] in Serum or Plasma 196 mg/dL 131-200 [facility] ([facility]) Cholesterol in HDL [Mass/volume] in Serum or Plasma 62 mg/dL 35-60 [facility] ([facility]) Triglyceride [Mass/volume] in Serum or Plasma 97 mg/dL 30-150 [facility] ([place] [facility]) Cholesterol in LDL [Mass/volume] in Serum or Plasma by calcu lation 115 CALC 50-159 [facility] ([place] [facility]) ID Date Data Source [id number] 08/03/2020 08:57:00 AM EDT [facility] ([facility]) Name Value Range Interpretation Code Description Data Christine e(s) Supporting Document(s) Glucose [Mass/volume] in Serum or Plasma 84 mg/dL 74-99 [facility] ([facility]) 100-125 mg/dL PRE-DIABETES/FASTING >126 mg/dL DIABETES/FASTING Creatinine 0.7 mg/dL 0.6-1.3 [facility] ([facility]) Urea nitrogen [Mass/volume] in Serum or Plasma 19 mg/dL 7-18 [facility] ([facility]) Sodium [Moles/volume] in Serum or Plasma 141 meq/L 136-145 [facility] ([facility]) Potassium [Moles/volume] in Serum or Plasma 4.2 meq/L 3.5-5.1 [facility] ([facility]) Chloride [Moles/volume] in Serum or Plasma 101 meq/L 98-107 [facility] ([place] [facility]) Carbon dioxide, total [Moles/volume] in Serum or Plasma 32 meq/L 21 -32 [facility] ([facility]) Calcium [Mass/volume] in Serum or Plasma 9.2 mg/dL 8.5-10.1 [facility] ([facility]) Alkaline phosphatase isoenzyme [Units/volume] in Serum or Pl asma 104 mg/dL 46-116 [facility] ([place] [facility]) Total Bilirubin 0.4 mg/dL 0.2-1.0 [facility] ([facility]) Aspartate aminotransferase [Enzymatic activity/volume] in Serum or Plasma 22 U/L 15-37 [facility] ([facility] ) Alanine aminotransferase [Enzymatic activity/volume] in Seru m or Plasma 24 U/L 12-78 [facility] ([facility]) Albumin [Mass/volume] in Serum or Plasma 3.8 g/dL 3.4-5.0 [facility] ([facility]) Glomerular filtration rate/1.73 sq M pre dicted among non-blacks [Volume Rate/Area] in Serum or Plasma by Creatinine-based formula (MDRD) Laboratory test result [facility] ([place] [facility] ) A/G Ratio 1.19 CALC 1.00-1.90 [facility] ([facility]) Proteinase 3 Ab [Units/volume] in Serum 7.0 g/dL 6.4-8.2 [facility] ([facility]) Glomerular filtration rate/1.73 sq M pre dicted among blacks [Volume Rate/Area] in Serum or Plasma by Creatinine-based formula (MDRD) Laboratory test result [facility] ([place] [facility]) <content>CHRONIC KIDNEY DISEASE STAGING PER NKF</content>
<content></content>
<content>STAGE I & II GFR >= 60 NORMAL TO MILDLY DECREASED</content>
<content>STAGE III GFR 30-59 MODERATELY DECREASED</content>
<content>STAGE IV GFR 15-29 SEVERELY DECREASED</content>
<content>STAGE V GFR <15 VERY LITTLE GFR LEFT</content>
<content>ESRD GFR <15 ON PIPE COVERER AND INSULATOR</content>
<content></content> ID Date Data Source [id number] 08/03/2020 08:57:00 AM EDT [facility] ([facility]) Name Value Range Interpretation Code Description Data Christine rce(s) Supporting Document(s) Leukocytes [#/volume] in Blood by Automated count 4.8 x10*3/UL 4.1-10 .9 [facility] ([place] [facility]) Erythrocytes [#/volume] in Blood by Automated count 4.30 x10*6/UL 4.2 0-6.30 [facility] ([place] [facility]) Hemoglobin [Mass/volume] in Blood 13.9 g/dL 12.0-18.0 [facility] MCV 92.0 fL 80.0-97.0 [facility] ([place] [facility]) Hematocrit [Volume Fraction] of Blood by Automated count 39.6 % 3 7.0-51.0 [facility] ([facility]) MCH 32.2 pg 26.0-32.0 [facility] ([place] [facility]) Erythrocyte distribution width [Ratio] by Automated count 13.5 % 11.6-13.7 [facility] ([place] [facility]) Platelets [#/volume] in Blood by Automated count 166 x10*3/UL 140-440 [facility] ([facility]) MCHC 35.0 g/dL 31.0-38.0 [facility] ([facility]) Lymph % 51.0 % 10.0-58.5 [facility] ([facility]) MPV 8.6 FL 7.8-11.0 [facility] ([facility]) Neut % 40.8 % 37.0-92.0 [facility] ([facility]) Mid % 8.2 % 1.7-9.3 [facility] ([facility]) Lymph # 2.4 x10*3/UL 0.6-4.1 [facility] ([facility]) Mid # 0.5 x10*3/UL 0.1-0.6 [facility] ([facility]) Neut # 1.9 x10*3/UL 2.0-7.8 [facility] ([place] [facility]) ID Date Data Source [id number] 03/01/2020 08:33:00 AM EDT [facility] ([facility]) Name Value Range Interpretation Code Description Data Christine rce(s) Supporting Document(s) Bacteria identified in Urine by Culture Laboratory test result [facility] ([facility]) rx macrobid ID Date Data Source [id number] 02/07/2020 01:48:00 PM EDT [facility] ([facility]) Name Value Range Interpretation Code Description Data Christine rce(s) Supporting Document(s) Valproate [Mass/volume] in Serum or Plasma 53.9 UG/ML 50.0-100.0 [facility] ([place] [facility]) Procedure Social History Code Duration Value Status Description Data Source(s ) Smoking 03/11/2021 12:00:00 AM EDT - 05/11/1978 12:00:00 AM EST Patient is a former smoker completed Patient is a former smoker [facility] ([facility], ) Smoking 02/18/2021 12:00:00 AM EDT Patient is a former smoker completed Patient is a former smoker [facility] ([facility] ) Smoking 03/06/2020 12:00:00 AM EDT Patient is a former smoker completed Patient is a former smoker [facility] ([facility]) Vital Signs ID Date Data Source [id number] Name Value Range Interpretation Code Description Data Source(s) [place] body weight 150 [lb_av] 150 [lb_av] [facility] T ([facility]) Systolic blood pressure 130 mm[Hg] 130 mm[Hg] M EDENT ([facility]) Diastolic blood pressure 82 mm[Hg] 82 mm[Hg] [facility] ([facility]) Heart rate 94 /min 94 /min [facility] ([facility]) Oxygen saturation in Arterial blood by Pulse oximetry 99 % 99 % [facility] ([facility]) Body height 70 [in_i] 70 [in_i] [facility] ([facility]) 5'10" [place] body weight 150 [lb_av] 150 [lb_av] [facility] T ([facility]) Body weight 87.998 kg 87.998 kg [facility] ([facility]) Body surface area Derived from formula 2.06 m2 2.06 m2 [facility] ([facility]) Body weight 194.00 [lb_av] 194.00 [lb_av] [facility] T ([facility]) Body mass index (BMI) [Ratio] 27.8 kg/m2 27.8 k g/m2 [facility] ([facility]) Body height 70 [in_i] 70 [in_i] [facility] ([facility]) 5'10" Systolic blood pressure 118 mm[Hg] 118 mm[Hg] [facility] Diastolic blood pressure 78 mm[Hg] 78 mm[Hg] [facility] ([facility]) Heart rate 88 /min 88 /min [facility] ([facility]) Oxygen saturation in Arterial blood by Pulse oximetry 99 % 99 % [facility] ([facility]) Diastolic blood pressure 75 mm[Hg] 75 mm[Hg] [facility] ([facility]) Body mass index (BMI) [Ratio] 27.8 kg/m2 27.8 k g/m2 [facility] ([facility] Body weight 194.00 [lb_av] 194.00 [lb_av] [facility] T ([facility]) Body height 70 [in_i] 70 [in_i] [facility] ([facility] 5'10" Heart rate 76 /min 76 /min [facility] ([facility] Respiratory rate 18 /min 18 /min [facility] ( [facility]) Systolic blood pressure 111 mm[Hg] 111 mm[Hg] M EDENT ([facility]) Body mass index (BMI) [Ratio] 28.1 kg/m2 28.1 k g/m2 [facility] ([facility]) Diastolic blood pressure 70 mm[Hg] 70 mm[Hg] [facility] ([facility]) Body height 69.5 [in_i] 69.5 [in_i] [facility] ([facility]) 5'9.50" Systolic blood pressure 116 mm[Hg] 116 mm[Hg] [facility] ([facility]) Body weight 193.00 [lb_av] 193.00 [lb_av] [facility] T ([facility]) Systolic blood pressure 140 mm[Hg] 140 mm[Hg] [facility] ([facility]) Diastolic blood pressure 78 mm[Hg] 78 mm[Hg] [facility] ([facility]) Heart rate 90 /min 90 /min [facility] ([facility]) Oxygen saturation in Arterial blood by Pulse oximetry 96 % 96 % [facility] ([facility]) [place] body weight 150 [lb_av] 150 [lb_av] [facility] T ([facility]) Body height 70 [in_i] 70 [in_i] [facility] ([facility]) 5'10" Body weight 192.00 [lb_av] 192.00 [lb_av] [facility] T ([facility]) Body mass index (BMI) [Ratio] 27.5 kg/m2 27.5 k g/m2 [facility] ([facility]) Body weight 87.091 kg 87.091 kg [facility] ([facility]) Body surface area Derived from formula 2.05 m2 2.05 m2 [facility] ([facility]) Oxygen saturation in Arterial blood by Pulse oximetry 98 % 98 % [facility] ([facility]) Diastolic blood pressure 76 mm[Hg] 76 mm[Hg] MEDENT ([facility]) Heart rate 74 /min 74 /min MEDENT ([facility]) Body weight 192.00 [lb_av] 192.00 [lb_av] MEDEN T ([facility]) Body mass index (BMI) [Ratio] 27.9 kg/m2 27.9 k g/m2 MEDENT ([facility]) Systolic blood pressure 118 mm[Hg] 118 mm[Hg] M EDENT ([facility]) Body height 69.5 [in_i] 69.5 [in_i] MEDENT ([facility]) 5'9.50" Respiratory rate 12 /min 12 /min MEDENT ( [facility]) Body height 70 [in_i] 70 [in_i] MEDENT ([facility]) 5'10" Body weight 191.00 [lb_av] 191.00 [lb_av] MEDEN T ([facility]) Body mass index (BMI) [Ratio] 27.4 kg/m2 27.4 k g/m2 MEDENT ([facility]) [place] body weight 150 [lb_av] 150 [lb_av] MEDEN T ([facility]) Respiratory rate 12 /min 12 /min MEDENT ( [facility]) Body weight 195.00 [lb_av] 195.00 [lb_av] MEDEN T ([facility]) [place] body weight 150 [lb_av] 150 [lb_av] MEDEN T ([facility]) Body height 70 [in_i] 70 [in_i] MEDENT ([facility]) 5'10" Body mass index (BMI) [Ratio] 28.0 kg/m2 28.0 k g/m2 MEDENT ([facility]) Body temperature 96.8 [degF] 96.8 [degF] MEDENT ([facility]) Body height 68.75 [in_i] 68.75 [in_i] MEDENT ([facility]) 5'8.75" Body weight 196.00 [lb_av] 196.00 [lb_av] MEDEN T ([facility]) Body mass index (BMI) [Ratio] 29.2 kg/m2 29.2 k g/m2 MEDENT ([facility]) Body surface area Derived from formula 2.08 m2 2.08 m2 [facility] Oxygen saturation in Arterial blood by Pulse oximetry 99 % 99 % [facility] ([facility]) Body temperature 97.3 [degF] 97.3 [degF] [facility] Body height 70 [in_i] 70 [in_i] MEDENT ([facility]) 5'10" Body weight 199.00 [lb_av] 199.00 [lb_av] MEDEN T ([facility]) Body mass index (BMI) [Ratio] 28.6 kg/m2 28.6 k g/m2 [facility] ([facility]) [place] body weight 150 [lb_av] 150 [lb_av] MEDEN T ([facility]) Body weight 90.266 kg 90.266 kg [facility] ([facility]) Body surface area Derived from formula 2.08 m2 2.08 m2 [facility] Body height 70 [in_i] 70 [in_i] MEDENT ([facility]) 5'10" Body weight 199.00 [lb_av] 199.00 [lb_av] MEDEN T ([facility]) Body mass index (BMI) [Ratio] 28.6 kg/m2 28.6 k g/m2 [facility] ([facility]) [place] body weight 150 [lb_av] 150 [lb_av] MEDEN T ([facility]) Systolic blood pressure 132 mm[Hg] 132 mm[Hg] M EDENT ([facility]) Diastolic blood pressure 82 mm[Hg] 82 mm[Hg] MEDENT ([facility], ) Heart rate 92 /min 92 /min MEDENT ([facility], ) Oxygen saturation in Arterial blood by Pulse oximetry 99 % 99 % MEDENT ([facility]) Body temperature 97.3 [degF] 97.3 [degF] MEDENT ([facility]) Body weight 90.266 kg 90.266 kg MED[facility] ([facility]) Systolic blood pressure 126 mm[Hg] 126 mm[Hg] M EDENT ([facility]) Diastolic blood pressure 68 mm[Hg] 68 mm[Hg] MED[facility] ([facility]) Body height 69.5 [in_i] 69.5 [in_i] MEDENT ([facility]) 5'9.50" Body mass index (BMI) [Ratio] 29.0 kg/m2 29.0 k g/m2 MEDENT ([facility]) Body weight 199.12 [lb_av] 199.12 [lb_av] MEDEN T ([facility]) Heart rate 77 /min 77 /min [facility] ([facility] Body mass index (BMI) [Ratio] 28.4 kg/m2 28.4 k g/m2 MED[facility] ([facility]) Respiratory rate 18 /min 18 /min MED[facility] ( [facility]) Systolic blood pressure 118 mm[Hg] 118 mm[Hg] EDENT ([facility]) Diastolic blood pressure 80 mm[Hg] 80 mm[Hg] MED[facility] ([facility]) Body weight 198.00 [lb_av] 198.00 [lb_av] MEDEN T ([facility]) Body height 70 [in_i] 70 [in_i] MEDENT ([facility]) 5'10" Respiratory rate 12 /min 12 /min MEDENT ( [facility], ) Body height 70 [in_i] 70 [in_i] MEDENT ([facility], ) 5'10" Body weight 195.00 [lb_av] 195.00 [lb_av] MEDEN T ([facility], ) Body mass index (BMI) [Ratio] 28.0 kg/m2 28.0 k g/m2 MED[facility] ([facility], ) [place] body weight 150 [lb_av] 150 [lb_av] MEDEN T ([facility], ) Systolic blood pressure 148 mm[Hg] 148 mm[Hg] M EDENT ([facility], [facility]) Oxygen saturation in Arterial blood by Pulse oximetry 98 % 98 % MEDENT ([facility], [facility]) Body weight 195.00 [lb_av] 195.00 [lb_av] MEDEN T ([facility], [facility]) Body height 70 [in_i] 70 [in_i] MEDENT ([facility], [facility]) 5'10" Body mass index (BMI) [Ratio] 28.0 kg/m2 28.0 k g/m2 MEDENT ([facility], [facility]) Heart rate 90 /min 90 /min MEDENT ([facility], [facility]) Respiratory rate 16 /min 16 /min MEDENT ( [facility], [facility]) Diastolic blood pressure 108 mm[Hg] 108 mm[Hg] MEDENT ([facility], [facility]) Respiratory rate 16 /min 16 /min MEDENT ( [facility], [facility]) Body height 70 [in_i] 70 [in_i] MEDENT ([facility], [facility]) 5'10" Body mass index (BMI) [Ratio] 28.0 kg/m2 28.0 k g/m2 MEDENT ([facility], [facility]) Oxygen saturation in Arterial blood by Pulse oximetry 98 % 98 % MEDENT ([facility], [facility]) Body temperature 98.5 [degF] 98.5 [degF] MEDENT ([facility], [facility]) Body weight 195.00 [lb_av] 195.00 [lb_av] MEDEN T ([facility], [facility]) Systolic blood pressure 138 mm[Hg] 138 mm[Hg] M EDENT ([facility], [facility]) Diastolic blood pressure 90 mm[Hg] 90 mm[Hg] MEDENT ([facility]) Heart rate 93 /min 93 /min MEDENT ([facility], [facility]) Body weight 202.50 [lb_av] 202.50 [lb_av] MEDEN T ([facility]) Body height 70 [in_i] 70 [in_i] MEDENT ([facility]) 5'10" Respiratory rate 18 /min 18 /min MEDENT ( [facility]) Systolic blood pressure 108 mm[Hg] 108 mm[Hg] M EDENT ([facility]) Diastolic blood pressure 72 mm[Hg] 72 mm[Hg] MED[facility] ([facility]) Body mass index (BMI) [Ratio] 29.1 kg/m2 29.1 k g/m2 MED[facility] ([facility]) Heart rate 81 /min 81 /min MED[facility] ([facility])
[2021-03-11] MEDS ORDERED: METR-265 PO (12:46)
[2021-03-11] MEDS ORDERED: VANCOMYCIN ORAL SOL 250MG/5ML ORAL SYRINGE PO ONE (13:20)
[2021-03-11] MEDS ORDERED: NS 1,000 ML IV ONE (13:20)
--- OUTSIDE RECORDS SUMMARY | 2021-03-11 14:09 | CCD ---
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 INJECTION SINGLE/FISCAL ANALYST TRIGGER POINT 3/> MUSCLES 12:00:00 AM EDT [facility] ([facility] ) Injection For Nerve Block, Greater Occipital Nerve 03/05/2020 12:00:00 AM EDT [facility] ([facility] ) INJECTION ANES OTHER PERIPHERAL NERVE/BRANCH 12:00:00 AM EDT [facility] ([facility] ) PROF GREEN ALLG IMMNTX X W/PRV ALLGIC XTRCS NJXS 2019 12:00:00 AM EDT [facility] ([facility]) MRI BRAIN BRAIN STEM W/O CONTRAST MATERIAL 02/18/2020 12:00:00 AM EDT [facility] ([facility] ) MRI BRAIN BRAIN STEM W/O CONTRAST MATERIAL 02/18/2020 12:00:00 AM EDT [facility] ([facility] ) PROF GREEN ALLG IMMNTX X W/PRV ALLGIC XTRCS NJXS 2019 12:00:00 AM EDT [facility] ([facility] PROF GREEN ALLG IMMNTX X W/PRV ALLGIC XTRCS NJXS 2019 12:00:00 AM EDT [facility] ([facility]) PREPJ& ALLERGEN IMMUNOTHERAPY 1/FISCAL ANALYST ANTIGEN 01/26/2020 12:00:00 AM EDT [facility] ([facility] [place]) Results ID Date Data Source [id number] 03/02/2021 07:00:00 AM EDT [facility] ([facility], ) Name Value Range Interpretation Code Description Data Christine rce(s) Supporting Document(s) Gastrointestinal (GI) Panel Laboratory test result [facility] ([facility], ) This Gastrointestinal PCR Panel detects the [...] ADENOVIRUS F 40/41 ID Date Data Source [id number] 03/02/2021 07:00:00 AM EDT [facility] ([facility]) Name Value Range Interpretation Code Description Data Christine rce(s) Supporting Document(s) Lactoferrin [Presence] in Stool by Immunoassay Laboratory test r esult Abnormal (applies to non-numeric results) [facility] ([facility]) ID Date Data Source [id number] 03/01/2021 11:30:00 AM EDT [facility] ([facility]) Name Value Range Interpretation Code Description Data Christine rce(s) Supporting Document(s) Coronavirus 2019 Nasopharygeal Laboratory test result [facility] ([facility]) ASSAY INFORMATION: Real Time RT-PCR NOTE: The COVID-19 assay has been cleared by the U.S. Food and Drug Administration under the Emergency Use Authorization (EUA). [facility] and [facility] are designated as high complexity laboratories by the Clinical Laboratory Improvement Amendments of 1988(CLIA) and are qualified to perform this test. Not Detected ID Date Data Source [id number] 03/01/2021 10:26:00 AM EDT [facility]) Name Value Range Interpretation Code Description Data Christine rce(s) Supporting Document(s) FVC-Pred 3.69 L [facility] ([facility]) PDFReport Laboratory test result [facility] ([facility]) FVC-%Pred-Pre 82 L [facility] ([facility]) FVC-Pre 3.03 L [facility] ([facility]) FVC-LLN 2.86 L [facility] ([facility]) Fev1-Pre 2.31 L [facility] ([facility]) Fev1-%Pred-Pre 82 L [facility] ([facility]) Fev1-Pred 2.80 L [facility] ([facility]) Fev1-LLN 2.10 L [facility] ([facility]) Fev6-Pred 3.54 L [facility] ([facility], ) Fev6-Pre 3.00 L [facility] ([facility]) Fev6-%Pred-Pre 84 L [facility] ([facility]) Fev6-LLN 2.72 L [facility] ([facility]) Hld1gow-Dujd 76 % [facility] ([facility]) Vkh9bvf-%Pred-Pre 101 % [facility] ([facility]) Zzy1jnc-FDK 66 % [facility] ([facility]) Veg0wvr-Ywl 76 % [facility] ([facility]) Wlp7uzq-Qobe 96 % [facility] ([facility]) Iiq4zoo-%Pred-Pre 103 % [facility] ([facility]) Dhc7zrx-Ycu 99 % [facility] ([facility]) FEFMax-Pred 6.46 L/E/sec [facility] ([facility]) FEFMax-%Pred-Pre 109 L/E/sec [facility] ([facility]) FEFMax-Pre 7.05 L/E/sec [facility] ([facility]) FEFMax-LLN 4.40 L/E/sec [facility] ([facility]) Dyw1803-Cxql 2.17 L/E/sec [facility] ([facility]) Srp5720-Wuo 1.87 L/E/sec [facility] ([facility]) Tji6143-CFI 0.68 L/E/sec [facility] ([facility]) Lbv7349-%Pred-Pre 86 L/E/sec [facility] ([facility]) ExpTime-Pre 7.02 sec [facility] ([facility]) Goj0yar7-Bwvs 79 % [facility] ([facility]) Xwm4gyu2-Vqs 77 % [facility] ([facility]) Vrr7zie4-JRS 70 % [facility] ([facility]) Xct7juz7-%Pred-Pre 97 % [facility] ([facility], ) ID Date Data Source [id number] 02/13/2021 10:27:00 AM EDT [facility] ([facility] Name Value Range Interpretation Code Description Data Christine rce(s) Supporting Document(s) [facility] Laboratory test result Abnormal (applies to non -numeric results) [facility]) AMENDMENT SECTION 02/19/2021: ADDENDUM REPORT - [...] is a shave biopsy of skin measuring [id number]. The specimen is bisected and entirely submitted in one cassette. 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 The basaloid cells are arranged in lobules, branching irregular aggregates, and cords. CPT Codes 91094 The CPT codes provided are for information purposes only, and are based on AMA guidelines without regard to specific payor requirements. END OF REPORT FINAL REPORT-ACC AMEND FINAL [facility],[address] [place] [address],[place] [address]. [phone]. [phone]. Physician Intensivist: Ghassan Yeung MD [facility] [id number], [place] [id number], [place] [id number] Laboratory test finding (navigational concept) Laboratory test result [facility] ([facility]) ID Date Data Source [id number] 02/12/2021 02:43:00 PM EDT [facility] ([facility] ) Name Value Range Interpretation Code Description Data Christine rce(s) Supporting Document(s) FVC-Pred 3.69 L [facility] ([facility], ) FVC-Pre 3.08 L [facility] ([facility]) PDFReport Laboratory test result [facility] ([facility]) FVC-%Pred-Pre 83 L [facility] ([facility], ) FVC-LLN 2.86 L [facility] ([facility], ) Fev1-Pre 2.55 L [facility] ([facility]) Fev1-%Pred-Pre 90 L [facility] ([facility]) Fev1-Pred 2.80 L [facility] ([facility], ) Fev6-Pre 3.08 L [facility] ([facility]) Fev6-Pred 3.54 L [facility] ([facility]) Fev1-LLN 2.10 L [facility] ([facility]) Ong5gzs-Xxaf 76 % [facility] ([facility]) Fev6-%Pred-Pre 87 L [facility] ([facility]) Fev6-LLN 2.72 L [facility] ([facility], ) Hjx9dkv-%Pred-Pre 109 % [facility] ([facility]) Mvo0vvn-Cmi 83 % [facility] ([facility]) Teq0kky-Ewy 100 % [facility] ([facility]) Ltu4akg-Jyzu 96 % [facility] ([facility]) Qos8ldu-OJQ 66 % [facility] ([facility]) FEFMax-Pre 6.93 L/E/sec [facility] ([facility]) Mfb6lqk-%Pred-Pre 104 % [facility] ([facility]) FEFMax-%Pred-Pre 107 L/E/sec [facility] ([facility]) FEFMax-Pred 6.46 L/E/sec [facility] ([facility]) FEFMax-LLN 4.40 L/E/sec [facility] ([facility]) Hke0988-Ojim 2.17 L/E/sec [facility] ([facility]) Tdw5154-Byu 2.69 L/E/sec [facility] ([facility]) Xth0666-%Pred-Pre 124 L/E/sec [facility] ([facility], ) ExpTime-Pre 6.51 sec [facility] ([facility]) Ciu9306-EON 0.68 L/E/sec [facility] ([facility]) Sck1utw0-Lvf 83 % [facility] ([facility]) Skd5dkk4-Tnwo 79 % [facility] ([facility]) Bud5kxw3-%Pred-Pre 104 % [facility] ([facility]) Prg0owo2-HJV 70 % [facility] ([facility]) ID Date Data Source [id number] 02/06/2021 01:39:00 PM EDT [facility] ([facility]) Name Value Range Interpretation Code Description Data Christine rce(s) Supporting Document(s) Glucose [Mass/volume] in Serum or Plasma 83 mg/dL 74-99 [facility] ([facility]) 100-125 mg/dL PRE-DIABETES/FASTING >126 mg/dL DIABETES/FASTING Sodium [Moles/volume] in Serum or Plasma 138 meq/L 136-145 [facility] ([facility]) Creatinine 0.8 mg/dL 0.6-1.3 [facility] ([facility]) Urea nitrogen [Mass/volume] in Serum or Plasma 13 mg/dL 7-18 [facility] ([facility]) Potassium [Moles/volume] in Serum or Plasma 4.4 meq/L 3.5-5.1 [facility] ([facility]) Chloride [Moles/volume] in Serum or Plasma 101 meq/L 98-107 [facility] ([facility]) Carbon dioxide, total [Moles/volume] in Serum or Plasma 33 meq/L 21 -32 [facility] ([facility]) Calcium [Mass/volume] in Serum or Plasma 9.0 mg/dL 8.5-10.1 [facility] Glomerular filtration rate/1.73 sq M pre dicted among non-blacks [Volume Rate/Area] in Serum or Plasma by Creatinine-based formula (MDRD) Laboratory test result [facility] ([facility] ) Glomerular filtration rate/1.73 sq M pre dicted among blacks [Volume Rate/Area] in Serum or Plasma by Creatinine-based formula (MDRD) Laboratory test result [facility] ([facility]) <content>CHRONIC KIDNEY DISEASE STAGING PER NKF</content>
<content></content>
<content>STAGE I & II GFR >= 60 NORMAL TO MILDLY DECREASED</content>
<content>STAGE III GFR 30-59 MODERATELY DECREASED</content>
<content>STAGE IV GFR 15-29 SEVERELY DECREASED</content>
<content>STAGE V GFR <15 VERY LITTLE GFR LEFT</content>
<content>ESRD GFR <15 ON OPTIMIZATION ENGINEER</content>
<content></content> ID Date Data Source [id number] 02/06/2021 01:39:00 PM EDT [facility]) Name Value Range Interpretation Code Description Data Christine rce(s) Supporting Document(s) Leukocytes [#/volume] in Blood by Automated count 5.1 x10*3/UL 4.1-10 .9 [facility] ([facility]) Erythrocytes [#/volume] in Blood by Automated count 4.51 x10*6/UL 4.2 0-6.30 [facility] ([facility]) Hemoglobin [Mass/volume] in Blood 14.4 g/dL 12.0-18.0 [facility] MCV 91.6 fL 80.0-97.0 [facility] ([facility]) Hematocrit [Volume Fraction] of Blood by Automated count 41.3 % 3 7.0-51.0 [facility] ([facility]) Erythrocyte distribution width [Ratio] by Automated count 13.5 % 11.6-13.7 [facility] ([facility]) MCH 31.9 pg 26.0-32.0 [facility] MCHC 34.8 g/dL 31.0-38.0 [facility] MPV 8.7 FL 7.8-11.0 [facility] Platelets [#/volume] in Blood by Automated count 184 x10*3/UL 140-440 [facility] ([facility] Lymph % 43.9 % 10.0-58.5 [facility] ([facility]) Lymph # 2.2 x10*3/UL 0.6-4.1 [facility] ([facility] Mid % 7.8 % 1.7-9.3 [facility] ([facility]) Neut % 48.3 % 37.0-92.0 [facility] ([facility]) Mid # 0.5 x10*3/UL 0.1-0.6 [facility] ([facility]) Neut # 2.4 x10*3/UL 2.0-7.8 [facility] ([facility] ID Date Data Source [id number] 02/05/2021 01:40:00 PM EDT [facility] ([facility]) Name Value Range Interpretation Code Description Data Christine rce(s) Supporting Document(s) Valproate [Mass/volume] in Serum or Plasma 56.4 UG/ML 50.0-100.0 [facility] ([facility]) ID Date Data Source [id number] 02/05/2021 01:39:00 PM EDT [facility] ([facility]) Name Value Range Interpretation Code Description Data Christine rce(s) Supporting Document(s) Thyrotropin [Units/volume] in Serum or Plasma by Detec tion limit <= 0.05 mIU/L 2.08 uIU/mL 0.36-3.74 [facility] ([facility] ) ID Date Data Source [id number] 01/07/2021 02:44:00 PM EDT [facility] ([facility]) Name Value Range Interpretation Code Description Data Christine rce(s) Supporting Document(s) Coronavirus 2019 Nasopharygeal Laboratory test result [facility] ([facility]) ASSAY INFORMATION: Real Time RT-PCR NOTE: The COVID-19 assay has been cleared by the U.S. Food and Drug Administration under the Emergency Use Authorization (EUA). [facility] and [facility] are designated as high complexity laboratories by the Clinical Laboratory Improvement Amendments of 1988(CLIA) and are qualified to perform this test. Not Detected ID Date Data Source [id number] 01/07/2021 02:44:00 PM EDT [facility] Name Value Range Interpretation Code Description Data Christine rce(s) Supporting Document(s) SARS-CoV-2 (COVID-19) RNA [Presence] in Respiratory specimen by ALEXA with probe detection Not Detected [facility] This lab was ordered by [facility] and reported by [employer]. ID Date Data Source [id number] 01/07/2021 02:20:00 PM EDT [facility] ([facility]) Name Value Range Interpretation Code Description Data Christine rce(s) Supporting Document(s) Laboratory test finding (navigational concept) Laboratory test result [facility] ([facility]) The [place] SARS Antigen ANAND does not diff erentiate between SARS-CoV and SARS-CoV-2. Negative results do not rule out COVID-19 and should not be used as the sole basis for treatment. Negative results should be considered in the context of a patient's recent exposure, history and the presence of clinical signs and symptoms consistent with COVID-19. ID Date Data Source [id number] 01/07/2021 02:20:00 PM EDT [facility] Name Value Range Interpretation Code Description Data Christine rce(s) Supporting Document(s) SARS COVID ANTIGEN NEGATIVE [facility] This lab was ordered by [facility] nd reported by [facility]. ID Date Data Source [id number] 10/29/2020 10:28:00 AM EDT [facility] ([facility]) Name Value Range Interpretation Code Description Data Christine rce(s) Supporting Document(s) 3D Bi-Lateral Mammogram Laboratory test result [facility] ([facility]) ID Date Data Source [id number] 08/07/2020 02:17:00 PM EDT [facility] ([facility], ) Name Value Range Interpretation Code Description Data Christine rce(s) Supporting Document(s) PDFReport Laboratory test result [facility] ([facility], ) FVC-Pre 3.01 L [facility] ([facility], ) FVC-Pred 3.73 L [facility] ([facility]) Fev1-Pred 2.83 L [facility] ([facility], ) FVC-LLN 2.90 L [facility] ([facility]) FVC-%Pred-Pre 80 L [facility] ([facility], ) Fev1-%Pred-Pre 89 L [facility] ([facility]) Fev1-Pre 2.53 L [facility] ([facility]) Fev6-Pred 3.57 L [facility] ([facility]) Fev1-LLN 2.13 L [facility] ([facility]) Fev6-%Pred-Pre 84 L [facility] ([facility]) Fev6-Pre 3.01 L [facility] ([facility]) Fev6-LLN 2.76 L [facility] ([facility]) Ddb4xgf-Czgn 76 % [facility] ([facility]) Owy0ios-Rld 84 % [facility] ([facility]) Cbq6loq-%Pred-Pre 111 % [facility] ([facility]) Mwx2ayk-EBF 66 % [facility] ([facility]) Fpl6scu-Cfhz 96 % [facility] ([facility]) Tev7quw-Fau 100 % [facility] ([facility]) Jfn2qjj-%Pred-Pre 104 % [facility] ([facility]) FEFMax-Pred 6.54 L/E/sec [facility] ([facility], ) FEFMax-Pre 6.94 L/E/sec [facility] ([facility]) FEFMax-%Pred-Pre 106 L/E/sec [facility] ([facility]) FEFMax-LLN 4.48 L/E/sec [facility] ([facility]) Hzd2641-Ziyi 2.21 L/E/sec [facility] ([facility]) Uyc5955-%Pred-Pre 127 L/E/sec [facility] ([facility]) Qor0507-Ofb 2.83 L/E/sec [facility] ([facility], ) Alc2exr2-Hvne 79 % [facility] ([facility]) Yhl6156-FAQ 0.73 L/E/sec [facility] ([facility]) ExpTime-Pre 6.23 sec [facility] ([facility]) Bua3xap9-OHX 70 % [facility] ([facility]) Jov2dtc3-Zjv 84 % [facility] ([facility]) Bwk2isn0-%Pred-Pre 106 % [facility] ([facility]) ID Date Data Source [id number] 08/03/2020 08:58:00 AM EDT [facility] Name Value Range Interpretation Code Description Data Christine rce(s) Supporting Document(s) Valproate [Mass/volume] in Serum or Plasma 81.2 UG/ML 50.0-100.0 [facility] ([place] [facility]) ID Date Data Source [id number] 08/03/2020 08:57:00 AM EDT [facility] ([facility]) Name Value Range Interpretation Code Description Data Christine rce(s) Supporting Document(s) Thyrotropin [Units/volume] in Serum or Plasma by Detec tion limit <= 0.05 mIU/L 2.70 uIU/mL 0.36-3.74 [facility] ([place] [facility] ) ID Date Data Source [id number] 08/03/2020 08:57:00 AM EDT [facility] ([facility]) Name Value Range Interpretation Code Description Data Christine rce(s) Supporting Document(s) Cholesterol [Mass/volume] in Serum or Plasma 196 mg/dL 131-200 [facility] ([facility]) Cholesterol in HDL [Mass/volume] in Serum or Plasma 62 mg/dL 35-60 [facility] ([facility]) Triglyceride [Mass/volume] in Serum or Plasma 97 mg/dL 30-150 [facility] ([facility] [place] [facility]) Cholesterol in LDL [Mass/volume] in Serum or Plasma by calcu lation 115 CALC 50-159 [facility] ([place] [facility]) ID Date Data Source [id number] 08/03/2020 08:57:00 AM EDT [facility] ([facility]) Name Value Range Interpretation Code Description Data Christine e(s) Supporting Document(s) Glucose [Mass/volume] in Serum or Plasma 84 mg/dL 74-99 [facility] ([facility]) 100-125 mg/dL PRE-DIABETES/FASTING >126 mg/dL DIABETES/FASTING Creatinine 0.7 mg/dL 0.6-1.3 [facility] ([facility]) Urea nitrogen [Mass/volume] in Serum or Plasma 19 mg/dL 7-18 [facility] ([facility]) Sodium [Moles/volume] in Serum or Plasma 141 meq/L 136-145 [facility] ([facility]) Potassium [Moles/volume] in Serum or Plasma 4.2 meq/L 3.5-5.1 [facility] ([facility]) Chloride [Moles/volume] in Serum or Plasma 101 meq/L 98-107 [facility] ([place] [facility] Carbon dioxide, total [Moles/volume] in Serum or Plasma 32 meq/L 21 -32 [facility] ([facility]) Calcium [Mass/volume] in Serum or Plasma 9.2 mg/dL 8.5-10.1 [facility] ([facility]) Alkaline phosphatase isoenzyme [Units/volume] in Serum or Pl asma 104 mg/dL 46-116 [facility] [facility] Total Bilirubin 0.4 mg/dL 0.2-1.0 [facility] Aspartate aminotransferase [Enzymatic activity/volume] in Serum or Plasma 22 U/L 15-37 [facility] ([facility] ) Alanine aminotransferase [Enzymatic activity/volume] in Seru m or Plasma 24 U/L 12-78 [facility] ([facility]) Albumin [Mass/volume] in Serum or Plasma 3.8 g/dL 3.4-5.0 [facility] ([facility]) Glomerular filtration rate/1.73 sq M pre dicted among non-blacks [Volume Rate/Area] in Serum or Plasma by Creatinine-based formula (MDRD) Laboratory test result [facility] ([place] [facility] ) A/G Ratio 1.19 CALC 1.00-1.90 [facility] ([facility]) Proteinase 3 Ab [Units/volume] in Serum 7.0 g/dL 6.4-8.2 [facility] ([facility]) Glomerular filtration rate/1.73 sq M pre dicted among blacks [Volume Rate/Area] in Serum or Plasma by Creatinine-based formula (MDRD) Laboratory test result [facility] ([place] [facility]) <content>CHRONIC KIDNEY DISEASE STAGING PER NKF</content>
<content></content>
<content>STAGE I & II GFR >= 60 NORMAL TO MILDLY DECREASED</content>
<content>STAGE III GFR 30-59 MODERATELY DECREASED</content>
<content>STAGE IV GFR 15-29 SEVERELY DECREASED</content>
<content>STAGE V GFR <15 VERY LITTLE GFR LEFT</content>
<content>ESRD GFR <15 ON OPTIMIZATION ENGINEER</content>
<content></content> ID Date Data Source [id number] 08/03/2020 08:57:00 AM EDT [facility] ([facility] Name Value Range Interpretation Code Description Data Christine rce(s) Supporting Document(s) Leukocytes [#/volume] in Blood by Automated count 4.8 x10*3/UL 4.1-10 .9 [facility] ([place] [facility] Erythrocytes [#/volume] in Blood by Automated count 4.30 x10*6/UL 4.2 0-6.30 [facility] ([facility] [place] [facility]) Hemoglobin [Mass/volume] in Blood 13.9 g/dL 12.0-18.0 [facility] MCV 92.0 fL 80.0-97.0 [facility]) Hematocrit [Volume Fraction] of Blood by Automated count 39.6 % 3 7.0-51.0 [facility] ([facility]) MCH 32.2 pg 26.0-32.0 [facility]) Erythrocyte distribution width [Ratio] by Automated count 13.5 % 11.6-13.7 [facility] ([facility]) Platelets [#/volume] in Blood by Automated count 166 x10*3/UL 140-440 [facility] ([facility]) MCHC 35.0 g/dL 31.0-38.0 [facility] ([facility]) Lymph % 51.0 % 10.0-58.5 [facility] ([facility]) MPV 8.6 FL 7.8-11.0 [facility] ([facility]) Neut % 40.8 % 37.0-92.0 [facility] ([facility]) Mid % 8.2 % 1.7-9.3 [facility] ([facility]) Lymph # 2.4 x10*3/UL 0.6-4.1 [facility] ([facility]) Mid # 0.5 x10*3/UL 0.1-0.6 [facility] ([facility]) Neut # 1.9 x10*3/UL 2.0-7.8 [facility] ([facility]) ID Date Data Source [id number] 03/01/2020 08:33:00 AM EDT [facility] ([facility]) Name Value Range Interpretation Code Description Data Christine rce(s) Supporting Document(s) Bacteria identified in Urine by Culture Laboratory test result [facility] ([facility]) rx macrobid ID Date Data Source [id number] 02/07/2020 01:48:00 PM EDT [facility] ([facility]) Name Value Range Interpretation Code Description Data Christine rce(s) Supporting Document(s) Valproate [Mass/volume] in Serum or Plasma 53.9 UG/ML 50.0-100.0 [facility] ([facility]) Procedure Social History Code Duration Value Status Description Data Source(s ) Smoking 03/11/2021 12:00:00 AM EDT - 05/11/1978 12:00:00 AM EST Patient is a former smoker completed Patient is a former smoker [facility] ([facility], ) Smoking 02/18/2021 12:00:00 AM EDT Patient is a former smoker completed Patient is a former smoker [facility] ([facility] ) Smoking 03/06/2020 12:00:00 AM EDT Patient is a former smoker completed Patient is a former smoker [facility] ([facility]) Vital Signs ID Date Data Source UNK Name Value Range Interpretation Code Description Data Source(s) Systolic blood pressure 130 mm[Hg] 130 mm[Hg] [facility] Diastolic blood pressure 82 mm[Hg] 82 mm[Hg] [facility] ([facility]) Heart rate 94 /min 94 /min [facility] ([facility]) Oxygen saturation in Arterial blood by Pulse oximetry 99 % 99 % [facility] ([facility]) Body height 70 [in_i] 70 [in_i] [facility] ([facility]) 5'10" Warrior body weight 150 [lb_av] 150 [lb_av] [facility] ([facility]) Warrior body weight 150 [lb_av] 150 [lb_av] [facility] Body weight 87.998 kg 87.998 kg [facility] ([facility]) Body surface area Derived from formula 2.06 m2 2.06 m2 [facility] ([facility]) Body weight 194.00 [lb_av] 194.00 [lb_av] [facility] Body mass index (BMI) [Ratio] 27.8 kg/m2 27.8 k g/m2 [facility] ([facility]) Body height 70 [in_i] 70 [in_i] [facility] ([facility]) 5'10" Systolic blood pressure 118 mm[Hg] 118 mm[Hg] [facility] ([facility]) Diastolic blood pressure 78 mm[Hg] 78 mm[Hg] [facility] ([facility]) Heart rate 88 /min 88 /min [facility] ([facility]) Oxygen saturation in Arterial blood by Pulse oximetry 99 % 99 % [facility] ([facility]) Diastolic blood pressure 75 mm[Hg] 75 mm[Hg] [facility] ([facility]) Body mass index (BMI) [Ratio] 27.8 kg/m2 [...] [Ratio] 28.1 kg/m2 28.1 k g/m2 [facility] ([facility]) Diastolic blood pressure 70 mm[Hg] 70 mm[Hg] [facility] ([facility]) Body height 69.5 [in_i] 69.5 [in_i] [facility] ([facility]) 5'9.50" Systolic blood pressure 116 mm[Hg] 116 mm[Hg] [facility] ([facility]) Body weight 193.00 [lb_av] 193.00 [lb_av] [facility] ([facility]) Systolic blood pressure 140 mm[Hg] 140 mm[Hg] [facility] ([facility]) Diastolic blood pressure 78 mm[Hg] 78 mm[Hg] [facility] ([facility]) Heart rate 90 /min 90 /min [facility] ([facility]) Oxygen saturation in Arterial blood by Pulse oximetry 96 % 96 % [facility] ([facility]) Warrior body weight 150 [lb_av] 150 [lb_av] [facility] ([facility]) Body height 70 [in_i] 70 [in_i] [facility] ([facility]) 5'10" Body weight 192.00 [lb_av] 192.00 [lb_av] [facility] ([facility]) Body mass index (BMI) [Ratio] 27.5 kg/m2 27.5 k g/m2 [facility] ([facility]) Body weight 87.091 kg 87.091 kg [facility] ([facility]) Body surface area Derived from formula 2.05 m2 2.05 m2 [facility] ([facility]) Oxygen saturation in Arterial blood by Pulse oximetry 98 % 98 % [facility] ([facility]) Diastolic blood pressure 76 mm[Hg] 76 mm[Hg] [facility] ([facility]) Heart rate 74 /min 74 /min [facility] ([facility]) Body weight 192.00 [lb_av] 192.00 [lb_av] [facility] ([facility]) Body mass index (BMI) [Ratio] 27.9 kg/m2 27.9 k g/m2 [facility] ([facility]) Systolic blood pressure 118 mm[Hg] 118 mm[Hg] M [facility] ([facility]) Body height 69.5 [in_i] 69.5 [in_i] [facility] ([facility]) 5'9.50" Warrior body weight 150 [lb_av] 150 [lb_av] [facility] ([facility]) Body height 70 [in_i] 70 [in_i] [facility] ([facility]) 5'10" Body weight 191.00 [lb_av] 191.00 [lb_av] [facility] ([facility]) Body mass index (BMI) [Ratio] 27.4 kg/m2 27.4 k g/m2 [facility] ([facility]) Respiratory rate 12 /min 12 /min [facility] ( [facility]) Warrior body weight 150 [lb_av] 150 [lb_av] [facility] ([facility]) Respiratory rate 12 /min 12 /min [facility] ( [facility]) Body weight 195.00 [lb_av] 195.00 [lb_av] [facility] ([facility]) Body height 70 [in_i] 70 [in_i] [facility] ([facility]) 5'10" Body mass index (BMI) [Ratio] 28.0 kg/m2 28.0 k g/m2 [facility] ([facility]) Body temperature 96.8 [degF] 96.8 [degF] [facility] ([facility]) Body height 68.75 [in_i] 68.75 [in_i] [facility] ([facility]) 5'8.75" Body weight 196.00 [lb_av] 196.00 [lb_av] [facility] ([facility]) Body mass index (BMI) [Ratio] 29.2 kg/m2 29.2 k g/m2 [facility] ([facility]) Body surface area Derived from formula 2.08 m2 2.08 m2 [facility] ([facility]) Oxygen saturation in Arterial blood by Pulse oximetry 99 % 99 % [facility] ([facility]) Body temperature 97.3 [degF] 97.3 [degF] [facility] Body height 70 [in_i] 70 [in_i] [facility] ([facility]) 5'10" Body weight 199.00 [lb_av] 199.00 [lb_av] [facility] ([facility]) Body mass index (BMI) [Ratio] 28.6 kg/m2 28.6 k g/m2 [facility] ([facility]) Warrior body weight 150 [lb_av] 150 [lb_av] [facility] ([facility]) Body weight 90.266 kg 90.266 kg [facility] ([facility]) Body surface area Derived from formula 2.08 m2 2.08 m2 [facility] ([facility]) Body height 70 [in_i] 70 [in_i] [facility] ([facility]) 5'10" Body weight 199.00 [lb_av] 199.00 [lb_av] [facility] ([facility]) Body mass index (BMI) [Ratio] 28.6 kg/m2 28.6 k g/m2 [facility] ([facility]) Warrior body weight 150 [lb_av] 150 [lb_av] [facility] ([facility]) Systolic blood pressure 132 mm[Hg] 132 mm[Hg] M [facility] ([facility]) Diastolic blood pressure 82 mm[Hg] 82 mm[Hg] [facility] ([facility], ) Heart rate 92 /min 92 /min [facility] ([facility], ) Oxygen saturation in Arterial blood by Pulse oximetry 99 % 99 % [facility] ([facility]) Body temperature 97.3 [degF] 97.3 [degF] [facility] ([facility]) Body weight 90.266 kg 90.266 kg [facility] ([facility]) Systolic blood pressure 126 mm[Hg] 126 mm[Hg] M [facility] ([facility]) Diastolic blood pressure 68 mm[Hg] 68 mm[Hg] [facility] ([facility]) Body height 69.5 [in_i] 69.5 [in_i] [facility] ([facility]) 5'9.50" Body mass index (BMI) [Ratio] 29.0 kg/m2 29.0 k g/m2 [facility] ([facility]) Body weight 199.12 [lb_av] 199.12 [lb_av] [facility] T ([facility]) Heart rate 77 /min 77 /min [...] rate 12 /min 12 /min [facility] ( [facility], ) Body height 70 [in_i] 70 [in_i] [facility] ([facility], ) 5'10" Body weight 195.00 [lb_av] 195.00 [lb_av] [facility] T ([facility], ) Body mass index (BMI) [Ratio] 28.0 kg/m2 28.0 k g/m2 [facility] ([facility], ) Warrior body weight 150 [lb_av] 150 [lb_av] [facility] ([facility], ) Systolic blood pressure 148 mm[Hg] 148 mm[Hg] M [facility] ([facility]) Oxygen saturation in Arterial blood by Pulse oximetry 98 % 98 % [facility] ([facility], [facility]) Body weight 195.00 [lb_av] 195.00 [lb_av] [facility] T ([facility], [facility]) Heart rate 90 /min 90 /min [facility] ([facility]) Body height 70 [in_i] 70 [in_i] [facility] ([facility], [facility]) 5'10" Body mass index (BMI) [Ratio] 28.0 kg/m2 28.0 k g/m2 [facility] ([facility], [facility]) Respiratory rate 16 /min 16 /min [facility] ( [facility], [facility]) Diastolic blood pressure 108 mm[Hg] 108 mm[Hg] [facility] ([facility], [facility]) Oxygen saturation in Arterial blood by Pulse oximetry 98 % 98 % [facility] ([facility], [facility]) Respiratory rate 16 /min 16 /min [facility] ( [facility], [facility]) Body height 70 [in_i] 70 [in_i] [facility] ([facility], [facility]) 5'10" Body mass index (BMI) [Ratio] 28.0 kg/m2 28.0 k g/m2 [facility] ([facility], [facility]) Body temperature 98.5 [degF] 98.5 [degF] [facility] ([facility]) Body weight 195.00 [lb_av] 195.00 [lb_av] [facility] ([facility], [facility]) Systolic blood pressure 138 mm[Hg] 138 mm[Hg] M [facility] ([facility], [facility]) Diastolic blood pressure 90 mm[Hg] 90 mm[Hg] [facility] ([facility]) Heart rate 93 /min 93 /min [facility] ([facility], [facility]) Body weight 202.50 [lb_av] 202.50 [lb_av] [facility] [...]
[2021-03-11 14:21] LABS: BLOOD UREA NITROGEN 9 MG/DL (7-18); CALCIUM LEVEL 9.3 MG/DL (8.8-10.2); CARBON DIOXIDE LEVEL 31 MEQ/L (21-32); CHLORIDE LEVEL 104 MEQ/L (98-107); CREATININE FOR GFR 0.64 MG/DL (0.55-1.30); GLOMERULAR FILTRATION RATE > 60.0 (>39); GLUCOSE, FASTING 103 MG/DL (70-100); POTASSIUM SERUM 4.2 MEQ/L (3.5-5.1); SODIUM LEVEL 138 MEQ/L (136-145)
[2021-03-11] MEDS ORDERED: VANC125C3 PO (15:27)
[2021-03-11 17:22] VITALS: BP 141/82
== END 2021-03-11 17:25 | disposition home or self-care (01) ==
LOC: M ED 11:11
DX: R19.7 Diarrhea, unspecified (principal); B96.7 Clostridium perfringens [C. perfringens] as the cause of diseases classified elsewhere

== ENCOUNTER → 2021-03-18 | Outpatient (CLI) | payer MEDICARE ==
[~2021-03-18] MED LIST changes: +METR-265 PO; +VANC125C3 PO
--- NOTE | 2021-03-18 14:07 | REP ---
INDICATION: MILD INTERMITTENT ASTHMA, UNCOMPLICATED. COMPARISON: Multiple the latest 07/22/2019 TECHNIQUE: PA and lateral FINDINGS: There is a possible new nodule in the right suprahilar region the lung fox are otherwise clear and unchanged. The pleural angles are sharp. The heart is not enlarged. The osseous structures stable and intact. IMPRESSION: Possible new right upper lobe nodule. Contrast-enhanced CT examination of the chest is recommended. <Electronically signed by Chavez Dodson > 03/18/21 [id number]
== END ==
LOC: M RAD 11:01
PROVIDERS: ATTEND Internal Medicine Pulmonary Disease
DX: J45.20 Mild intermittent asthma, uncomplicated (principal); R91.8 Other nonspecific abnormal finding of lung field

== ENCOUNTER → 2021-09-27 | Outpatient (REF) | payer MEDICARE | LOC: M LAB REF 16:24 | PROVIDERS: ATTEND Internal Medicine | DX: F31.9 Bipolar disorder, unspecified (principal) ==

== ENCOUNTER → 2021-11-19 | Outpatient (CLI) | payer MEDICARE | LOC: M WHC 13:21 | PROVIDERS: ATTEND Nurse Practitioner Adult Health | DX: Z12.31 Encounter for screening mammogram for malignant neoplasm of breast (principal); Z85.3 Personal history of malignant neoplasm of breast; Z78.0 Asymptomatic menopausal state; Z92.3 Personal history of irradiation ==

== ENCOUNTER → 2022-01-26 | Outpatient (REF) | payer MEDICARE ==
[~2022-01-26] MED LIST changes: +FISH10005 PO; -FISH7.5C PO
== END ==
LOC: M LAB REF 17:40
PROVIDERS: ATTEND Internal Medicine
DX: R30.0 Dysuria (principal)

== ENCOUNTER → 2022-03-03 | Outpatient (REF) | payer MEDICARE | LOC: M LAB REF 12:32 | PROVIDERS: ATTEND Internal Medicine | DX: F31.9 Bipolar disorder, unspecified (principal) ==

== ENCOUNTER → 2022-03-05 | Outpatient (REF) | payer MEDICARE ==
[2022-03-05 18:16] LABS: FERRITIN 30 NG/ML (8-252); IRON (FE) 106 UG/DL (50-170); PERCENT SATURATION 30.8 % (13.2-45.0); TOTAL IRON BINDING CAPACITY 344 UG/DL (250-450); TOTAL PROTEIN 7.5 GM/DL (6.4-8.2)
[2022-03-05 19:36] LABS: VITAMIN B12 LEVEL 636 PG/ML (247-911)
[2022-03-07 13:01] LABS: ALBUMIN 4.38 GM/DL (3.29-5.55); ALBUMIN % 58.4 % (55.8-66.1); ALPHA-1-GLOBULIN % 4.3 % (2.9-4.9); ALPHA-1-GLOBULINS 0.32 GM/DL (0.17-0.41); ALPHA-2-GLOBULINS 0.69 GM/DL (0.42-0.99); ALPHA-2-GLOBULINS % 9.2 % (7.1-11.8); BETA-1-GLOBULINS 0.44 GM/DL (0.28-0.60); BETA-1-GLOBULINS % 5.8 % (4.7-7.2); BETA-2-GLOBULINS 0.35 GM/DL (0.19-0.55); BETA-2-GLOBULINS % 4.7 % (3.2-6.5); GAMMA GLOBULIN % 17.6 % (11.1-18.8); GAMMA GLOBULINS 1.32 GM/DL (0.65-1.58)
[2022-03-07 17:08] LABS: FREE KAPPA LIGHT CHAINS SERUM 24.9 mg/L (3.3-19.4); FREE LAMBDA LIGHT CHAINS SERUM 14.8 mg/L (5.7-26.3); KAPPA/LAMBDA RATIO SERUM 1.68 (0.26-1.65)
== END ==
LOC: M LAB REF 15:57
PROVIDERS: ATTEND Internal Medicine
DX: R30.0 Dysuria (principal); G60.9 Hereditary and idiopathic neuropathy, unspecified

== ENCOUNTER → 2022-10-23 | Outpatient (REF) | payer MEDICARE ==
[~2022-10-23] MED LIST changes: +FLUT50SP17; -FLUTISP; +MONT-5 PO; -SING10TA32 PO
== END ==
LOC: M LAB REF 11:37
PROVIDERS: ATTEND Internal Medicine
DX: F31.9 Bipolar disorder, unspecified (principal)

== ENCOUNTER → 2022-11-20 | Outpatient (CLI) | payer MEDICARE | LOC: M WHC 12:23 | PROVIDERS: ATTEND Internal Medicine | DX: Z12.31 Encounter for screening mammogram for malignant neoplasm of breast (principal) ==

== ENCOUNTER 2022-12-10 09:00 | Emergency (ER) | payer MEDICARE ==
[~2022-12-10] VITALS: Ht 177.8 cm; Wt 91.0 kg
[2022-12-10] MEDS ORDERED: ONDANSETRON 4MG 2ML VIAL IV ONE (09:20)
[2022-12-10] MEDS ORDERED: NS 1,000 ML IV ONE (09:20)
[2022-12-10] MEDS ORDERED: VERAPAMIL 40 MG TAB PO ONE (09:25)
[2022-12-10 09:39] VITALS: TEMP 98.5
[2022-12-10 10:04] LABS: BASO % 0.5 % (0.0-1.0); EOS % 0.5 % (0.0-3.0); HEMATOCRIT 45.7 % (36.0-47.0); HEMOGLOBIN 16.1 g/dl (12.0-15.5); LYMPH # 1.8 10^3/uL (1.5-5.0); LYMPH % 31.3 % (24.0-44.0); MEAN CORPUSCULAR HEMOGLOBIN 32.8 pg (27.0-33.0); MEAN CORPUSCULAR HGB CONC 35.2 g/dl (32.0-36.5); MEAN CORPUSCULAR VOLUME 93.1 fl (80.0-96.0); MONO # 0.6 10^3/uL (0.0-0.8); MONO % 11.2 % (2.0-8.0); NEUTROPHILS # 3.2 10^3/uL (1.5-8.5); NEUTROPHILS % 56.5 % (36.0-66.0); PLATELET COUNT, AUTOMATED 153 10^3/uL (150-450); RED BLOOD COUNT 4.91 10^6/uL (4.00-5.40); WHITE BLOOD COUNT 5.6 10^3/uL (4.0-10.0)
[2022-12-10 10:19] VITALS: BP 191/88
[2022-12-10 10:32] LABS: LIPASE 29 U/L (12-53)
[2022-12-10 10:33] LABS: ALBUMIN 4.2 G/DL (3.2-5.2); ALKALINE PHOSPHATASE 112 U/L (46-116); ALT/SGPT 23 U/L (7.0-40); AST/SGOT 27 U/L (<34); BILIRUBIN,DIRECT 0.2 MG/DL (<0.4); BILIRUBIN,TOTAL 0.8 MG/DL (0.3-1.2); BLOOD UREA NITROGEN 13 MG/DL (9-23); CALCIUM LEVEL 9.4 MG/DL (8.3-10.6); CARBON DIOXIDE LEVEL 29 MMOL/L (20-31); CHLORIDE LEVEL 96 MMOL/L (98-107); CREATININE FOR GFR 0.71 MG/DL (0.55-1.30); GLOMERULAR FILTRATION RATE > 60.0 (>39); GLUCOSE, FASTING 108 MG/DL (74-106); POTASSIUM SERUM 3.8 MMOL/L (3.5-5.1); SODIUM LEVEL 135 MMOL/L (136-145); TOTAL PROTEIN 7.6 G/DL (5.7-8.2)
[2022-12-10] MEDS ORDERED: TERB250T91 PO (10:36)
[2022-12-10] MEDS ORDERED: AZEL1SPR3 NARES (10:36)
[2022-12-10] MEDS ORDERED: PREG100CA PO (10:36)
[2022-12-10] MEDS ORDERED: FLUT15.820 (10:36)
[2022-12-10] MEDS ORDERED: OMEP-173 (10:36)
[2022-12-10] MEDS ORDERED: LUNE3TAB36 PO (10:36)
[2022-12-10] MEDS ORDERED: PREG150C (10:36)
[2022-12-10 11:05] VITALS: BP 198/107; O2SAT 99
[2022-12-10] MEDS ORDERED: ALPRAZolam 0.5 MG TAB PO ONE (11:15)
[2022-12-10] MEDS ORDERED: ISOVUE-370 76% 100ML VIAL As Ordered ONE (11:24)
[2022-12-10] MEDS ORDERED: XANA0.25 PO (13:07)
== END 2022-12-10 13:51 | disposition home or self-care (01) ==
LOC: EDBD 09:00 → M ED 09:00
DX: R11.2 Nausea with vomiting, unspecified (principal); R19.7 Diarrhea, unspecified; G43.909 Migraine, unspecified, not intractable, without status migrainosus; J45.909 Unspecified asthma, uncomplicated; K21.9 Gastro-esophageal reflux disease without esophagitis; Z85.3 Personal history of malignant neoplasm of breast; Z79.899 Other long term (current) drug therapy; Z88.5 Allergy status to narcotic agent; Z88.8 Allergy status to other drugs, medicaments and biological substances
CPT/HCPCS: 74177; 80048; 80076; 80164; 83605; 83690; 85025; 87507; 93005; 96374; 99284; J2405; Q9967

== ENCOUNTER 2023-01-13 08:38 | Emergency (ER) | payer MEDICARE ==
[~2023-01-13] VITALS: Ht 177.8 cm; Wt 88.6 kg
[~2023-01-13 08:38] MED LIST changes: +AZEL1SPR3 NARES; +FLUT15.820; +LUNE3TAB36 PO; +OMEP-173; +PREG100CA PO; +PREG150C2; -PREG50CA2 PO; +PREG50CA3 PO; +TERB250T91 PO; +XANA0.25 PO
[2023-01-13 09:45] LABS: BASO % 0.9 % (0.0-1.0); EOS # 0.1 10^3/uL (0.0-0.5); EOS % 1.3 % (0.0-3.0); HEMATOCRIT 47.2 % (36.0-47.0); HEMOGLOBIN 16.5 g/dl (12.0-15.5); LYMPH # 1.5 10^3/uL (1.5-5.0); LYMPH % 33.9 % (24.0-44.0); MEAN CORPUSCULAR HEMOGLOBIN 32.7 pg (27.0-33.0); MEAN CORPUSCULAR VOLUME 93.5 fl (80.0-96.0); MONO # 0.6 10^3/uL (0.0-0.8); MONO % 12.7 % (2.0-8.0); NEUTROPHILS # 2.3 10^3/uL (1.5-8.5); PLATELET COUNT, AUTOMATED 167 10^3/uL (150-450); RED BLOOD COUNT 5.05 10^6/uL (4.00-5.40); WHITE BLOOD COUNT 4.5 10^3/uL (4.0-10.0)
[2023-01-13 10:10] LABS: AMYLASE 51 U/L (30-118)
[2023-01-13 10:11] LABS: ALBUMIN 4.1 G/DL (3.2-5.2); ALKALINE PHOSPHATASE 111 U/L (46-116); ALT/SGPT 21 U/L (7.0-40); AST/SGOT 24 U/L (<34); BILIRUBIN,DIRECT 0.2 MG/DL (<0.4); BILIRUBIN,TOTAL 0.7 MG/DL (0.3-1.2); BLOOD UREA NITROGEN 11 MG/DL (9-23); CARBON DIOXIDE LEVEL 30 MMOL/L (20-31); CHLORIDE LEVEL 98 MMOL/L (98-107); CREATININE FOR GFR 0.81 MG/DL (0.55-1.30); GLOMERULAR FILTRATION RATE > 60.0 (>39); GLUCOSE, FASTING 105 MG/DL (74-106); POTASSIUM SERUM 3.5 MMOL/L (3.5-5.1); SODIUM LEVEL 137 MMOL/L (136-145); TOTAL PROTEIN 7.9 G/DL (5.7-8.2)
[2023-01-13] MEDS ORDERED: NS 1,000 ML IV ONE (11:30)
[2023-01-13] MEDS ORDERED: ONDANSETRON 4MG 2ML VIAL IV ONE (12:10)
[2023-01-13 13:28] VITALS: BP 154/86; TEMP 97.8; O2SAT 99
== END 2023-01-13 13:54 | disposition home or self-care (01) ==
LOC: EDBD 08:38 → M ED 08:38
DX: R19.7 Diarrhea, unspecified (principal); E03.9 Hypothyroidism, unspecified; K21.9 Gastro-esophageal reflux disease without esophagitis; Z85.3 Personal history of malignant neoplasm of breast; E78.5 Hyperlipidemia, unspecified; G43.909 Migraine, unspecified, not intractable, without status migrainosus; I44.7 Left bundle-branch block, unspecified; Z88.5 Allergy status to narcotic agent; Z88.8 Allergy status to other drugs, medicaments and biological substances; Z79.899 Other long term (current) drug therapy; Z79.82 Long term (current) use of aspirin
CPT/HCPCS: 80048; 80076; 82150; 85025; 96374; 99284; J2405

== ENCOUNTER → 2023-01-16 | Outpatient (REF) | payer MEDICARE | LOC: M LAB REF 14:21 | PROVIDERS: ATTEND Physician Assistant Medical | DX: R19.7 Diarrhea, unspecified (principal) ==

== ENCOUNTER → 2023-01-26 | Outpatient (REF) | payer MEDICARE ==
[2023-01-26 17:32] LABS: IMMUNOGLOBULIN A 283.7 MG/DL (40-350); IMMUNOGLOBULIN M 45.4 MG/DL (50-300)
[2023-01-26 17:35] LABS: IMMUNOGLOBULIN E 319.7 IU/ML (0-378)
== END ==
LOC: M LAB REF 16:31
PROVIDERS: ATTEND Internal Medicine
DX: D84.9 Immunodeficiency, unspecified (principal); J45.30 Mild persistent asthma, uncomplicated

== ENCOUNTER → 2023-02-02 | Outpatient (CLI) | payer MEDICARE | LOC: M LAB 14:12 | DX: Z53.9 Procedure and treatment not carried out, unspecified reason (principal) ==

== ENCOUNTER 2023-02-24 16:12 | Observation (INO) | payer MEDICARE ==
[~2023-02-24] VITALS: Ht 177.8 cm; Wt 87.0 kg
[~2023-02-24 16:12] MED LIST changes: -LUNE2TAB23 PO; +LUNE2TAB28 PO; -LUNE3TAB36 PO; +LUNE3TAB50 PO
[2023-02-24 18:25] VITALS: BP 168/98; TEMP 97; O2SAT 95
[2023-02-24 19:05] LABS: BASO % 0.8 % (0.0-1.0); EOS % 0.6 % (0.0-3.0); HEMATOCRIT 43.6 % (36.0-47.0); HEMOGLOBIN 15.8 g/dl (12.0-15.5); LYMPH # 1.8 10^3/uL (1.5-5.0); LYMPH % 34.6 % (24.0-44.0); MEAN CORPUSCULAR HEMOGLOBIN 33.9 pg (27.0-33.0); MEAN CORPUSCULAR HGB CONC 36.2 g/dl (32.0-36.5); MEAN CORPUSCULAR VOLUME 93.6 fl (80.0-96.0); MONO # 0.8 10^3/uL (0.0-0.8); MONO % 14.7 % (2.0-8.0); NEUTROPHILS # 2.5 10^3/uL (1.5-8.5); NEUTROPHILS % 49.1 % (36.0-66.0); PLATELET COUNT, AUTOMATED 207 10^3/uL (150-450); RED BLOOD COUNT 4.66 10^6/uL (4.00-5.40); WHITE BLOOD COUNT 5.2 10^3/uL (4.0-10.0)
[2023-02-24] MEDS ORDERED: VANC125C10 PO (19:06)
[2023-02-24] MEDS ORDERED: VERA40TA PO (19:06)
[2023-02-24] MEDS ORDERED: ALPR0.25 PO (19:06)
[2023-02-24] MEDS ORDERED: D 1010002 PO (19:06)
[2023-02-24] MEDS ORDERED: PRESCAP PO (19:06)
[2023-02-24] MEDS ORDERED: SUMA50TA2 PO (19:06)
[2023-02-24] MEDS ORDERED: ALBU6.7H6 INH (19:07)
[2023-02-24] MEDS ORDERED: HOME MED LIST COMPLETE! XX SCH (19:10)
[2023-02-24] MEDS ORDERED: ALBUTEROL 90 MCG/ACT 8GM HFA INHALER INH PRN (19:15)
[2023-02-24] MEDS ORDERED: zolPIDEM TARTRATE 5 MG TAB PO PRN (19:15)
[2023-02-24] MEDS ORDERED: METOCLOPRAMIDE INJ 10MG/2ML VIAL IV ONE (19:20)
[2023-02-24] MEDS ORDERED: KETOROLAC 30 MG/ML 1ML VIAL IV PRN (19:20)
[2023-02-24] MEDS ORDERED: PROMETHAZINE 25MG/ML 1ML VIAL IV PRN (19:20)
[2023-02-24 19:32] LABS: C REACTIVE PROTEIN QUANTITATIV < 0.40 MG/DL (<1.0)
[2023-02-24 19:34] LABS: ALBUMIN 3.9 G/DL (3.2-5.2); ALKALINE PHOSPHATASE 117 U/L (46-116); ALT/SGPT 19 U/L (7.0-40); AST/SGOT 20 U/L (<34); BILIRUBIN,TOTAL 0.7 MG/DL (0.3-1.2); BLOOD UREA NITROGEN 12 MG/DL (9-23); CALCIUM LEVEL 9.9 MG/DL (8.3-10.6); CARBON DIOXIDE LEVEL 30 MMOL/L (20-31); CHLORIDE LEVEL 98 MMOL/L (98-107); CREATININE FOR GFR 0.75 MG/DL (0.55-1.30); GLOMERULAR FILTRATION RATE > 60.0 (>39); GLUCOSE, FASTING 110 MG/DL (74-106); MAGNESIUM LEVEL 1.8 MG/DL (1.8-2.4); POTASSIUM SERUM 3.6 MMOL/L (3.5-5.1); SODIUM LEVEL 137 MMOL/L (136-145); TOTAL PROTEIN 7.4 G/DL (5.7-8.2)
[2023-02-24 19:48] LABS: THYROID STIMULATING HORMONE 2.475 uIU/ML (0.55-4.78)
[2023-02-24] MEDS ORDERED: OMEPRAZOLE 20MG CAP PO SCH (21:00)
[2023-02-24] MEDS ORDERED: ATORVASTATIN 20 MG TAB PO SCH (21:00)
[2023-02-24] MEDS ORDERED: PREGABALIN 100 MG CAP (LYRICA) PO SCH (21:00)
[2023-02-24] MEDS ORDERED: MONTELUKAST 10 MG TAB PO SCH (21:00)
[2023-02-24] MEDS ORDERED: DIVALPROEX 250MG *ER* TAB PO SCH (21:00)
[2023-02-24] MEDS: VANCOMYCIN ORAL SOL 250MG/5ML ORAL SYRINGE PO SCH (21:33)
[2023-02-24] MEDS: LR 1,000 ML IV SCH (21:34)
[2023-02-24] MEDS: VERAPAMIL 40 MG TAB PO SCH (21:34)
[2023-02-24] MEDS: ALPRAZolam 0.25 MG TAB PO PRN (21:47)
[2023-02-24] MEDS: SUMAtriptan SUCCINATE 25 MG TAB PO PRN (22:43)
[2023-02-24 23:33] VITALS: BP 160/96; TEMP 96.6; O2SAT 94
[2023-02-25 03:18] VITALS: BP 116/68; TEMP 96.6; O2SAT 98
[2023-02-25 05:11] LABS: HEMATOCRIT 42.3 % (36.0-47.0); MEAN CORPUSCULAR HEMOGLOBIN 32.8 pg (27.0-33.0); MEAN CORPUSCULAR HGB CONC 35.5 g/dl (32.0-36.5); MEAN CORPUSCULAR VOLUME 92.4 fl (80.0-96.0); PLATELET COUNT, AUTOMATED 182 10^3/uL (150-450); RED BLOOD COUNT 4.58 10^6/uL (4.00-5.40); WHITE BLOOD COUNT 6.6 10^3/uL (4.0-10.0)
[2023-02-25 05:31] LABS: BLOOD UREA NITROGEN 13 MG/DL (9-23); CALCIUM LEVEL 9.1 MG/DL (8.3-10.6); CARBON DIOXIDE LEVEL 30 MMOL/L (20-31); CHLORIDE LEVEL 100 MMOL/L (98-107); CREATININE FOR GFR 0.67 MG/DL (0.55-1.30); GLOMERULAR FILTRATION RATE > 60.0 (>39); GLUCOSE, FASTING 94 MG/DL (74-106); POTASSIUM SERUM 3.5 MMOL/L (3.5-5.1); SODIUM LEVEL 137 MMOL/L (136-145)
[2023-02-25] MEDS ORDERED: LEVOTHYROXINE 50MCG TABLET (0.05MG) PO SCH (06:00)
[2023-02-25] MEDS: LR 1,000 ML IV SCH (07:42)
[2023-02-25 08:00] VITALS: BP 158/93; TEMP 96.8; O2SAT 95
[2023-02-25] MEDS ORDERED: TIOTROPIUM INHALER/CAPSULE (SPIRIVA) INH SCH (08:00)
[2023-02-25] MEDS ORDERED: PREGABALIN 75 MG CAP(LYRICA) PO SCH (09:00)
[2023-02-25] MEDS ORDERED: ASPIRIN 81MG ENTERIC TABLET PO SCH (09:00)
[2023-02-25] MEDS ORDERED: CEFDINIR 300 MG CAP (OMNICEF) PO SCH (09:00)
[2023-02-25] MEDS ORDERED: OMEGA-3 1000MG CAPSULE PO SCH (09:00)
[2023-02-25] MEDS ORDERED: amLODIPine 5 MG TAB PO SCH (09:00)
[2023-02-25] MEDS ORDERED: MULTIVITAMINS/MINERALS THERAP 1 TAB PO SCH (09:00)
[2023-02-25] MEDS ORDERED: ENOXAPARIN 40MG/0.4ML SYRINGE (J1650 PER 10MG) SC SCH (09:00)
[2023-02-25] MEDS: VANCOMYCIN ORAL SOL 250MG/5ML ORAL SYRINGE PO SCH ×2 (09:44→12:36)
[2023-02-25] MEDS: ALPRAZolam 0.25 MG TAB PO PRN (09:45)
[2023-02-25] MEDS: VERAPAMIL 40 MG TAB PO SCH (09:45)
[2023-02-25] MEDS ORDERED: ACETAMINOPHEN TAB 650MG DOSE (2X325MG) PO PRN (11:35)
[2023-02-25] MEDS: SUMAtriptan SUCCINATE 25 MG TAB PO PRN (11:55)
[2023-02-25 12:00] VITALS: TEMP 96.5; O2SAT 100
[2023-02-25 12:26] VITALS: BP 158/90
[2023-02-25] MEDS ORDERED: NORV5TAB PO (12:27)
[2023-02-25 12:36] VITALS: BP 158/90
[2023-02-25 13:58] VITALS: BP_SYST 145; BP_SYST 172; BP_DIAS 102; BP_DIAS 75
[2023-02-25] MEDS ORDERED: CEFD300C42 PO (14:16)
[2023-02-25] MEDS ORDERED: PROB250C PO (14:16)
[2023-02-25 18:40] LABS: PROCALCITONIN <0.04 ng/ml
[2023-02-25 18:41] LABS: PROCALCITONIN <0.04 ng/ml
== END 2023-02-25 16:00 | disposition home health service (06) ==
LOC: INTOOBSV 16:54 → M PCU 16:54
PROVIDERS: ADMIT Internal Medicine; ATTEND Internal Medicine
DX: R11.2 Nausea with vomiting, unspecified (principal); R19.7 Diarrhea, unspecified; R30.0 Dysuria; J45.909 Unspecified asthma, uncomplicated; I10 Essential (primary) hypertension; E78.5 Hyperlipidemia, unspecified; E03.9 Hypothyroidism, unspecified; Z86.73 Personal history of transient ischemic attack (TIA), and cerebral infarction without residual deficits; G43.909 Migraine, unspecified, not intractable, without status migrainosus; F39 Unspecified mood [affective] disorder; F41.9 Anxiety disorder, unspecified; G47.00 Insomnia, unspecified; G62.9 Polyneuropathy, unspecified; K21.9 Gastro-esophageal reflux disease without esophagitis; A04.71 Enterocolitis due to Clostridium difficile, recurrent; R82.90 Unspecified abnormal findings in urine; Z88.5 Allergy status to narcotic agent; Z88.8 Allergy status to other drugs, medicaments and biological substances; Z79.899 Other long term (current) drug therapy; Z79.82 Long term (current) use of aspirin; Z79.890 Hormone replacement therapy
CPT/HCPCS: 36415; 80048; 80053; 81001; 83605; 83735; 84145; 84443; 85025; 85027; 86140; 87088; 87635; 94640; 96361; 96372; 96374; G0378; J1650; J2765

== ENCOUNTER → 2023-02-26 | Outpatient (REF) | payer MEDICARE ==
[~2023-02-26] MED LIST changes: +ALBU6.7H6 INH; +ALPR0.25 PO; +CEFD300C42 PO; +D 1010002 PO; +NORV5TAB PO; +PROB250C PO; +SUMA50TA2 PO; +VANC125C10 PO
== END ==
LOC: M LAB REF 15:21
PROVIDERS: ATTEND Internal Medicine
DX: R19.7 Diarrhea, unspecified (principal)

== ENCOUNTER → 2023-03-13 | Outpatient (REF) | payer MEDICARE | LOC: M LAB REF 10:31 | PROVIDERS: ATTEND Internal Medicine Gastroenterology | DX: R19.7 Diarrhea, unspecified (principal) ==

== ENCOUNTER 2023-03-18 13:04 | Day surgery (SDC) | payer MEDICARE ==
[~2023-03-18] VITALS: Ht 177.8 cm; Wt 88.5 kg
[~2023-03-18 13:04] MED LIST changes: +NS 1,000 ML IV ONE
[2023-03-18 15:03] VITALS: TEMP 98.1
[2023-03-18] MEDS ORDERED: LIDOCAINE 2% 100MG/5ML SDV (FOR ANES.) As Ordered ONE (15:09)
[2023-03-18] MEDS ORDERED: propofoL 200 MG/20 ML VIAL As Ordered ONE (15:09)
[2023-03-18 15:25] VITALS: BP 140/70; O2SAT 99
== END 2023-03-18 15:25 | disposition home or self-care (01) ==
LOC: M OPP 13:04
PROVIDERS: ATTEND Internal Medicine Gastroenterology
DX: Z86.010 Personal history of colon polyps (principal); D12.6 Benign neoplasm of colon, unspecified; K64.0 First degree hemorrhoids; K57.30 Diverticulosis of large intestine without perforation or abscess without bleeding; K52.89 Other specified noninfective gastroenteritis and colitis; Z79.02 Long term (current) use of antithrombotics/antiplatelets; Z79.51 Long term (current) use of inhaled steroids; Z79.52 Long term (current) use of systemic steroids; Z79.82 Long term (current) use of aspirin; Z79.83 Long term (current) use of bisphosphonates; Z79.890 Hormone replacement therapy; Z79.899 Other long term (current) drug therapy; Z88.1 Allergy status to other antibiotic agents; Z88.5 Allergy status to narcotic agent

== ENCOUNTER → 2023-03-23 | Outpatient (CLI) | payer MEDICARE ==
[~2023-03-23] MED LIST changes: +ISOVUE-300 61% 100ML VIAL As Ordered ONE; +LIDOCAINE 1% MDV 20ML VIAL As Ordered ONE; -NS 1,000 ML IV ONE; +methylPREDNISolone SUSP 40MG/ML 1ML VIAL (DEPO MEDROL) As Ordered ONE
== END ==
LOC: M RAD 14:47
PROVIDERS: ATTEND Physician Assistant
DX: M19.071 Primary osteoarthritis, right ankle and foot (principal)
CPT/HCPCS: 20600; 77002; J1030; Q9967

== ENCOUNTER → 2023-11-05 | Outpatient (REF) | payer MEDICARE ==
[~2023-11-05] MED LIST changes: +CEFD1CAP9 PO; -CEFD300C42 PO; +DOXY-323; -DOXY-443; -FLUT50SP17; +FLUTISP; -ISOVUE-300 61% 100ML VIAL As Ordered ONE; -LIDOCAINE 1% MDV 20ML VIAL As Ordered ONE; -VANC125C10 PO; +VANC125C12 PO; -methylPREDNISolone SUSP 40MG/ML 1ML VIAL (DEPO MEDROL) As Ordered ONE
== END ==
LOC: M LAB REF 17:41
PROVIDERS: ATTEND Internal Medicine
DX: F31.9 Bipolar disorder, unspecified (principal)

== ENCOUNTER → 2023-11-09 | Outpatient (REF) | payer MEDICARE ==
[2023-11-09 19:17] LABS: C REACTIVE PROTEIN QUANTITATIV < 0.40 MG/DL (<1.0)
[2023-11-09 19:23] LABS: URIC ACID 4.8 MG/DL (3.1-7.8)
[2023-11-11 12:28] LABS: ANA SCREEN, IFA NEGATIVE (NEGATIVE)
[2023-11-11 14:47] LABS: CYCLIC CITRULLINATED PEPTIDE < 16 UNITS (<20)
== END ==
LOC: M LAB REF 16:13
PROVIDERS: ATTEND Internal Medicine
DX: M15.9 Polyosteoarthritis, unspecified (principal); N39.0 Urinary tract infection, site not specified

== ENCOUNTER → 2023-11-23 | Outpatient (CLI) | payer MEDICARE | LOC: M WHC 14:51 | PROVIDERS: ATTEND Internal Medicine | DX: Z12.31 Encounter for screening mammogram for malignant neoplasm of breast (principal) ==

== ENCOUNTER → 2023-11-24 | Outpatient (CLI) | payer MEDICARE | LOC: M LAB 11:45 | PROVIDERS: ATTEND Internal Medicine | DX: R19.7 Diarrhea, unspecified (principal); R10.30 Lower abdominal pain, unspecified ==

== ENCOUNTER → 2024-02-19 | Outpatient (CLI) | payer MEDICARE ==
[~2024-02-19] MED LIST changes: -DOXY-323; +DOXY-441
== END ==
LOC: M RAD 08:16
PROVIDERS: ATTEND Internal Medicine
DX: K76.0 Fatty (change of) liver, not elsewhere classified (principal)

== ENCOUNTER → 2024-11-16 | Outpatient (REF) | payer MEDICARE ==
[~2024-11-16] MED LIST changes: +DEPA250T PO; -DEPA250T2 PO; -DEPA250T32 PO; +DIVA-65 PO; +PREG-35 PO; -PREG100CA PO; -PREG25CA PO; +PREG25CA63 PO; +VANC125C13 PO; -VANC125C3 PO
== END ==
LOC: M LAB REF 13:54
PROVIDERS: ATTEND Internal Medicine
DX: N39.0 Urinary tract infection, site not specified (principal)

== ENCOUNTER → 2024-11-16 | Outpatient (CLI) | payer MEDICARE ==
[2024-11-21 16:12] LABS: LYME TOTAL ANTIBODY CIA <= 0.90 Index (<=0.90)
== END ==
LOC: M WUC 09:57
PROVIDERS: ATTEND Nurse Practitioner Family
DX: R05.9 Cough, unspecified (principal); R53.83 Other fatigue

== ENCOUNTER → 2024-11-16 | Outpatient (CLI) | payer MEDICARE | LOC: M WUC 09:01 | PROVIDERS: ATTEND Nurse Practitioner Family | DX: R05.9 Cough, unspecified (principal) ==

== ENCOUNTER → 2024-11-24 | Outpatient (CLI) | payer MEDICARE | LOC: M WHC 12:48 | PROVIDERS: ATTEND Internal Medicine | DX: Z12.31 Encounter for screening mammogram for malignant neoplasm of breast (principal); R92.313 Mammographic fatty tissue density, bilateral breasts ==

== ENCOUNTER → 2025-02-22 | Outpatient (CLI) | payer MEDICARE ==
[~2025-02-22] MED LIST changes: +CALC-134 PO; -CALCTAB17 PO; +ISOVUE-300 61% 100 ML VIAL As Ordered ONE; +LIDOCAINE 1% MDV 20 ML VIAL As Ordered ONE; +methylPREDNISolone SUSP 40 MG/ML 1 ML VIAL As Ordered ONE
== END ==
LOC: M RAD 14:45
PROVIDERS: ATTEND Physician Assistant
DX: M19.071 Primary osteoarthritis, right ankle and foot (principal)
CPT/HCPCS: 20605; 77002; J1010; Q9967